=== PATIENT | male | born 1950 | race Caucasian/White ===

== ENCOUNTER 2019-11-28 10:08 | Outpatient (REF) | payer OTHER, SELFPAY ==
--- NOTE | 2019-11-28 10:08 | CT_ITS ---
EXAMINATION: CT CHEST WITHOUT CONTRAST CLINICAL INFORMATION: Pulmonary nodules. COMPARISON: 07/26/2019 and 11/20/2018 TECHNIQUE: Multidetector volumetric CT imaging of the chest was done. Axial MIP volume rendering provided. Sagittal and coronal reformatted images were obtained. This CT examination was performed using dose optimization techniques as appropriate, variously including the following: *Automated exposure control *Adjustment of mA and/or kV according to patient size (this includes techniques or standardized protocols for targeted exams where dose is matched to indication/reason for exam; i.e. extremities or head) *Use of iterative reconstruction technique DLP: 180 mGy-cm FINDINGS: LUNGS: There are changes of centrilobular and paraseptal emphysema present bilaterally. There is some bronchial wall thickening seen bilaterally. This could be related to respiratory bronchiolitis associated interstitial lung disease from smoking as well as other inflammatory or infectious etiologies. Central airways are patent. There is some right apical pleural-parenchymal scarring present. There is a region of atelectasis or scarring with cylindrical bronchiectasis seen within the right middle lobe. There is a discoid region of atelectasis or scarring seen within the lingula. There are a few scattered sub-4 mm noncalcified densities present such as within the left upper lobe on image 128 of 629. MEDIASTINUM: Visualized portions of the thyroid gland appear unremarkable. Heart normal size. Coronary artery calcifications seen. There is nonocclusive plaque seen within the thoracic aorta. No pericardial effusion. The ascending thoracic aorta is prominent at 4 cm in diameter. No mediastinal or hilar lymphadenopathy. PLEURA: There is no pleural effusion. Pleural scarring seen right apex. AXILLA: No lymphadenopathy. UPPER ABDOMEN: There is fatty infiltration of the liver. No adrenal gland mass. OSSEOUS STRUCTURES: No suspicious destructive bony lesions. CT/CT chest wo con IMPRESSION: Changes of centrilobular and paraseptal emphysema with stable right apical scarring. Bronchial wall thickening with some regions of bronchiectasis which may be related to bronchiolitis-associated interstitial lung disease from smoking versus inflammatory or other infectious processes. No suspicious lung nodules. Prominent ascending thoracic aorta at 4 cm in diameter. Fatty infiltration liver.
== END 2019-11-28 10:09 | disposition home or self-care (01) ==
LOC: HO.CT 10:08
PROVIDERS: PCP Nurse Practitioner Family; Visit Provider Internal Medicine Pulmonary Disease
DX: R91.8 Other nonspecific abnormal finding of lung field (principal)
CPT/HCPCS: 71250

== ENCOUNTER → 2019-12-25 14:36 | Outpatient (BNVA) | payer OTHER, SELFPAY | PROVIDERS: PCP Nurse Practitioner Family; Visit Provider Urology | DX: N48.1 Balanitis (principal); R81 Glycosuria; R35.1 Nocturia; N28.1 Cyst of kidney, acquired; N20.0 Calculus of kidney | CPT/HCPCS: 81002; 99212 ==

== ENCOUNTER → 2020-02-05 15:12 | Outpatient (BNVA) | payer OTHER, SELFPAY | PROVIDERS: Visit Provider Urology | DX: Z76.89 Persons encountering health services in other specified circumstances (principal) ==

== ENCOUNTER 2020-04-24 10:30 | Outpatient (REF) | payer OTHER, SELFPAY ==
--- NOTE | ~2020-04-24 | CT_ITS ---
EXAMINATION: CT CHEST WITHOUT CONTRAST CLINICAL INFORMATION: Pulmonary nodule. COMPARISON: 11/28/2019 CT chest TECHNIQUE: Multidetector volumetric CT imaging of the chest was done. Axial MIP volume rendering provided. Sagittal and coronal reformatted images were obtained. This CT examination was performed using dose optimization techniques as appropriate, variously including the following: *Automated exposure control *Adjustment of mA and/or kV according to patient size (this includes techniques or standardized protocols for targeted exams where dose is matched to indication/reason for exam; i.e. 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 LUNGS: There is paraseptal and centrilobular emphysema most prominent in the upper lobes. There is a thick right apical parenchymal scar with apical pleural thickening. There is minimal left apical scar, as well. There is bilateral upper and lower lobe bronchial wall thickening secondary to inflammatory process or smoking. There is right middle lobe consolidation/atelectasis with minimal bronchiectasis, similar to previous study. There is patchy atelectasis or scarring in the lingula. MEDIASTINUM: The thyroid lobes are symmetrical and normal. The heart size is normal caliber. No pericardial effusion seen. There are coronary artery calcifications present. The central trachea and the bronchi are widely patent. PLEURA: There is no pleural effusion, thickening or calcification. AXILLA: No lymphadenopathy. UPPER ABDOMEN: There is partial fatty infiltration of the liver. Otherwise, the rest of the visualized liver, spleen, pancreas, and bilateral adrenal glands appear unremarkable. OSSEOUS STRUCTURES: There is minimal ventral spondylosis dorsal spine. CT/CT chest wo con IMPRESSION: Paraseptal and centrilobular emphysema with chronic bilateral apical pleural and parenchymal thickening and scarring. Diffuse bilateral bronchial wall thickening likely inflammatory process or chronic smoking. Mild consolidation/atelectasis right middle lobe with minimal bronchiectasis.
== END 2020-04-24 10:31 | disposition home or self-care (01) ==
LOC: HO.CT 10:30
PROVIDERS: PCP Nurse Practitioner Family; Visit Provider Internal Medicine Pulmonary Disease
DX: R91.8 Other nonspecific abnormal finding of lung field (principal)
CPT/HCPCS: 71250

== ENCOUNTER → 2020-05-01 10:17 | Outpatient (BNVA) | payer OTHER, SELFPAY | PROVIDERS: PCP Nurse Practitioner Family; Visit Provider Internal Medicine Pulmonary Disease | DX: J44.9 Chronic obstructive pulmonary disease, unspecified (principal); G47.33 Obstructive sleep apnea (adult) (pediatric); R91.8 Other nonspecific abnormal finding of lung field; Z99.89 Dependence on other enabling machines and devices | CPT/HCPCS: 99212 ==

== ENCOUNTER → 2020-10-16 10:01 | Outpatient (BNVA) | payer OTHER, SELFPAY | PROVIDERS: PCP Internal Medicine Endocrinology, Diabetes & Metabolism; Visit Provider Internal Medicine Pulmonary Disease | DX: J44.9 Chronic obstructive pulmonary disease, unspecified (principal); J30.9 Allergic rhinitis, unspecified; G47.33 Obstructive sleep apnea (adult) (pediatric); R91.8 Other nonspecific abnormal finding of lung field; Z99.89 Dependence on other enabling machines and devices | CPT/HCPCS: 99212 ==

== ENCOUNTER → 2021-03-03 11:20 | Outpatient (BNVA) | payer OTHER, SELFPAY | PROVIDERS: PCP Internal Medicine Endocrinology, Diabetes & Metabolism; Visit Provider Urology | DX: N40.1 Benign prostatic hyperplasia with lower urinary tract symptoms (principal); N13.8 Other obstructive and reflux uropathy; N48.1 Balanitis; R31.29 Other microscopic hematuria | CPT/HCPCS: 99212 ==

== ENCOUNTER 2021-04-08 10:33 | Outpatient (REF) | payer OTHER, SELFPAY ==
--- NOTE | ~2021-04-08 | CT_ITS ---
EXAMINATION: CT CHEST WITHOUT CONTRAST CLINICAL INFORMATION: Follow-up pulmonary nodules COMPARISON: Previous chest CT April 2020 TECHNIQUE: Multidetector volumetric CT imaging of the chest was done. Axial MIP volume rendering provided. Sagittal and coronal reformatted images were obtained. This CT examination was performed using dose optimization techniques as appropriate, variously including the following: *Automated exposure control *Adjustment of mA and/or kV according to patient size (this includes techniques or standardized protocols for targeted exams where dose is matched to indication/reason for exam; i.e. extremities or head) *Use of iterative reconstruction technique DLP: 228 mGy-cm FINDINGS: LUNGS: There is evidence of severe emphysema. There are innumerable small lung cysts seen, largest measuring 1.7 cm in the right lower lobe. There is biapical pleural and parenchymal scarring, right greater than left, that is stable. There is atelectasis or consolidation in the right middle lobe and lingula and mild focal bronchiectasis that is stable. There is evidence of airways disease seen in the bilateral lower lobes, right greater than left, with bronchial wall thickening and some bronchial soft tissue opacification on the right. There is a tiny 1 to 2 mm calcified right upper upper lobe nodule, axial image 254 series 5, that is stable. No new pulmonary nodule is seen. MEDIASTINUM: There is coronary artery calcification. The mediastinum is otherwise normal. PLEURA: There is no pleural effusion. No pleural mass or thickening. AXILLA: No lymphadenopathy. UPPER ABDOMEN: There are bilateral renal cysts. OSSEOUS STRUCTURES: There are degenerative changes of the spine. CT/CT chest wo con IMPRESSION: Emphysema and cystic changes. Stable findings of right upper lobe scarring, atelectasis and consolidation in the right middle lobe and lingula, and airways disease in the bilateral lower lobes, right greater than left. Fleischner guidelines were followed.
== END 2021-04-08 10:34 | disposition home or self-care (01) ==
LOC: HO.CT 10:33
PROVIDERS: PCP Internal Medicine Endocrinology, Diabetes & Metabolism; Visit Provider Internal Medicine Pulmonary Disease
DX: R91.8 Other nonspecific abnormal finding of lung field (principal)
CPT/HCPCS: 71250

== ENCOUNTER → 2021-04-13 10:32 | Outpatient (BNVA) | payer OTHER, SELFPAY | PROVIDERS: PCP Nurse Practitioner Family; Visit Provider Internal Medicine Pulmonary Disease | DX: J44.9 Chronic obstructive pulmonary disease, unspecified (principal); R91.8 Other nonspecific abnormal finding of lung field; G47.33 Obstructive sleep apnea (adult) (pediatric); J30.9 Allergic rhinitis, unspecified; Z87.891 Personal history of nicotine dependence; Z99.89 Dependence on other enabling machines and devices; Z79.899 Other long term (current) drug therapy | CPT/HCPCS: 99212 ==

== ENCOUNTER → 2021-10-21 10:30 | Outpatient (BNVA) | payer OTHER, SELFPAY | PROVIDERS: PCP Nurse Practitioner Family; Visit Provider Internal Medicine Pulmonary Disease | DX: J44.9 Chronic obstructive pulmonary disease, unspecified (principal); G47.33 Obstructive sleep apnea (adult) (pediatric); R91.8 Other nonspecific abnormal finding of lung field; Z99.89 Dependence on other enabling machines and devices | CPT/HCPCS: 99212 ==

== ENCOUNTER 2022-02-24 09:23 | Outpatient (REF) | payer OTHER, SELFPAY ==
[2022-02-24 11:27] LABS: Prostate Specific Antigen 0.26 ng/mL (<0.05-4.0)
== END 2022-02-24 09:24 | disposition home or self-care (01) ==
LOC: HO.LAB 09:23
PROVIDERS: PCP Nurse Practitioner Family; Visit Provider Urology
DX: N40.1 Benign prostatic hyperplasia with lower urinary tract symptoms (principal); N13.8 Other obstructive and reflux uropathy; Z12.5 Encounter for screening for malignant neoplasm of prostate
CPT/HCPCS: 36415; 84153

== ENCOUNTER → 2022-03-03 10:35 | Outpatient (BNVA) | payer OTHER, SELFPAY | PROVIDERS: PCP Nurse Practitioner Family; Visit Provider Urology | DX: N40.1 Benign prostatic hyperplasia with lower urinary tract symptoms (principal); N13.8 Other obstructive and reflux uropathy; N48.1 Balanitis | CPT/HCPCS: 99212 ==

== ENCOUNTER 2022-04-14 08:59 | Outpatient (REF) | payer OTHER, SELFPAY ==
--- NOTE | ~2022-04-14 | CT_ITS ---
EXAMINATION: CT CHEST WITHOUT CONTRAST CLINICAL INFORMATION: Abnormal lung findings. COMPARISON: CT chest 04/08/2021. TECHNIQUE: Multidetector volumetric CT imaging of the chest was done. Axial MIP volume rendering provided. Sagittal and coronal reformatted images were obtained. This CT examination was performed using dose optimization techniques as appropriate, variously including the following: *Automated exposure control *Adjustment of mA and/or kV according to patient size (this includes techniques or standardized protocols for targeted exams where dose is matched to indication/reason for exam; i.e. extremities or head) *Use of iterative reconstruction technique DLP: 201 mGy-cm FINDINGS: [employer] COUNSEL: Well-expanded lungs. LUNGS: There is centrilobular emphysema with bilateral apical pleural/parenchymal scarring slightly greater on the right than left. There are multiple bilateral cysts largest in the right lung apex. There is 2 mm nodule right lower lobe axial image 255/5. Mild atelectatic changes right middle lobe and right lower lobe, stable. There is bilateral bronchial wall thickening and mild bronchiectasis in both lower lobes, right middle lobe and lingula. MEDIASTINUM: The thyroid lobes are symmetric and normal. Central trachea and the bronchi are widely patent. Heart size and the great vessels are normal caliber. There are small shotty lymph nodes in the mediastinum. There is no pericardial effusion seen. CORONARY ARTERY CALCIFICATION: Mild coronary artery calcifications are present. PLEURA: There is no pleural effusion, thickening or calcification. AXILLA: No abnormal lymph node seen in bilateral axilla. UPPER ABDOMEN: Visualized liver, spleen, pancreas and bilateral adrenal glands are unremarkable. There are no radiopaque gallstones seen. OSSEOUS STRUCTURES: No aggressive lytic or sclerotic process seen. There is mild ventral spondylosis. CT/CT chest wo IV con IMPRESSION: 1. Stable 2 mm nodule right lower lobe. 2. Centrilobular emphysema with bilateral apical pleural/parenchymal scarring. 3. There is bilateral bronchial wall thickening and mild bronchiectasis in both lower lobes, right middle lobe and lingula. 4. No abnormal mediastinal or axillary lymph nodes seen. Fleischner guidelines were followed.
== END 2022-04-14 09:00 | disposition home or self-care (01) ==
LOC: HO.CT 08:59
PROVIDERS: Visit Provider Internal Medicine Pulmonary Disease
DX: R91.8 Other nonspecific abnormal finding of lung field (principal)
CPT/HCPCS: 71250

== ENCOUNTER → 2022-04-15 10:09 | Outpatient (BNVA) | payer OTHER, SELFPAY | PROVIDERS: PCP Nurse Practitioner Family; Visit Provider Internal Medicine Pulmonary Disease | DX: J44.9 Chronic obstructive pulmonary disease, unspecified (principal); R91.8 Other nonspecific abnormal finding of lung field; G47.33 Obstructive sleep apnea (adult) (pediatric); Z99.89 Dependence on other enabling machines and devices | CPT/HCPCS: 99212 ==

== ENCOUNTER 2022-10-21 10:04 | Outpatient (REF) | payer OTHER, SELFPAY ==
[2022-10-21 10:32] LABS: MANUAL DIFF FLAG NO
[2022-10-21 11:06] LABS: Basophils Absolute Auto 0.1 X10*3/uL (0.0-0.2); Basophils Percent Auto 0.4 % (0-2); Eosinophils Absolute Auto 0.3 X10*3/uL (0.0-0.4); Eosinophils Percent Auto 2.6 % (0-4); Hematocrit 45.5 % (42.0-52.0); Imm Gran Abs Auto 0.05 X10*3/uL (0.00-0.03); Imm Gran Pct Auto 0.4 % (0.0-0.4); Lymphocytes Percent Auto 8.9 % (20-40); Mean Corpuscular Hemoglobin 31.2 pg (27.0-33.0); Mean Corpuscular Volume 94.6 fL (80.0-98.0); Mean Platelet Volume 9.6 fL (9.4-12.4); Monocytes Absolute Auto 0.8 X10*3/uL (0.1-1.2); Monocytes Percent Auto 6.6 % (2-11); Neutrophils Absolute Auto 9.2 x10*3/uL (2.0-8.3); Neutrophils Percent Auto 81.1 % (45-73); Platelet Count 266 X10*3/uL (160-400); Red Blood Count 4.81 X10*6/uL (4.60-5.80); Red Cell Distribution Width 12.5 % (11.0-16.0); White Blood Count 11.4 X10*3/uL (4.8-10.8)
== END 2022-10-21 10:05 | disposition home or self-care (01) ==
LOC: HO.LAB 10:04
PROVIDERS: PCP Nurse Practitioner Family; Visit Provider Internal Medicine Pulmonary Disease
DX: J44.9 Chronic obstructive pulmonary disease, unspecified (principal); R91.8 Other nonspecific abnormal finding of lung field; J30.9 Allergic rhinitis, unspecified; G47.33 Obstructive sleep apnea (adult) (pediatric); Z91.09 Other allergy status, other than to drugs and biological substances; Z99.89 Dependence on other enabling machines and devices
CPT/HCPCS: 36415; 82785; 85025; 86003; 99212

== ENCOUNTER 2022-10-21 10:04 | Outpatient (AMB) | payer OTHER, SELFPAY ==
[2022-10-21 10:06] VITALS: BP 111/62; PULSE 82; O2SAT 955; BMI 31.1
--- NOTE | 2022-10-21 10:06 | A.OFFVIS_ITS ---
Intake Vital Signs 10/21/22 10:06 Height 5 ft 6 in Weight 192 lb 14.472 oz BMI 31.1 BP 111/62 Blood Pressure Location Lt brachial Position Sitting Pulse 82 Pulse Source Doppler Pulse Oximetry (%) 955 H Oxygen Delivery Method Room Air Intake Visit Reasons: COPD Allergies No Known Allergies Allergy (Verified 10/21/22 10:09) HPI COPD HPI Details 72-year-old gentleman, former greater th an 40 pack-year smoker, quit 2012, followed for moderate to severe COPD, pulmonary nodules, and JONAH on CPAP. Patient continues to use his CPAP with good symptomatic control of his underlying sleep apnea.? He has been using Stiolto, Asmanex, and albuterol MDI with reasonable control of his symptoms. At the last office visit his been started on theophylline, however he was not able to get refills. He denies recent COPD exacerbations. He does complain of worsening allergic symptoms now ot controlled on Flonase. Review of Systems Const Denies daytime sleepiness, Denies excessive sweating, Denies fatigue, Denies fever(s), Denies lethargy, Denies malaise, Denies night sweats, Denies snoring and Denies weight loss Eyes Denies blurry vision and Denies itchy eyes ENT Reports nasal congestion, Reports post nasal drip, Denies sinus pain, Denies sinus pressure and Denies other ( Thrush) Card Denies chest pain, Denies pedal edema, Denies dyspnea, Denies orthopnea and Denies paroxysmal nocturnal dyspnea Resp Denies cough, Denies hemoptysis, Denies excessive phlegm production, Denies dyspnea, Denies snoring and Denies wheezing GI Denies abdominal pain and Denies heartburn Musc Denies myalgias, Denies arthralgias and Denies joint swelling Skin/Breast Denies rash Neuro Denies memory loss and Denies seizure-like activity Psych Denies abnormal sleep pattern, Denies anxiety and Denies memory loss Endo Denies excessive sweating, Denies fatigue and Denies heat intolerance Bogdan/Lymph Denies easy bruising Aller/Immun Denies itchy eyes, Denies seasonal rhinorrhea and Denies wheezing Physical Exam Vital Signs: Last Vital Signs Pulse 82 10/21/22 10:06 BP 111/62 10/21/22 10:06 Pulse Ox 955 H 10/21/22 10:06 Oxygen Delivery Method Room Air 10/21/22 10:06 BMI result Body Mass Index 31.1 Const General: no acute distress and alert Nutritional Appearance: not obese Orientation/consciousness: Other orientation findings ( oriented) HEENT Head: Yes atraumatic Eyes General: appearance normal, both eyes and all related structures Sclerae: sclerae normal EOM: EOMs intact bilaterally Neck Neck: Yes supple Lymphatic: no lymphadenopathy noted Resp Effort & Inspection: normal respiratory effort and no use of accessory muscles Auscultation: clear to auscultation bilaterally Cardio Rate: regular rate Rhythm: regular rhythm Heart sounds: no gallops, no murmurs and no rubs Skin General skin exam: other ( warm) Extrem General: No clubbing, No cyanosis and No edema Assessment & Plan Assessment & Plan (1) Moderate COPD (chronic obstructive pulmonary disease): Code(s): J44.9 - Chronic obstructive pulmonary disease, unspecified Plan: Reasonably well controlled on current regimen of Stiolto, Asmanex, and albuterol MDI. Restart theophylline and continue baseline regimen. (2) JONAH on CPAP: Code(s): G47.33 - Obstructive sleep apnea (adult) (pediatric); Z99.89 - Dependence on other enabling machines and devices Plan: Control on current CPAP therapy. Continue current CPAP therapy. (3) Pulmonary nodules: Code(s): R91.8 - Other nonspecific abnormal finding of lung field Plan: Results of CT chest reviewed, small stable underlying pulmonary nodules. Continue with yearly screening. Next in April of 2023. (4) Allergic rhinitis: Code(s): J30.9 - Allergic rhinitis, unspecified Plan: Now with worsening control on Flonase. Will obtain CBC with differential, IgE level, and RAST panel for further evaluation. Orders: Orders Complete Blood Count Auto Diff Today J30.9 - Allergic rhinitis, unspecified Rast Allergen Today J30.9 - Allergic rhinitis, unspecified Medications: Refilled theophylline ER 400 mg PO DAILY 30 days 30 tabs 6RF Coding Level of Care Code Est Pt Level 4 (71085) Diagnoses Moderate COPD (chronic obstructive pulmonary disease) J44.9 JONAH on CPAP G47.33; Z99.89 Pulmonary nodules R91.8 Allergic rhinitis J30.9
== END 2022-10-21 10:22 | disposition home or self-care (01) ==
PROVIDERS: PCP Nurse Practitioner Family; Visit Provider Internal Medicine Pulmonary Disease
DX: J44.9 Chronic obstructive pulmonary disease, unspecified (principal); G47.33 Obstructive sleep apnea (adult) (pediatric); Z99.89 Dependence on other enabling machines and devices; R91.8 Other nonspecific abnormal finding of lung field; J30.9 Allergic rhinitis, unspecified
CPT/HCPCS: 99214

== ENCOUNTER 2023-01-03 10:16 | Outpatient (AMB) | payer OTHER, SELFPAY ==
[2023-01-03 10:18] VITALS: BP 124/62; PULSE 90; O2SAT 95; BMI 32.0
--- NOTE | 2023-01-03 10:18 | A.OFFVIS_ITS ---
Intake Vital Signs 01/03/23 10:18 Height 5 ft 6 in Weight 198 lb 6.656 oz BMI 32.0 BP 124/62 Blood Pressure Location Lt brachial Position Sitting Pulse 90 Pulse Source Doppler Pulse Oximetry (%) 95 Oxygen Delivery Method Room Air Intake Visit Reasons: copd Allergies No Known Allergies Allergy (Verified 01/03/23 10:22) HPI copd HPI Details 72-year-old gentleman, former greater th an 40 pack-year smoker, quit 2012, followed for moderate to severe COPD, pulmonary nodules, and JONAH on CPAP. Patient continues to use his CPAP with good symptomatic control of his underlying sleep apnea.? He has been using Stiolto, Asmanex, theophylline, and albuterol MDI with suboptimal control of his symptoms. He did complete his immunologic testing. He denies acute exacerbations. Review of Systems Const Denies daytime sleepiness, Denies excessive sweating, Denies fatigue, Denies fever(s), Denies lethargy, Denies malaise, Denies night sweats, Denies snoring and Denies weight loss Eyes Denies blurry vision and Denies itchy eyes ENT Reports nasal congestion, Denies post nasal drip, Denies sinus pain, Denies sinu s pressure and Denies other ( Thrush) Card Denies chest pain, Denies pedal edema, Denies dyspnea, Denies orthopnea and Denies paroxysmal nocturnal dyspnea Resp Denies cough, Denies hemoptysis, Denies excessive phlegm production, Denies dyspnea, Denies snoring and Reports wheezing GI Denies abdominal pain and Denies heartburn Musc Denies myalgias, Denies arthralgias and Denies joint swelling Skin/Breast Denies rash Neuro Denies memory loss and Denies seizure-like activity Psych Denies abnormal sleep pattern, Denies anxiety and Denies memory loss Endo Denies excessive sweating, Denies fatigue and Denies heat intolerance Bogdan/Lymph Denies easy bruising Aller/Immun Denies itchy eyes, Denies seasonal rhinorrhea and Reports wheezing Physical Exam Vital Signs: Last Vital Signs Pulse 90 01/03/23 10:18 BP 124/62 01/03/23 10:18 Pulse Ox 95 01/03/23 10:18 Oxygen Delivery Method Room Air 01/03/23 10:18 BMI result Body Mass Index 32.0 Const General: no acute distress and alert Nutritional Appearance: not obese Orientation/consciousness: Other orientation findings ( oriented) HEENT Head: Yes atraumatic Eyes General: appearance normal, both eyes and all related structures Sclerae: sclerae normal EOM: EOMs intact bilaterally Neck Neck: Yes supple Lymphatic: no lymphadenopathy noted Resp Effort & Inspection: normal respiratory effort and no use of accessory muscles Auscultation: clear to auscultation bilaterally Cardio Rate: regular rate Rhythm: regular rhythm Heart sounds: no gallops, no murmurs and no rubs Skin General skin exam: other ( warm) Extrem General: No clubbing, No cyanosis and No edema Assessment & Plan Assessment & Plan (1) Asthma-COPD overlap syndrome: Code(s): J44.89 - Other specified chronic obstructive pulmonary disease Plan: Suboptimally controlled on Stiolto, Asmanex, theophylline, and albuterol MDI. Will request Xolair approval. (2) Environmental allergies: Code(s): Z91.09 - Other allergy status, other than to drugs and biological substances Plan: Suboptimal control on Flonase. Expect to improve on Xolair. Coding Level of Care Code Est Pt Level 4 (41208) Diagnoses Asthma-COPD overlap syndrome J44.89 Environmental allergies Z91.09
== END 2023-01-03 10:36 | disposition home or self-care (01) ==
PROVIDERS: PCP Nurse Practitioner Family; Visit Provider Internal Medicine Pulmonary Disease
DX: J44.89 Other specified chronic obstructive pulmonary disease (principal); Z91.09 Other allergy status, other than to drugs and biological substances
CPT/HCPCS: 99214

== ENCOUNTER → 2023-01-03 10:16 | Outpatient (BNVA) | payer OTHER, SELFPAY | PROVIDERS: PCP Nurse Practitioner Family; Visit Provider Internal Medicine Pulmonary Disease | DX: J44.89 Other specified chronic obstructive pulmonary disease (principal); Z91.09 Other allergy status, other than to drugs and biological substances | CPT/HCPCS: 99212 ==

== ENCOUNTER 2023-03-02 08:25 | Outpatient (AMB) | payer OTHER, SELFPAY ==
--- NOTE | 2023-03-02 08:27 | A.OFFVIS_ITS ---
Intake Intake Visit Reasons: 1Y PVR Intake Note: Patient is Present for Follow Up Yearly PVR Urology Medication:Finasteride, Tamsulosin Antibiotic Allergies:None Blood Thinners: None PVR: 30 Allergies No Known Allergies Allergy (Verified 03/02/23 08:34) Medication List - Last Reconciled 03/02/23 by Deuce Redman MD clotrimazole-betamethasone 1-0.05 % thin coat topical 2 times a day; 4 weeks epinephrine 0.3 mg (0.3 mL) IM Q4H PRN finasteride 5 mg PO DAILY 90 days fluticasone propionate 50 mcg/actuation (Flonase Allergy Relief) 1 spray intranasal BID 30 days metformin 500 mg PO TID mometasone 100 mcg/actuation (Asmanex HFA) 2 puffs inhalation BID 30 days omalizumab (Xolair) 300 mg (2 mL) subcut Q4W 28 days tamsulosin 0.4 mg PO DAILY 90 days theophylline ER 400 mg PO DAILY 30 days tiotropium-olodaterol 2.5-2.5 mcg/actuation (Stiolto Respimat) 2 puffs inhalation DAILY HPI HPI Comments History of Present Illness Details oRlando is a pleasant male. He is a patient of Dr. Llanos. Seen for the following urologic conditions - microscopic hematuria - balanitis with inflamed phimosis - res ponded to diabetic control a topical therapy - lower urinary tract symptoms Effective bladder emptying PVR 30 cc Sufficient stream Minimal nocturia Will try coming off tamsulosin and remain on monotherapy with finasteride Lower urinary tract symptoms Urination better with medications Less urgency Reduced nocturia - PSA 02/28 0.3 Will continue combination therapy - tamsulosin 0.4 mg, finasteride 5 mg Microscopic hematuria Microscopic hematuria was diagnosed during routine UA - ongoing past 3 months. They are here for the Follow-up for alpha brain and prostate medications. Since the last visit the patient has noticed gross hematuria, does not test positive for microscopic hematuria. Relevant medical history for tobacco use - 30 years [address] exposure with organic solvents. Radiographic imagin/20 , CT IVP - bilateral cysts up to 2 cm, right 4 mm kidney stone. Therapeutic plan follow in 12 months with appropriate investigations Review of Systems Const Denies chills and Denies fever(s) Card Reports no additional complaints and Denies syncope Resp Denies cough GI Denies abdominal pain and Denies heartburn Reports as per HPI and Denies change in libido Neuro Denies syncope Psych Denies change in libido Endo Denies change in libido Physical Exam Const General: cooperative, healthy appearing, comfortable and no acute distress Orientation/consciousness: patient oriented x3 HEENT Face and sinus: Yes normal facial exam Mouth: moist mucous membranes Neck Neck: Yes normal visual inspection, Yes full ROM and Yes trachea midline Chest Chest palpation & inspection: normal inspection of the chest Resp Effort & Inspection: normal respiratory effort, able to speak in complete sentences and no respiratory distress GI Inspection: Yes normal to inspection Back/Spine/Pelvis Cervical Spine: normal cervical lordosis Thoracic/Lumbar Spine: thoracic and lumbar spine normal to inspection Skin General skin exam: no rashes or lesions noted Neuro General: patient oriented x3, gait normal, tone normal and moves all extremities Extrem General: Yes normal to inspection and Yes capillary refill normal Office Procedures Post Void Residual Post Residual Void Post Void Residual (PVR): 30 [id number] Void Residual by ultrasound Assessment & Plan Assessment & Plan (1) BPH w urinary obs/LUTS: Code(s): N40.1 - Benign prostatic hyperplasia with lower urinary tract symptoms; N13.8 - Other obstructive and reflux uropathy (2) Balanitis: Code(s): N48.1 - Balanitis Plan Twelve months PVR PSA Orders: Orders AMB Post Void Residual by ultrasound Today N13.8 - Other obstructive and reflux uropathy, N40.1 - Benign prostatic hyperplasia with lower urinary tract symptoms Prostate Specific Antigen 364 Days N13.8 - Other obstructive and reflux uropathy, N40.1 - Benign prostatic hyperplasia with lower urinary tract symptoms Medications: Refilled finasteride 5 mg PO DAILY 90 days 90 tabs 3RF N13.8 - Other obstructive and reflux uropathy, N40.1 - Benign prostatic hyperplasia with lower urinary tract symptoms Patient Instructions: Imaging studies, laboratory and physical exam results were discussed and reviewed in detail. No major barriers to patient understanding were identified. An opportunity to ask questions regarding the treatment plan was provided. All questions were answered. The patient expressed understanding and agreement with the above treatment plan. The patient is aware they should contact our office by phone for worsening of their current condition or the appearance of new urologic symptoms. Compliance is encouraged with any medications and followup testing that is ordered. It is a privilege to participate in the urologic care of your patient. If you have any questions or concerns regarding treatment for the above conditions, or other urologic issues, please do not hesitate to contact me. The office telephone contact is [phone]. This note is constructed using voice recognition software. While every effort has been made to ensure accuracy accounting intern errors may have been included. Yours sincerely, Dr Deuce Redman MD, [facility] - Urology Providers of Expert, Compassionate Care for the Genitourinary System Coding Level of Care Code Est Pt Level 4 (46816) Diagnoses BPH w urinary obs/LUTS N40.1; N13.8 Balanitis N48.1 CPT Codes Post Residual Void - PVR CPT Code: 99829-Ajbo Void Residual by ultrasound ([id number])
== END 2023-03-02 08:49 | disposition home or self-care (01) ==
PROVIDERS: PCP Nurse Practitioner Family; Visit Provider Urology
DX: N40.1 Benign prostatic hyperplasia with lower urinary tract symptoms (principal); N13.8 Other obstructive and reflux uropathy; N48.1 Balanitis
CPT/HCPCS: 99214

== ENCOUNTER → 2023-03-02 08:25 | Outpatient (BNVA) | payer OTHER, SELFPAY | PROVIDERS: PCP Nurse Practitioner Family; Visit Provider Urology | DX: N40.1 Benign prostatic hyperplasia with lower urinary tract symptoms (principal); N13.8 Other obstructive and reflux uropathy; N48.1 Balanitis | CPT/HCPCS: 51798; 99212 ==

== ENCOUNTER 2023-03-14 08:38 | Outpatient (AMB) | payer OTHER, SELFPAY ==
[2023-03-14] VITALS (8 sets, daily range): BP systolic 102–122; BP diastolic 60–64; PULSE 65–76; O2SAT 93–95
--- NOTE | 2023-03-14 10:58 | MHC.OFFVIS ---
Intake Vital Signs 03/14/23 08:50 03/14/23 09:15 03/14/23 09:30 03/14/23 09:45 03/14/23 10:05 03/14/23 10:20 03/14/23 10:40 03/14/23 11:00 Weight 196 lb 3.382 oz BP 122/64 120/60 110/62 112/60 102/60 110/60 110/60 110/64 Blood Pressure Location Lt brachial Lt brachial Lt brachial Lt brachial Lt brachial Lt brachial Lt brachial Lt brachial Position Sitting Sitting Sitting Sitting Sitting Sitting Sitting Sitting Pulse 76 70 65 69 68 65 65 68 Pulse Source Pulse Oximeter Pulse Oximeter Pulse Oximeter Pulse Oximeter Pulse Oximeter Pulse Oximeter Pulse Oximeter Pulse Oximeter Pulse Oximetry (%) 95 93 95 94 94 94 95 95 Oxygen Delivery Method Room Air Room Air Room Air Room Air Room Air Room Air Room Air Room Air Comment post xolair post xolair post xolair post xolair post xolair post xolair post xolair Intake Visit Reasons: Xolair Teaching Allergies No Known Allergies Allergy (Verified 03/14/23 10:59) Medication List - Last Reconciled 03/14/23 by Jes Merchant LPN clotrimazole-betamethasone 1-0.05 % thin coat topical 2 times a day; 4 weeks epinephrine 0.3 mg (0.3 mL) IM Q4H PRN finasteride 5 mg PO DAILY 90 days fluticasone propionate 50 mcg/actuation (Flonase Allergy Relief) 1 spray intranasal BID 30 days metformin 500 mg PO TID mometasone 100 mcg/actuation (Asmanex HFA) 2 puffs inhalation BID 30 days omalizumab (Xolair) 300 mg (2 mL) subcut Q4W 28 days tamsulosin 0.4 mg PO DAILY 90 days theophylline ER 400 mg PO DAILY 30 days tiotropium-olodaterol 2.5-2.5 mcg/actuation (Stiolto Respimat) 2 puffs inhalation DAILY HPI Xolair Teaching HPI Details Rolando is here for a Xolair teach he was educated on hand washing, injection preparation, administration, and disposal.?Rolando was able to return demonstrate proper technique for hand washing, injection preparation, administration and disposal of needle and states he has no questions at this time. Rolando was also educated on how to use the Epi-pen, he states he understands and does not have any questions at this time. Medication Xolair 150mg/ml pre-filled syringe (patient?s own meds) First dose of 300mg given by the patient in 2 SQ injections at 9am; injection #1 L abdomen;?injection #2 R abdomen Lot# [id number] expires 12/07/2023. Patient aware his next injection is in 4 weeks. Nurse visit only.? Rolando was monitored for 2 hours post injection. no signs or symptoms of reaction noted. vital signs stable at 15 minute checks, Rolando left at 11am. Physical Exam Vital Signs: Last Vital Signs Pulse 68 03/14/23 11:00 BP 110/64 03/14/23 11:00 Pulse Ox 95 03/14/23 11:00 Oxygen Delivery Method Room Air 03/14/23 11:00 Assessment & Plan Assessment & Plan (1) Asthma-COPD overlap syndrome: Code(s): J44.89 - Other specified chronic obstructive pulmonary disease Plan Start Xolair. Coding Level of Care Code Established Pt Est Pt Level 1 (63212) Patient Type Established Diagnoses Asthma-COPD overlap syndrome J44.89 Comment NURSE VISIT ONLY
== END 2023-03-14 11:11 | disposition home or self-care (01) ==
PROVIDERS: PCP Nurse Practitioner Family; Visit Provider Internal Medicine Pulmonary Disease
DX: J44.89 Other specified chronic obstructive pulmonary disease (principal)

== ENCOUNTER → 2023-03-14 08:38 | Outpatient (BNVA) | payer OTHER, SELFPAY | PROVIDERS: PCP Nurse Practitioner Family; Visit Provider Internal Medicine Pulmonary Disease | DX: Z71.89 Other specified counseling (principal); J44.89 Other specified chronic obstructive pulmonary disease | CPT/HCPCS: 99211 ==

== ENCOUNTER 2023-04-18 09:39 | Outpatient (AMB) | payer OTHER, SELFPAY ==
[2023-04-18 09:44] VITALS: BP 119/67; PULSE 85; O2SAT 95; BMI 29.8
--- NOTE | 2023-04-18 09:44 | A.OFFVIS_ITS ---
Intake Vital Signs 04/18/23 09:44 Height 5 ft 8 in Weight 196 lb BMI 29.8 BP 119/67 Blood Pressure Location Rt brachial Position Sitting Pulse 85 Pulse Source Doppler Pulse Oximetry (%) 95 Oxygen Delivery Method Room Air Intake Visit Reasons: copd Allergies No Known Allergies Allergy (Verified 03/14/23 10:59) HPI copd HPI Details 73-year-old gentleman, former greater th an 40 pack-year smoker, quit 2012, followed for moderate to severe COPD, pulmonary nodules, and JONAH on CPAP. Patient continues to use his CPAP with good symptomatic control of his underlying sleep apnea.? He has been using Stiolto, Asmanex, theophylline, and albuterol MDI with suboptimal control of his symptoms until he was started on Xolair and now reports significantly improved control. He denies acute exacerbations. His Asmanex was changed to Alvesco by his insurance. Review of Systems Const Denies daytime sleepiness, Denies excessive sweating, Denies fatigue, Denies fe terese(s), Denies lethargy, Denies malaise, Denies night sweats, Denies snoring and Denies weight loss Eyes Denies blurry vision and Denies itchy eyes ENT Denies nasal congestion, Denies post nasal drip, Denies sinus pain, Denies sinus pressure and Denies other ( Thrush) Card Denies chest pain, Denies pedal edema, Denies dyspnea, Denies orthopnea and Denies paroxysmal nocturnal dyspnea Resp Denies cough, Denies hemoptysis, Denies excessive phlegm production, Denies dyspnea, Denies snoring and Denies wheezing GI Denies abdominal pain and Denies heartburn Musc Denies myalgias, Denies arthralgias and Denies joint swelling Skin/Breast Denies rash Neuro Denies memory loss and Denies seizure-like activity Psych Denies abnormal sleep pattern, Denies anxiety and Denies memory loss Endo Denies excessive sweating, Denies fatigue and Denies heat intolerance Bogdan/Lymph Denies easy bruising Aller/Immun Denies itchy eyes, Denies seasonal rhinorrhea and Denies wheezing Physical Exam Vital Signs: Last Vital Signs Pulse 85 04/18/23 09:44 BP 119/67 04/18/23 09:44 Pulse Ox 95 04/18/23 09:44 Oxygen Delivery Method Room Air 04/18/23 09:44 BMI result Body Mass Index 29.8 Const General: no acute distress and alert Nutritional Appearance: not obese Orientation/consciousness: Other orientation findings ( oriented) HEENT Head: Yes atraumatic Eyes General: appearance normal, both eyes and all related structures Sclerae: sclerae normal EOM: EOMs intact bilaterally Neck Neck: Yes supple Lymphatic: no lymphadenopathy noted Resp Effort & Inspection: normal respiratory effort and no use of accessory muscles Auscultation: clear to auscultation bilaterally Cardio Rate: regular rate Rhythm: regular rhythm Heart sounds: no gallops, no murmurs and no rubs Skin General skin exam: other ( warm) Extrem General: No clubbing, No cyanosis and No edema Assessment & Plan Assessment & Plan (1) Asthma-COPD overlap syndrome: Code(s): J44.89 - Other specified chronic obstructive pulmonary disease Plan: Significantly improved control after initiation on Xolair. Continue Xolair, Alvesco, Stiolto, theophylline, and albuterol MDI. (2) Environmental allergies: Code(s): Z91.09 - Other allergy status, other than to drugs and biological substances Plan: Well controlled on Xolair. Continue current regimen. (3) JONAH on CPAP: Code(s): G47.33 - Obstructive sleep apnea (adult) (pediatric); Z99.89 - Dependence on other enabling machines and devices Plan: Well controlled on current CPAP therapy. Continue CPAP therapy. Medications: New ciclesonide 160 mcg/actuation (Alvesco) 1 puff inhalation BID 6.1 grams 6RF 30 days Discontinued mometasone 100 mcg/actuation (Asmanex HFA) Discontinued Reason: Doctor's Order 2 puffs inhalation BID 1 ea 6RF 30 days Coding Level of Care Code Est Pt Level 4 (07898) Diagnoses Asthma-COPD overlap syndrome J44.89 Environmental allergies Z91.09 JONAH on CPAP G47.33; Z99.89
== END 2023-04-18 09:56 | disposition home or self-care (01) ==
PROVIDERS: PCP Nurse Practitioner Family; Referring Provider Internal Medicine Pulmonary Disease; Visit Provider Internal Medicine Pulmonary Disease
DX: J44.89 Other specified chronic obstructive pulmonary disease (principal); Z91.09 Other allergy status, other than to drugs and biological substances; G47.33 Obstructive sleep apnea (adult) (pediatric); Z99.89 Dependence on other enabling machines and devices
CPT/HCPCS: 99214

== ENCOUNTER → 2023-04-18 09:39 | Outpatient (BNVA) | payer OTHER, SELFPAY | PROVIDERS: PCP Nurse Practitioner Family; Visit Provider Internal Medicine Pulmonary Disease | DX: J44.89 Other specified chronic obstructive pulmonary disease (principal); G47.33 Obstructive sleep apnea (adult) (pediatric); Z91.09 Other allergy status, other than to drugs and biological substances; Z99.89 Dependence on other enabling machines and devices | CPT/HCPCS: 99212 ==

== ENCOUNTER 2023-08-21 09:49 | Outpatient (AMB) | payer OTHER, SELFPAY ==
--- NOTE | 2023-08-21 10:06 | A.OFFVIS_ITS ---
Vital Signs 08/21/23 10:17 Height 5 ft 8 in Weight 193 lb 1.999 oz BMI 29.4 BP 128/78 Blood Pressure Location Lt brachial Position Sitting Pulse 66 Pulse Source Pulse Oximeter Pulse Oximetry (%) 94 Oxygen Delivery Method Room Air Intake Visit Reasons: Colonoscopy Screening Intake Note: Rolando presents in office today for a scheduled colo s/p scrn CC: Pt reports that they performed an at home cologuard test which came back positive. Their PCP referred them here based on that result. Pt denies any sx or other significant concerns at this time. Induction Heat Treater Required: No Allergies No Known Allergies Allergy (Verified 08/21/23 10:07) HPI HPI Colonoscopy Screening: Details: 73 year old? male with past medical history of asthma, COPD, BPH, allergic rhinitis, JONAH, on CPAP, pulmonary nodules, diabetes is here today for pre colonoscopy screening.? Patient was sent to us by his PCP.? This is his first colonoscopy screening.? Patient had positive Cologuard couple months ago. Patient denies any gastrointestinal symptoms in the past or at present.? Denies any personal or family history of gastrointestinal disease, colon polyps, or CRC.? Denies history of difficulty with sedation or anesthesia in the past.? History of sleep apnea, uses CPAP every night. Denies any history of cardiac, renal, pulmonary, or hepatic disease.?? No history of infectious? diseases like hepatitis A, B, C, HIV or tuberculosis.? Patient is not on any anticoagulation [facility] Surgical History Hx of hernia repair (~1994) Social History Alcohol intake: never Patient Tobacco Use Status: Never used Tobacco Review of Systems Const Denies weight gain and Denies weight loss ENT Reports no additional complaints, Denies dysphagia and Denies odynophagia Card Reports no additional complaints Resp Reports no additional complaints GI Denies abdominal pain, Denies belching, Denies melena, Denies bloating, Denies change in bowel habits, Denies dysphagia, Denies excessive flatus, Denies dyspepsia, Denies heartburn, Denies diarrhea, Denies loose stools, Denies nausea, Denies odynophagia and Denies vomiting Reports no additional complaints Musc Reports no additional complaints Neuro Reports no additional complaints Psych Reports no additional complaints Endo Reports no additional complaints Physical Exam Vital Signs: Last Vital Signs Pulse 66 08/21/23 10:17 BP 128/78 08/21/23 10:17 Pulse Ox 94 08/21/23 10:17 Oxygen Delivery Method Room Air 08/21/23 10:17 BMI result Body Mass Index 29.4 Const General: healthy appearing, no acute distress and well developed Nutritional Appearance: well nourished Orientation/consciousness: patient oriented x3 Resp Effort & Inspection: normal respiratory effort, able to speak in complete sentences, no tracheal deviation and symmetric chest movement Auscultation: clear to auscultation bilaterally Cardio Rate: regular rate GI Inspection: Yes normal to inspection and No distended Palpation (GI): Soft to palpation, not firm, nontender and No hepatosplenomegaly present Auscultation: normal bowel sounds General: Yes no CVA tenderness Back/Spine/Pelvis Back: no CVA tenderness Skin General skin exam: elasticity normal, turgor normal and dry skin Neuro General: patient oriented x3 Psych Appearance: grossly normal Mental Status: mental status grossly normal Assessment & Plan Assessment & Plan (1) Positive colorectal cancer screening using Cologuard test: Code(s): R19.5 - Other fecal abnormalities Plan Patient denies any GI, cardiac or respiratory symptoms.? Denies any issues with anesthesia in the past.? History of sleep apnea, uses CPAP every night. No history infectious diseases in the past or present.? Not on any anticoagulation therapy.? No family or personal history of colon cancer or polyps.? Patient denies melena, hematochezia, unintentional weight loss or ribbon like stools.? Discussed at length the pre-procedure,? prep, diet & medications as well as what to expect prior, during and after the procedure.?? Stressed the importance of good bowel prep.? Recommended the use of Vaseline or Calmoseptine OTC & baby wipes with bowel movements to promote comfort.? ?Patient verbalizes understanding and agrees to plan of care.? He was given the opportunity to ask questions and all questions answered.? We will see him after the procedure.? Medications: New polyethylene glycol 3350 (Miralax) As directed by gastroenterology department at [facility] 238 grams PO ONCE 238 grams 0RF Z12.11 - Encounter for screening for malignant neoplasm of colon bisacodyl (Dulcolax (bisacodyl)) take 4 tabs at noon the day before your colonoscopy 20 mg (4 x 5 mg) PO ONCE 1 day 4 tabs 0RF Z12.11 - Encounter for screening for malignant neoplasm of colon Coding Level of Care Code New Pt Level 3 (08972) Diagnoses Positive colorectal cancer screening using Cologuard test R19.5 Time Spent (min) 40 Comment 30 minutes spent with patient and additional 10 minutes spent reviewing his records
[2023-08-21 10:17] VITALS: BP 128/78; PULSE 66; O2SAT 94; BMI 29.4
== END 2023-08-21 11:07 | disposition home or self-care (01) ==
PROVIDERS: PCP Nurse Practitioner Family; Referring Provider Internal Medicine Endocrinology, Diabetes & Metabolism; Visit Provider Nurse Practitioner Family
DX: R19.5 Other fecal abnormalities (principal)
CPT/HCPCS: 99203

== ENCOUNTER → 2023-08-21 09:49 | Outpatient (BNVA) | payer OTHER, SELFPAY | PROVIDERS: PCP Nurse Practitioner Family; Visit Provider Nurse Practitioner Family | DX: R19.5 Other fecal abnormalities (principal) | CPT/HCPCS: 99202 ==

== ENCOUNTER 2023-08-28 09:17 | Outpatient (AMB) | payer OTHER, SELFPAY ==
[2023-08-28 09:19] VITALS: BP 137/72; PULSE 80; O2SAT 94; BMI 29.5
--- NOTE | 2023-08-28 09:19 | A.OFFVIS_ITS ---
Vital Signs 08/28/23 09:19 Height 5 ft 8 in Weight 194 lb 0.108 oz BMI 29.5 BP 137/72 Blood Pressure Location Lt brachial Position Sitting Pulse 80 Pulse Source Doppler Pulse Oximetry (%) 94 Oxygen Delivery Method Room Air Intake Visit Reasons: COPD Allergies No Known Allergies Allergy (Verified 08/28/23 09:24) HPI HPI COPD: Details: 73-year-old gentleman, former greater than 40 pack-year smoker, quit 2012, followed for moderate to severe asthma/COPD, pulmonary nodules, and JONAH on CPAP. Patient continues to use his CPAP with good symptomatic control of his underlying sleep apnea.? He has been using Stiolto, Asmanex, theophylline, and albuterol MDI with suboptimal control of his symptoms until he was started on Xolair after which he had excellent control until he has ran out of his inhalers approximately 2 weeks prior. Though, he denies an acute exacerbation. [facility] Surgical History Hx of hernia repair (~1994) Social History Alcohol intake: never Patient Tobacco Use Status: Never used Tobacco Review of Systems Const Denies daytime sleepiness, Denies excessive sweating, Denies fatigue, Denies fever(s), Denies lethargy, Denies malaise, Denies night sweats, Denies snoring and Denies weight loss Eyes Denies blurry vision and Denies itchy eyes ENT Denies nasal congestion, Denies post nasal drip, Denies sinus pain, Denies sinus pressure and Denies other ( Thrush) Card Denies chest pain, Denies pedal edema, Denies dyspnea, Reports dyspnea on exertion, Denies orthopnea and Denies paroxysmal nocturnal dyspnea Resp Denies cough, Denies hemoptysis, Denies excessive phlegm production, Denies dyspnea, Reports dyspnea on exertion, Denies snoring and Denies wheezing GI Denies abdominal pain and Denies heartburn Musc Denies myalgias, Denies arthralgias and Denies joint swelling Skin/Breast Denies rash Neuro Denies memory loss and Denies seizure-like activity Psych Denies abnormal sleep pattern, Denies anxiety and Denies memory loss Endo Denies excessive sweating, Denies fatigue and Denies heat intolerance Bogdan/Lymph Denies easy bruising Aller/Immun Denies itchy eyes, Denies seasonal rhinorrhea and Denies wheezing Physical Exam Vital Signs: Last Vital Signs Pulse 80 08/28/23 09:19 BP 137/72 08/28/23 09:19 Pulse Ox 94 08/28/23 09:19 Oxygen Delivery Method Room Air 08/28/23 09:19 BMI result Body Mass Index 29.5 Const General: no acute distress and alert Nutritional Appearance: not obese Orientation/consciousness: Other orientation findings ( oriented) HEENT Head: Yes atraumatic Eyes General: appearance normal, both eyes and all related structures Sclerae: sclerae normal EOM: EOMs intact bilaterally Neck Neck: Yes supple Lymphatic: no lymphadenopathy noted Resp Effort & Inspection: normal respiratory effort and no use of accessory muscles Auscultation: clear to auscultation bilaterally Cardio Rate: regular rate Rhythm: regular rhythm Heart sounds: no gallops, no murmurs and no rubs Skin General skin exam: other ( warm) Extrem General: No clubbing, No cyanosis and No edema Assessment & Plan Assessment & Plan (1) Asthma-COPD overlap syndrome: Code(s): J44.89 - Other specified chronic obstructive pulmonary disease Category: Medical Plan: Now with suboptimal control as patient has ran out his inhalers. Restart Alvesco, Stiolto, albuterol MDI/nebs, and theophylline. Continue Xolair. (2) Environmental allergies: Code(s): Z91.09 - Other allergy status, other than to drugs and biological substances Category: Medical Plan: Well controlled on Xolair. Continue current regimen. (3) JONAH on CPAP: Code(s): G47.33 - Obstructive sleep apnea (adult) (pediatric); Z99.89 - Dependence on other enabling machines and devices Category: Medical Plan: Well controlled on CPAP therapy. Continue CPAP therapy. (4) Personal history of nicotine dependence: Code(s): Z87.891 - Personal history of nicotine dependence Category: Medical Plan: Lung cancer screening CT chest ordered. Orders: Orders CT lung screening 09/28/23 Z87.891 - Personal history of nicotine dependence Medications: New albuterol sulfate 2.5 mg (3 mL) inhalation Q4-6H PRN 270 mL 6RF shortness of breath or wheezing Coding Level of Care Code Est Pt Level 5 (10472) Diagnoses Asthma-COPD overlap syndrome J44.89 Environmental allergies Z91.09 JONAH on CPAP G47.33; Z99.89 Personal history of nicotine dependence Z87.891
== END 2023-08-28 09:34 | disposition home or self-care (01) ==
PROVIDERS: PCP Nurse Practitioner Family; Visit Provider Internal Medicine Pulmonary Disease
DX: J44.89 Other specified chronic obstructive pulmonary disease (principal); G47.33 Obstructive sleep apnea (adult) (pediatric); Z99.89 Dependence on other enabling machines and devices; Z87.891 Personal history of nicotine dependence
CPT/HCPCS: 99214

== ENCOUNTER → 2023-08-28 09:17 | Outpatient (BNVA) | payer OTHER, SELFPAY | PROVIDERS: PCP Nurse Practitioner Family; Visit Provider Internal Medicine Pulmonary Disease | DX: J44.89 Other specified chronic obstructive pulmonary disease (principal); G47.33 Obstructive sleep apnea (adult) (pediatric); Z91.09 Other allergy status, other than to drugs and biological substances; Z99.89 Dependence on other enabling machines and devices; Z87.891 Personal history of nicotine dependence | CPT/HCPCS: 99212 ==

== ENCOUNTER 2023-10-03 10:14 | Outpatient (REF) | payer OTHER, SELFPAY ==
--- NOTE | ~2023-10-03 | CT_ITS ---
EXAMINATION: CT LOW-DOSE SCREENING CHEST WITHOUT CONTRAST CLINICAL INFORMATION: Personal history of nicotine dependence. The patient has a 42 pack-year history of smoking, having quit 11 years ago. COMPARISON: CT chest April 14, 2022. TECHNIQUE: Multidetector volumetric CT imaging of the chest is performed on a Siemens SOMATOM Definition scanner without contrast using low dose technique. Additional 2D coronal and sagittal reformatted images and axial 3D maximum intensity projection (MIP) images are generated on the CT workstation. This CT examination was performed using dose optimization techniques as appropriate, variously including the following: *Automated exposure control *Adjustment of mA and/or kV according to patient size (this includes techniques or standardized protocols for targeted exams where dose is matched to indication/reason for exam; i.e. extremities or head) *Use of iterative reconstruction technique TOTAL EXAM DLP: 62 mGy-cm. CTDIvol: 1.78 mGy. FINDINGS: PULMONARY NODULES: No concerning or suspicious pulmonary nodules. LUNGS: Lungs bilaterally symmetrically expanded. Asymmetric pleural-parenchymal apical pleural scarring, right greater than left, unchanged. Moderate emphysematous changes are present. There is diffuse bronchial thickening present. There is bibasilar atelectasis present, right greater than left with some associated traction bronchiectasis. No effusion or pneumothorax. Central airways patent. MEDIASTINUM: No mediastinal, hilar or axillary adenopathy or free fluid collection. CORONARY ARTERY CALCIFICATION: Mild. THYROID GLAND: Unremarkable to the extent seen. CARDIOVASCULAR STRUCTURES: Aortic and heart size normal. No pericardial effusion. CHEST WALL/AXILLA: Unremarkable. UPPER ABDOMEN: A tiny gallstone may be present on the last image of the scan (3:64). A benign 3 cm left upper pole Bosniak class I renal cyst is noted which requires no additional imaging or followup. No solid renal masses are seen. OSSEOUS STRUCTURES: No suspicious focal findings. CT/CT lung screening IMPRESSION: No finding seen concerning for malignancy. ASSESSMENT: 1. Lung-RADS Category 1: Negative. There are no nodules or there are definitely benign nodules. N/A 2. Lung-RADS Category S: Negative. There are no clinically significant or potentially clinically significant findings not related to the lungs requiring urgent additional evaluation. RECOMMENDATION: Continued routine annual low-dose CT lung screening in 1 year is recommended. An order for CT CHEST LOW DOSE CANCER SCREENING ([id number]) can be placed. Electronically signed by: Gerhard Cowart MD 10/27/2023 11:59 AM EDT RP
== END 2023-10-03 10:15 | disposition home or self-care (01) ==
LOC: HO.CT 10:14
PROVIDERS: PCP Nurse Practitioner Family; Visit Provider Internal Medicine Pulmonary Disease
DX: Z12.2 Encounter for screening for malignant neoplasm of respiratory organs (principal); Z87.891 Personal history of nicotine dependence
CPT/HCPCS: 71271

== ENCOUNTER 2023-10-11 08:53 | Outpatient (AMB) | payer OTHER, SELFPAY ==
[2023-10-11 09:05] VITALS: BP 108/62; PULSE 78; O2SAT 95; BMI 30.2
--- NOTE | 2023-10-11 09:05 | A.OFFVIS_ITS ---
Vital Signs 10/11/23 09:05 Height 5 ft 8 in Weight 198 lb 6.656 oz BMI 30.2 BP 108/62 Blood Pressure Location Rt brachial Position Sitting Pulse 78 Pulse Source Doppler Pulse Oximetry (%) 95 Oxygen Delivery Method Room Air Intake Visit Reasons: COPD Allergies No Known Allergies Allergy (Verified 08/28/23 09:24) HPI HPI COPD: Details: 73-year-old gentleman, former greater than 40 pack-year smoker, quit 2012, followed for moderate to severe asthma/COPD, pulmonary nodules, and JONAH on CPAP. Patient continues to use his CPAP with good symptomatic control of his underlying sleep apnea.? He has been using Xolair, Stiolto, Asmanex, theophylline, and albuterol MDI with good control of his symptoms. He denies any recent exacerbations. [facility] Surgical History Hx of hernia repair (~1994) Social History Alcohol intake: never Patient Tobacco Use Status: Never used Tobacco Review of Systems Const Denies daytime sleepiness, Denies excessive sweating, Denies fatigue, Denies fever(s), Denies lethargy, Denies malaise, Denies night sweats, Denies snoring and Denies weight loss Eyes Denies blurry vision and Denies itchy eyes ENT Denies nasal congestion, Denies post nasal drip, Denies sinus pain, Denies sinus pressure and Denies other ( Thrush) Card Denies chest pain, Denies pedal edema, Denies dyspnea, Denies orthopnea and Denies paroxysmal nocturnal dyspnea Resp Denies cough, Denies hemoptysis, Denies excessive phlegm production, Denies dys pnea, Denies snoring and Denies wheezing GI Denies abdominal pain and Denies heartburn Musc Denies myalgias, Denies arthralgias and Denies joint swelling Skin/Breast Denies rash Neuro Denies memory loss and Denies seizure-like activity Psych Denies abnormal sleep pattern, Denies anxiety and Denies memory loss Endo Denies excessive sweating, Denies fatigue and Denies heat intolerance Bogdan/Lymph Denies easy bruising Aller/Immun Denies itchy eyes, Denies seasonal rhinorrhea and Denies wheezing Physical Exam Vital Signs: Last Vital Signs Pulse 78 10/11/23 09:05 BP 108/62 10/11/23 09:05 Pulse Ox 95 10/11/23 09:05 Oxygen Delivery Method Room Air 10/11/23 09:05 BMI result Body Mass Index 30.2 Const General: no acute distress and alert Nutritional Appearance: not obese Orientation/consciousness: Other orientation findings ( oriented) HEENT Head: Yes atraumatic Eyes General: appearance normal, both eyes and all related structures Sclerae: sclerae normal EOM: EOMs intact bilaterally Neck Neck: Yes supple Lymphatic: no lymphadenopathy noted Resp Effort & Inspection: normal respiratory effort and no use of accessory muscles Auscultation: clear to auscultation bilaterally Cardio Rate: regular rate Rhythm: regular rhythm Heart sounds: no gallops, no murmurs and no rubs Skin General skin exam: other ( warm) Extrem General: No clubbing, No cyanosis and No edema Assessment & Plan Assessment & Plan (1) Asthma-COPD overlap syndrome: Code(s): J44.89 - Other specified chronic obstructive pulmonary disease Category: Medical Plan: Well controlled on current regimen of Xolair, Stiolto, Alvesco, theophylline, and albuterol MDI/nebs. Continue current regimen. (2) Environmental allergies: Code(s): Z91.09 - Other allergy status, other than to drugs and biological substances Category: Medical Plan: Well controlled on Xolair. Continue current regimen. (3) JONAH on CPAP: Code(s): G47.33 - Obstructive sleep apnea (adult) (pediatric); Z99.89 - Dependence on other enabling machines and devices Category: Medical Plan: Well controlled current CPAP therapy. Continue CPAP therapy. (4) Personal history of nicotine dependence: Code(s): Z87.891 - Personal history of nicotine dependence Category: Medical Plan: Radiology reading of most recent lung cancer screening CT chest not available for this appointment. On my review no worrisome nodules. Continue with yearly screening, next in October of 2024. Orders: Orders CT lung screening 10/07/24 Z87.891 - Personal history of nicotine dependence Coding Level of Care Code Est Pt Level 5 (48539) Diagnoses Asthma-COPD overlap syndrome J44.89 Environmental allergies Z91.09 JONAH on CPAP G47.33; Z99.89 Personal history of nicotine dependence Z87.891
== END 2023-10-11 09:18 | disposition home or self-care (01) ==
PROVIDERS: PCP Nurse Practitioner Family; Visit Provider Internal Medicine Pulmonary Disease
DX: J44.89 Other specified chronic obstructive pulmonary disease (principal); G47.33 Obstructive sleep apnea (adult) (pediatric); Z99.89 Dependence on other enabling machines and devices; Z87.891 Personal history of nicotine dependence
CPT/HCPCS: 99214

== ENCOUNTER → 2023-10-11 08:53 | Outpatient (BNVA) | payer OTHER, SELFPAY | PROVIDERS: PCP Nurse Practitioner Family; Visit Provider Internal Medicine Pulmonary Disease | DX: J44.89 Other specified chronic obstructive pulmonary disease (principal); G47.33 Obstructive sleep apnea (adult) (pediatric); Z91.09 Other allergy status, other than to drugs and biological substances; Z99.89 Dependence on other enabling machines and devices; Z87.891 Personal history of nicotine dependence | CPT/HCPCS: 99212 ==

== ENCOUNTER 2024-02-27 11:33 | Outpatient (REF) | payer OTHER, SELFPAY ==
--- OUTSIDE RECORDS SUMMARY | 2024-02-27 13:22 | XMS_ITS | Encounter Summary ---
Author Name [facility] Organization [facility] Address [address] [place] [address] Care Team Providers Care Hims Coder Name Role Phone LÓPEZ GOLDMAN Primary Care Provider Unavaila [facility] Insurance Providers: All historical and current Section Date Range: From patient's date of to the date document was created. This section includes the names of all active insurance providers for the patient. Insurance Provider Type of Coverage Plan Name Start of Policy Coverage End of Policy Coverage Group Number Member ID Insurance Provider's Telephone Number Policy Saxena's Name Patient's Relationship to Policy Saxena MEDICARE (WNR) MEDICARE (M) PART A Feb 06, 2017 PART A [id number] Chloé DUFFY PATIENT MEDICARE (WNR) MEDICARE (M) PART B Feb 06, 2017 PART B [id number] Chloé DUFFY PATIENT MEDICARE (WNR) MEDICARE (M) PART A Feb 06, 2017 PART A [id number] Chloé DUFFY PATIENT Selected Encounter This section includes the information on record at [place] for the Encounter. Date/Time Encounter Type Encounter Description Reason Provider Source Mar 23, 2023 12:00 PM OFFICE O/P EST LOW 20 MIN PRIMARY CARE/MEDICINE ICD-10-CM M54.2 CervicalNIKHIL [place] [facility] Encounter Template Text not used by [place] Assessments - Encounter Diagnoses This section includes the primary and secondary diagnoses documented for the Encounter. Date/Time Primary/Secondary Diagnosis Diagnosis Name Provider Source Mar 23, 2023 12:00 PM PRIMARY NIKHIL Ballard [place] [facility] Plan of Treatment: Future Appointments (+ 6 months) and Future Tests (+/- 45 days) The Plan of Treatment section includes future care activities for the patient from all [place] treatmentfacilities. This section includes future appointments and future orders which are active, pending or scheduled. Future Appointments This section includes appointments that were scheduled to occur 6 months from the date of the Encounter, up to a maximum of 20 appointments. The data comes from all [place] treatment facilities. Appointment Date/Time Appointment Type Appointme nt Facility Name Apr 19, 2023 09:30 AM [facility]UL[facility]ICINE [facility] May 17, 2023 10:00 AM [facility]UL[facility] May 23, 2023 09:30 AM AMBULATORY - NONE [facility] May 25, 2023 08:00 AM AMBULATORY - NONE [facility] June 27, 2023 08:30 AM [facility] Jul 11, 2023 02:30 PM [facility] Jul 25, 2023 08:30 AM [facility] Jul 31, 2023 01:00 PM [facility] Aug 21, 2023 10:15 AM AMBULATORY - NONE [facility] Aug 28, 2023 09:30 AM [facility] Aug 30, 2023 08:30 AM [facility] Sep 01, 2023 01:00 PM [facility]UL[facility] Sep 19, 2023 10:30 AM [facility] Lab Results: +/- 30 days of the encounter This section includes the Chemistry and Hematology Lab Results on record with [place] for the patient. Radiology Reports and Pathology Reports are provided separately, in subsequent sections. Lab Results This section contains the Chemistry/Hematology Results that were resulted 30 days before or 30 daysafter the date of the Encounter. Date/Time Source Result Type Result - Unit Interpretation Reference Range Comment Apr 06, 2023 11:35 AM [facility] HEMOGLOBIN A1C PANEL Specimen Type: BLOOD Comment: Values obtained from A1C measurements can vary. For atypical A1C assays, a reported value of 7.0 could actually be between 6.72 and 7.28 if measured by a reference method. A reported value of 9.0 could actually be between 8.73 and 9.27. Ref: http://www.ngs p.org/CAPdata. asp Ordering Provider: SANTY MOORE Report Released Date/Time: Mar 30, 2023 10:45 AM Reporting Lab: [address] [id number] Performing Lab: [address] [id number] HEMOGLOBIN A1C 6.7 H 4.0-5.6 Apr 06, 2023 11:35 AM [facility] LIPID PANEL FASTING Specimen Type: SERUM No comment entered. Ordering Provider: SANTY MOORE Report Released Date/Time: Mar 30, 2023 10:45 AM Reporting Lab: [address] [id number] Performing Lab: [address] [address] CHOLESTEROL 191 mg/dL TRIGLYCERIDE 438 mg/dL H 0-150 LDL calculated Reflex to dLD L mg/dL 0-129 CHOL/HDL 5.5 HDL CHOLESTEROL 35 mg/dL L 40-60 LDL DIRECT 110 mg/dL Apr 06, 2023 11:35 AM [facility] BASIC METABOLIC PANEL (fasting) Specimen Type: SERUM No comment entered. Ordering Provider: SANTY MOORE Report Released Date/Time: Mar 30, 2023 10:45 AM Reporting Lab: [facility] [address] [facility] [phone] Performing Lab: [address] [address] UREA NITROGEN 23 mg/dL 7-25 GLUCOSE 124 mg/dL H 65-100 SODIUM 138 mmol/L 135-145 POTASSIUM 4.7 mmol/L 3.5-5.0 CHLORIDE 103 mmol/L 100-110 CO2 24 meq/L 20-30 CREATININE, Serum 1.07 mg/dL 0.50-1.40 eGFR(CKD-EPI 2020) 74 mL/min >60 Apr 06, 2023 11:35 AM [facility] MICROALBUMIN CREATININE RATIO PANEL Specimen Type: URINE No comment entered. Ordering Provider: SANTY MOORE Released Date/Time: Mar 30, 2023 10:45 AM Reporting Lab: [address] [address] Performing Lab: [address] [address] MICROALBUMIN/C REATININE RATIO canc mg/g 0-29.9 MICROALBUMIN,Q UANTITATIVE < 0.5 mg/dL RR UNAVAIL CREATININE URINE 45.97 mg/dL Vital Signs: All taken on the encounter date This section contains inpatient and outpatient Vital Signs collected on the date of the Encounter. Date/Time Temperature Pulse Blood Pressure Respiratory Rate SP02 Pain Height Weight Body Mass Index Source Mar 23, 2023 10:58 AM 97.9 95 138/88 16 3 [facility] [employer] Social History: Smoking Status (Most current) and Tobacco Use (All prior to encounter date) This section includes the most current, and the historical, smoking and tobacco- related health factors from the [place] facility where the Encounter took place. Current Smoking Status This section includes the most current smoking, or tobacco-related health factor, from the [place] facility where the Encounter took place. Date/Time Current Smoking Status Comment Facil ity Sep 15, 2022 01:00 PM VA-[facility]ACCO FORMER USER [facility] Tobacco Use History This section includes a history of the smoking, or tobacco-related health factors, that were collected on or before the date of the Encounter. The data comes from the [place] facility where the Encounter took place. Date/Time Smoking Status/Tobacco Use Comment F acility Sep 15, 2022 01:00 PM VA-TOBACCO QUIT 5 TO < 15 YRS [facility] Jul 09, 2021 09:00 AM VA-TOBACCO FORMER USER [facility] Jul 09, 2021 09:00 AM VA-TOBACCO QUIT 15 YRS OR MORE [facility] Mar 04, 2020 10:00 AM VA-TOBACCO FORMER USER [facility] Mar 04, 2020 10:00 AM VA-TOBACCO QUIT 5 TO < 15 YRS [facility] Nov 27, 2018 10:35 AM VA-TOBACCO FORMER USER [facility] Nov 27, 2018 10:35 AM VA-TOBACCO QUIT 5 TO < 15 YRS [facility] Jan 19, 2018 09:11 AM VA-TOBACCO USE > 1 5 LESS THAN 30 YEARS [facility] Jan 19, 2018 09:11 AM VA-TOBACCO USE ADVICE [facility] Jan 19, 2018 09:11 AM VA-TOBACCO USE PARI M[employer]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
--- OUTSIDE RECORDS SUMMARY | 2024-02-27 13:22 | XMS_ITS | Encounter Summary ---
Author Name [facility] [place] [facility] [place] Address [address] [place] [address] Care Team Providers Care Hall Cleaner Name Role Phone LÓPEZ GOLDMAN Primary Care Provider [facility] Insurance Providers: All historical and current Section [...] PART A Feb 06, 2017 PART A [id number] Chloé MILTON PATIENT MEDICARE (WNR) MEDICARE (M) PART B Feb 06, 2017 PART B [id number] Chloé MILTON PATIENT MEDICARE (WNR) MEDICARE (M) PART A Feb 06, 2017 PART A [id number] Chloé MILTON PATIENT Selected Encounter This section includes the information on record at [place] for the Encounter. Date/Time Encounter Type Encounter Description Reason Provider Source Feb 12, 2024 01:00 PM MTMS BY PHARM EST 15 MIN TELEPHONE PRIMARY CARE ICD-10-CM E11.9 Type 2 diabetes mellitus without complications KEIRY BAPTISTE [facility] Encounter Template Text not used by [place] Assessments - Encounter Diagnoses This section includes the primary and secondary diagnoses documented for the Encounter. Date/Time Primary/Secondary Diagnosis Diagnosis Name Provider Source Feb 12, 2024 01:00 PM PRIMARY Type 2 diabetes mellitus without complications KEIRY BAPTISTE [facility] Plan of Treatment: Future Appointments (+ 6 months) and Future Tests (+/- 45 days) The Plan of Treatment section includes future care activities for the patient [facility] [place] [facility] This section includes future appointments and future orders which are active, pending or scheduled. Future Appointments This section includes appointments that were scheduled to occur 6 months from the date of the Encounter, up to a maximum of 20 appointments. The data comes from all [place] treatment facilities. Appointment Date/Time Appointment Type Appointme nt Facility Name Mar 27, 2024 11:30 AM AMBULATORY - NONE [facility] May 16, 2024 09:30 AM AMBULATORY - MEDICINE [facility] Jul 15, 2024 10:30 AM AMBULATORY - MEDICINE [facility] Social History: Smoking Status (Most current) and Tobacco Use (All prior to encounter date) This section includes the most current, and the historical, smoking and tobacco- related health factors from the [place] facility where the Encounter took place. Current Smoking Status This section includes the most current smoking, or tobacco-related health factor, from the [place] facility where the Encounter took place. Date/Time Current Smoking Status Comment Facil ity Nov 16, 2023 09:00 AM [place]-TO[place]AC[place] QUIT 5 TO < 15 YRS [facility] Tobacco Use History This section includes a history of the smoking, or tobacco-related health factors, that were collected on or before the date of the Encounter. The data comes from the [place] facility where the Encounter took place. Date/Time Smoking Status/Tobacco Use Comment F acility Nov 16, 2023 09:00 AM [place]-TOBACCO QUIT 5 TO < 15 YRS [facility] Sep 15, 2022 01:00 PM VA-TOBACCO FORMER USER [facility] Sep 15, 2022 01:00 PM VA-TOBACCO QUIT 5 TO < 15 YRS [facility] Jul 09, 2021 09:00 AM VA-TOBACCO FORMER USER [facility] Jul 09, 2021 09:00 AM VA-TOBACCO QUIT 15 YRS OR MORE [facility] Mar 04, 2020 10:00 AM VA-TOBACCO FORMER USER [facility] Mar 04, 2020 10:00 AM VA-TOBACCO QUIT 5 TO < 15 YRS [facility] Nov 27, 2018 10:35 AM VA-TOBACCO FORMER USER [facility] Nov 27, 2018 10:35 AM VA-TOBACCO QUIT 5 TO < 15 YRS [facility] Jan 19, 2018 09:11 AM VA-TOBACCO USE > 1 5 LESS THAN 30 YEARS [facility] Jan 19, 2018 09:11 AM VA-TOBACCO USE ADVICE [facility] Jan 19, 2018 09:11 AM VA-TOBACCO USE RESEARCH ASSISTANT NO [facility] Jan 19, 2018 09:11 AM VA-TOBACCO USE DEC TO ANSWER [facility] Jan 19, 2018 09:11 AM VA-TOBACCO USE MED NO [facility] Jan 19, 2018 09:11 AM VA-TOBACCO USE WI 30 MIN OF WAKEUP [facility] Jan 19, 2018 09:11 AM VA-TOBACCO USER EVERY DAY [place] [facility] Encounter Notes: All associated encounter notes This section contains the clinical notes associated to the Encounter. Date/Time Encounter Note(s) Provider Source Feb 12, 2024 12:17 PM PHARMACY TELEPHONE ENCOUNTER NOTE: LOCAL TITLE: TELEPHONE NOTE/PHARMACY STANDARD TITLE: PHARMACY TELEPHONE ENCOUNTER NOTE DATE OF NOTE: FEB 12, 2024@12:17 ENTRY DATE: FEB 12, 2024@12:17:19 AUTHOR: KEIRY BAPTISTE COSIGNER: URGENCY: STATUS: COMPLETED ROLANDO MARÍA CLIVE, 73 yo WHITE MALE, contacted via telephone for diabetes management. Pt was last contacted via telephone on 01/26/24 in which empagliflozin 25 mg daily, alogliptin 25 mg daily and metformin 500 mg qAM and 500 mg qPM were continued. Insulin glargine 20 units once daily was also continued. Today, pt reports he is doing ok. Denies any sx of hypoglycemia or low BG readings. He denies any burning on urination, rashes or dizziness. Current diabetes medications: - metformin 500 mg SA qAM and 500 mg qPM - empagliflozin 25 mg daily - alogliptin 25 mg daily - insulin glargine 20 units - night time Medication Adherence: - sometimes too tired at night and doesnt feel like taking them Diet Patterns: patient eats on avg. 3x/day 2 meals and lots of PM snacking: Wake:[id number] B: skips a lot L: soup, left overs from dinner D: meat, potatoes, veggies Bed:2200 (afternoon nap) Snacks: weakness- anything he can find, left overs, sweets Drinks:coffee regular (black) ~ 4 cups, flavored water (1 bottle) Alcohol:none Tobacco:former - quit at least 10 yrs ago Exercise: very little, bad COPD Occupation: Personal Goals: get off insulin SMBG: Name: Rolando Milton : 1950 ID: [id number] Information from [facility] on 08/30/2023 Patient Name: Rolando Milton Date Range: 06/07/2023 - 08/30/2023 bG values are displayed in mg/dL # of tests 24 Average 147 SD 15.3 Highest 174 Lowest 113 Avg tests/day 0.3 # HI 0 # LO 0 <80 0.0% 80-130 12.5% >130 87.5% Hypos(<70) 0 Date Range: 06/07/2023 - 08/30/2023 bG values are displayed in mg/dL 00:00- :30- 08:00- 11:00- :30- 17:00- :30- :- 08:00 11:00 12:30 17:00 18:30 21:30 00:00 06/09/2023 133 06/11/2023 164 06/12/2023 156 06/24/2023 140 Miguelina 06/29/2023 164 06/30/2023 156 07/02/2023 113 07/11/2023 156 07/14/2023 117 07/15/2023 164 07/17/2023 145 07/19/2023 128 Miguelina 07/20/2023 136 07/26/2023 133 08/04/2023 156 08/05/2023 154 08/06/2023 144 08/09/2023 174 08/15/2023 163 08/16/2023 143 Miguelina 08/24/2023 154 08/26/2023 146 08/29/2023 145 08/30/2023 136 Date Range: 06/07/2023 - 08/30/2023 bG values are displayed in mg/dL 00:00- - 08- - - - - - 08:00 11:00 12:30 17:00 18:30 21:30 00:00 # of tests 1 12 9 0 1 1 0 0 Average 136 146 155 0 113 117 0 0 SD 0 13.6 8.3 0 0 Hi/Lo 0 0 0 0 0 0 0 0 09/19/23 FBG between 130-140 mg/dL 10/10/23 FBG ~ 140 mg/dL 12/11/23 146-220 mg/dL - sometimes after eating Date FBG 12/08/2023 180 12/11/2023 218 12/13/2023 240 12/14/2023 217 12/19/2023 252 12/23/2023 204 12/25/2023 197 01/02/2024 199 01/03/2024 232 Average 215 01/08/24 FBG 197 mg/dL 01/12/24: FBG 181 mg/dL 01/26/24 : 01/25/24 FB mg/dL Range 105-118 mg/dL if doesnt snack. 163-176 mg/dL if he eats snacks. 02/11/23 150 mg/dL in AM SMBG assessment: FBG at goal HYPOGLYCEMIC Events: 0 in last 2 weeks - Hypoglycemia recognition & treatment reviewed: Yes Allergies/ADR: Patient has answered NKA Active and Recently Outpatient Medications (including Supplies): Active Outpatient Medications Status 1) ACCU-CHEK GUIDE (GLUCOSE) TEST STRIP USE 1 STRIP TO ACTIVE TEST BLOOD SUGARS TWICE DAILY 2) ALBUTEROL SO4 0.083% INHL 3ML INHALE 1 AMPULE IN ACTIVE NEBULIZER EVERY 4 TO 6 HOURS NEEDED FOR WHEEZING OR SHORTNESS OF BREATH 3) ALOGLIPTIN 25MG TAB TAKE ONE TABLET BY MOUTH ONCE ACTIVE DAILY 4) ATORVASTATIN CALCIUM 80MG TAB TAKE ONE TABLET BY ACTIVE MOUTH ONCE DAILY FOR CHOLESTEROL (REPLACES SIMVASTATIN) 5) CHOLECALCIF 25MCG (D3-1,000UNIT) TAB TAKE ONE TABLET ACTIVE BY MOUTH ONCE DAILY FOR VITAMIN SUPPLEMENTATION 6) CICLESONIDE 160MCG 60D ORAL INHL INHALE 1 PUFF BY ACTIVE MOUTH TWICE DAILY (RINSE MOUTH AFTER USE) 7) EMPAGLIFLOZIN 25MG TAB TAKE ONE TABLET BY MOUTH ONCE ACTIVE DAILY FOR DIABETES 8) FINASTERIDE 5MG TAB TAKE ONE TABLET BY MOUTH ONCE ACTIVE DAILY FOR PROSTATE 9) FLUTICASONE PROP 50MCG 120D NASAL INHL INSTILL 1 ACTIVE SPRAY INTO EACH NOSTRIL TWICE DAILY NEEDED 10) INSULIN,GLARGINE-YFGN 100UNIT/ML PEN 3ML INJECT 10 ACTIVE UNITS SUBCUTANEOUSLY ONCE DAILY 11) LANCET,SOFTCLIX USE 1 LANCET DIRECTED TWICE DAILY ACTIVE TO TEST BLOOD SUGAR 12) LISINOPRIL 10MG TAB TAKE ONE TABLET BY MOUTH ONCE ACTIVE DAILY FOR HIGH BLOOD PRESSURE TO CONTROL BLOOD PRESSURE 13) MECLIZINE HCL 25MG TAB TAKE ONE TABLET BY MOUTH EVERY ACTIVE 12 HOURS NEEDED FOR VERTIGO 14) METFORMIN HCL 500MG 24HR SA TAB TAKE ONE TABLET BY ACTIVE MOUTH TWICE DAILY 15) NEEDLE,PEN 32G,4MM USE 1 NEEDLE SUBCUTANEOUSLY ONCE ACTIVE DAILY FOR USE WITH PEN DEVICE 16) OLODATEROL/TIOTROP 2.5MCG/ACTUAT 60D INH INHALE 2 ACTIVE PUFFS (1 DOSE) BY MOUTH ONCE DAILY 17) OMALIZUMAB 150MG/ML INJ 1ML SYR INJECT 300MG ([id number] ACTIVE SYRINGE) SUBCUTANEOUSLY EVERY FOUR WEEKS PATIENT HAS BEEN OBSERVED IN CLINIC FOR 3 DOSES AND HAS AN EPINEPHRINE PRESCRIPTION 18) THEOPHYLLINE 400MG 24HR SA TAB TAKE ONE TABLET BY ACTIVE MOUTH ONCE DAILY Inactive Outpatient Medications Status 1) ALBUTEROL SO4 0.083% INHL 3ML INHALE 1 AMPULE VIA DISCONTINUED NEBULIZER EVERY 8 HOURS NEEDED FOR BREATHING. FOLLOW INSTRUCTIONS FROM PRESCRIBER. 2) ALOGLIPTIN 25MG TAB TAKE ONE TABLET BY MOUTH ONCE DISCONTINUED DAILY 3) BISACODYL 5MG EC TAB TAKE FOUR TABLETS BY MOUTH NOW AT NOON THE DAY BEFORE YOUR APPOINTMENT 4) EMPAGLIFLOZIN 25MG TAB TAKE ONE TABLET BY MOUTH ONCE DISCONTINUED DAILY FOR DIABETES 5) INSULIN,GLARGINE-YFGN 100UNIT/ML PEN 3ML INJECT 12 DISCONTINUED UNITS SUBCUTANEOUSLY ONCE DAILY FOR DIABETES (EDIT) 6) INSULIN,GLARGINE-YFGN 100UNIT/ML PEN 3ML INJECT 16 DISCONTINUED UNITS SUBCUTANEOUSLY ONCE DAILY FOR DIABETES (EDIT) 7) INSULIN,GLARGINE-YFGN 100UNIT/ML PEN 3ML INJECT 16 DISCONTINUED UNITS SUBCUTANEOUSLY ONCE DAILY 8) METFORMIN HCL 500MG 24HR SA TAB TAKE TWO TABLETS BY DISCONTINUED MOUTH TWICE DAILY (EDIT) 9) POLYETHYLENE GLYCOL 3350 ORAL PWDR TAKE CONTENTS OF BOTTLE BY MOUTH ONCE DIRECTED [MIX WITH 4 TO 8OZ. OF BEVERAGE] 10) THEOPHYLLINE 400MG 24HR SA TAB TAKE ONE TABLET BY DISCONTINUED MOUTH ONCE DAILY Active Non-VA Medications Status 1) Non-VA FISH OIL 1000MG (500MG DHA/EPA) CAP 1000MG BY ACTIVE MOUTH ONCE DAILY 29 Total Medications Labs: CHEM 7 TREND LAB CUMULATIVE SELECTED Collection DT Spec GLUCOSE BUN CREATIN Sodium K+/Pot CL CO2 11/10/2023 09:11 SERUM 158 H 13 1.03 140 4.6 107 20 08/30/2023 09:06 SERUM 1.00 05/25/2023 08:08 SERUM 16 0.96 04/06/2023 11:35 SERUM 124 H 23 1.07 138 4.7 103 24 11/10/2022 10:16 SERUM 118 H 16 0.86 139 4.8 106 23 LAB CUMULATIVE SELECTED 2 No selection items chosen for this component. CHEM 7 Results Collection DT Spec Sodium K+/Pot CL CO2 GLUCOSE BUN 11/10/2023 09:11 SERUM 140 4.6 107 20 158 H 13 05/25/2023 08:08 SERUM 16 04/06/2023 11:35 SERUM 138 4.7 103 24 124 H 23 11/10/2022 10:16 SERUM 139 4.8 106 23 118 H 16 08/10/2022 15:39 SERUM 142 4.8 108 22 99 13 05/05/2022 09:41 SERUM 141 5.2 H 108 24 140 H 14 12/29/2021 09:25 SERUM 139 4.1 108 21 142 H 17 07/01/2021 09:22 SERUM 143 5.0 108 24 153 H 12 05/03/2021 09:59 SERUM 141 4.5 106 24 108 H 17 01/04/2021 09:55 SERUM 139 4.8 106 22 127 H 19 11/25/2020 10:25 SERUM 140 4.7 104 23 87 17 09/14/2020 12:15 SERUM 139 4.6 106 20 130 H 12 07/02/2020 09:23 SERUM 140 4.5 107 24 173 H 12 02/27/2020 10:36 SERUM 135 5.0 97 L 25 411 H 10 10/25/2019 09:39 SERUM 133 L 4.6 100 19 L 337 H 17 03/28/2019 10:42 SERUM 136 4.5 102 23 198 H 14 11/16/2018 11:52 SERUM 141 5.3 H 105 27 98 13 07/25/2018 10:45 SERUM 142 5.3 H 105 27 114 H 15 04/24/2018 11:38 SERUM 140 5.1 H 107 25 127 H 12 01/19/2018 13:02 SERUM 140 4.6 108 26 96 12 eGFR CKD-EPI 202011/10/23 09:11 78 SERUM LIVER PANEL TREND Collection DT Spec AST ALT T BILI ALK FRANNY T. PROT ALBUMIN 11/10/2022 10:16 SERUM 14 24 0.7 84 7.7 4.3 12/29/2021 09:25 SERUM 25 43 1.0 108 7.4 4.5 07/01/2021 09:22 SERUM 16 34 0.6 105 7.6 4.3 01/04/2021 09:55 SERUM 17 31 0.7 98 7.1 4.2 07/02/2020 09:23 SERUM 27 51 0.7 90 7.1 4.0 HEMOGLOBIN A1C TREND Collection DT Spec HGBA1c 01/03/2024 13:30 BLOOD 8.6 H 08/30/2023 09:06 BLOOD 6.7 H 04/06/2023 11:35 BLOOD 6.7 H 11/10/2022 10:16 BLOOD 6.2 H 08/10/2022 15:39 BLOOD 6.6 H LIPID PANEL TREND Collection DT Spec CHOL HDL CHO/HDL LDL-d LDL-c TRIG 11/10/2023 09:11 SERUM 217 H 37 L 5.9 99 Reflex to dLDL 410 H 08/30/2023 09:06 SERUM 186 30 L 6.2 105 253 H 04/06/2023 11:35 SERUM 191 35 L 5.5 110 Reflex to dLDL 438 H 11/10/2022 10:16 SERUM 131 33 L 4.0 73 127 05/05/2022 09:41 SERUM 125 30 L 4.2 70 125 Vitals: Ht: 68 in [172.7 cm] (11/16/2023 08:59) Wt: 201.5 lb [91.40 kg] (11/16/2023 08:59) BMI: BMI: 30.7 BP: 124/83 (11/16/2023 08:59) HR: 73 (11/16/2023 08:59) Assessment: DIABETES: Goal: A1c goal is <7% with a goal fasting BG average of 90-130mg/dL and a goal post-prandial BG average of <180mg/dL per ADA guideline. 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 Encouraged pt to limit high carb snacks at night time. - Medication management - CONTINUE- metformin 500 mg SA in AM and 500 mg in PM - empagliflozin 25 mg daily - alogliptin 25 mg daily - CONTINUE- insulin glargine 20 units - night time - Continue to SMBG 1x/day - Monitor for s/sx hypoglycemia and contact clinic if BG consistently <70mg/dL - Healthy dietary and lifestyle modifications encouraged - Repeat A1c 05/2024 w/PCP labs EDUCATION -A shared decision-making approach was used in the development of this plan, involving the , clinician, and any caregivers present. The was provided the opportunity express questions or concerns, and the plan was adjusted as needed to address these concerns. -Reviewed with Epes any new medications, changes to the medication list, education, and plan from today's visit. Patient (and/or caregiver) verbalized understanding of the plan, including possible known risks and benefits, and had no additional questions. RTC:JACINDA 05/2024 Time Spent: 5 mins PBM PharmD Pharmacotherapy Rem V12: PHARMACIST INTERVENTIONS: TYPE 2 DIABETES MELLITUS Medication monitoring, no dosage change required, continue to monitor and assess /den/ KEIRY BAPTISTE PHARMD,BCPS CLINICAL PHARMACY PRACTITIONER Signed: 02/12/2024 13:10 KEIRY BAPTISTE [facility]
--- OUTSIDE RECORDS SUMMARY | 2024-02-27 13:22 | XMS_ITS | Continuity of Care Document ---
Author Name [facility] Organization [facility] Care Team Providers Care Machine Load Clerk Name Role Phone [facility] Unavailable Unavailable Problems Combined list of problems from Department of Defense and Veterans Affairs facilities. It does not include entries that were removed or entered in error. 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30 Sleep apnea, unspecified Active Diagnosis [facility] Diagnosis: ICD-10-CM Z46.0 Encounter for fit/adjst of spectacles and contact lenses Active Diagnosis [facility] Diagnosis: ICD-10-CM R22.1 Localized swelling, mass and lump, neck Active Diagnosis [facility] Diagnosis: ICD-10-CM Z23 Encounter for immunization Active Diagnosis [facility] Diagnosis: ICD-10-CM M54.2 Cervicalgia Active Diagnosis [facility] Diagnosis: ICD-10-CM Z71.89 Other specified counseling Active Diagnosis [facility] Diagnosis: ICD-10-CM E11.40 Type 2 diabetes mellitus with diabetic neuropathy, unsp Active Diagnosis [facility] [place] Medications Combined list of outpatient medications from Department of Defense and Veterans Affairs facilities.Medications provided include 1) outpatient medications from the last 15 months, and 2) patient-reported medications. Medication Details Route Status Patient Instructions Prescription Expires Prescription Number Last Dispense Date Ordering Provider Order Date Order Qty Source ALBUTEROL SO4 0.083% INHL,3ML INHALE 1 AMPULE IN NEBULIZE R EVERY 4 TO 6 HOURS NEEDED FOR WHEEZING OR SHORTNES S OF BREATH RESPIR ATORY (INHAL ATION) ACTIVE 08/28/2024 [id number] 4 NOBLE RUIZ ROSARIO 2023 180 [facility] ALBUTEROL SO4 0.083% INHL,3ML INHALE 1 AMPULE VIA NEBULIZE R EVERY 8 HOURS NEEDED FOR BREATHIN G. FOLLOW INSTRUCT IONS FROM PRESCRIB ER. DAGO BETANCOURT INUED 08/14/2024 [id number] 4 LÓPEZ GOLDMAN 2023 90 [facility] ALBUTEROL SO4 0.083% INHL,3ML INHALE 1 AMPULE VIA NEBULIZE R EVERY 8 HOURS NEEDED FOR BREATHIN G. FOLLOW INSTRUCT IONS FROM PRESCRIB ER. DILCIAI ZER DISCONT INUED 06/22/2023 [id number] 4 LÓPEZ GOLDMAN 2022 90 [facility] ALOGLIPTIN 25MG TAB TAKE ONE TABLET BY MOUTH ONCE DAILY ORAL ACTIVE 04/19/2024 [id number] 5 OSCARAL ICE 2023 [facility] ALOGLIPTIN 25MG TAB TAKE ONE TABLET BY MOUTH ONCE DAILY ORAL DISCONT INUED 11/30/2023 [id number] 4 LÓPEZ GOLDMAN 2022 90 [facility] ATORVASTATI N CA 80MG TAB TAKE ONE TABLET BY MOUTH ONCE DAILY FOR CHOLESTE ROL (REPLACE S SIMVASTA TIN) ORAL ACTIVE 09/01/2024 [id number] 4 RAHAT BAPTISTE 2023 90 [facility] ATORVASTATI N CA 80MG TAB TAKE ONE TABLET BY MOUTH ONCE DAILY FOR CHOLESTE ROL (REPLACE S SIMVASTA TIN) ORAL DISCONT INUED 08/11/2023 [id number] 4 LÓPEZ GOLDMAN 2022 90 [facility] BISACODYL 5MG TAB,EC TAKE FOUR TABLETS BY MOUTH NOW AT NOON THE DAY BEFORE YOUR APPOINTM ENT ORAL 09/20/2023 [id number] TANYA GUAN 2023 4 [facility] CHOLECALCIF NOVA 25MCG (1,000UNIT) TAB TAKE ONE TABLET BY MOUTH ONCE DAILY FOR VITAMIN SUPPLEME NTATION ORAL ACTIVE 09/19/2024 [id number] 4 LÓPEZ GOLDMAN 2023 90 [facility] CHOLECALCIF NOVA 25MCG (1,000UNIT) TAB TAKE ONE TABLET BY MOUTH ONCE DAILY FOR VITAMIN SUPPLEME NTATION ORAL DISCONT INUED 08/11/2023 [id number] 4 LÓPEZ GOLDMAN 2022 90 [facility] CICLESONIDE 160MCG/SPRA Y INHL,ORAL,6 .1GM INHALE 1 PUFF BY MOUTH TWICE DAILY (RINSE MOUTH AFTER USE) RESPIR ATORY (INHAL ATION) ACTIVE 04/18/2024 [id number] 5 NOBLE RUIZ ROSARIO 2023 1 [facility] CICLESONIDE 160MCG/SPRA Y INHL,ORAL,6 .1GM INHALE 1 PUFF BY MOUTH TWICE DAILY (RINSE MOUTH AFTER USE) RESPIR ATORY (INHAL ATION) DISCONT INUED 07/07/2023 [id number] 4 LÓPEZ GOLDMAN 2022 1 [facility] CYCLOBENZAP RINE HCL 10MG TAB TAKE ONE TABLET BY MOUTH EVERY 8 HOURS NEEDED FOR MUSCLE SPASM ORAL DISCONT INUED BY PROVIDE R 04/22/2023 [id number] 4 JO ANN DE LA ROSA 2023 15 [facility] DICLOFENAC NA 1% GEL,TOP APPLY 2 GRAMS TOPICALL Y FOUR TIMES A DAY FOR JOINT PAIN FOR OSTEOART HRITIS - USE DOSING CARD PROVIDED IN BOX TOPICA L 04/22/2023 [id number] 4 JO ANN DE LA ROSA 2023 100 [facility] EMPAGLIFLOZ IN 25MG TAB TAKE ONE TABLET BY MOUTH ONCE DAILY FOR DIABETES ORAL ACTIVE 04/19/2024 [id number] 4 MOORE,AL ICE 2023 90 [facility] EMPAGLIFLOZ IN 25MG TAB TAKE ONE TABLET BY MOUTH ONCE DAILY FOR DIABETES ORAL DISCONT INUED 11/30/2023 [id number] 4 LÓPEZ GOLDMAN 2022 90 [facility] EPINEPHRINE (EQV-EPI-PE N) 0.3MG/0.3ML INJECTOR INJECT DIRECTED INTRAMUS CULARLY NEEDED FOR LIFE THREATEN ING ALLERGIC REACTION INTRAM USCULA R 02/23/2023 [id number] NOBLE RUIZ 2022 2 [facility] FINASTERIDE 5MG TAB TAKE ONE TABLET BY MOUTH ONCE DAILY FOR PROSTATE ORAL ACTIVE 09/19/2024 [id number] 4 LÓPEZ GOLDMAN 2023 90 [facility] FINASTERIDE 5MG TAB TAKE ONE TABLET BY MOUTH ONCE DAILY FOR PROSTATE ORAL DISCONT INUED 08/11/2023 [id number] 4 LÓPEZ GOLDMAN 2022 90 [facility] FISH OIL 1000MG (500MG DHA/EPA) CAP,ORAL TAKE 1 CAPSULE BY MOUTH ONCE DAILY ORAL ACTIVE Millie DOS SANTOS 2020 [facility] FLUTICASONE PROPIONATE 50MCG/SPRAY SOLN,NASAL, 16GM INSTILL 1 SPRAY INTO EACH NOSTRIL TWICE DAILY NEEDED NASAL SUSPEND ED 11/16/2024 [id number] 5 LÓPEZ GOLDMAN 2023 1 [facility] INSULIN,GLA RGINE-YFGN 100UNIT/ML INJ PEN,3ML INJECT 20 UNITS SUBCUTAN EOUSLY ONCE DAILY SUBCUT ANEOUS ACTIVE 01/26/2025 [id number] 4 GDRAHAT FITZPATRICK I A 2023 10 [facility] INSULIN,GLA RGINE-YFGN 100UNIT/ML INJ PEN,3ML INJECT 12 UNITS SUBCUTAN EOUSLY ONCE DAILY FOR DIABETES SUBCUT ANEOUS DISCONT INUED BY PROVIDE R 01/03/2025 [id number] 4 GDULA,JOD I A 2023 5 [facility] INSULIN,GLA RGINE-YFGN 100UNIT/ML INJ PEN,3ML INJECT 10 UNITS SUBCUTAN EOUSLY ONCE DAILY SUBCUT ANEOUS DISCONT INUED (EDIT) 04/21/2024 [id number] 4 MOORE,AL ICE 2023 5 [facility] INSULIN,GLA RGINE-YFGN 100UNIT/ML INJ PEN,3ML INJECT 12 UNITS SUBCUTAN EOUSLY ONCE DAILY FOR DIABETES SUBCUT ANEOUS DISCONT INUED (EDIT) 04/19/2024 [id number] 4 MOORE,AL ICE 2023 5 [facility] INSULIN,GLA RGINE-YFGN 100UNIT/ML INJ PEN,3ML INJECT 16 UNITS SUBCUTAN EOUSLY ONCE DAILY FOR DIABETES SUBCUT ANEOUS DISCONT INUED (EDIT) 03/24/2024 [id number] 4 MOORE,AL ICE 2023 5 [facility] LISINOPRIL 10MG TAB TAKE ONE TABLET BY MOUTH ONCE DAILY FOR HIGH BLOOD PRESSURE TO CONTROL BLOOD PRESSURE ORAL ACTIVE 08/30/2024 [id number] 4 RAHAT BAPTISTE 2023 90 [facility] LISINOPRIL 10MG TAB TAKE ONE TABLET BY MOUTH ONCE DAILY FOR HIGH BLOOD PRESSURE TO CONTROL BLOOD PRESSURE ORAL DISCONT INUED 05/17/2023 [id number] 4 MOORE,AL ICE 2022 90 [facility] MECLIZINE HCL 25MG TAB TAKE ONE TABLET BY MOUTH EVERY 12 HOURS NEEDED FOR VERTIGO ORAL ACTIVE 11/16/2024 [id number] 5 LÓPEZ GOLDMAN 2023 40 [facility] METFORMIN HCL 500MG 24HR TAB,SA TAKE ONE TABLET BY MOUTH TWICE DAILY ORAL ACTIVE 09/19/2024 [id number] RAHAT BAPTISTE 2023 180 [facility] METFORMIN HCL 500MG 24HR TAB,SA TAKE TWO TABLETS BY MOUTH TWICE DAILY ORAL DISCONT INUED (EDIT) 05/04/2024 [id number] 4 LÓPEZ GOLDMAN 2023 360 [facility] METFORMIN HCL 500MG 24HR TAB,SA TAKE TWO TABLETS BY MOUTH TWICE DAILY ORAL DISCONT INUED 04/13/2023 [id number] 4 LÓPEZ GOLDMAN 2022 120 [facility] OLODATEROL 2.5MCG/TIOT ROPIUM 2.5MCG/ACTU AT INHL,ORAL,6 0D,4GM INHALE 2 PUFFS (1 DOSE) BY MOUTH ONCE DAILY RESPIR ATORY (INHAL ATION) ACTIVE 08/30/2024 [id number] 4 RAHAT BAPTISTE 2023 3 [facility] OLODATEROL 2.5MCG/TIOT ROPIUM 2.5MCG/ACTU AT INHL,ORAL,6 0D,4GM INHALE 2 PUFFS (1 DOSE) BY MOUTH ONCE DAILY RESPIR ATORY (INHAL ATION) DISCONT INUED 07/09/2023 [id number] YASMIN,AN ROSARIO 2022 3 [facility] OMALIZUMAB 150MG/ML INJ,SYR,1ML INJECT 300MG ([id number] SYRINGE) SUBCUTAN EOUSLY EVERY 4 WEEKS PATIENT HAS BEEN OBSERVED IN CLINIC FOR 3 DOSES AND HAS AN EPINEPHR INE PRESCRIP TION SUBCUT ANEOUS ACTIVE 02/09/2025 [id number] YASMIN,AN ROSARIO 2024 2 [facility] OMALIZUMAB 150MG/ML INJ,SYR,1ML INJECT 300MG ([id number] SYRINGE) SUBCUTAN EOUSLY EVERY FOUR WEEKS PATIENT HAS BEEN OBSERVED IN CLINIC FOR 3 DOSES AND HAS AN EPINEPHR INE PRESCRIP TION SUBCUT ANEOUS 01/25/2024 [id number] 4 YASMIN,AN ROSARIO 2022 2 [facility] POLYETHYLEN E GLYCOL 3350 PWDR,ORAL TAKE CONTENTS OF BOTTLE BY MOUTH ONCE DIRECTED [MIX WITH 4 TO 8OZ. OF BEVERAGE ] ORAL 09/20/2023 [id number] TANYA GUAN 2023 238 [facility] TAMSULOSIN HCL 0.4MG CAP TAKE ONE CAPSULE BY MOUTH EVERY EVENING ORAL DISCONT INUED BY KEILA R 07/07/2023 [id number] 3 LÓPEZ GODLMAN 2022 90 [facility] THEOPHYLLIN E 400MG 24HR TAB,SA TAKE ONE TABLET BY MOUTH ONCE DAILY ORAL SUSPEND ED 09/21/2024 [id number] 5 NOBLE RUIZ ROSARIO 2023 30 [facility] THEOPHYLLIN E 400MG 24HR TAB,SA TAKE ONE TABLET BY MOUTH ONCE DAILY ORAL DISCONT INUED 10/22/2023 [id number] 4 NOBLE RUIZ ROSARIO 2022 30 [facility] Immunizations Combined list of available immunizations from the Department of Defense and Veterans Affairs facilities. Immunization Series Date Given Administered By Site Reaction Lot Number CVX Code Drug Tank Cleaner Status Comments Source COVID-19 (MODERNA), MRNA, LNP-S, PF, 50 MCG/0.5 ML (AGES 12+ YEARS) 6 2023 AIDE DE LA CRUZ RIGHT DELTO ID [id number] 312 complet ed [facility] INFLUENZA, HIGH-DOSE, TRIVALENT, PF 2023 AIDE DE LA CRUZ RIGHT DELTO ID [id number] 135 complet ed [facility] COVID-19 (MODERNA), MRNA, LNP-S, PF, 50 MCG/0.5 ML (AGES 12+ YEARS) 2023 ROBERT ANDRADE ALANNAH RIGHT DELTO ID [id number] 312 complet ed [facility] INFLUENZA, HIGH-DOSE, QUADRIVALENT 2023 ROBERT ANDRADE ALANNAH LEFT DELTO ID [id number] 197 complet ed [facility] COVID-19 (MODERNA), MRNA, LNP-S, BIVALENT BOOSTER, PF, 50 MCG/0.5 ML OR 25MCG/0.25 ML DOSE 1 2021 229 complet ed MOD; [id number]; 3 [facility] INFLUENZA VACCINE, QUADRIVALENT, ADJUVANTED 2021 205 complet ed [facility] INFLUENZA VACCINE, QUADRIVALENT, ADJUVANTED 2020 205 complet ed [facility] COVID-19 (MODERNA), MRNA, LNP-S, PF, 100 MCG/0.5 ML DOSE 3 2020 207 complet ed MOD; [id number]; 1 [facility] COVID-19 (MODERNA), MRNA, LNP-S, PF, 100 MCG/0.5 ML DOSE 2 2020 207 complet ed MOD; [id number]; 1 [facility] COVID-19 (MODERNA), MRNA, LNP-S, PF, 100 MCG/0.5 ML DOSE 1 2020 207 complet ed MOD; [id number]; 1 [facility] INFLUENZA, UNSPECIFIED FORMULATION 2019 88 complet ed [facility] ZOSTER RECOMBINANT 2 2019 187 complet ed [facility] ZOSTER RECOMBINANT 1 2019 187 complet ed [facility] INFLUENZA, TRIVALENT, ADJUVANTED 2018 168 complet ed Site: Right Deltoid [facility] PNEUMOCOCCAL POLYSACCHARID E PPV23 2018 33 complet ed [facility] TDAP 2018 115 complet ed Site: Right Deltoid [facility] INFLUENZA, INJECTABLE, QUADRIVALENT 2017 158 complet ed Site: Left Deltoid [facility] PNEUMOCOCCAL CONJUGATE PCV 13 2017 133 complet ed [facility] Results Combined list of recent chemistry, hematology and other laboratory results from Department of Defense and Veterans Affairs, ranging from 15 months to all on record, depending upon the facility. Order Name Results Value Reference Range Date Interpretation Specimen Comments Source HEMOGLOB IN A1C PANEL HEMOGLOBIN A1C/HEMOGL OBIN.TOTAL IN BLOOD BY HPLC 8.6 4.0 - 5.6 01/02 H Specimen Type: BLOOD Comment: Values obtained from A1C measurement s can vary. For atypical A1C assays, a reported value of 7.0 could actually be between 6.72 and 7.28 if measured by a reference method. A reported value of 9.0 could actually be between 8.73 and 9.27. Ref: http://www. ngsp.org/[place] Pdata.asp Ordering Provider: KEIRY BAPTISTE Report Released Date/Time: Dec 11, 2023 09:09 AM Reporting Lab: [facility] [address] [facility] [address] Performing Lab: [facility] [address] [facility] [address] [facility] LIPID PANEL, NON FASTING CHOLESTERO L [MASS/VOLU ME] IN SERUM OR PLASMA 217 mg/dL 11/09 H Specimen Type: SERUM No comment entered. Ordering Provider: RAJEEV GOLDMAN Report Released Date/Time: Nov 03, 2023 08:27 AM Reporting Lab: [facility] [address] [facility] [address] Performing Lab: [facility] [address] [facility] [address] [facility] LIPID PANEL, NON FASTING TRIGLYCERI DE [MASS/VOLU ME] IN SERUM OR PLASMA 410 mg/dL 0 - 150 11/09 H Specimen Type: SERUM No comment entered. Ordering Provider: RAJEEV GOLDMAN Report Released Date/Time: Nov 03, 2023 08:27 AM Reporting Lab: [facility] [address] [facility] [address] Performing Lab: [facility] [place] [facility] [address] [facility] [address] [facility] LIPID PANEL, NON FASTING CHOLESTERO L IN LDL [MASS/VOLU ME] IN SERUM OR PLASMA BY CALCULATIO N Reflex to dLDLmg/d L 0 - 129 11/09 Specimen Type: SERUM No comment entered. Ordering Provider: RAJEEV GOLDMAN Report Released Date/Time: Nov 03, 2023 08:27 AM Reporting Lab: [facility] [place] [facility] [address] [facility] [address] Performing Lab: [facility] [place] [facility] [address] [facility] [address] [facility] LIPID PANEL, NON FASTING CHOLESTERO L.TOTAL/CH OLESTEROL IN HDL [MASS RATIO] IN SERUM OR PLASMA 5.9 11/09 Specimen Type: SERUM No comment entered. Ordering Provider: RAJEEV GOLDMAN Report Released Date/Time: Nov 03, 2023 08:27 AM Reporting Lab: [facility] [place] [facility] [address] [facility] [address] Performing Lab: [facility] [place] [facility] [address] [facility] [address] [facility] LIPID PANEL, NON FASTING CHOLESTERO L IN HDL [MASS/VOLU ME] IN SERUM OR PLASMA 37 mg/dL 40 - 60 11/09 L Specimen Type: SERUM No comment entered. Ordering Provider: RAJEEV GOLDMAN Report Released Date/Time: Nov 03, 2023 08:27 AM Reporting Lab: [facility] [place] [facility] [address] [facility] [address] Performing Lab: [facility] [place] [facility] [address] [facility] [address] [facility] [place] [facility] LIPID PANEL, NON FASTING CHOLESTERO L IN LDL [MASS/VOLU ME] IN SERUM OR PLASMA BY DIRECT ASSAY 99 mg/dL 11/09 Specimen Type: SERUM No comment entered. Ordering Provider: RAJEEV GOLDMAN Report Released Date/Time: Nov 03, 2023 08:27 AM Reporting Lab: [facility] [place] [facility] [address] [facility] [address] Performing Lab: [facility] [place] [facility] [address] [facility] [address] [facility] MICROALB UMIN CREATINI NE RATIO PANEL MICROALBUM IN/CREATIN INE [MASS RATIO] IN URINE 15.1 mg/g 0 - 29.9 11/09 Specimen Type: URINE No comment entered. Ordering Provider: RAJEEV GOLDMAN Report Released Date/Time: Nov 03, 2023 08:27 AM Reporting Lab: [facility] [place] [facility] [address] [facility] [address] Performing Lab: [facility] [place] [facility] [address] [facility] [address] [facility] MICROALB UMIN CREATINI NE RATIO PANEL MICROALBUM IN [MASS/VOLU ME] IN URINE 0.9 mg/dL 11/09 Specimen Type: URINE No comment entered. Ordering Provider: RAJEEV GOLDMAN Report Released Date/Time: Nov 03, 2023 08:27 AM Reporting Lab: [facility] [place] [facility] [address] [facility] [address] Performing Lab: [facility] [place] [facility] [address] [facility] [address] [facility] MICROALB UMIN CREATINI NE RATIO PANEL CREATININE [MASS/VOLU ME] IN URINE 59.59 mg/dL 11/09 Specimen Type: URINE No comment entered. Ordering Provider: RAJEEV GOLDMAN Report Released Date/Time: Nov 03, 2023 08:27 AM Reporting Lab: [facility] [place] [facility] [address] [facility] [address] Performing Lab: [facility] [place] [facility] [address] [facility] [address] [facility] CBC LEUKOCYTES [#/VOLUME] IN BLOOD BY AUTOMATED COUNT 9.00 10*3/uL 4.50 - 11.00 11/09 Specimen Type: BLOOD No comment entered. Ordering Provider: RAJEEV GOLDMAN Report Released Date/Time: Nov 03, 2023 08:27 AM Reporting Lab: [facility] [address] [facility] [address] Performing Lab: [facility] [address] [facility] [address] [facility] CBC ERYTHROCYT ES [#/VOLUME] IN BLOOD BY AUTOMATED COUNT 5.14 10*6/uL 4.23 - 5.66 11/09 Specimen Type: BLOOD No comment entered. Ordering Provider: RAJEEV GOLDMAN Report Released Date/Time: Nov 03, 2023 08:27 AM Reporting Lab: [facility] [place] [address] [address] Performing Lab: [facility] [address] [address] [facility] CBC HEMOGLOBIN [MASS/VOLU ME] IN BLOOD 15.6 g/dL 12.8 - 17 11/09 Specimen Type: BLOOD No comment entered. Ordering Provider: RAJEEV GOLDMAN Report Released Date/Time: Nov 03, 2023 08:27 AM Reporting Lab: [facility] [address] [address] Performing Lab: [facility] [place] [address] [address] [facility] CBC HEMATOCRIT [VOLUME FRACTION] OF BLOOD BY AUTOMATED COUNT 47.3 39.2 - 50.4 11/09 Specimen Type: BLOOD No comment entered. Ordering Provider: RAJEEV GOLDMAN Report Released Date/Time: Nov 03, 2023 08:27 AM Reporting Lab: [facility] [place] [address] [address] Performing Lab: [facility] [place] [facility] [address] [facility] [address] [facility] CBC MCV [ENTITIC VOLUME] BY AUTOMATED COUNT 92.0 fL 82 - 99 11/09 Specimen Type: BLOOD No comment entered. Ordering Provider: RAJEEV GOLDMAN Report Released Date/Time: Nov 03, 2023 08:27 AM Reporting Lab: [facility] [address] [facility] [address] Performing Lab: [facility] [place] [facility] [address] [facility] [address] [facility] [place] [facility] CBC MCHC [MASS/VOLU ME] BY AUTOMATED COUNT 33.0 g/dL 30.8 - 35.1 11/09 Specimen Type: BLOOD No comment entered. Ordering Provider: RAJEEV GOLDMAN Report Released Date/Time: Nov 03, 2023 08:27 AM Reporting Lab: [facility] [place] [facility] [address] [facility] [address] Performing Lab: [facility] [place] [facility] [address] [facility] [address] [facility] [place] [facility] CBC PLATELETS [#/VOLUME] IN BLOOD BY AUTOMATED COUNT 286 10*3/uL 140 - 360 11/09 Specimen Type: BLOOD No comment entered. Ordering Provider: RAJEEV GOLDMAN Report Released Date/Time: Nov 03, 2023 08:27 AM Reporting Lab: [facility] [place] [facility] [address] [facility] [address] Performing Lab: [facility] [place] [facility] [address] [facility] [address] [facility] [place] [facility] CBC ERYTHROCYT E DISTRIBUTI ON WIDTH [RATIO] BY AUTOMATED COUNT 12.6 12.0 - 16.0 11/09 Specimen Type: BLOOD No comment entered. Ordering Provider: RAJEEV GOLDMAN Report Released Date/Time: Nov 03, 2023 08:27 AM Reporting Lab: [facility] [place] [facility] [address] [facility] [address] Performing Lab: [facility] [address] [facility] [address] [facility] CBC MCH [ENTITIC MASS] BY AUTOMATED COUNT 30.4 pg 26.2 - 32.6 11/09 Specimen Type: BLOOD No comment entered. Ordering Provider: RAJEEV GOLDMAN Report Released Date/Time: Nov 03, 2023 08:27 AM Reporting Lab: [facility] [address] [facility] [address] Performing Lab: [facility]ENTERUSE[address] [address] [facility] BASIC METABOLI C PANEL (non-fas ting) UREA NITROGEN [MASS/VOLU ME] IN SERUM OR PLASMA 13 mg/dL 7 - 25 11/09 Specimen Type: SERUM No comment entered. Ordering Provider: RAJEEV GOLDMAN Report Released Date/Time: Nov 03, 2023 08:27 AM Reporting Lab: [facility] [address] Performing Lab: [facility] [address] [facility] BASIC METABOLI C PANEL (non-fas ting) GLUCOSE [MASS/VOLU ME] IN SERUM OR PLASMA 158 mg/dL 65 - 100 11/09 H Specimen Type: SERUM No comment entered. Ordering Provider: RAJEEV GOLDMAN Report Released Date/Time: Nov 03, 2023 08:27 AM Reporting Lab: [facility] [place] [address] [address] Performing Lab: [facility] [address] [facility] BASIC METABOLI C PANEL (non-fas ting) SODIUM [MOLES/VOL UME] IN SERUM OR PLASMA 140 mmol/L 135 - 145 1004 /2024 Specimen Type: SERUM No comment entered. Ordering Provider: RAJEEV GOLDMAN Report Released Date/Time: Nov 03, 2023 08:27 AM Reporting Lab: [facility] [address] [address] Performing Lab: [facility] [address] [address] [facility] BASIC METABOLI C PANEL (non-fas ting) POTASSIUM [MOLES/VOL UME] IN SERUM OR PLASMA 4.6 mmol/L 3.5 - 5.0 11/09 Specimen Type: SERUM No comment entered. Ordering Provider: RAJEEV GOLDMAN Report Released Date/Time: Nov 03, 2023 08:27 AM Reporting Lab: [facility] [address] [address] Performing Lab: [facility] [address] [facility] BASIC METABOLI C PANEL (non-fas ting) CHLORIDE [MOLES/VOL UME] IN SERUM OR PLASMA 107 mmol/L 100 - 110 11/09 Specimen Type: SERUM No comment entered. Ordering Provider: RAJEEV GOLDMAN Report Released Date/Time: Nov 03, 2023 08:27 AM Reporting Lab: [facility] [address] Performing Lab: [facility] [address] [address] [facility] BASIC METABOLI C PANEL (non-fas ting) CARBON DIOXIDE, TOTAL [MOLES/VOL UME] IN SERUM OR PLASMA 20 meq/L 20 - 30 11/09 Specimen Type: SERUM No comment entered. Ordering Provider: RAJEEV GOLDMAN Report Released Date/Time: Nov 03, 2023 08:27 AM Reporting Lab: [facility] [address] Performing Lab: [facility] [place] [facility] [address] [facility] [address] [facility] [place] [facility] BASIC METABOLI C PANEL (non-fas ting) CREATININE [MASS/VOLU ME] IN SERUM OR PLASMA 1.03 mg/dL 0.50 - 1.40 11/09 Specimen Type: SERUM No comment entered. Ordering Provider: RAJEEV GOLDMAN Report Released Date/Time: Nov 03, 2023 08:27 AM Reporting Lab: [facility] [place] [facility] [address] [facility] [address] Performing Lab: [facility] [place] [facility] [address] [facility] [address] [facility] [place] [place] [facility] BASIC METABOLI C PANEL (non-fas ting) GLOMERULAR FILTRATION RATE/1.73 SQ M.PREDICTE D [VOLUME RATE/AREA] IN SERUM, PLASMA OR BLOOD BY CREATININE -BASED FORMULA (CKD-EPI 2020) 78 mL/min 60 11/09 Specimen Type: SERUM No comment entered. Ordering Provider: RAJEEV GOLDMAN Report Released Date/Time: Nov 03, 2023 08:27 AM Reporting Lab: [facility] [place] [facility] [address] [facility] [address] Performing Lab: [facility] [place] [address] [address] [facility] CREATINI NE (eGFR 2020) CREATININE [MASS/VOLU ME] IN SERUM OR PLASMA 1.00 mg/dL 0.50 - 1.40 08/29 Specimen Type: SERUM No comment entered. Ordering Provider: KEIRY BAPTISTE Report Released Date/Time: Aug 30, 2023 08:35 AM Reporting Lab: [facility] [place] [facility] [address] [facility] [address] Performing Lab: [facility] [place] [address] [address] [facility] [place] [facility] CREATINI NE (eGFR 2020) GLOMERULAR FILTRATION RATE/1.73 SQ M.PREDICTE D [VOLUME RATE/AREA] IN SERUM, PLASMA OR BLOOD BY CREATININE -BASED FORMULA (CKD-EPI 2020) 80 mL/min 60 08/29 Specimen Type: SERUM No comment entered. Ordering Provider: KEIRY BAPTISTE Report Released Date/Time: Aug 30, 2023 08:35 AM Reporting Lab: [facility] [address] [facility] [address] Performing Lab: [facility] [address] [facility] [address] [facility] HEMOGLOB IN A1C PANEL HEMOGLOBIN A1C/HEMOGL OBIN.TOTAL IN BLOOD BY HPLC 6.7 4.0 - 5.6 08/29 H Specimen Type: BLOOD Comment: Values obtained from A1C measurement s can vary. For atypical A1C assays, a reported value of 7.0 could actually be between 6.72 and 7.28 if measured by a reference method. A reported value of 9.0 could actually be between 8.73 and 9.27. Ref: http://www. ngsp.org/[place] Pdata.asp Ordering Provider: KEIRY BAPTISTE Report Released Date/Time: Aug 30, 2023 08:35 AM Reporting Lab: [address] [address] Performing Lab: [facility] [address] [facility] LIPID PANEL FASTING CHOLESTERO L [MASS/VOLU ME] IN SERUM OR PLASMA 186 mg/dL 08/29 Specimen Type: SERUM No comment entered. Ordering Provider: KEIRY BAPTISTE Report Released Date/Time: Aug 30, 2023 08:50 AM Reporting Lab: [facility] [address] [facility] [address] Performing Lab: [facility] [address] [address] [facility] LIPID PANEL FASTING TRIGLYCERI DE [MASS/VOLU ME] IN SERUM OR PLASMA 253 mg/dL 0 - 150 08/29 H Specimen Type: SERUM No comment entered. Ordering Provider: KEIRY BAPTISTE Report Released Date/Time: Aug 30, 2023 08:50 AM Reporting Lab: [facility] [place] [facility] [address] [facility] [address] Performing Lab: [facility] [place] [facility] [address] [facility] [address] [facility] [place] [facility] LIPID PANEL FASTING CHOLESTERO L IN LDL [MASS/VOLU ME] IN SERUM OR PLASMA BY CALCCHUCHO N 105 mg/dL 0 - 129 08/29 Specimen Type: SERUM No comment entered. Ordering Provider: KEIRY BAPTISTE Report Released Date/Time: Aug 30, 2023 08:50 AM Reporting Lab: [facility] [place] [address] [address] Performing Lab: [facility] [place] [address] [address] [facility] [facility] LIPID PANEL FASTING CHOLESTERO L.TOTAL/CH OLESTEROL IN HDL [MASS RATIO] IN SERUM OR PLASMA 6.2 08/29 Specimen Type: SERUM No comment entered. Ordering Provider: KEIRY BAPTISTE Report Released Date/Time: Aug 30, 2023 08:50 AM Reporting Lab: [facility] [place] [address] [address] Performing Lab: [facility] [place] [address] [address] [facility] [facility] LIPID PANEL FASTING CHOLESTERO L IN HDL [MASS/VOLU ME] IN SERUM OR PLASMA 30 mg/dL 40 - 60 08/29 L Specimen Type: SERUM No comment entered. Ordering Provider: KEIRY BAPTISTE Report Released Date/Time: Aug 30, 2023 08:50 AM Reporting Lab: [facility] [place] [address] [address] Performing Lab: [facility] [place] [address] [address] [facility] [place] [facility] OCCULT BLOOD FIT X1 SCREEN(I N-HOUSE) HEMOGLOBIN .GASTROINT ESTINAL.LO WER [PRESENCE] IN STOOL BY IMMUNOASSA Y POSITIVE 05/26 HH Specimen Type: FECES No comment entered. Ordering Provider: RAJEEV GOLDMAN Report Released Date/Time: May 17, 2023 10:06 AM Reporting Lab: [facility] [place] [facility] [address] [facility] [address] Performing Lab: [facility] [place] [facility] [address] [facility] [address] [facility] [place] [facility] UREA NITROGEN UREA NITROGEN [MASS/VOLU ME] IN SERUM OR PLASMA 16 mg/dL 7 - 25 05/24 Specimen Type: SERUM No comment entered. Ordering Provider: STEFANIE DE LA ROSA Report Released Date/Time: May 23, 2023 12:59 PM Reporting Lab: [facility] [place] [facility] [address] [facility] [address] Performing Lab: [facility] [place] [facility] [address] [facility] [address] [facility] [place] [facility] Vital Signs Combined list of inpatient and outpatient Vital Signs from Department of Defense and Veterans Affairs, ranging from 12 months to all on record, depending upon the facility. Vital Sign Value Date Comments Source SYSTOLIC BLOOD PRESSURE 124 11/16/19 24 08:59:54 [facility] [place] [facility] DIASTOLIC BLOOD PRESSURE 83 024 08:59:54 [facility] [place] [facility] PULSE OXIMETRY 95 11/16/2023 08:59:54 [facility] [place] [facility] WEIGHT 201.5 11/16/2023 08:59:54 [facility] [place] [facility] BMI 31kg/m2 11/16/2023 08:59:54 [facility] [place] [facility] PAIN 0 11/16/2023 08:59:54 [facility] [place] [facility] HEIGHT 68 11/16/2023 08:59:54 [facility] [place] [facility] TEMPERATURE 97.5 11/16/2023 08:59:54 [facility] [place] [facility] PULSE 73 11/16/2023 08:59:54 [facility] [place] [facility] RESPIRATION 20 11/16/2023 08:59:54 [facility] [place] [facility] SYSTOLIC BLOOD PRESSURE 125 06/27/19 24 08:40:01 [facility] [place] [facility] DIASTOLIC BLOOD PRESSURE 78 024 08:40:01 [facility] [place] [facility] PULSE OXIMETRY 94 06/27/2023 08:40:01 [facility] [place] [facility] WEIGHT 196.6 06/27/2023 08:40:01 [facility] [place] [facility] BMI 31kg/m2 06/27/2023 08:40:01 [facility] [place] [facility] PAIN 0 06/27/2023 08:40:01 [facility] [place] [facility] TEMPERATURE 97.5 06/27/2023 08:40:01 [facility] [place] [facility] PULSE 85 06/27/2023 08:40:01 [facility] [place] [facility] RESPIRATION 16 06/27/2023 08:40:01 [facility] [place] [facility] SYSTOLIC BLOOD PRESSURE 124 05/17/19 24 09:46:42 [facility] [place] [facility] DIASTOLIC BLOOD PRESSURE 72 024 09:46:42 [facility] [place] [facility] PULSE OXIMETRY 95 05/17/2023 09:46:42 [facility] [place] [facility] WEIGHT 198 05/17/2023 09:46:42 [facility] [place] [facility] BMI 31kg/m2 05/17/2023 09:46:42 [facility] [place] [facility] PAIN 0 05/17/2023 09:46:42 [facility] [place] [facility] HEIGHT 67 05/17/2023 09:46:42 [facility] [place] [facility] TEMPERATURE 98.3 05/17/2023 09:46:42 [facility] [place] [facility] PULSE 79 05/17/2023 09:46:42 [facility] [place] [facility] RESPIRATION 18 05/17/2023 09:46:42 [facility] [place] [facility] SYSTOLIC BLOOD PRESSURE 119 04/19/19 24 09:26:12 [facility] [place] [facility] DIASTOLIC BLOOD PRESSURE 77 024 09:26:12 [facility] [place] [facility] PULSE OXIMETRY 95 04/19/2023 09:26:12 [facility] [place] [facility] WEIGHT 194 04/19/2023 09:26:12 [facility] [place] [facility] BMI 30kg/m2 04/19/2023 09:26:12 [facility] [place] [facility] PAIN 0 04/19/2023 09:26:12 [facility] [place] [facility] HEIGHT 67 04/19/2023 09:26:12 [facility] [place] [facility] TEMPERATURE 98.1 04/19/2023 09:26:12 [facility] [place] [facility] PULSE 88 04/19/2023 09:26:12 [facility] [place] [facility] RESPIRATION 16 04/19/2023 09:26:12 [facility] [place] [facility] SYSTOLIC BLOOD PRESSURE 138 03/23/19 24 10:58:23 [facility] [place] [facility] DIASTOLIC BLOOD PRESSURE 88 024 10:58:23 [facility] [place] [facility] PAIN 3 03/23/2023 10:58:23 [facility] [place] [facility] TEMPERATURE 97.9 03/23/2023 10:58:23 [facility] [place] [facility] PULSE 95 03/23/2023 10:58:23 [facility] [place] [facility] RESPIRATION 16 03/23/2023 10:58:23 [facility] [place] [facility] Encounters Combined list of: 1) Encounters from Department of Veterans Affairs facilities going back up to [facility] 18 months. 2) Encounters from the Department of Defense facilities going back up to 280 months. Location Location Details Encounter Type Encounter Number Reason For Visit Attending Provider ADM Date DC Date Status Disposition Source [facility] OFF[facility] O/P EST HI 40-54 MIN [id number] Diagnos is: ICD-10- CM E11.9 Type 2 diabete s mellitu s without complic ations< br/> RUTH MOORE 09/15 [facility] OFF/OP EST MAY X REQ PHY/QHP [id number] Diagnos is: ICD-10- CM E11.9 Type 2 diabete s mellitu s without complic ations< br/> CUONG GONZALEZ 09/15 [facility] En[facility] [id number] 09/27 [facility] En[facility] [id number] 10/17 [facility] En[facility] [id number] 10/21 [facility] En[facility] [id number] 11/10 [facility] OFF[facility] O/P EST LOW 20-29 MIN [id number] Diagnos is: ICD-10- CM E11.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
Javi GOLDMAN 11/17 [facility] En[facility] [id number] 11/29 [facility] En[facility] [id number] 01/03 [facility] En[facility] [id number] 01/25 [facility] En[facility] [id number] 02/15 [facility] En[facility] [id number] 02/23 [facility] En[facility] [id number] 03/02 [facility] En[facility] [id number] 03/10 [facility] COLLJ & INTERPJ DATA EA 30 D [id number] Diagnos is: ICD-10- CM G47.30 Sleep apnea, unspeci fied
SWETHA MARROQUIN 03/10 [facility] En[facility] [id number] 03/14 [facility] En[facility] [id number] JAROD HARTMAN 03/20 [facility] En[facility] [id number] 03/20 [facility] En[facility] [id number] 03/20 [facility] OFF/OP EST MAY X REQ PHY/QHP [id number] Diagnos is: ICD-10- CM 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
GAETANO DE LA ROSA VENECIA POOL 03/23 [facility] OFFICE O/P EST LOW 20 MIN [id number] Diagnos is: ICD-10- CM M54.2 Cervica lgia
GAETANO DE LA ROSA VENECIA POOL 03/23 [facility] En[facility] [id number] 03/28 [facility] En[facility] [id number] [facility] OFFICE O/P EST HI 40 MIN [id number] Diagnos is: ICD-10- CM E11.9 Type 2 diabete s mellitu s without complic ations< br/> RUTH MOORE 04/18 [facility] COLLJ & INTERPJ DATA EA 30 D [id number] Diagnos is: ICD-10- CM E11.9 Type 2 diabete s mellitu s without complic ations< br/> WILLGURMEET KuhnN Carlos Chloé 04/18 [facility] En[facility] [id number] 05/03 [facility] Encounter [id number] 05/16 [facility] OFFICE O/P EST LOW 20 MIN [id number] Diagnos is: ICD-10- CM Z23 Encount er for immuniz ation<b r/> Javi GOLDMAN 05/16 [facility] En[facility] [id number] 06/18 [facility] OFF/OP CONSLTJ NEW/EST HI 55 [id number] Diagnos is: ICD-10- CM R22.1 Localiz ed swellin g, mass and lump, neck
JESSE ACOSTA 06/26 [facility] COMPRE OPH EXAM EST PT 1/> [id number] Diagnos is: ICD-10- CM E11.9 Type 2 diabete s mellitu s without complic ations< br/> EVER,JACQUES H B 07/10 [facility] FIT SPECTACLES BIFOCAL [id number] Diagnos is: ICD-10- CM Z46.0 Encount er for fit/adj st of spectac les and contact lenses< br/> EVERJACQUES H B 07/11 [facility] OFFICE O/P EST SF 10 MIN [id number] Diagnos is: ICD-10- CM E11.9 Type 2 diabete s mellitu s without complic ations< br/> AROLDO ESPINOSA 07/24 [facility] En[facility] [id number] 07/30 [facility] En[facility] [id number] 08/10 [facility] Encounter [id number] 08/18 [facility] Encounter [id number] 08/20 [facility] En[facility] [id number] 08/27 [facility] MTMS BY PHARM ADDL 15 MIN [id number] Diagnos is: ICD-10- CM E11.9 Type 2 diabete s mellitu s without complic ations< br/> GDULA,KEIRY A 08/29 [facility] MTMS BY PHARM EST 15 MIN [id number] Diagnos is: ICD-10- CM E11.9 Type 2 diabete s mellitu s without complic ations< br/> GDULA,KEIRY A 08/31 [facility] MTMS BY PHARM EST 15 MIN [id number] Diagnos is: ICD-10- CM E11.9 Type 2 diabete s mellitu s without complic ations< br/> GDULA,KEIRY A 09/18 [facility] Out[facility] En[facility] [id number] 10/02 [facility] MTMS BY PHARM EST 15 MIN [id number] Diagnos is: ICD-10- CM E11.9 Type 2 diabete s mellitu s without complic ations< br/> GDULA,KEIRY A 10/09 [facility] En[facility] [id number] 10[facility]10 [facility] SPECIAL SUPPLIES PHYS/QHP [id number] Diagnos is: ICD-10- CM G47.30 Sleep apnea, unspeci fied
ST AMANT,SAMMY E P 10/11 [facility] Encounter [id number] 11/15 [facility] OFFICE O/P EST MOD 30 MIN [id number] Diagnos is: ICD-10- CM N40.0 Benign prostat ic hyperpl sarah without lower urinry tract symp
Javi GOLDMAN 11/15 [facility] MTMS BY PHARM ADDL 15 MIN [id number] Diagnos is: ICD-10- CM E11.9 Type 2 diabete s mellitu s without complic ations< br/> GDULA,KEIRY A 12/10 [facility] MTMS BY PHARM ADDL 15 MIN 46106-3.63 1. Diagnos is: ICD-10- CM E11.9 Type 2 diabete s mellitu s without complic ations< br/> GDULA,KEIRY A 01/02 [facility] MTMS BY PHARM EST 15 MIN 46594-4.63 1. Diagnos is: ICD-10- CM E11.9 Type 2 diabete s mellitu s without complic ations< br/> GDULA,KEIRY A 01/07 [facility] MTMS BY PHARM EST 15 MIN [id number] Diagnos is: ICD-10- CM E11.9 Type 2 diabete s mellitu s without complic ations< br/> GDULA,KEIRY A 01/11 [facility] MTMS BY PHARM EST 15 MIN [id number] Diagnos is: ICD-10- CM E11.9 Type 2 diabete s mellitu s without complic ations< br/> GDULA,KEIRY A 01/25 [facility] MTMS BY PHARM EST 15 MIN [id number] [id number] Diagnos is: ICD-10- CM E11.9 Type 2 diabete s mellitu s without complic ations< br/> GDULA,KEIRY A 02/11 [facility] Social History Combined list of available smoking, tobacco, and other social history from [facility] Defense and [facility] facilities. Social History Type Response Date Comment Sourc e Tobacco smoking status NHIS [facility] FORMER USER 11/16/2023 [facility] History of tobacco use VA-TOBACCO QUIT 5 TO < 15 YRS 11/16/2023 [facility] History of tobacco use VA-TOBACCO FORMER USER 09/15/2022 [facility] History of tobacco use VA-TOBACCO FORMER USER 07/09/2021 [facility] History of tobacco use VA-TOBACCO FORMER USER 03/04/2020 [facility] History of tobacco use VA-TOBACCO QUIT 5 TO < 15 YRS 11/27/2018 [facility] History of tobacco use VA-TOBACCO USER EVERY DAY 01/19/2018 [facility] Plan of Care List of future care activities from Department of Veterans Affairs facilities. Additional future care activities may be listed in the Assessment and Plan section. Date/Time Care Activity Care Activity Detail Facili ty 03/27/2024 AMBULATORY - NONE AMBULATORY - NONE [facility] 05/16/2024 AMBULATORY - MEDICINE AMBULATORY - MEDICI NE [facility] 07/15/2024 AMBULATORY - MEDICINE AMBULATORY - MEDICI NE [facility]
[2024-02-27 13:40] LABS: Prostate Specific Antigen 0.35 ng/mL (<0.05-4.0)
== END 2024-02-27 11:34 | disposition home or self-care (01) ==
LOC: HO.10HDL 11:33
PROVIDERS: Visit Provider Urology
DX: N40.1 Benign prostatic hyperplasia with lower urinary tract symptoms (principal); N13.8 Other obstructive and reflux uropathy; Z12.5 Encounter for screening for malignant neoplasm of prostate
CPT/HCPCS: 36415; 84153

== ENCOUNTER 2024-03-05 09:13 | Outpatient (AMB) | payer OTHER, SELFPAY ==
--- NOTE | 2024-03-05 09:25 | MHC.OFFVIS ---
Intake Visit Reasons: 1Y PVR/PSA(set) Intake Note: Patient is Present for 1Y Follow Up PVR/PSA Urology Medication:Finasteride, Tamsulosin Antibiotic Allergies:None Blood Thinners: None PVR: 30ML'S TODAY'S PVR:13ML'S Sailor Required: No Allergies No Known Allergies Allergy (Verified 03/05/24 09:27) HPI Comments Details: Rolando is a pleasant male. He is a patient of Dr. Llanos. Seen for the following urologic conditions - microscopic hematuria - balanitis with inflamed phimosis - responded to diabetic control a topical therapy - lower urinary tract symptoms Effective bladder emptying PVR low Currently remains on Sufficient stream Minimal nocturia Has been using finasteride monotherapy PSA low and only needs to be checked every 3-4 years [facility] Only real issue is glucose 3+ in urine secondary to diabetic medications. This is causing some degree of dry mouth and thirst. Lower urinary tract symptoms Urination better with medications Less urgency Reduced nocturia - PSA 02/28 0.3, 03/02 0.4 Will continue combination therapy - tamsulosin 0.4 mg, finasteride 5 mg Microscopic hematuria Microscopic hematuria was diagnosed during routine UA - ongoing past 3 months. They are here for the Follow-up for alpha brain and prostate medications. Since the last visit the patient has noticed gross hematuria, does not test positive for microscopic hematuria. Relevant medical history for tobacco use - 30 years [address] exposure with organic solvents. Radiographic imagin/20 , CT IVP - bilateral cysts up to 2 cm, right 4 mm kidney stone. Therapeutic plan follow in 12 months with appropriate investigations [facility] Medical History (Updated 12/19/23 @ 12:33 by Shirin Peacock RN) Diabetes Hyperlipidemia HTN (hypertension) Sleep apnea COPD (chronic obstructive pulmonary disease) Asthma Surgical History Hx of hernia repair (~1994) Social History Alcohol intake: never Patient Tobacco Use Status: Never used Tobacco Review of Systems Const Denies chills and Denies fever(s) Card Reports no additional complaints and Denies syncope Resp Denies cough GI Denies abdominal pain and Denies heartburn Reports as per HPI and Denies change in libido Neuro Denies syncope Psych Denies change in libido Endo Denies change in libido Physical Exam Const General: cooperative, healthy appearing, comfortable and no acute distress Orientation/consciousness: patient oriented x3 HEENT Face and sinus: Yes normal facial exam Mouth: moist mucous membranes Neck Neck: Yes normal visual inspection, Yes full ROM and Yes trachea midline Chest Chest palpation & inspection: normal inspection of the chest Resp Effort & Inspection: normal respiratory effort, able to speak in complete sentences and no respiratory distress GI Inspection: Yes normal to inspection Back/Spine/Pelvis Cervical Spine: normal cervical lordosis Thoracic/Lumbar Spine: thoracic and lumbar spine normal to inspection Skin General skin exam: no rashes or lesions noted Neuro General: patient oriented x3, gait normal, tone normal and moves all extremities Extrem General: Yes normal to inspection and Yes capillary refill normal Office Procedures Post Void Residual Post Residual Void Post Void Residual (PVR): 13 [id number] Void Residual by ultrasound Results AMB Urinalysis, Automated UA Leukoctes 0 Usman/uL Last Edit by THO Davis on 03/05/24 09:43 UA Nitrite Negative Last Edit by THO Davis on 03/05/24 09:43 UA Urobilinogen 0.5 mg/dL Last Edit by THO Davis on 03/05/24 09:43 UA Protein 15 mg/dL Last Edit by THO Davis on 03/05/24 09:43 UA pH 6.0 Last Edit by THO Davis on 03/05/24 09:43 UA Blood 0 Oscar/uL Last Edit by THO Davis on 03/05/24 09:43 UA Specific [place] 1.015 Last Edit by THO Davis on 03/05/24 09:43 UA Ketone Negative Last Edit by THO Davis on 03/05/24 09:43 UA Bilirubin 0 mg/dL Last Edit by THO Davis on 03/05/24 09:43 UA Glucose 1000 mg/dL Last Edit by THO Davis on 03/05/24 09:43 Assessment & Plan Assessment & Plan (1) Microscopic hematuria: Code(s): R31.29 - Other microscopic hematuria Category: Medical (2) BPH w urinary obs/LUTS: Code(s): N40.1 - Benign prostatic hyperplasia with lower urinary tract symptoms; N13.8 - Other obstructive and reflux uropathy Category: Medical Plan P.r.n. follow-up Orders: Orders AMB Urinalysis Automated Today Z13.9 - Encounter for screening, unspecified Patient Instructions: Imaging studies, laboratory and physical exam results were discussed and reviewed in detail. No major barriers to patient understanding were identified. An opportunity to ask questions regarding the treatment plan was provided. All questions were answered. The patient expressed understanding and agreement with the above treatment plan. The patient is aware they should contact our office by phone for worsening of their current condition or the appearance of new urologic symptoms. Compliance is encouraged with any medications and followup testing that is ordered. It is a privilege to participate in the urologic care of your patient. If you have any questions or concerns regarding treatment for the above conditions, or other urologic issues, please do not hesitate to contact me. The office telephone contact is [phone]. This note is constructed using voice recognition software. While every effort has been made to ensure accuracy biomedical engineer errors may have been included. Yours sincerely, Dr Deuce Redman MD, [facility] - Urology Providers of Expert, Compassionate Care for the Genitourinary System Coding Level of Care Code Est Pt Level 4 (78630) Diagnoses Microscopic hematuria R31.29 BPH w urinary obs/LUTS N40.1; N13.8 CPT Codes Post Residual Void - PVR CPT Code: 17423-[id number] Void Residual by ultrasound ([id number])
--- OUTSIDE RECORDS SUMMARY | 2024-03-05 09:41 | XMS_ITS | Continuity of Care Document ---
Author Name [facility] Organization [facility] Care Team Providers Care Community Relations Advisor Name Role Phone [facility] Unavailable Unavailable Problems Combined list of problems [...] COPD - Chronic Obstructive Pulmonary Disease (SCT 12762876) Active Condition [facility] Diabetes Mellitus Type 2 (SCT [id number]) Active Condition [facility] HTN - Hypertension (SCT 68079996) Active Condition [facility] Hyperlipidemia (SCT [id number]) Active Condition [facility] [place] [facility] Sleep Apnea (SCT [id number]) Active Condition Jan 19, 2018 Entered By: RAJEEV GOLDMAN Comment: uses CPAP [facility] Tobacco User (SCT [id number]) Active Condition Nov 17, 2022 Entered By: [...] unsp Active Diagnosis [facility] [place] [facility] Medications Combined list of outpatient [...] BREATH RESPIR ATORY (INHAL ATION) ACTIVE 08/28/2024 [id number] NOBLE RUIZ ROSARIO 2023 180 [facility] ALBUTEROL SO4 0.083% INHL,3ML INHALE 1 AMPULE VIA NEBULIZE R EVERY 8 HOURS NEEDED FOR BREATHIN G. FOLLOW INSTRUCT IONS FROM PRESCRIB ER. DAGO BETANCOURT INUED 08/14/2024 [id number] 4 LÓPEZ GOLDMAN 2023 90 [facility] ALBUTEROL SO4 0.083% INHL,3ML INHALE 1 AMPULE VIA NEBULIZE R EVERY 8 HOURS NEEDED FOR BREATHIN G. FOLLOW INSTRUCT IONS FROM PRESCRIB ER. DILCIAI ZER DISCONT INUED 06/22/2023 [id number] 4 LÓPEZ GOLDMAN 2022 90 [facility] ALOGLIPTIN 25MG TAB TAKE ONE TABLET BY MOUTH ONCE DAILY ORAL ACTIVE 04/19/2024 [id number] 5 OSCARAL ICE 2023 90 [facility] ALOGLIPTIN 25MG TAB TAKE ONE TABLET BY MOUTH ONCE DAILY ORAL DISCONT INUED 11/30/2023 [id number] 4 LÓPEZ GOLDMAN 2022 90 [facility] ATORVASTATI N CA 80MG TAB TAKE ONE TABLET BY MOUTH ONCE DAILY FOR CHOLESTE ROL (REPLACE S SIMVASTA TIN) ORAL ACTIVE 09/01/2024 [id number] 4 RAHAT BAPTISTE 2023 90 [facility] ATORVASTATI N CA 80MG TAB TAKE ONE TABLET BY MOUTH ONCE DAILY FOR CHOLESTE ROL (REPLACE S SIMVASTA TIN) ORAL DISCONT INUED 08/11/2023 [id number] 4 LÓPEZ GOLDMAN 2022 90 [facility] BISACODYL 5MG TAB,EC TAKE FOUR TABLETS BY MOUTH NOW AT NOON THE DAY BEFORE YOUR APPOINTM ENT ORAL 09/20/2023 [id number] TANYA GUAN 2023 4 [facility] CHOLECALCIF NOVA 25MCG (1,000UNIT) TAB TAKE ONE TABLET BY MOUTH ONCE DAILY FOR VITAMIN SUPPLEME NTATION ORAL ACTIVE 09/19/2024 [id number] 4 LÓPEZ GOLDMAN 2023 90 [facility] CHOLECALCIF NOVA 25MCG (1,000UNIT) TAB TAKE ONE TABLET BY MOUTH ONCE DAILY FOR VITAMIN SUPPLEME NTATION ORAL DISCONT INUED 08/11/2023 [id number] 4 LÓPEZ GOLDMAN 2022 90 [facility] CICLESONIDE 160MCG/SPRA Y INHL,ORAL,6 .1GM INHALE 1 PUFF BY MOUTH TWICE DAILY (RINSE MOUTH AFTER USE) RESPIR ATORY (INHAL ATION) ACTIVE 04/18/2024 [id number] NOBLE RUIZ ROSARIO 2023 1 [facility] CICLESONIDE 160MCG/SPRA Y INHL,ORAL,6 .1GM INHALE 1 PUFF BY MOUTH TWICE DAILY (RINSE MOUTH AFTER USE) RESPIR ATORY (INHAL ATION) DISCONT INUED 07/07/2023 [id number] 4 LÓPEZ GOLDMAN 2022 1 [facility] CYCLOBENZAP RINE HCL 10MG TAB TAKE ONE TABLET BY MOUTH EVERY 8 HOURS NEEDED FOR MUSCLE SPASM ORAL DISCONT INUED BY PROVIDE R 04/22/2023 [id number] 4 JO ANN DE LA ROSA 2023 15 [facility] DICLOFENAC NA 1% GEL,TOP APPLY 2 GRAMS TOPICALL Y FOUR TIMES A DAY FOR JOINT PAIN FOR OSTEOART HRITIS - USE DOSING CARD PROVIDED IN BOX TOPICA L 04/22/2023 [id number] JO ANN DE LA ROSA 2023 100 [facility] EMPAGLIFLOZ IN 25MG TAB TAKE ONE TABLET BY MOUTH ONCE DAILY FOR DIABETES ORAL ACTIVE 04/19/2024 [id number] 4 MOORE,AL ICE 2023 90 [facility] EMPAGLIFLOZ IN 25MG TAB TAKE ONE TABLET BY MOUTH ONCE DAILY FOR DIABETES ORAL DISCONT INUED 11/30/2023 [id number] 4 LÓPEZ GOLDMAN 2022 90 [facility] EPINEPHRINE (EQV-EPI-PE N) 0.3MG/0.3ML INJECTOR INJECT DIRECTED INTRAMUS CULARLY NEEDED FOR LIFE THREATEN ING ALLERGIC REACTION INTRAM USCULA R 02/23/2023 [id number] NOBLE RUIZ 2022 2 [facility] FINASTERIDE 5MG TAB TAKE ONE TABLET BY MOUTH ONCE DAILY FOR PROSTATE ORAL ACTIVE 09/19/2024 [id number] 4 LÓPEZ GOLDMAN 2023 90 [facility] FINASTERIDE 5MG TAB TAKE ONE TABLET BY MOUTH ONCE DAILY FOR PROSTATE ORAL DISCONT INUED 08/11/2023 [id number] 4 LÓPEZ GOLDMAN 2022 90 [facility] FISH OIL 1000MG (500MG DHA/EPA) CAP,ORAL TAKE 1 CAPSULE BY MOUTH ONCE DAILY ORAL ACTIVE Millie DOS SANTOS 2020 [facility] FLUTICASONE PROPIONATE 50MCG/SPRAY SOLN,NASAL, 16GM INSTILL 1 SPRAY INTO EACH NOSTRIL TWICE DAILY NEEDED NASAL ACTIVE 11/16/2024 [id number] 5 LÓPEZ GOLDMAN 2023 1 [facility] INSULIN,GLA RGINE-YFGN 100UNIT/ML INJ PEN,3ML INJECT 20 UNITS SUBCUTAN EOUSLY ONCE DAILY SUBCUT ANEOUS ACTIVE 01/26/2025 [id number] 4 RHAAT BAPTISTE I A 2023 10 [facility] INSULIN,GLA RGINE-YFGN 100UNIT/ML INJ PEN,3ML INJECT 12 UNITS SUBCUTAN EOUSLY ONCE DAILY FOR DIABETES SUBCUT ANEOUS DISCONT INUED BY PROVIDE R 01/03/2025 [id number] 4 GDRAHAT FITZPATRICK I A 2023 5 [facility] INSULIN,GLA RGINE-YFGN 100UNIT/ML INJ PEN,3ML INJECT 10 UNITS SUBCUTAN EOUSLY ONCE DAILY SUBCUT ANEOUS DISCONT INUED (EDIT) 04/21/2024 [id number] 4 MOORE,AL ICE 2023 5 [facility] INSULIN,GLA RGINE-YFGN 100UNIT/ML INJ PEN,3ML INJECT 12 UNITS SUBCUTAN EOUSLY ONCE DAILY FOR DIABETES SUBCUT ANEOUS DISCONT INUED (EDIT) 04/19/2024 [id number] 4 MOORE,AL ICE 2023 5 [facility] INSULIN,GLA RGINE-YFGN 100UNIT/ML INJ PEN,3ML INJECT 16 UNITS SUBCUTAN EOUSLY ONCE DAILY FOR DIABETES SUBCUT ANEOUS DISCONT INUED (EDIT) 03/24/2024 [id number] 4 MOORE,AL ICE 2023 5 [facility] LISINOPRIL 10MG TAB TAKE ONE TABLET BY MOUTH ONCE DAILY FOR HIGH BLOOD PRESSURE TO CONTROL BLOOD PRESSURE ORAL ACTIVE 08/30/2024 [id number] 4 RAHAT BAPTISTE 2023 90 [facility] LISINOPRIL 10MG TAB TAKE ONE TABLET BY MOUTH ONCE DAILY FOR HIGH BLOOD PRESSURE TO CONTROL BLOOD PRESSURE ORAL DISCONT INUED 05/17/2023 [id number] MOORE,AL ICE 2022 90 [facility] MECLIZINE HCL 25MG TAB TAKE ONE TABLET BY MOUTH EVERY 12 HOURS NEEDED FOR VERTIGO ORAL ACTIVE 11/16/2024 [id number] 5 LÓPEZ GOLDMAN 2023 40 [facility] METFORMIN HCL 500MG 24HR TAB,SA TAKE ONE TABLET BY MOUTH TWICE DAILY ORAL ACTIVE 09/19/2024 [id number] 5 RAHAT BAPTISTE 2023 180 [facility] METFORMIN HCL 500MG 24HR TAB,SA TAKE TWO TABLETS BY MOUTH TWICE DAILY ORAL DISCONT INUED (EDIT) 05/04/2024 [id number] 4 LÓPEZ GOLDMAN 2023 360 [facility] METFORMIN HCL 500MG 24HR TAB,SA TAKE TWO TABLETS BY MOUTH TWICE DAILY ORAL DISCONT INUED 04/13/2023 [id number] 4 LÓPEZ GOLDMAN 2022 120 [facility] OLODATEROL 2.5MCG/TIOT ROPIUM 2.5MCG/ACTU AT INHL,ORAL,6 0D,4GM INHALE 2 PUFFS (1 DOSE) BY MOUTH ONCE DAILY RESPIR ATORY (INHAL ATION) ACTIVE 08/30/2024 [id number] 4 RAHAT BAPTISTE 2023 3 [facility] OLODATEROL 2.5MCG/TIOT ROPIUM 2.5MCG/ACTU AT INHL,ORAL,6 0D,4GM INHALE 2 PUFFS (1 DOSE) BY MOUTH ONCE DAILY RESPIR ATORY (INHAL ATION) DISCONT INUED 07/09/2023 [id number] YASMIN,AN ROSARIO 2022 3 [facility] OMALIZUMAB 150MG/ML INJ,SYR,1ML INJECT 300MG ([id number] SYRINGE) SUBCUTAN EOUSLY EVERY 4 WEEKS PATIENT HAS BEEN OBSERVED IN CLINIC FOR 3 DOSES AND HAS AN EPINEPHR INE PRESCRIP TION SUBCUT ANEOUS ACTIVE 02/09/2025 [id number] 5 YASMIN,AN ROSARIO 2024 2 [facility] OMALIZUMAB 150MG/ML INJ,SYR,1ML INJECT 300MG ([id number] SYRINGE) SUBCUTAN EOUSLY EVERY FOUR WEEKS PATIENT HAS BEEN OBSERVED IN CLINIC FOR 3 DOSES AND HAS AN EPINEPHR INE PRESCRIP TION SUBCUT ANEOUS 01/25/2024 [id number] 4 YASMIN,AN ROSARIO 2022 2 [facility] POLYETHYLEN E GLYCOL 3350 PWDR,ORAL TAKE CONTENTS OF BOTTLE BY MOUTH ONCE DIRECTED [MIX WITH 4 TO 8OZ. OF BEVERAGE ] ORAL 09/20/2023 [id number] TANYA GUAN 2023 238 [facility] TAMSULOSIN HCL 0.4MG CAP TAKE ONE CAPSULE BY MOUTH EVERY EVENING ORAL DISCONT INUED BY KEILA Espinal 07/07/2023 [id number] 3 LÓPEZ GOLDMAN 2022 90 [facility] THEOPHYLLIN E 400MG 24HR TAB,SA TAKE ONE TABLET BY MOUTH ONCE DAILY ORAL ACTIVE 09/21/2024 [id number] 5 NOBLE RUIZ ROSARIO 2023 30 [facility] THEOPHYLLIN E 400MG 24HR TAB,SA TAKE ONE TABLET BY MOUTH ONCE DAILY ORAL DISCONT INUED 10/22/2023 [id number] 4 NOBLE RUIZ ROSARIO 2022 30 [facility] Immunizations Combined list of available immunizations from the Department of Defense and Veterans Affairs facilities. Immunization Series Date Given Administered By Site Reaction Lot Number CVX Code Drug [facility] Aide Status Comments Source COVID-19 (MODERNA), MRNA, LNP-S, PF, 50 MCG/0.5 ML (AGES 12+ YEARS) 6 2023 AIDE DE LA CRUZ RIGHT DELTO ID [id number] 312 complet ed [facility] INFLUENZA, HIGH-DOSE, TRIVALENT, PF 2023 AIDE DE LA CRUZ RIGHT DELTO ID [id number] 135 complet ed [facility] COVID-19 (MODERNA), MRNA, LNP-S, PF, 50 MCG/0.5 ML (AGES 12+ YEARS) 2023 ROBERT ANDRADE ALANNAH RIGHT DELTO ID [id number] 312 complet ed [facility] INFLUENZA, HIGH-DOSE, QUADRIVALENT 2023 ROBERT ANDRADE ALANNAH LEFT DELTO ID [id number] 197 complet ed [facility] COVID-19 (MODERNA), MRNA, LNP-S, BIVALENT BOOSTER, PF, 50 MCG/0.5 ML OR 25MCG/0.25 ML DOSE 1 2021 229 complet ed MOD; [id number]; 3 [facility] INFLUENZA VACCINE, QUADRIVALENT, ADJUVANTED 2021 205 complet ed [facility] INFLUENZA VACCINE, QUADRIVALENT, ADJUVANTED 2020 205 complet ed [facility] COVID-19 (MODERNA), MRNA, LNP-S, PF, 100 MCG/0.5 ML DOSE 3 2020 207 complet ed MOD; [id number]; 1 [facility] COVID-19 (MODERNA), MRNA, LNP-S, PF, 100 MCG/0.5 ML DOSE 2 2020 207 complet ed MOD; [id number]; 1 [facility] COVID-19 (MODERNA), MRNA, LNP-S, PF, 100 MCG/0.5 ML DOSE 1 2020 207 complet ed MOD; [id number]; 1 [facility] [...] ed Site: Left Deltoid [facility] [place] [facility] PNEUMOCOCCAL CONJUGATE PCV 13 2017 133 complet [facility] Results Combined list of recent [...] Dec 11, 2023 09:09 AM Reporting Lab: [address] [address] Performing Lab: [facility] [address] [facility] [address] [facility] BASIC METABOLI C PANEL (non-fas ting) UREA NITROGEN [MASS/VOLU ME] IN SERUM OR PLASMA 13 mg/dL 7 - 25 11/09 Specimen Type: SERUM No comment entered. Ordering Provider: RAJEEV GOLDMAN Report Released Date/Time: Nov 03, 2023 08:27 AM Reporting Lab: [facility] [address] [facility] [address] Performing Lab: [address] [address] [facility] BASIC METABOLI C PANEL (non-fas ting) GLUCOSE [MASS/VOLU ME] IN SERUM OR PLASMA 158 mg/dL 65 - 100 11/09 H Specimen Type: SERUM No comment entered. Ordering Provider: RAJEEV GOLDMAN Report Released Date/Time: Nov 03, 2023 08:27 AM Reporting Lab: [facility] [place] [facility] [address] [facility] [address] Performing Lab: [facility] [place] [facility] [address] [facility] [address] [facility] BASIC METABOLI C PANEL (non-fas ting) SODIUM [MOLES/VOL UME] IN SERUM OR PLASMA 140 mmol/L 135 - 145 11/09 Specimen Type: SERUM No comment entered. Ordering Provider: RAJEEV GOLDMAN Report Released Date/Time: Nov 03, 2023 08:27 AM Reporting Lab: [facility] [place] [facility] [address] [facility] [address] Performing Lab: [facility] [place] [address] [address] [facility] BASIC METABOLI C PANEL (non-fas ting) POTASSIUM [MOLES/VOL UME] IN SERUM OR PLASMA 4.6 mmol/L 3.5 - 5.0 11/09 Specimen Type: SERUM No comment entered. Ordering Provider: RAJEEV GOLDMAN Report Released Date/Time: Nov 03, 2023 08:27 AM Reporting Lab: [facility] [place] [facility] [address] [facility] [address] Performing Lab: [facility] [place] [address] [address] [facility] BASIC METABOLI C PANEL (non-fas ting) CHLORIDE [MOLES/VOL UME] IN SERUM OR PLASMA 107 mmol/L 100 - 110 11/09 Specimen Type: SERUM No comment entered. Ordering Provider: RAJEEV GOLDMAN Report Released Date/Time: Nov 03, 2023 08:27 AM Reporting Lab: [facility] [place] [facility] [address] [facility] [address] Performing Lab: [facility] [place] [address] [address] [facility] BASIC METABOLI C PANEL (non-fas ting) CARBON DIOXIDE, TOTAL [MOLES/VOL UME] IN SERUM OR PLASMA 20 meq/L 20 - 30 11/09 Specimen Type: SERUM No comment entered. Ordering Provider: RAJEEV GOLDMAN Report Released Date/Time: Nov 03, 2023 08:27 AM Reporting Lab: [facility] [address] [address] Performing Lab: [facility] [address] [phone] [place] [address] BASIC METABOLI C PANEL (non-fas ting) CREATININE [MASS/VOLU ME] IN SERUM OR PLASMA 1.03 mg/dL 0.50 - 1.40 11/09 Specimen Type: SERUM No comment entered. Ordering Provider: RAJEEV GOLDMAN Report Released Date/Time: Nov 03, 2023 08:27 AM Reporting Lab: [address] [address] Performing Lab: [facility] [address] [address] [facility] BASIC METABOLI C PANEL (non-fas ting) GLOMERULAR FILTRATION RATE/1.73 SQ M.PREDICTE D [VOLUME RATE/AREA] IN SERUM, PLASMA OR BLOOD BY CREATININE -BASED FORMULA (CKD-EPI 2020) 78 mL/min 60 11/09 Specimen Type: SERUM No comment entered. Ordering Provider: RAJEEV GOLDMAN Report Released Date/Time: Nov 03, 2023 08:27 AM Reporting Lab: [facility] [address] [address] Performing Lab: [address] [address] [facility] CBC LEUKOCYTES [#/VOLUME] IN BLOOD BY AUTOMATED COUNT 9.00 10*3/uL 4.50 - 11.00 11/09 Specimen Type: BLOOD No comment entered. Ordering Provider: RAJEEV GOLDAMN Report Released Date/Time: Nov 03, 2023 08:27 AM Reporting Lab: [facility] [address] [facility] [address] Performing Lab: [facility] [address] [facility] [address] [facility] CBC ERYTHROCYT ES [#/VOLUME] IN BLOOD BY AUTOMATED COUNT 5.14 10*6/uL 4.23 - 5.66 11/09 Specimen Type: BLOOD No comment entered. Ordering Provider: RAJEEV GOLDMAN Report Released Date/Time: Nov 03, 2023 08:27 AM Reporting Lab: [facility] [place] [facility] [address] [facility] [address] Performing Lab: [facility] [place] [facility] [address] [facility] [address] [facility] CBC HEMOGLOBIN [MASS/VOLU ME] IN BLOOD 15.6 g/dL 12.8 - 17 11/09 Specimen Type: BLOOD No comment entered. Ordering Provider: RAJEEV GOLDMAN Report Released Date/Time: Nov 03, 2023 08:27 AM Reporting Lab: [facility] [place] [facility] [address] [facility] [address] Performing Lab: [facility] [place] [facility] [address] [facility] [address] [facility] CBC HEMATOCRIT [VOLUME FRACTION] OF BLOOD BY AUTOMATED COUNT 47.3 39.2 - 50.4 11/09 Specimen Type: BLOOD No comment entered. Ordering Provider: RAJEEV GOLDMAN Report Released Date/Time: Nov 03, 2023 08:27 AM Reporting Lab: [facility] [place] [facility] [address] [facility] [address] Performing Lab: [facility] [address] [facility] [address] [facility] CBC MCV [ENTITIC VOLUME] BY AUTOMATED COUNT 92.0 fL 82 - 99 11/09 Specimen Type: BLOOD No comment entered. Ordering Provider: RAJEEV GOLDMAN Report Released Date/Time: Nov 03, 2023 08:27 AM Reporting Lab: [facility] [address] [facility] [address] Performing Lab: [facility] [address] [facility] [address] [facility] CBC MCHC [MASS/VOLU ME] BY AUTOMATED COUNT 33.0 g/dL 30.8 - 35.1 11/09 Specimen Type: BLOOD No comment entered. Ordering Provider: RAJEEV GOLDMAN Report Released Date/Time: Nov 03, 2023 08:27 AM Reporting Lab: [facility] [place] [facility] [address] [facility] [address] Performing Lab: [facility] [place] [facility] [address] [facility] [address] [facility] [place] [facility] CBC PLATELETS [#/VOLUME] IN BLOOD BY AUTOMATED COUNT 286 10*3/uL 140 - 360 11/09 Specimen Type: BLOOD No comment entered. Ordering Provider: RAJEEV GOLDMAN Report Released Date/Time: Nov 03, 2023 08:27 AM Reporting Lab: [facility] [place] [facility] [address] [facility] [address] Performing Lab: [facility] [place] [facility] [address] [facility] [address] [facility] [facility] CBC ERYTHROCYT E DISTRIBUTI ON WIDTH [RATIO] BY AUTOMATED COUNT 12.6 12.0 - 16.0 11/09 Specimen Type: BLOOD No comment entered. Ordering Provider: RAJEEV GOLDMAN Report Released Date/Time: Nov 03, 2023 08:27 AM Reporting Lab: [facility] [address] [facility] [address] Performing Lab: [facility] [address] [facility] [address] [facility] [facility] CBC MCH [ENTITIC MASS] BY AUTOMATED COUNT 30.4 pg 26.2 - 32.6 11/09 Specimen Type: BLOOD No comment entered. Ordering Provider: RAJEEV GOLDMAN Report Released Date/Time: Nov 03, 2023 08:27 AM Reporting Lab: [facility] [place] [facility] [address] [facility] [address] Performing Lab: [facility] [address] [address] [facility] LIPID PANEL, NON FASTING CHOLESTERO L [MASS/VOLU ME] IN SERUM OR PLASMA 217 mg/dL 11/09 H Specimen Type: SERUM No comment entered. Ordering Provider: RAJEEV GOLDMAN Report Released Date/Time: Nov 03, 2023 08:27 AM Reporting Lab: [facility] [place] [address] [address] Performing Lab: [facility] [address] [address] [facility] LIPID PANEL, NON FASTING TRIGLYCERI DE [MASS/VOLU ME] IN SERUM OR PLASMA 410 mg/dL 0 - 150 11/09 H Specimen Type: SERUM No comment entered. Ordering Provider: RAJEEV GOLDMAN Report Released Date/Time: Nov 03, 2023 08:27 AM Reporting Lab: [facility] [place] [address] [address] Performing Lab: [facility] [place] [address] [address] [facility] [facility] LIPID PANEL, NON FASTING CHOLESTERO L IN LDL [MASS/VOLU ME] IN SERUM OR PLASMA BY CALCULATIO N Reflex to dLDLmg/d L 0 - 129 11/09 Specimen Type: SERUM No comment entered. Ordering Provider: RAJEEV GOLDMAN Report Released Date/Time: Nov 03, 2023 08:27 AM Reporting Lab: [facility] [address] [address] Performing Lab: [facility] [place] [address] [address] [facility] LIPID PANEL, NON FASTING CHOLESTERO L.TOTAL/CH OLESTEROL IN HDL [MASS RATIO] IN SERUM OR PLASMA 5.9 11/09 Specimen Type: SERUM No comment entered. Ordering Provider: RAJEEV GOLDMAN Report Released Date/Time: Nov 03, 2023 08:27 AM Reporting Lab: [facility] [address] Performing Lab: [facility] TRN [facility]USE[facility] [address] [facility] [address] [facility] LIPID PANEL, NON FASTING CHOLESTERO L IN HDL [MASS/VOLU ME] IN SERUM OR PLASMA 37 mg/dL 40 - 60 11/09 L Specimen Type: SERUM No comment entered. Ordering Provider: RAJEEV GOLDMAN Report Released Date/Time: Nov 03, 2023 08:27 AM Reporting Lab: [facility]PITALRINFIRMARY WESTN [facility]ITALUSE[address] [address] Performing Lab: [facility]PITALRINFIRMARY WESTN [facility]ITALUSE[address] [address] [facility]ITALN [facility]ITALUSE [facility] LIPID PANEL, NON FASTING CHOLESTERO L IN LDL [MASS/VOLU ME] IN SERUM OR PLASMA BY DIRECT ASSAY 99 mg/dL 11/09 Specimen Type: SERUM No comment entered. Ordering Provider: RAJEEV GOLDMAN Report Released Date/Time: Nov 03, 2023 08:27 AM Reporting Lab: [facility]OSPITALRL TRN [facility]ITALUSE[address] [address] Performing Lab: [facility]OS[facility]ITALRL TRN [facility]ITALUSE[address] [address] [facility]OSPITALRINFIRMARY WESTN [facility]OSPITALUSE [facility] MICROALB UMIN CREATINI NE RATIO PANEL MICROALBUM IN/CREATIN INE [MASS RATIO] IN URINE 15.1 mg/g 0 - 29.9 11/09 Specimen Type: URINE No comment entered. Ordering Provider: RAJEEV GOLDMAN Report Released Date/Time: Nov 03, 2023 08:27 AM Reporting Lab: [facility] [address] [facility] [address] Performing Lab: [facility] [address] [facility] [address] [facility] MICROALB UMIN CREATINI NE RATIO PANEL MICROALBUM IN [MASS/VOLU ME] IN URINE 0.9 mg/dL 11/09 Specimen Type: URINE No comment entered. Ordering Provider: RAJEEV GOLDMAN Report Released Date/Time: Nov 03, 2023 08:27 AM Reporting Lab: [facility] [address] [facility] [address] Performing Lab: [facility] [place] [facility] [address] [facility] [address] [facility] MICROALB UMIN CREATINI NE RATIO PANEL CREATININE [MASS/VOLU ME] IN URINE 59.59 mg/dL 11/09 Specimen Type: URINE No comment entered. Ordering Provider: RAJEEV GOLDMAN Report Released Date/Time: Nov 03, 2023 08:27 AM Reporting Lab: [facility] [place] [facility] [address] [facility] [address] Performing Lab: [facility] [address] [facility] [address] [facility] CREATINI NE (eGFR 2020) CREATININE [MASS/VOLU ME] IN SERUM OR PLASMA 1.00 mg/dL 0.50 - 1.40 08/29 Specimen Type: SERUM No comment entered. Ordering Provider: KEIRY BAPTISTE Report Released Date/Time: Aug 30, 2023 08:35 AM Reporting Lab: [facility] [place] [facility] [address] [facility] [address] Performing Lab: [facility] [address] [facility] [address] [facility] CREATINI NE (eGFR 2020) GLOMERULAR FILTRATION RATE/1.73 SQ M.PREDICTE D [VOLUME RATE/AREA] IN SERUM, PLASMA OR BLOOD BY CREATININE -BASED FORMULA (CKD-EPI 2020) 80 mL/min 60 08/29 Specimen Type: SERUM No comment entered. Ordering Provider: EKIRY BAPTISTE Report Released Date/Time: Aug 30, 2023 08:35 AM Reporting Lab: [facility] [address] [facility] [facility] [address] Performing Lab: [facility] [address] [address] [facility] HEMOGLOB IN A1C PANEL HEMOGLOBIN A1C/HEMOGL [...] Aug 30, 2023 08:35 AM Reporting Lab: [facility] [address] [address] Performing Lab: [facility] [address] [address] [facility] LIPID PANEL FASTING CHOLESTERO L [MASS/VOLU ME] IN SERUM OR PLASMA 186 mg/dL 08/29 Specimen Type: SERUM No comment entered. Ordering Provider: KEIRY BAPTISTE Report Released Date/Time: Aug 30, 2023 08:50 AM Reporting Lab: [facility] [address] Performing Lab: [facility] [address] [facility] LIPID PANEL FASTING TRIGLYCERI DE [MASS/VOLU ME] IN SERUM OR PLASMA 253 mg/dL 0 - 150 08/29 H Specimen Type: SERUM No comment entered. Ordering Provider: KEIRY BAPTISTE Report Released Date/Time: Aug 30, 2023 08:50 AM Reporting Lab: [facility] [address] [address] Performing Lab: [facility] [address] [facility] [address] [facility] LIPID PANEL FASTING CHOLESTERO L IN LDL [MASS/VOLU ME] IN SERUM OR PLASMA BY CALCCHUCHO N 105 mg/dL 0 - 129 08/29 Specimen Type: SERUM No comment entered. Ordering Provider: KEIRY BAPTISTE Report Released Date/Time: Aug 30, 2023 08:50 AM Reporting Lab: [facility] [address] [address] Performing Lab: [facility] [address] [address] [facility] LIPID PANEL FASTING CHOLESTERO L.TOTAL/CH OLESTEROL IN HDL [MASS RATIO] IN SERUM OR PLASMA 6.2 08/29 Specimen Type: SERUM No comment entered. Ordering Provider: KEIRY BAPTISTE Report Released Date/Time: Aug 30, 2023 08:50 AM Reporting Lab: [facility] [address] [address] Performing Lab: [facility] [address] [address] [facility] LIPID PANEL FASTING CHOLESTERO L IN HDL [MASS/VOLU ME] IN SERUM OR PLASMA 30 mg/dL 40 - 60 08/29 L Specimen Type: SERUM No comment entered. Ordering Provider: KEIRY BAPTISTE Report Released Date/Time: Aug 30, 2023 08:50 AM Reporting Lab: [facility] [address] [address] Performing Lab: [facility] [address] [address] [facility] OCCULT BLOOD FIT X1 SCREEN(I N-HOUSE) HEMOGLOBIN .GASTROINT ESTINAL.LO WER [PRESENCE] IN STOOL BY IMMUNOASSA Y POSITIVE 05/26 HH Specimen Type: FECES No comment entered. Ordering Provider: RAJEEV GOLDMAN Report Released Date/Time: May 17, 2023 10:06 AM Reporting Lab: [facility] [address] [facility] [facility] [address] Performing Lab: [facility] [address] [facility] [facility] [address] [facility] UREA NITROGEN UREA NITROGEN [MASS/VOLU ME] IN SERUM OR PLASMA 16 mg/dL 7 - 25 05/24 Specimen Type: SERUM No comment entered. Ordering Provider: STEFANIE DE LA ROSA Report Released Date/Time: May 23, 2023 12:59 PM Reporting Lab: [facility] [address] [facility] [address] Performing Lab: [facility] [address] [facility] [address] [facility] Vital Signs Combined list of inpatient and outpatient Vital Signs from Department of Defense and Veterans Affairs, ranging from 12 months to all on record, depending upon the facility. Vital Sign Value Date Comments Source SYSTOLIC BLOOD PRESSURE 124 11/16/19 24 08:59:54 [facility] DIASTOLIC BLOOD PRESSURE 83 024 08:59:54 [facility] PULSE OXIMETRY 95 11/16/2023 08:59:54 [facility] [...] Veterans Affairs facilities going back up to [facility] 18 months. 2) Encounters from the Department of Defense facilities going back up to 280 months. Location Location Details Encounter Type Encounter Number Reason For Visit Attending Provider ADM Date DC Date Status Disposition Source [facility] OFFICE O/P EST HI 40-54 MIN [id number] Diagnos is: ICD-10- CM E11.9 Type 2 diabete s mellitu s without complic ations< br/> RUTH MOORE 09/15 [facility] OFF/OP EST MAY X REQ PHY/QHP [id number] Diagnos is: ICD-10- CM E11.9 Type 2 diabete s mellitu s without complic ations< br/> CUONG GONZALEZ 09/15 [facility] En[facility] [id number] 09/27 [facility] En[facility] [id number] 10/17 [facility] En[facility] [id number] 10/21 [facility] Encounter [id number] 11/10 [facility] OFFICE O/P EST LOW 20-29 MIN [id number] Diagnos is: ICD-10- CM E11.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
Javi GOLDMAN 11/17 [facility] En[facility] [id number] 11/29 [facility] En[facility] [id number] 01/03 [facility] Encounter [id number] 01/25 [facility] Encounter [id number] 02/15 [facility] Encounter [id number] 02/23 [facility] Encounter [id number] 03/02 [facility] Encounter [id number] 03/10 [facility] COLLJ & INTERPJ DATA EA 30 D [id number]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
--- OUTSIDE RECORDS SUMMARY | 2024-03-05 09:41 | XMS_ITS | Encounter Summary ---
Author Name [facility] [place] Organization [facility] [place] Address [address] [place] [address] Care Team Providers Care Noteman Name Role Phone ANDREA LLANOS Primary Care Provider [facility] Insurance Providers: All historical and current Section [...] Policy Saxena MEDICARE (WNR) MEDICARE (M) PART B Feb 06, 2017 PART B [id number] Chloé DUFFY PATIENT MEDICARE (WNR) MEDICARE (M) PART A Feb 06, 2017 PART A [id number] Chloé DUFFY PATIENT MEDICARE (WNR) MEDICARE (M) PART A Feb 06, 2017 PART A [id number] Chloé DUFFY PATIENT Selected Encounter This section includes the information on record at [place] for the Encounter. Date/Time Encounter Type Encounter Description Reason Pro vider Source Feb 27, 2024 01:50 PM Outpatient Encounter PRIMARY CARE/MEDICINE IHE Encounter Template Text not used by [place] Plan of Treatment: Future Appointments (+ 6 months) and Future Tests (+/- 45 days) The Plan of Treatment section includes future care activities for the patient from all [facility]. This section includes future appointments and future orders which are active, pending or scheduled. Future Appointments This section includes appointments that were scheduled to occur 6 months from the date of the Encounter, up to a maximum of 20 appointments. The data comes from all [facility]. Appointment Date/Time Appointment Type Appointme nt Facility Name Mar 05, 2024 09:30 AM AMBUL[facility]INE [facility] Mar 27, 2024 11:30 AM AMBULATORY - NONE [facility] May 16, 2024 09:30 AM AMBULATORY - MEDICINE [facility] Jul 15, 2024 10:30 AM AMBULATORY - MEDICINE [facility] Active, Pending, and Scheduled Orders This section includes a listing of several types of active, pending, and scheduled orders, including clinic medications orders, diagnostic test orders, procedure orders and consult orders; where the start date of the order is 45 days before the date of the Encounter or 45 days after the date of theEncounter. The data comes from all [facility]. Test Date/Time Test Type Test Details Facility Name Feb 28, 2024 07:33 AM Consult Order COMMUNITY CARE-UROLOGY Cons Client Support Administrator's Choice [facility] Social History: Smoking Status (Most current) and Tobacco Use (All prior to encounter date) This section includes the most current, and the historical, smoking and tobacco- related health factors from the [place] facility where the Encounter took place. Current Smoking Status This section includes the most current smoking, or tobacco-related health factor, from the [place] facility where the Encounter took place. Date/Time Current Smoking Status Comment Facil ity Nov 16, 2023 09:00 AM AR-TOBACCO QUIT 5 TO < 15 YRS [facility] Tobacco Use History This section includes a history of the smoking, or tobacco-related health factors, that were collected on or before the date of the Encounter. The data comes from the [place] facility where the Encounter took place. Date/Time Smoking Status/Tobacco Use Comment F acility Nov 16, 2023 09:00 AM VA-TOBACCO QUIT 5 TO < 15 YRS [facility] Sep 15, 2022 01:00 PM VA-TOBACCO FORMER USER [facility] Sep 15, 2022 01:00 PM VA-TOBACCO QUIT 5 TO < 15 YRS [facility] Jul 09, 2021 09:00 AM VA-TOBACCO FORMER USER [facility] Jul 09, 2021 09:00 AM VA-TOBACCO QUIT 15 YRS OR MORE [facility] Mar 04, 2020 10:00 AM VA-TOBACCO FORMER USER [facility] Mar 04, 2020 10:00 AM VA-TOBACCO QUIT 5 TO < 15 YRS [facility] Nov 27, 2018 10:35 AM VA-TOBACCO FORMER USER [facility] Nov 27, 2018 10:35 AM VA-TOBACCO QUIT 5 TO < 15 YRS [facility] Jan 19, 2018 09:11 AM VA-TOBACCO USE > 1 5 LESS THAN 30 YEARS [facility] [place] [facility] Jan 19, 2018 09:11 AM VA-TOBACCO USE ADVICE [facility] Jan 19, 2018 09:11 AM VA-TOBACCO 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 Date/Time Encounter Note(s) Provider Source Feb 27, 2024 01:50 PM ADMINISTRATIVE NOTE: LOCAL TITLE: ADMINISTRATIVE NOTE STANDARD TITLE: ADMINISTRATIVE NOTE DATE OF NOTE: FEB 27, 2024@13:50 ENTRY DATE: FEB 27, 2024@13:50:33 AUTHOR: JESSICA MAC COSIGNER: URGENCY: STATUS: COMPLETED ADMINISTRATIVE NOTE Has ADDENDA CALLED THE CLINIC NEEDING A RENEWAL OF HIS CONSULT FOR UROLOGY HE HAS APT NEXT WEEK FOR FOLLOW UP CARE /den/ JESSICA REED Signed: 02/27/2024 13:51 Receipt Acknowledged By: 02/28/2024 12:52 /es/ Andrea Llanos DNP, TERMINAL SUPERVISOR-BC, CNL Primary Care Nurse Practitioner 02/27/2024 15:00 /den/ MARIA T BASHIR Registered Nurse for TANO ANDRADE 02/27/2024 ADDENDUM STATUS: COMPLETED DISPATCHER SERVICE OR WORK WILL RENEW UROLOGY AND PLACE ON HOLD FOR PROVIDER TO SIGN IF APPROPRIATE /caroline BASHIR Registered Nurse Signed: 02/27/2024 15:00 JESSICA MAC CNTRL [facility]
== END 2024-03-05 10:43 | disposition home or self-care (01) ==
PROVIDERS: PCP Nurse Practitioner Family; Visit Provider Urology
DX: R31.29 Other microscopic hematuria (principal); N40.1 Benign prostatic hyperplasia with lower urinary tract symptoms; N13.8 Other obstructive and reflux uropathy; Z13.9 Encounter for screening, unspecified
CPT/HCPCS: 99214

== ENCOUNTER → 2024-03-05 09:13 | Outpatient (BNVA) | payer OTHER, SELFPAY | PROVIDERS: PCP Nurse Practitioner Family; Visit Provider Urology | DX: R31.29 Other microscopic hematuria (principal); N40.1 Benign prostatic hyperplasia with lower urinary tract symptoms; N13.8 Other obstructive and reflux uropathy | CPT/HCPCS: 51798; 81003; 99212 ==

== ENCOUNTER 2024-03-27 14:30 | Day surgery (SDC) | payer OTHER, SELFPAY ==
[2023-12-19 12:33] VITALS: BMI 29.3
--- NOTE | 2023-12-20 08:49 | HO.ANESPROP2 ---
HPI - Anesthesia Eval Consult details Narrative: 73yo M for Colonoscopy [place] [facility] [place]/Asthma. Well controlled at 10/2023 visit Anesthesia Pre-Procedure Meds Is the patient on any of the following meds?: GLP1/DPP4 and SGLT2 Inhib PMFSH Active Problems Active Problems: All Active Problems Personal history of nicotine dependence (Acute) Environmental allergies (Acute) Asthma-COPD overlap syndrome (Acute) BPH w urinary obs/LUTS (Acute) Allergic rhinitis (Acute) Pulmonary nodules (Acute) JONAH on CPAP (Acute) Moderate COPD (chronic obstructive pulmonary disease) (Acute) Balanitis (Acute) Glucosuria (Acute) Microscopic hematuria (Acute) Past Medical History Medical History (Updated 12/19/23 @ 12:33 by Shirin Peacock RN) Diabetes Hyperlipidemia HTN (hypertension) Sleep apnea COPD (chronic obstructive pulmonary disease) Asthma Surgical History Surgical History Hx of hernia repair (~1994) Social History Social History Alcohol intake: never Patient Tobacco Use Status: Never used Tobacco Meds Allergies Allergy/AdvReac Type Severity Reaction Status Date / Time No Known Allergies Allergy Verified 08/28/23 09:24 Home Medications ?Medication ?Instructions ?Recorded ?Confirmed ?Last Taken ?Type metformin 500 mg tablet 500 mg PO TID 05/01/20 03/14/23 Unknown History alogliptin 25 mg tablet 25 mg PO DAILY 08/21/23 Unknown History atorvastatin 80 mg tablet 80 mg PO BEDTIME 08/21/23 Unknown History empagliflozin 25 mg tablet 25 mg PO DAILY 08/21/23 Unknown History (Jardiance) insulin glargine 100 unit/mL (3 10 unit subcut QPM 08/21/23 Unknown History mL) subcutaneous pen lisinopril 5 mg tablet 5 mg PO DAILY 08/21/23 Unknown History omega-3 fatty acids 500 mg PO DAILY 08/21/23 Unknown History Exam Height,Weight and Vital Signs: Height 5 ft 8 in Weight 87.543 kg Assessment and Plan Assessment Anesthesia Assessment: Chart Reviewed
[2024-03-27 14:48] VITALS: BP 148/86; PULSE 96; RESP 20; TEMP 37; O2SAT 94; BMI 31.2
[2024-03-27] MEDS: Lactated Ringers 1,000 ML 80 ML IVCONT (14:59)
[2024-03-27 15:02] LABS: Glucose, Whole Blood 136 mg/dL (60-115)
[2024-03-27] MEDS: Albuterol Sulfate (0.083%) 2.5 MG/3 ML VIAL.NEB INHALE (16:00)
--- NOTE | 2024-03-27 16:25 | MHC.SHP ---
Pre-Procedural Eval Section A - 24 Hr Update-Section A only Date of Service: 03/27/24 Section B - Complete if H&P > 30 days Chief Complaint: Other fecal abnormalities Details of Present Illness: see H&P no changes Relevant Family History (Specify if Yes): No Relevant Social History: None Present Medications: see Short Stay Collaborative assessment Medical History: No relevant PMH History of Previous Operations: No relevant previous surgery Allergies: Allergies Allergy/AdvReac Type Severity Reaction Status Date / Time No Known Allergies Allergy Verified 03/27/24 14:47 Review of Systems Sugical H&P ROS: Negative: Constitution, Cardiovascular, Respiratory, Neurological, Psychiatric, Hem-Onc, Allergic/Immunologic, Gastrointestinal, Genitourinary, Musculoskeletal, Integumentary, Endocrine and Eyes/Ears/Nose/Throat Exam Surgical H&P Exam: Normal: HEENT, Normal: Heart, Normal: Lungs, Normal: Extremities, Normal: Abdomen, Normal: Skin and Normal: Neurological Plan Diagnosis/Plan: Unchanged I have reviewed the history and physical and performed a pertinent physical examination on my patient. No changes have occurred unless specified. Time Spent With Patient Time: Total time managing care of this patient today ____ minutes.
--- NOTE | 2024-03-27 16:30 | PC.NURSE ---
Patient in preop. Has not taken any meds for the last two weeks. I was very sick with the flu so I stopped everything . Dr. Holguin made aware and at bedside. Lung sounds clear/diminished. Inhalers x2 taken at home 2 day ago. Preop Ventolin Neb administered per order.
--- NOTE | 2024-03-27 17:20 | P.CONAN_ITS ---
HPI - Anesthesia Eval Consult details Narrative: 74 yo male patient for Colonoscopy. Never had colonoscopy. Cologuard in the past. Last test positive PMFSH Active Problems Active Problems: All Active Problems Personal history of nicotine dependence (Acute) Environmental allergies (Acute) Asthma-COPD overlap syndrome (Acute) BPH w urinary obs/LUTS (Acute) Allergic rhinitis (Acute) Pulmonary nodules (Acute) JONAH on CPAP (Acute) Moderate COPD (chronic obstructive pulmonary disease) (Acute) Balanitis (Acute) Glucosuria (Acute) Microscopic hematuria (Acute) Past Medical History Medical History Diabetes Hyperlipidemia HTN (hypertension) Sleep apnea COPD (chronic obstructive pulmonary disease) Asthma Family History Family history of problems with anesthesia: No Surgical History Surgical History Hx of tonsillectomy Hx of hernia repair (~1994) History of Problems with Anesthesia: No Social History Social History Are you a primary client care manager to a significant other at home: No Do you presently have visiting nurse or other home services: No Alcohol intake: never Patient Tobacco Use Status: Former Tobacco user Use of substances other than those prescribed or required for medical reasons: No Have you been hit, kicked, punched, or otherwise hurt by someone within the past year? If so, by whom?: No Are you DNR?: No Advance Directives: No Advance Directives Information Provided: Yes Advance Directives on File: No Recently lost weight without trying: No Nutrition Risks: No Nutritional Risk Poor oral hygiene: No Meds Allergies Allergy/AdvReac Type Severity Reaction Status Date / Time No Known Allergies Allergy Verified 03/27/24 14:47 Active Medications: Current Medications Lactated Ringer's (Lr) 1,000 mls @ 80 mls/hr IVCONT .[id number] [facility] Last Admin: 03/27/24 14:59 Dose: 80 mls/hr Home Medications ?Medication ?Instructions ?Recorded ?Confirmed ?Last Taken ?Type metformin 500 mg tablet 500 mg PO BID 05/01/20 03/27/24 03/13/24 History alogliptin 25 mg tablet 25 mg PO DAILY 08/21/23 03/27/24 03/13/24 History atorvastatin 80 mg tablet 80 mg PO BEDTIME 08/21/23 03/27/24 Unknown History empagliflozin 25 mg tablet 25 mg PO DAILY 08/21/23 03/27/24 03/13/24 History (Jardiance) insulin glargine 100 unit/mL (3 10 unit subcut QPM 08/21/23 03/27/24 03/13/24 History mL) subcutaneous pen lisinopril 5 mg tablet 5 mg PO DAILY 08/21/23 03/27/24 03/13/24 History omega-3 fatty acids 500 mg PO DAILY 08/21/23 03/27/24 03/13/24 History Exam Height,Weight and Vital Signs: Height 5 ft 8 in Weight 92.986 kg Last Vital Signs Temp 98.6 F 03/27/24 14:48 Pulse 96 03/27/24 14:48 Resp 20 03/27/24 14:48 BP 148/86 H 03/27/24 14:48 Pulse Ox 94 03/27/24 14:48 O2 Del Method Room Air 03/27/24 14:48 Pertinent Lab Results Pertinent Lab Results: Laboratory Tests 03/27/24 14:47 POC Glucose 136 H Airway Mallampati Class: II TM Dist: >3cm Neck ROM: Full Loose/Missing/Broken Teeth: Yes (Edentulous) Heart: RRR Lungs: Occasional wheeze post respiratory treatment Assessment and Plan Assessment Anesthesia Assessment: Anesthesia Plan Discussed and Chart Reviewed Final Anesthetic Review Family History of Problems with Anesthesia: No History of Problems with Anesthesia: No NPO: Yes ASA Class: III Final Preanesthetic Review: No Changes in Pt Med Stat, Meds/Allgs Chart Reviewed, Consent Obtained/Reviewed and Anes Risks/Benef Reviewed Patient Risk: Intermediate Procedure Risk: Low Assessment/Block/Sedation in SS: Assess/Block/Sedation-SS Anesthetic Plan Anesthetic Plan: TIVA Disposition: Standard PACU
[2024-03-27 17:35] VITALS: BP 90/54; PULSE 80; RESP 20; TEMP 36.8; O2SAT 96
--- NOTE | 2024-03-27 17:37 | P.BOP_ITS ---
Brief Operative Note Date of Service: 03/27/24 Pre-op diagnosis: abnl cologuard Post-op diagnosis: same Surgeon: Hasmukh Thakkar MD Anesthesia: MAC Was an Vacuum Cleaner Mechanic used for this Procedure?: No Estimated blood loss (mL): 2 Pathology: other Condition: stable Disposition: PACU
[2024-03-27 17:50] VITALS: BP 112/70; PULSE 85; RESP 20; TEMP 36.9; O2SAT 96
--- NOTE | 2024-03-27 22:08 | OP_ITS ---
DATE OF SERVICE: 03/27/2024 SURGEON: Hasmukh Thakkar MD INDICATIONS: Positive stool DNA testing. PREOPERATIVE DIAGNOSIS: POSTOPERATIVE DIAGNOSIS: PROCEDURE PERFORMED: Colonoscopy to the cecum with snare polypectomy and cauterization of colon polyps. ESTIMATED BLOOD LOSS: COMPLICATIONS: ANESTHESIA: Monitored anesthesia care. ASSISTANTS: SPECIMENS: DESCRIPTION OF PROCEDURE: A history and physical was performed. The risks and benefits of the procedure were explained to the patient, and informed consent was obtained. The patient was placed in the left lateral decubitus position. A digital rectal exam was performed and revealed an enlarged prostate. The Olympus pediatric video colonoscope was introduced into the rectum and advanced to the cecum. The cecum was identified by transillumination, palpation, and identification of ileocecal valve. Examination was performed. The scope was removed. He tolerated the procedure well and was returned to the recovery area in stable condition. FINDINGS: The terminal ileum was not examined. Multiple colonic polyps were present and were removed with a combination of snare polypectomy cautery and cold snare. The largest appeared in the vicinity of the ileocecal valve measuring approximately 2.5 cm and was piecemeal resected. All other polyps were under 15 mm. Three were located in the cecum, 2 were located in the right colon, 5 were located in the transverse colon, 3 were located in the left colon, and 3 were located in the rectosigmoid. Retroflexed examination was normal. The quality of prep was good. The largest polyps in the right colon and cecum required removal in piecemeal manner with extraction using a Queen net as they were too big to be suctioned through the colonoscope. This involved reinsertion of the colonoscope and made the procedure extended and difficult. Retroflexed examination showed internal hemorrhoids. IMPRESSION: 1. Colonic polyps. 2. Extended/difficult procedure. RECOMMENDATION: 1. Follow up the biopsy results. 2. He will need short-term followup, i.e., 6 to 12 months depending on the pathology. MD SABAS Benito/GERMAINL / [phone]
== END 2024-03-27 18:11 | disposition home or self-care (01) ==
PROVIDERS: PCP Nurse Practitioner Family; Visit Provider Internal Medicine Gastroenterology
PROC: 0DJD8ZZ Inspection of Lower Intestinal Tract, Via Natural or Artificial Opening Endoscopic (ICD-10-PCS; CPT 45378; principal; 2024-03-27 15:10)
DX: R19.5 Other fecal abnormalities (principal); D12.0 Benign neoplasm of cecum; D12.2 Benign neoplasm of ascending colon; D12.3 Benign neoplasm of transverse colon; K62.1 Rectal polyp; K64.8 Other hemorrhoids; N40.0 Benign prostatic hyperplasia without lower urinary tract symptoms; J44.9 Chronic obstructive pulmonary disease, unspecified; R91.8 Other nonspecific abnormal finding of lung field; G47.33 Obstructive sleep apnea (adult) (pediatric); E11.9 Type 2 diabetes mellitus without complications; Z79.4 Long term (current) use of insulin; Z79.84 Long term (current) use of oral hypoglycemic drugs; Z79.51 Long term (current) use of inhaled steroids; Z99.89 Dependence on other enabling machines and devices; Z87.891 Personal history of nicotine dependence; Z98.890 Other specified postprocedural states
CPT/HCPCS: 45385; 45384; 82947; 88305; J2003; J2371; J2704; J3010

== ENCOUNTER 2024-05-28 12:42 | Outpatient (AMB) | payer OTHER, SELFPAY ==
[2024-05-28 12:58] VITALS: BP 110/62; PULSE 95; O2SAT 92; BMI 29.6
--- NOTE | 2024-05-28 12:58 | MHC.OFFVIS ---
Vital Signs 05/28/24 12:58 Height 5 ft 8 in Weight 195 lb BMI 29.6 BP 110/62 Blood Pressure Location Lt brachial Position Sitting Pulse 95 Pulse Source Doppler Pulse Oximetry (%) 92 Oxygen Delivery Method Room Air Intake Visit Reasons: copd Allergies No Known Allergies Allergy (Verified 03/27/24 14:47) HPI HPI copd: Details: 74-year-old gentleman, former greater than 40 pack-year smoker, quit 2012, followed for moderate to severe asthma/COPD, pulmonary nodules, and JONAH on CPAP. Patient continues to use his CPAP with good symptomatic control of his underlying sleep apnea.? He has been using Xolair, Stiolto, Asmanex, theophylline, and albuterol MDI with good control of his symptoms. Today he does complain of recurrent cough productive of whitish sputum that tends to get better with antibiotic courses, but then recurs. [facility] Medical History Diabetes Hyperlipidemia HTN (hypertension) Sleep apnea COPD (chronic obstructive pulmonary disease) Asthma Surgical History Hx of tonsillectomy Hx of hernia repair (~1994) Social History Are you a primary care transitions nurse to a significant other at home: No Do you presently have visiting nurse or other home services: No Alcohol intake: never Patient Tobacco Use Status: Former Tobacco user Review of Systems Const Denies daytime sleepiness, Denies excessive sweating, Denies fatigue, Denies fever(s), Denies lethargy, Denies malaise, Denies night sweats, Denies snoring and Denies weight loss Eyes Denies blurry vision and Denies itchy eyes ENT Denies nasal congestion, Denies post nasal drip, Denies sinus pain, Denies sinus pressure and Denies other ( Thrush) Card Denies chest pain, Denies pedal edema, Denies dyspnea, Denies orthopnea and Denies paroxysmal nocturnal dyspnea Resp Reports cough, Denies hemoptysis, Reports excessive phlegm production, Denies dyspnea, Denies snoring and Denies wheezing GI Denies abdominal pain and Denies heartburn Musc Denies myalgias, Denies arthralgias and Denies joint swelling Skin/Breast Denies rash Neuro Denies memory loss and Denies seizure-like activity Psych Denies abnormal sleep pattern, Denies anxiety and Denies memory loss Endo Denies excessive sweating, Denies fatigue and Denies heat intolerance Bogdan/Lymph Denies easy bruising Aller/Immun Denies itchy eyes, Denies seasonal rhinorrhea and Denies wheezing Physical Exam Vital Signs: Last Vital Signs Pulse 95 05/28/24 12:58 BP 110/62 05/28/24 12:58 Pulse Ox 92 05/28/24 12:58 Oxygen Delivery Method Room Air 05/28/24 12:58 BMI result Body Mass Index 29.6 Const General: no acute distress and alert Nutritional Appearance: not obese Orientation/consciousness: Other orientation findings ( oriented) HEENT Head: Yes atraumatic Eyes General: appearance normal, both eyes and all related structures Sclerae: sclerae normal EOM: EOMs intact bilaterally Neck Neck: Yes supple Lymphatic: no lymphadenopathy noted Resp Effort & Inspection: normal respiratory effort and no use of accessory muscles Auscultation: clear to auscultation bilaterally Cardio Rate: regular rate Rhythm: regular rhythm Heart sounds: no gallops, no murmurs and no rubs Skin General skin exam: other ( warm) Extrem General: No clubbing, No cyanosis and No edema Assessment & Plan Assessment & Plan (1) Asthma-COPD overlap syndrome: Code(s): J44.89 - Other specified chronic obstructive pulmonary disease Category: Medical Plan: Reasonable control on current regimen of Xolair, Stiolto, Alvesco, theophylline, duo nebs, and albuterol MDI. Continue current regimen. (2) Environmental allergies: Code(s): Z91.09 - Other allergy status, other than to drugs and biological substances Category: Medical Plan: Well controlled on Xolair. Continue current regimen. (3) JONAH on CPAP: Code(s): G47.33 - Obstructive sleep apnea (adult) (pediatric); Z99.89 - Dependence on other enabling machines and devices Category: Medical Plan: Well controlled on current CPAP therapy. Continue CPAP therapy. (4) Personal history of nicotine dependence: Code(s): Z87.891 - Personal history of nicotine dependence Category: Medical Plan: Results of lung cancer screening CT chest reviewed, no worrisome nodules. Continue with yearly screening, next in October of 2024, ordered. (5) Chronic cough: Code(s): R05.3 - Chronic cough Category: Medical Plan: Good response to antibiotic therapy, but recurs after discontinuation of antibiotics. Will put on suppressive azithromycin. Medications: New azithromycin 250 mg PO .Monday 30 days 13 tabs 6RF Coding Level of Care Code Est Pt Level 4 (41544) Complex EM visit Add On G2211 Diagnoses Asthma-COPD overlap syndrome J44.89 Environmental allergies Z91.09 JONAH on CPAP G47.33; Z99.89 Personal history of nicotine dependence Z87.891 Chronic cough R05.3
--- OUTSIDE RECORDS SUMMARY | 2024-05-28 15:04 | XMS_ITS | Patient Health Record ---
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 Name Role Phone Viet DRIVER, Andrea Primary Care Provider Hasmukh Camacho Jr Results Component Value Reference Range Notes Glucose, Whole Blood Reviewed date:03/28/2024 07:53:24 AM Interpretation: Performing Lab:[facility], [address] [place] [phone] Notes/Report: Glucose, Whole Blood 136 60-115 mg/dL METER # : [id number] Pathology Reviewed date:04/02/2024 08:41:11 PM Interpretation: Performing Lab:[facility], [address] [place] [phone] Notes/Report: ----- Name: YoanRossy Sr Age/Sex: 74/M : 1950 Unit#: [id number] Attend Dr: Hasmukh Thakkar MD Re03/27/24 Status : [facility] Location: [facility] Disch: ----- SPEC : [id number] RECD: 03/28/24 STATUS: DELVIN SAMANIEGO NUM: [id number] MAKEDA: 03/27/[address] [facility] [address]: Hasmukh Thakkar MD ENTERED: 03/28/24 59 SP TYPE: Surgical OTHR DR: ANDREA GOLDMAN NP ORDERED: HE Stain/15 , Gross Micro L4/5 Diagnosis A. Cecum, polypectom ies (3): Fragments of tubular adenomata; negative for high-grade dysplasia or carcinoma. B. Colon, right, polypectomies (2): Fragments of tubular adenomata; negative for high- grade dysplasia or carcinoma. C. Colon, transverse , polypectomies (5): Tubular adenomata; negative for high-grade dysplasia or carcinoma. D. Colon, left, polypectomies (3): Fragments of tubular adenomata; negative for high- grade dysplasia or carcinoma. E. Colon, rectosigmo id, polypectomies (3): Hyperplastic mucosal polyps. Clinical History Pre-Op Dx: Other fec al abnormalities Post-Op Dx: Polyps Microscopic Description A-E. Microscopic sec tions reviewed. Material Received A. Polyps cecum B. Right colon polyps C. Transverse colon polyps D. Left colon polyps E. Rectosigmoid polyps Gross Description Received in five parts. Part A: Received in formalin labeled ?polyps cecum? are several irregular, papular and polypoid albright and albright-brown tissue fragments ranging from 0.25-1.5 cm in greatest dimension and aggregating 2.0 x 2.0 x 0.2-1.2 cm. The resected bases of the 3 largest fragments are inked and each is sectioned and separately and entirely submitted in cassettes A1-A2, A3 and A4. One of the intermediate fragments is sectioned and entirely submitted in cassette A5 and the smallest fragments are submitted in toto in cassette A6. CONTINUED ON NEXT PAGE ----- Name: Rossy Milton Sr Age/Sex: 74/M : 1950 Unit#: [id number] Attend Dr: Hasmukh Thakkar MD Re03/27/24 Status : [facility] Location: [facility] Disch: ----- SPEC : [id number] RECD: 03/28/24 STATUS: DELVIN SAMANIEGO NUM: [id number] MAKEDA: 03/27/[address] [facility] [address]: Hasmukh Thakkar MD ENTERED: 03/28/24 SP TYPE: Surgical OTHR DR: ANDREA GOLDMAN HOSPICE DIRECTOR ORDERED: HE Stain/15 , Gross Micro L4/5 Gross Description (Continued) Part B: Received in formalin labeled ?right colon polyps are several albright irregular and papular tissue fragm ents ranging from 0.2-0.6 cm and aggregating 1.0 x 0.9 x 0.1 to 0.45 cm, submitted in toto in a cassette labeled B. Part C: Received in formalin labeled ?transverse colon polyps are a few irregular, rectangular and papu lar albright and albright-brown tissue fragments ranging from minute to 0.7 greatest dimension a nd aggregating 0.9 x 0.8 x 0.1-0.35 cm. The resected base of the largest fragment is inked and the fragment is sectioned and entirely submitted with the smaller tissue fragm ents, submitted in toto, in a cassette labeled C. Part D: Received in formalin labeled ?left colon polyps are multiple albright irregular and papular tissue fragm ents ranging from minute to 0.4 cm and aggregating 1.4 x 1.2 x 0.4 cm, submitted in toto a cassette labeled D. Part E: Received in formalin labeled ?rectosigmoid polyps? are 2 rectangular fragments of albright mucosa each salena uring 0.9 cm in length 1 of which displays a 0.35 cm albright papular focus at 1 end, submitted in toto in a cassette labeled E. CEDS Copies To: Hasmukh Thakkar MD [address] [place], [place] [id number] ANDREA GOLDMAN HOSPICE DIRECTOR [address] [place], [place] [id number] ----- Signed (signature on file) Freddy Balbuena MD 04/01/24 8044 ----- END OF REPORT Reason For Referral Referring Provider First Name Andrea Referring Provider Last Name Viet Referred Organization [facility] Referred Provider Hasmukh Thakkar Jr Referred Address [address] [place] [address], [address],[place], [place],[address],[place] Referred Provider Specialty Gastroentero logy General Notes Sri Markham 2024 11:34:29 AM > This was originally Dr. Durham's pt. The referral was switched to Dr. Thakkar since the pt prepped, was not on the schedule and Dr. Thakkar agreed to do the case for Dr. Durham. A verbal authorization was given to me by Lakia and she will fax a hard copy Referral Priority Routine Encounters Encounter Location Date Provider Diagnosis [facility] Outpatient [address] [place] [phone] 03/27/2024 Hasmukh Thakkar Jr Abnormal findings in stool R19.5 and Colon polyps K63.5 [facility] [address] [place] [address] 04/02/2024 Hasmukh Thakkar Jr Assessments Encounter Date Diagnosis (ICD Code) Assessment Notes Treatment Notes Treatment Clinical Notes Section Notes 03/27/2024 Colon polyps (ICD-10 - K63.5) 03/27/2024 Abnormal findings in stool (ICD-10 - R19.5) Plan Of Treatment Next Appt Details Provider Name:Hasmukh francisco Jr, 10/14/2024 09:40:00 AM, [address], [address], [place], [address], Insurance Providers Payer Name Payer Address Payer Phone Subscriber Number Group Number Insured Name Patient Relationship to Insured Coverage Start Date Coverage End Date [facility] [employer] [address] [place] [phone] [id number] HORTENCIA MILTON Self - patient is the insured
--- OUTSIDE RECORDS SUMMARY | 2024-05-28 15:04 | XMS_ITS | Continuity of Care Document ---
Author Name [facility] Organization [facility] Care Team Providers Care Pastoral Worker Name Role Phone [facility] Unavailable Unavailable Problems Combined list of problems [...] COPD - Chronic Obstructive Pulmonary Disease (SCT 81112941) Active Condition [facility] [place] [facility] Diabetes Mellitus Type 2 (SCT 37405747) Active Condition [facility] [place] [facility] HTN - Hypertension (SCT 54654031) Active Condition [facility] [place] [facility] Hyperlipidemia (SCT 44195180) Active Condition [facility] [place] [facility] [place] [facility] Sleep Apnea (SCT [id number]) Active Condition Jan 19, 2018 Entered By: RAJEEV GOLDMAN Comment: uses CPAP [facility] [place] Tobacco User (SCT [id number]) Active Condition Nov 17, 2022 Entered By: RAJEEV GOLDMAN Comment: quit [facility] [place] [facility] Diagnosis: ICD-10-CM E11.9 Type 2 diabetes mellitus without complications Active Diagnosis [facility] [place] [facility] Diagnosis: ICD-10-CM N40.0 Benign prostatic hyperplasia without lower urinry tract symp Active Diagnosis [facility] [place] [facility] Diagnosis: ICD-10-CM G47.30 Sleep apnea, unspecified Active Diagnosis [facility] [place] [facility] Diagnosis: ICD-10-CM Z46.0 Encounter for fit/adjst of spectacles and contact lenses Active Diagnosis [facility] [place] [facility] Diagnosis: ICD-10-CM R22.1 Localized swelling, mass and lump, neck Active Diagnosis [facility] [place] [facility] Diagnosis: ICD-10-CM Z23 Encounter for immunization [facility] [place] [facility] Diagnosis: ICD-10-CM M54.2 Cervicalgia Active Diagnosis [facility] [place] [facility] Diagnosis: ICD-10-CM Z71.89 Other specified counseling [facility] [place] [facility] Medications Combined list of outpatient medications from [...] BREATH RESPIR ATORY (INHAL ATION) ACTIVE 08/28/2024 [id number] NOBLE RUIZ 2023 [facility] ALBUTEROL SO4 0.083% INHL,3ML INHALE 1 AMPULE VIA NEBULIZE R EVERY 8 HOURS NEEDED FOR BREATHIN G. FOLLOW INSTRUCT IONS FROM [facility] ER. NEBULI ZER DISCONT [facility] 08/14/2024 [id number] 4 LÓPEZ GOLDMAN 2023 90 [facility] [place] ALBUTEROL SO4 0.083% INHL,3ML INHALE 1 AMPULE VIA NEBULIZE R EVERY 8 HOURS NEEDED FOR BREATHIN G. FOLLOW INSTRUCT IONS FROM [facility] ER. NEBULI ZER DISCONT INUED 06/22/2023 [id number] 4 LÓPEZ GOLDMAN 2022 90 [facility] [place] [facility] ALOGLIPTIN 25MG TAB TAKE ONE TABLET BY MOUTH ONCE DAILY ORAL DISCONT INUED BY PROVIDE R 04/19/2024 [id number] 5 VALENTIN MOORE ICE 2023 90 [facility] [place] [facility] ALOGLIPTIN 25MG TAB TAKE ONE TABLET BY MOUTH ONCE DAILY ORAL DISCONT INUED 11/30/2023 [id number] 4 LÓPEZ GOLDMAN 2022 90 [facility] ATORVASTATI N CA 80MG TAB TAKE ONE TABLET BY MOUTH ONCE DAILY FOR CHOLESTE ROL (REPLACE S SIMVASTA TIN) ORAL DISCONT INUED BY PROVIDE R 09/01/2024 [id number] 4 RAHAT BAPTISTE 2023 90 [facility] ATORVASTATI N CA 80MG TAB TAKE ONE TABLET BY MOUTH ONCE DAILY FOR CHOLESTE ROL (REPLACE S SIMVASTA TIN) ORAL DISCONT INUED 08/11/2023 [id number] 4 LÓPEZ GOLDMAN 2022 90 [facility] AZITHROMYCI N 250MG TAB TAKE ONE TABLET BY MOUTH ON MONDAY, , AND MONDAY ORAL SUSPEND ED 05/29/2025 [id number] 5 NOBLE RUIZ 2024 13 [facility] BISACODYL 5MG TAB,EC TAKE FOUR TABLETS BY MOUTH NOW AT NOON THE DAY BEFORE YOUR APPOINTM ENT ORAL 09/20/2023 [id number] TANYA GUAN 2023 4 [facility] CHOLECALCIF NOVA 25MCG (1,000UNIT) TAB TAKE ONE TABLET BY MOUTH ONCE DAILY FOR VITAMIN SUPPLEME NTATION ORAL ACTIVE 09/19/2024 [id number] 4 LÓPEZ GOLDMAN 2023 90 [facility] [place] CHOLECALCIF NOVA 25MCG (1,000UNIT) TAB TAKE ONE TABLET BY MOUTH ONCE DAILY FOR VITAMIN SUPPLEME NTATION ORAL DISCONT INUED 08/11/2023 [id number] 4 LÓPEZ GOLDMAN 2022 90 [facility] [place] CICLESONIDE 160MCG/SPRA Y INHL,ORAL,6 .1GM INHALE 1 PUFF BY MOUTH TWICE DAILY (RINSE MOUTH AFTER USE) RESPIR ATORY (INHAL ATION) ACTIVE 04/05/2025 [id number] 5 YASMIN,AN ROSARIO 2024 1 [facility] [place] CICLESONIDE 160MCG/SPRA Y INHL,ORAL,6 .1GM INHALE 1 PUFF BY MOUTH TWICE DAILY (RINSE MOUTH AFTER USE) RESPIR ATORY (INHAL ATION) DISCONT INUED 04/18/2024 [id number] 5 YASMIN,AN ROSARIO 2023 1 [facility] [place] [facility] CYCLOBENZAP RINE HCL 10MG TAB TAKE ONE TABLET BY MOUTH EVERY 8 HOURS NEEDED FOR MUSCLE SPASM ORAL DISCONT INUED BY KEILA Espinal 04/22/2023 [id number] JO ANN DE LA ROSA 2023 15 [facility] [place] [facility] DICLOFENAC NA 1% GEL,TOP APPLY 2 GRAMS TOPICALL Y FOUR TIMES A DAY FOR JOINT PAIN FOR OSTEOART HRITIS - USE DOSING CARD PROVIDED IN BOX TOPICA L 04/22/2023 [id number] 4 JO ANN DE LA ROSA 2023 100 [facility] [place] [facility] EMPAGLIFLOZ IN 25MG TAB TAKE ONE TABLET BY MOUTH ONCE DAILY FOR DIABETES ORAL DISCONT INUED 11/30/2023 [id number] 4 LÓPEZ GOLDMAN 2022 90 [facility] [place] [facility] EMPAGLIFLOZ IN 25MG TAB TAKE ONE TABLET BY MOUTH ONCE DAILY FOR DIABETES ORAL 04/19/2024 [id number] 5 MOORE,AL ICE 2023 90 [facility] [place] FINASTERIDE 5MG TAB TAKE ONE TABLET BY MOUTH ONCE DAILY FOR PROSTATE ORAL ACTIVE 09/19/2024 [id number] 5 LÓPEZ GOLDMAN 2023 90 [facility] [place] [facility] FINASTERIDE 5MG TAB TAKE ONE TABLET BY MOUTH ONCE DAILY FOR PROSTATE ORAL DISCONT INUED 08/11/2023 [id number] 4 LÓPEZ GOLDMAN 2022 90 [facility] [place] FISH OIL 1000MG (500MG DHA/EPA) CAP,ORAL TAKE 1 CAPSULE BY MOUTH ONCE DAILY ORAL ACTIVE Millie DOS SANTOS 2020 [facility] [place] FLUTICASONE PROPIONATE 50MCG/SPRAY SOLN,NASAL, 16GM INSTILL 1 SPRAY INTO EACH NOSTRIL TWICE DAILY NEEDED NASAL ACTIVE 11/16/2024 [id number] 5 LÓPEZ GOLDMAN 2023 1 [facility] [place] [facility] INSULIN,GLA RGINE,HUMAN 100 UNIT/ML INJ,SOLOSTA R,3ML INJECT 22 UNITS SUBCUTAN EOUSLY ONCE DAILY SUBCUT ANEOUS HOLD 05/25/2025 [id number] 5 RAHAT BAPTISTE I A 2024 5 [facility] [place] [facility] INSULIN,GLA RGINE-YFGN 100UNIT/ML INJ PEN,3ML INJECT 20 UNITS SUBCUTAN EOUSLY ONCE DAILY SUBCUT ANEOUS DISCONT INUED BY PROVIDE R 01/26/2025 [id number] 4 GDRAHAT FITZPATRICK I A 2023 10 [facility] [place] [facility] INSULIN,GLA RGINE-YFGN 100UNIT/ML INJ PEN,3ML INJECT 12 UNITS SUBCUTAN EOUSLY ONCE DAILY FOR DIABETES SUBCUT ANEOUS DISCONT INUED BY PROVIDE R 01/03/2025 [id number] 4 GDRAHAT FITZPATRICK I A 2023 5 [facility] [place] [facility] INSULIN,GLA RGINE-YFGN 100UNIT/ML INJ PEN,3ML INJECT 10 UNITS SUBCUTAN EOUSLY ONCE DAILY SUBCUT ANEOUS DISCONT INUED (EDIT) 04/21/2024 [id number] 4 MOORE,AL ICE 2023 5 [facility] [place] [facility] INSULIN,GLA RGINE-YFGN 100UNIT/ML INJ PEN,3ML INJECT 12 UNITS SUBCUTAN EOUSLY ONCE DAILY FOR DIABETES SUBCUT ANEOUS DISCONT INUED (EDIT) 04/19/2024 [id number] 4 MOORE,AL ICE 2023 5 [facility] [place] [facility] INSULIN,GLA RGINE-YFGN 100UNIT/ML INJ PEN,3ML INJECT 16 UNITS SUBCUTAN EOUSLY ONCE DAILY FOR DIABETES SUBCUT ANEOUS DISCONT INUED (EDIT) 03/24/2024 [id number] 4 MOORE,AL ICE 2023 5 [facility] [place] [facility] LISINOPRIL 10MG TAB TAKE ONE TABLET BY MOUTH ONCE DAILY FOR HIGH BLOOD PRESSURE TO CONTROL BLOOD PRESSURE ORAL ACTIVE 08/30/2024 [id number] 5 RAHAT BAPTISTE 2023 90 [facility] [place] [facility] LISINOPRIL 10MG TAB TAKE ONE TABLET BY MOUTH ONCE DAILY FOR HIGH BLOOD PRESSURE TO CONTROL BLOOD PRESSURE ORAL DISCONT INUED 05/17/2023 [id number] 4 MOORE,AL ICE 2022 90 [facility] [place] [facility] MECLIZINE HCL 25MG TAB TAKE ONE TABLET BY MOUTH EVERY 12 HOURS NEEDED FOR VERTIGO ORAL ACTIVE 11/16/2024 [id number] 5 LÓPEZ GOLDMAN 2023 40 [facility] [place] [facility] METFORMIN HCL 500MG 24HR TAB,SA TAKE ONE TABLET BY MOUTH TWICE DAILY ORAL ACTIVE 09/19/2024 [id number] 5 RAHAT BAPTISTE 2023 180 [facility] [place] [facility] METFORMIN HCL 500MG 24HR TAB,SA TAKE TWO TABLETS BY MOUTH TWICE DAILY ORAL DISCONT INUED (EDIT) 05/04/2024 [id number] 4 LÓPEZ GOLDMAN 2023 360 [facility] [place] [facility] METFORMIN HCL 500MG 24HR TAB,SA TAKE TWO TABLETS BY MOUTH TWICE DAILY ORAL DISCONT INUED 04/13/2023 [id number] 4 LÓPEZ GOLDMAN 2022 120 [facility] [place] [facility] OLODATEROL 2.5MCG/TIOT ROPIUM 2.5MCG/ACTU AT INHL,ORAL,6 0D,4GM INHALE 2 PUFFS (1 DOSE) BY MOUTH ONCE DAILY RESPIR ATORY (INHAL ATION) ACTIVE 08/30/2024 [id number] 5 RAHAT BAPTISTE 2023 3 [facility] [place] [facility] OLODATEROL 2.5MCG/TIOT ROPIUM 2.5MCG/ACTU AT INHL,ORAL,6 0D,4GM INHALE 2 PUFFS (1 DOSE) BY MOUTH ONCE DAILY RESPIR ATORY (INHAL ATION) DISCONT INUED 07/09/2023 [id number] 4 YASMIN,AN ROSARIO 2022 3 [facility] OMALIZUMAB 150MG/ML INJ,SYR,1ML INJECT 300MG ([id number] SYRINGE) SUBCUTAN EOUSLY EVERY 4 WEEKS PATIENT HAS BEEN OBSERVED IN CLINIC FOR 3 DOSES AND HAS AN EPINEPHR INE PRESCRIP TION SUBCUT ANEOUS ACTIVE 02/09/2025 [id number] 5 YASMIN,AN ROSARIO 2024 2 [facility] [place] [facility] OMALIZUMAB 150MG/ML INJ,SYR,1ML INJECT 300MG ([id number] SYRINGE) SUBCUTAN EOUSLY EVERY FOUR WEEKS PATIENT HAS BEEN OBSERVED IN CLINIC FOR 3 DOSES AND HAS AN EPINEPHR INE PRESCRIP TION SUBCUT ANEOUS 01/25/2024 [id number] 4 YASMIN,AN ROSARIO 2022 2 [facility] POLYETHYLEN E GLYCOL 3350 PWDR,ORAL TAKE CONTENTS OF BOTTLE BY MOUTH ONCE DIRECTED [MIX WITH 4 TO 8OZ. OF BEVERAGE ] ORAL 09/20/2023 [id number] 4 FREIDA,LUC YNA 2023 238 [facility] [place] ROSUVASTATI N CA 40MG TAB TAKE ONE TABLET BY MOUTH ONCE DAILY FOR CHOLESTE ROL ORAL ACTIVE 05/17/2025 [id number] 5 LÓPEZ GOLDMAN 2024 90 [facility] SITAGLIPTIN (EQV-ZITUVI O) 100MG TAB TAKE ONE TABLET BY MOUTH ONCE DAILY ORAL ACTIVE 05/25/2025 [id number] 5 RAHAT BAPTISTE 2024 90 [facility] [place] [facility] TAMSULOSIN HCL 0.4MG CAP TAKE ONE CAPSULE BY MOUTH ONCE DAILY FOR ENLARGED PROSTATE ORAL ACTIVE 05/17/2025 [id number] 5 LÓPEZ GOLDMAN 2024 90 [facility] [place] THEOPHYLLIN E 400MG 24HR TAB,SA TAKE ONE TABLET BY MOUTH ONCE DAILY ORAL ACTIVE 09/21/2024 [id number] 5 YASMIN,AN ROSARIO 2023 30 [facility] [place] [facility] THEOPHYLLIN E 400MG 24HR TAB,SA TAKE ONE TABLET BY MOUTH ONCE DAILY ORAL DISCONT INUED 10/22/2023 [id number] 4 YASMIN,AN ROSARIO 2022 30 [facility] [place] [facility] Immunizations Combined list of available immunizations from the Department of Defense and Veterans Affairs facilities. Immunization Series Date Given Administered By Site Reaction Lot Number CVX Code Drug Manager Animation Status Comments Source COVID-19 (MODERNA), MRNA, LNP-S, PF, 50 MCG/0.5 ML (AGES 12+ YEARS) 6 2023 AIDE DE LA CRUZ RIGHT DELTO ID [id number] 312 complet ed [facility] INFLUENZA, HIGH-DOSE, TRIVALENT, PF 2023 AIDE DE LA CRUZ RIGHT DELTO ID [id number] 135 complet ed Completed Series, [facility] COVID-19 (MODERNA), MRNA, LNP-S, PF, 50 MCG/0.5 ML (AGES 12+ YEARS) 2023 FRANSAYDAROBERT HU RIGHT DELTO ID [id number] 312 complet ed Booster for Series, [facility] INFLUENZA, HIGH-DOSE, QUADRIVALENT 2023 ROBERT ANDRADEA LEFT DELTO ID [id number] 197 complet ed [facility] COVID-19 (MODERNA), MRNA, LNP-S, BIVALENT BOOSTER, PF, 50 MCG/0.5 ML OR 25MCG/0.25 ML DOSE 1 2021 229 complet ed MOD; [id number]; 3 [facility] INFLUENZA VACCINE, QUADRIVALENT, ADJUVANTED 2021 205 complet ed [facility] INFLUENZA VACCINE, QUADRIVALENT, ADJUVANTED 2020 205 complet ed [facility] COVID-19 (MODERNA), MRNA, LNP-S, PF, 100 MCG/0.5 ML DOSE 3 2020 207 complet ed MOD; [id number]; 1 [facility] COVID-19 (MODERNA), MRNA, LNP-S, PF, 100 MCG/0.5 ML DOSE 2 2020 207 complet ed MOD; [id number]; 1 [facility] COVID-19 (MODERNA), MRNA, LNP-S, PF, 100 MCG/0.5 ML DOSE 1 2020 207 complet ed MOD; [id number]; 1 [facility] [place] [...] Left Deltoid [facility] [place] PNEUMOCOCCAL CONJUGATE PCV 13 2017 133 complet ed [facility] Results Combined list of recent chemistry, hematology and other laboratory results from Department of Defense and Veterans Affairs, ranging from 15 months to all on record, depending upon the facility. Order Name Results Value Reference Range Date Interpretation Specimen Comments Source HEMOGLOBI N A1C PANEL HEMOGLOBIN A1C/HEMOGLO BIN.TOTAL IN BLOOD BY [facility] PROTOCOL 8.7 4.0 - 5.6 05/16 H Specimen Type: BLOOD Comment: Values obtained from A1C measurement s can vary. For atypical A1C assays, a reported value of 7.0 could actually be between 6.72 and 7.28 if measured by a reference method. A reported value of 9.0 could actually be between 8.73 and 9.27. Ref: http://www. ngsp.org/[place] Pdata.asp Ordering Provider: KEIRY BAPTISTE Report Released Date/Time: Feb 12, 2024 01:10 PM Reporting Lab: [facility] [place] [facility] [address] [address] Performing Lab: [facility] [place] [facility] [address] [address] [facility] [place] [facility] CREATININ E (eGFR 2020) CREATININE [MASS/VOLUM E] IN SERUM OR PLASMA 1.03 mg/dL 0.72 - 1.25 05/16 Specimen Type: SERUM No comment entered. Ordering Provider: KEIRY BAPTISTE Report Released Date/Time: Feb 12, 2024 01:10 PM Reporting Lab: [facility] [place] [facility] [address] [facility] [address] Performing Lab: [facility] [place] [address] [address] [facility] [place] [facility] CREATININ E (eGFR 2020) GLOMERULAR FILTRATION RATE/1.73 SQ M.PREDICTED [VOLUME RATE/AREA] IN SERUM, PLASMA OR BLOOD BY CREATININE- BASED FORMULA (CKD-EPI 2020) 77 mL/min 60 05/16 Specimen Type: SERUM No comment entered. Ordering Provider: KEIRY BAPTISTE Report Released Date/Time: Feb 12, 2024 01:10 PM Reporting Lab: [facility] [place] [address] [address] Performing Lab: [facility] [place] [address] [address] [facility] [place] [facility] MICROALBU MIN CREATININ E RATIO PANEL MICROALBUMI N/CREATININ E [MASS RATIO] IN URINE 20.4 mg/g 0 - 29.9 05/16 Specimen Type: URINE No comment entered. Ordering Provider: KEIRY BAPTISTE Report Released Date/Time: Feb 12, 2024 01:10 PM Reporting Lab: [facility] [place] [address] [address] Performing Lab: [facility] [place] [address] [address] [facility] [place] [facility] MICROALBU MIN CREATININ E RATIO PANEL MICROALBUMI N [MASS/VOLUM E] IN URINE BY DETECTION LIMIT <= 1.0 MG/L 1.1 mg/dL 05/16 Specimen Type: URINE No comment entered. Ordering Provider: KEIRY BAPTISTE Report Released Date/Time: Feb 12, 2024 01:10 PM Reporting Lab: [facility] [place] [facility] [address] [facility] [address] Performing Lab: [facility] [address] [facility] [address] [facility] [place] [facility] MICROALBU MIN CREATININ E RATIO PANEL CREATININE [MASS/VOLUM E] IN URINE 53.98 mg/dL 63 - 166 05/16 L Specimen Type: URINE No comment entered. Ordering Provider: KEIRY BAPTISTE Report Released Date/Time: Feb 12, 2024 01:10 PM Reporting Lab: [facility]N [facility] [address] Performing Lab: [facility]ITALR[facility]TRN [facility] [address] [facility] BASIC METABOLIC PANEL (non-fast ing) UREA NITROGEN [MASS/VOLUM E] IN SERUM OR PLASMA 18 mg/dL 7 - 25 05/08 Specimen Type: SERUM No comment entered. Ordering Provider: RAJEEV GOLDMAN Report Released Date/Time: May 03, 2024 02:49 PM Reporting Lab: [facility]TRN [facility] [address] Performing Lab: [facility] TRN [facility] [address] [facility]ITALRMOUNT[facility]ITALN [facility] BASIC METABOLIC PANEL (non-fast ing) GLUCOSE [MASS/VOLUM E] IN SERUM OR PLASMA 152 mg/dL 65 - 100 05/08 H Specimen Type: SERUM No comment entered. Ordering Provider: RAJEEV GOLDMAN Report Released Date/Time: May 03, 2024 02:49 PM Reporting Lab: [facility] [address] Performing Lab: [facility] [address] [facility]ITALRMOUNT[facility] VIEW HOSPITALN [facility]ITALUSE [facility] BASIC METABOLIC PANEL (non-fast ing) SODIUM [MOLES/VOLU ME] IN SERUM OR PLASMA 137 mmol/L 135 - 145 05/08 Specimen Type: SERUM No comment entered. Ordering Provider: RAJEEV GOLDMAN Report Released Date/Time: May 03, 2024 02:49 PM Reporting Lab: [facility]RL [facility]ITALUSETS [address] [address] Performing Lab: [facility]RL [facility]ITALUSETS [address] [address] [facility]ITAL[facility] BASIC METABOLIC PANEL (non-fast ing) POTASSIUM [MOLES/VOLU ME] IN SERUM OR PLASMA 5.2 mmol/L 3.5 - 5.0 05/08 H Specimen Type: SERUM No comment entered. Ordering Provider: RAJEEV GOLDMAN Report Released Date/Time: May 03, 2024 02:49 PM Reporting Lab: [facility] [address] Performing Lab: [facility]RL [facility]ITALUSETS [address] [address] [facility]ITALRL TRN [facility]ITALUSE [facility] BASIC METABOLIC PANEL (non-fast ing) CHLORIDE [MOLES/VOLU ME] IN SERUM OR PLASMA 103 mmol/L 100 - 110 05/08 Specimen Type: SERUM No comment entered. Ordering Provider: RAJEEV GOLDMAN Report Released Date/Time: May 03, 2024 02:49 PM Reporting Lab: [facility]ITALRL TRN [facility] [address] Performing Lab: [facility]ITAL[facility]ETS [address] [address] [facility]ITALRL [facility]ITALUSE [facility] BASIC METABOLIC PANEL (non-fast ing) CARBON DIOXIDE, TOTAL [MOLES/VOLU ME] IN SERUM OR PLASMA 23 meq/L 20 - 30 05/08 Specimen Type: SERUM No comment entered. Ordering Provider: RAJEEV GOLDMAN Report Released Date/Time: May 03, 2024 02:49 PM Reporting Lab: [facility]RL [facility] [address] Performing Lab: [place] [facility] [address] [facility] BASIC METABOLIC PANEL (non-fast ing) CALCIUM [MASS/VOLUM E] IN SERUM OR PLASMA 9.8 mg/dL 8.5 - 10.2 05/08 Specimen Type: SERUM No comment entered. Ordering Provider: RAJEEV GOLDMAN Report Released Date/Time: May 03, 2024 02:49 PM Reporting Lab: [address] [address] Performing Lab: [address] [address] [facility] BASIC METABOLIC PANEL (non-fast ing) CREATININE [MASS/VOLUM E] IN SERUM OR PLASMA 0.98 mg/dL 0.50 - 1.40 05/08 Specimen Type: SERUM No comment entered. Ordering Provider: RAJEEV GOLDMAN Report Released Date/Time: May 03, 2024 02:49 PM Reporting Lab: [address] [address] Performing Lab: [address] [address] [facility] BASIC METABOLIC PANEL (non-fast ing) GLOMERULAR FILTRATION RATE/1.73 SQ M.PREDICTED [VOLUME RATE/AREA] IN SERUM, PLASMA OR BLOOD BY CREATININE- BASED FORMULA (CKD-EPI 2020) 82 mL/min 60 05/08 Specimen Type: SERUM No comment entered. Ordering Provider: RAJEEV GOLDMAN Report Released Date/Time: May 03, 2024 02:49 PM Reporting Lab: [address] [address] Performing Lab: [address] [address] [facility] CBC LEUKOCYTES [#/VOLUME] IN BLOOD BY AUTOMATED COUNT 8.19 10*3/u L 4.50 - 11.00 05/08 Specimen Type: BLOOD No comment entered. Ordering Provider: RAJEEV GOLDMAN Report Released Date/Time: May 03, 2024 02:49 PM Reporting Lab: [facility] [place] [facility] [address] [address] Performing Lab: [facility] [address] [facility] [address] [facility] CBC ERYTHROCYTE S [#/VOLUME] IN BLOOD BY AUTOMATED COUNT 5.05 10*6/u L 4.23 - 5.66 05/08 Specimen Type: BLOOD No comment entered. Ordering Provider: RAJEEV GOLDMAN Report Released Date/Time: May 03, 2024 02:49 PM Reporting Lab: [facility] [address] [address] Performing Lab: [facility] [address] [address] [facility] CBC HEMOGLOBIN [MASS/VOLUM E] IN BLOOD 15.2 g/dL 12.8 - 17 05/08 Specimen Type: BLOOD No comment entered. Ordering Provider: RAJEEV GOLDMAN Report Released Date/Time: May 03, 2024 02:49 PM Reporting Lab: [facility] [address] [address] Performing Lab: [facility] [address] [address] [facility] CBC HEMATOCRIT [VOLUME FRACTION] OF BLOOD BY AUTOMATED COUNT 45.7 39.2 - 50.4 05/08 Specimen Type: BLOOD No comment entered. Ordering Provider: RAJEEV GOLDMAN Report Released Date/Time: May 03, 2024 02:49 PM Reporting Lab: [facility] [address] [address] Performing Lab: [facility] [address] [address] [facility] CBC MCV [ENTITIC VOLUME] BY AUTOMATED COUNT 90.5 fL 82 - 99 05/08 Specimen Type: BLOOD No comment entered. Ordering Provider: RAJEEV GOLDMAN Report Released Date/Time: May 03, 2024 02:49 PM Reporting Lab: [facility] [address] [facility] [address] Performing Lab: [facility] [place] [facility] [address] [facility] [address] [facility] CBC MCHC [MASS/VOLUM E] BY AUTOMATED COUNT 33.3 g/dL 30.8 - 35.1 05/08 Specimen Type: BLOOD No comment entered. Ordering Provider: RAJEEV GOLDMAN Report Released Date/Time: May 03, 2024 02:49 PM Reporting Lab: [facility] [facility] [address] [facility] [address] Performing Lab: [facility] [facility] [address] [facility] [address] [facility] CBC PLATELETS [#/VOLUME] IN BLOOD BY AUTOMATED COUNT 305 10*3/u L 140 - 360 05/08 Specimen Type: BLOOD No comment entered. Ordering Provider: RAJEEV GOLDMAN Report Released Date/Time: May 03, 2024 02:49 PM Reporting Lab: [facility] [address] [facility] [address] Performing Lab: [facility] [place] [facility] [address] [facility] [address] [facility] CBC PLATELET MEAN VOLUME [ENTITIC VOLUME] IN BLOOD BY AUTOMATED COUNT 9.6 fL 9.2 - 12.4 05/08 Specimen Type: BLOOD No comment entered. Ordering Provider: RAJEEV GOLDMAN Report Released Date/Time: May 03, 2024 02:49 PM Reporting Lab: [facility] [address] [facility] [address] Performing Lab: [facility] [place] [facility] [address] [facility] [address] [facility] [facility] CBC ERYTHROCYTE DISTRIBUTIO N WIDTH [RATIO] BY AUTOMATED COUNT 13.3 12.0 - 16.0 05/08 Specimen Type: BLOOD No comment entered. Ordering Provider: RAJEEV GOLDMAN Report Released Date/Time: May 03, 2024 02:49 PM Reporting Lab: [facility] [place] [facility] [address] [facility] [address] Performing Lab: [place] [facility] [place] [facility] [address] [facility] [address] [facility] [place] [facility] CBC MCH [ENTITIC MASS] BY AUTOMATED COUNT 30.1 pg 26.2 - 32.6 05/08 Specimen Type: BLOOD No comment entered. Ordering Provider: RAJEEV GOLDMAN Report Released Date/Time: May 03, 2024 02:49 PM Reporting Lab: [facility] [place] [address] [address] Performing Lab: [facility] [place] [address] [address] [facility] [place] [facility] LIPID PANEL, NON FASTING CHOLESTEROL [MASS/VOLUM E] IN SERUM OR PLASMA 206 mg/dL 05/08 H Specimen Type: SERUM No comment entered. Ordering Provider: RAJEEV GOLDMAN Report Released Date/Time: May 03, 2024 02:49 PM Reporting Lab: [facility] [place] [address] [address] Performing Lab: [place] [facility] [facility] [address] [facility] [address] [facility] [place] [facility] LIPID PANEL, NON FASTING TRIGLYCERID E [MASS/VOLUM E] IN SERUM OR PLASMA 247 mg/dL 0 - 150 05/08 H Specimen Type: SERUM No comment entered. Ordering Provider: RAJEEV GOLDMAN Report Released Date/Time: May 03, 2024 02:49 PM Reporting Lab: [facility] [place] [address] [address] Performing Lab: [place] [facility] [place] [address] [address] [facility]ITALRCHILTON [facility] CENTERTRN [facility]ITALUSE [facility] LIPID PANEL, NON FASTING CHOLESTEROL IN LDL [MASS/VOLUM E] IN SERUM OR PLASMA BY CALCULATION 122 mg/dL 0 - 129 05/08 Specimen Type: SERUM No comment entered. Ordering Provider: RAJEEV GOLDMAN Report Released Date/Time: May 03, 2024 02:49 PM Reporting Lab: [facility]ITALRCHIL[facility] CENTERTRN [facility]ITALUSE[address] [address] Performing Lab: [facility]RL [facility]PITALUSETS [address] [address] [facility]ITALRMOUNTAIN VIEW HOSPITALN [facility]PITALUSE [facility] LIPID PANEL, NON FASTING CHOLESTEROL .TOTAL/CHOL ESTEROL IN HDL [MASS RATIO] IN SERUM OR PLASMA 5.9 05/08 Specimen Type: SERUM No comment entered. Ordering Provider: RAJEEV GOLDMAN Report Released Date/Time: May 03, 2024 02:49 PM Reporting Lab: [facility]ITALRCHILTON [facility] CENTERTRN [facility]ITALUSE[address] [address] Performing Lab: [facility]ITALRCHIL[facility] CENTERTRN [facility]ITALUSE[address] [address] [facility]OSPITALUSE [facility] LIPID PANEL, NON FASTING CHOLESTEROL IN HDL [MASS/VOLUM E] IN SERUM OR PLASMA 35 mg/dL 40 - 60 05/08 L Specimen Type: SERUM No comment entered. Ordering Provider: RAJEEV GOLDMAN Report Released Date/Time: May 03, 2024 02:49 PM Reporting Lab: [facility]RL [facility]PITALUSETS [address] [address] Performing Lab: [facility]ITALRL TRN [facility]ITALUSE[address] [address] [facility]OSPITALRMOUNTAIN VIEW HOSPITALN [facility]OSPITALUSE [facility] LIVER FUNCTION PROTEIN [MASS/VOLUM E] IN SERUM OR PLASMA 8.1 g/dL 6.0 - 8.3 05/08 Specimen Type: SERUM No comment entered. Ordering Provider: RAJEEV GOLDMAN Report Released Date/Time: May 03, 2024 02:49 PM Reporting Lab: [facility] [place] [facility] [address] [facility] [address] Performing Lab: [facility] [place] [facility] [address] [facility] [address] [facility] [place] [facility] LIVER FUNCTION ALBUMIN [MASS/VOLUM E] IN SERUM OR PLASMA BY BROMOCRESOL PURPLE (BCP) DYE BINDING METHOD 4.3 g/dL 3.5 - 5.0 05/08 Specimen Type: SERUM No comment entered. Ordering Provider: RAJEEV GOLDMAN Report Released Date/Time: May 03, 2024 02:49 PM Reporting Lab: [facility] [place] [facility] [address] [facility] [address] Performing Lab: [place] [facility]PITALUSETS [facility] [address] [facility] [address] [facility]ITALRL WSTRN [facility]ITALUSE [facility] LIVER FUNCTION ALKALINE PHOSPHATASE [ENZYMATIC ACTIVITY/VO LUME] IN SERUM OR PLASMA 115 U/L 40 - 150 05/08 Specimen Type: SERUM No comment entered. Ordering Provider: RAJEEV GOLDMAN Report Released Date/Time: May 03, 2024 02:49 PM Reporting Lab: [facility]ITALRL WSTR[facility]PITALUSETS [address] [address] Performing Lab: [place] [facility]ITALUSETS [facility] [address] [facility] [address] [facility]OSPITALRL TRN [facility]ITALUSE [facility] LIVER FUNCTION ASPARTATE AMINOTRANSF ERASE [ENZYMATIC ACTIVITY/VO LUME] IN SERUM OR PLASMA BY WITH P-5'-P 15 U/L 5 - 34 05/08 Specimen Type: SERUM No comment entered. Ordering Provider: RAJEEV GOLDMAN Report Released Date/Time: May 03, 2024 02:49 PM Reporting Lab: [facility]ITAL[facility] [place] [facility] [address] [facility] [address] Performing Lab: [place] [facility] [place] [facility] [address] [facility] [address] [facility]OSPITALRL WSTRN [place] [facility] LIVER FUNCTION ALANINE AMINOTRANSF ERASE [ENZYMATIC ACTIVITY/VO LUME] IN SERUM OR PLASMA BY WITH P-5'-P 25 U/L 05/08 Specimen Type: SERUM No comment entered. Ordering Provider: RAJEEV GOLDMAN Report Released Date/Time: May 03, 2024 02:49 PM Reporting Lab: [place] [facility] [place] [address] [address] Performing Lab: [place] [facility] [facility]ITALUSE[address] [address] [facility]ITALN [facility]ITALUSE [facility] LIVER FUNCTION BILIRUBIN.T OTAL [MASS/VOLUM E] IN SERUM OR PLASMA 0.7 mg/dL 0.2 - 1.2 05/08 Specimen Type: SERUM No comment entered. Ordering Provider: RAJEEV GOLDMAN Report Released Date/Time: May 03, 2024 02:49 PM Reporting Lab: [place] [facility] [facility]ITALUSE[address] [address] Performing Lab: [facility]ITALRL TRN [facility]ITALUSE[address] [address] [facility] HEMOGLOBI N A1C PANEL HEMOGLOBIN A1C/HEMOGLO BIN.TOTAL IN BLOOD BY HPLC 8.6 4.0 - [...] Dec 11, 2023 09:09 AM Reporting Lab: [place] [facility]ITALUSE[address] [address] Performing Lab: [facility]ITALRL TRN [facility]ITALUSE[address] [address] [facility]AMN [facility]ITALUSE [facility] MICROALBU MIN CREATININ E RATIO PANEL MICROALBUMI N/CREATININ E [MASS RATIO] IN URINE 15.1 mg/g 0 - 29.9 11/09 Specimen Type: URINE No comment entered. Ordering Provider: RAJEEV GOLDMAN Report Released Date/Time: Nov 03, 2023 08:27 AM Reporting Lab: [facility] [place] [facility] [address] [facility] [address] Performing Lab: [facility] [place] [facility] [address] [facility] [address] [facility] [place] [facility] MICROALBU MIN CREATININ E RATIO PANEL MICROALBUMI N [MASS/VOLUM E] IN URINE 0.9 mg/dL 11/09 Specimen Type: URINE No comment entered. Ordering Provider: RAJEEV GOLDMAN Report Released Date/Time: Nov 03, 2023 08:27 AM Reporting Lab: [facility] [place] [facility] [address] [facility] [address] Performing Lab: [facility] [place] [facility] [address] [facility] [address] [facility] [place] [facility] MICROALBU MIN CREATININ E RATIO PANEL CREATININE [MASS/VOLUM E] IN URINE 59.59 mg/dL 11/09 Specimen Type: URINE No comment entered. Ordering Provider: RAJEEV GOLDMAN Report Released Date/Time: Nov 03, 2023 08:27 AM Reporting Lab: [facility] [place] [facility] [address] [facility] [address] Performing Lab: [facility] [place] [facility] [address] [facility] [address] [facility] [place] [facility] BASIC METABOLIC PANEL (non-fast ing) UREA NITROGEN [MASS/VOLUM E] IN SERUM OR PLASMA 13 mg/dL 7 - 25 11/09 Specimen Type: SERUM No comment entered. Ordering Provider: RAJEEV GOLDMAN Report Released Date/Time: Nov 03, 2023 08:27 AM Reporting Lab: [facility] [place] [facility] [address] [facility] [address] Performing Lab: [facility] [place] [facility] [address] [facility] [address] [facility] [place] [facility] BASIC METABOLIC PANEL (non-fast ing) GLUCOSE [MASS/VOLUM E] IN SERUM OR PLASMA 158 mg/dL 65 - 100 11/09 H Specimen Type: SERUM No comment entered. Ordering Provider: RAJEEV GOLDMAN Report Released Date/Time: Nov 03, 2023 08:27 AM Reporting Lab: [address] [address] Performing Lab: [address] [address] [facility] BASIC METABOLIC PANEL (non-fast ing) SODIUM [MOLES/VOLU ME] IN SERUM OR PLASMA 140 mmol/L 135 - 145 11/09 Specimen Type: SERUM No comment entered. Ordering Provider: RAJEEV GOLDMAN Report Released Date/Time: Nov 03, 2023 08:27 AM Reporting Lab: [address] [address] Performing Lab: [facility] [address] [address] [facility] BASIC METABOLIC PANEL (non-fast ing) POTASSIUM [MOLES/VOLU ME] IN SERUM OR PLASMA 4.6 mmol/L 3.5 - 5.0 11/09 Specimen Type: SERUM No comment entered. Ordering Provider: RAJEEV GOLDMAN Report Released Date/Time: Nov 03, 2023 08:27 AM Reporting Lab: [facility] [address] [address] Performing Lab: [facility] [address] [address] [facility] BASIC METABOLIC PANEL (non-fast ing) CHLORIDE [MOLES/VOLU ME] IN SERUM OR PLASMA 107 mmol/L 100 - 110 11/09 Specimen Type: SERUM No comment entered. Ordering Provider: RAJEEV GOLDMAN Report Released Date/Time: Nov 03, 2023 08:27 AM Reporting Lab: [facility] [address] [address] Performing Lab: [facility]ITALRL TRN [facility]OSPITALUSETS [facility] [address] [facility] [address] [facility]ITALRCHILTON MEDICAL CENTERTRN [facility]PITALUSE [facility] BASIC METABOLIC PANEL (non-fast ing) CARBON DIOXIDE, TOTAL [MOLES/VOLU ME] IN SERUM OR PLASMA 20 meq/L 20 - 30 11/09 Specimen Type: SERUM No comment entered. Ordering Provider: RAJEEV GOLDMAN Report Released Date/Time: Nov 03, 2023 08:27 AM Reporting Lab: [facility]RL [facility] [address] [facility] [address] Performing Lab: [facility]OSPITALRCHILTON MEDICAL CENTERTRN [facility]ITALUSE[address] [address] [facility] BASIC METABOLIC PANEL (non-fast ing) CREATININE [MASS/VOLUM E] IN SERUM OR PLASMA 1.03 mg/dL 0.50 - 1.40 11/09 Specimen Type: SERUM No comment entered. Ordering Provider: RAJEEV GOLDMAN Report Released Date/Time: Nov 03, 2023 08:27 AM Reporting Lab: [facility]ITALRCHILTON [facility] CENTERTRN [facility]ITALUSE[address] [address] Performing Lab: [facility]OS[facility]ITALRL TRN [facility]ITALUSE[address] [address] [facility]OSPITALRMOUNTAIN VIEW HOSPITALN [facility] BASIC METABOLIC PANEL (non-fast ing) GLOMERULAR FILTRATION RATE/1.73 SQ M.PREDICTED [VOLUME RATE/AREA] IN SERUM, PLASMA OR BLOOD BY CREATININE- BASED FORMULA (CKD-EPI 2020) 78 mL/min 60 11/09 Specimen Type: SERUM No comment entered. Ordering Provider: RAJEEV GOLDMAN Report Released Date/Time: Nov 03, 2023 08:27 AM Reporting Lab: [facility]ITALRL TRN [facility]ITALUSE[address] [address] Performing Lab: [facility]OSPITALRMOUNTAIN VIEW HOSPITALN [facility]PITALUSE[address] [address] [facility] Vital Signs Combined list of inpatient and outpatient Vital Signs from Department of Defense and Veterans Affairs, ranging from 12 months to all on record, depending upon the facility. Vital Sign Value Date Comments Source SYSTOLIC BLOOD PRESSURE 123 05/17/19 25 09:08:59 [facility] [place] [facility] DIASTOLIC BLOOD PRESSURE 75 025 09:08:59 [facility] [place] [facility] PULSE OXIMETRY 96 05/16/2024 09:08:59 [facility] WEIGHT 199 05/16/2024 09:08:59 [facility] [place] [facility] BMI 30 kg/m2 05/16/2024 09:08:59 [facility] [place] [facility] PAIN 0 05/16/2024 09:08:59 [facility] [place] [facility] HEIGHT 68 05/16/2024 09:08:59 [facility] [place] TEMPERATURE 97.3 05/16/2024 09:08:59 [facility] [place] PULSE 76 05/16/2024 09:08:59 [facility] [place] RESPIRATION 20 05/16/2024 09:08:59 [facility] [place] [facility] SYSTOLIC BLOOD PRESSURE 124 11/16/19 24 08:59:54 [facility] [place] [facility] DIASTOLIC BLOOD PRESSURE 83 024 08:59:54 [facility] [place] [facility] PULSE OXIMETRY 95 11/16/2023 08:59:54 [facility] [place] WEIGHT 201.5 11/16/2023 08:59:54 [facility] [place] [facility] BMI 31 kg/m2 11/16/2023 08:59:54 [facility] [place] [facility] [...] 08:40:01 [facility] [place] BMI 31 kg/m2 06/27/2023 08:40:01 [facility] [place] [facility] PAIN 0 06/27/2023 08:40:01 [facility] [place] [facility] TEMPERATURE 97.5 06/27/2023 08:40:01 [facility] [place] PULSE 85 06/27/2023 08:40:01 [facility] RESPIRATION 16 06/27/2023 08:40:01 [facility] [place] [facility] Encounters Combined list of: 1) Encounters from Department of Veterans Affairs facilities going backup to the last 18 months, not all VA inpatient encounters are included; 2) Encounters from the Department of Defense facilities going backup to 280 months. Location Location Details Encounter Type Encounter Number Reason For Visit Attending Provider ADM Date DC Date Status Disposition Source [facility] En[facility] [id number] 11/[facility] [id number] 01/03 [facility]counter [id number] 01/25 [facility]counter [id number] 02/15 [facility] [id number] 02/23 [facility] En[facility] [id number] 03/02 [facility] En[facility] [id number] 03/10 [facility] COLLJ & INTERPJ DATA EA 30 D [id number] Diagnos is: ICD-10- CM G47.30 Sleep apnea, unspeci SWETHA Paz 03/10 [facility] En[facility] [id number] 03/14 [facility] En[facility] [id number] JAROD HARTMAN 03/20 [facility] En[facility] [id number] 03/20 [facility] Encounter [id number] 03/20 [facility] OFF/OP EST JUNE X REQ PHY/QHP [id number] Diagnos is: ICD-10- CM 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 TANO Torres 03/23 [facility] OFFICE O/P EST LOW 20 MIN [id number] Diagnos is: ICD-10- CM M54.2 GAETANO Arshad 03/23 [facility] OFF[facility] O/P EST LOW 20 MIN [id number] Diagnos is: ICD-10- CM M54.2 GAETANO Arshad 03/23 [facility] Encounter [id number] 03/28 [facility] Encounter [id number] [facility] OFFICE O/P EST HI 40 MIN [id number] Diagnos is: ICD-10- CM E11.9 Type 2 diabete s mellitu s without complic ations RUTH MOORE 04/18 [facility] COLLJ & INTERPJ DATA EA 30 D [id number] Diagnos is: ICD-10- CM E11.9 Type 2 diabete s mellitu s without complic ations CUONG GONZALEZ 04/18 [facility] En[facility] [id number] 05/03 [facility] Encounter [id number] 05/16 [facility] OFFICE O/P EST LOW 20 MIN [id number] Diagnos is: ICD-10- CM Z23 Encount er for immuniz ation Javi GOLDMAN 05/16 [facility] En[facility] [id number] 06/18 [facility] OFF/OP CONSLTJ [place] 55 [id number] Diagnos is: ICD-10- CM R22.1 Localiz ed swellin g, mass and lump, neck JESSE ACOSTA R 06/26 [facility] COMPRE OPH EXAM EST PT 1/> [id number] Diagnos is: ICD-10- CM E11.9 Type 2 diabete s mellitu s without complic ations MERZAID,JACQUES H B 07/10 [facility] FIT SPECTACLES BIFOCAL [id number] Diagnos is: ICD-10- CM Z46.0 Encount er for fit/adj st of spectac les and contact lenses EVER,JACQUES H B 07/11 [facility] OFFICE O/P EST SF 10 MIN [id number] Diagnos is: ICD-10- CM E11.9 Type 2 diabete s mellitu s without complic ations AROLDO ESPINOSA 07/24 [facility] Outpatient Encounter [id number] 07/30 [facility] En[facility] [id number] 08/10 [facility] Encounter [id number] 08/18 [facility] Encounter [id number] 08/20 [facility] Encounter [id number] 08/27 [facility] MTMS BY PHARM ADDL 15 MIN [id number] Diagnos is: ICD-10- CM E11.9 Type 2 diabete s mellitu s without complic ations GDULA,KEIRY A 08/29 [facility] MTMS BY PHARM EST 15 MIN [id number] Diagnos is: ICD-10- CM E11.9 Type 2 diabete s mellitu s without complic ations GDULA,KEIRY A 08/31 [facility] MTMS BY PHARM EST 15 MIN [id number] Diagnos is: ICD-10- CM E11.9 Type 2 diabete s mellitu s without complic ations GDULA,KEIRY A 09/18 [facility] En[facility] [id number] 10/02 [facility] MTMS BY PHARM EST 15 MIN [id number] Diagnos is: ICD-10- CM E11.9 Type 2 diabete s mellitu s without complic ations OLIVA,KEIRY A 10/09 [facility] Out[facility] Encounter [id number] 10/10 [facility] SPECIAL SUPPLIES PHYS/QHP [id number] Diagnos is: ICD-10- CM G47.30 Sleep apnea, unspeci fied ST AMANT,SAMMY E P 10/11 [facility] Out[facility] Encounter [id number] 11/15 [facility] OFFICE O/P EST MOD 30 MIN [id number] Diagnos is: ICD-10- CM N40.0 Benign prostat ic hyperpl sarah without lower urinry tract symp Javi GOLDMAN J 11/15 [facility] MTMS BY PHARM ADDL 15 MIN [id number] Diagnos is: ICD-10- CM E11.9 Type 2 diabete s mellitu s without complic ations KEIRY BAPTISTE A 12/10 [facility] MTMS BY PHARM ADDL 15 MIN [id number] 1. Diagnos is: ICD-10- CM E11.9 Type 2 diabete s mellitu s without complic ations KEIRY BAPTISTE A 01/02 [facility] MTMS BY PHARM EST 15 MIN [id number] Diagnos is: ICD-10- CM E11.9 Type 2 diabete s mellitu s without complic ations KEIRY BAPTISTE A 01/07 [facility] MTMS BY PHARM EST 15 MIN [id number] Diagnos is: ICD-10- CM E11.9 Type 2 diabete s mellitu s without complic ations GDNANETTE,KEIRY A 01/11 [facility] MTMS BY PHARM EST 15 MIN [id number] Diagnos is: ICD-10- CM E11.9 Type 2 diabete s mellitu s without complic ations GDNANETTE,KEIRY A 01/25 [facility] MTMS BY PHARM EST 15 MIN [id number] Diagnos is: ICD-10- CM E11.9 Type 2 diabete s mellitu s without complic ations GDNANETTE,KEIRY A 02/11 [facility] En[facility] [id number] 02/26 [facility] [id number] 03/05 [facility] [id number] 03/20 [facility] [id number] 03/27 [facility] [id number] 03/28 [facility] [id number] 04/19 [facility] [id number] 04/22 [facility] [id number] 05/08 [facility] [id number] 05/16 [facility] OFFICE O/P EST HI 40 MIN [id number] Diagnos is: ICD-10- CM N40.0 Benign prostat ic hyperpl sarah without lower urinry tract symp Javi GOLDMAN 05/16 [facility] [facility] Outpatient Encounter [id number] 05/21 [facility] MTMS BY PHARM EST 15 MIN [id number] Diagnos is: ICD-10- CM E11.9 Type 2 diabete s mellitu s without complic ations KEIRY BAPTISTE 05/24 [facility] Social History Combined list of available smoking, tobacco, and other social history from Department of Defense and Veterans Affairs facilities. Social History Type Response Date Comment Sour e Tobacco smoking status NHIS VA-TOBACCO FORMER USER 11/16/2023 [facility] History of tobacco use VA-TOBACCO QUIT 5 TO < 15 YRS 11/16/2023 [facility] History of tobacco use VA-TOBACCO FORMER USER 09/15/2022 [facility] History of tobacco use VA-TOBACCO FORMER USER 07/09/2021 [facility] History of tobacco use OK-TOBACCO FORMER USER 03/04/2020 [facility] [place] [facility] History of tobacco use OK-TOBACCO QUIT 5 TO < 15 YRS 11/27/2018 [facility] History of tobacco use OK-TOBACCO USER EVERY DAY 01/19/2018 [facility] Plan of Care List of future care activities from Department of Veterans Affairs facilities. Additional future care activities may be listed in the Assessment and Plan section. Date/Time Care Activity Care Activity Detail Facili ty 07/09/2024 AMBULATORY - MEDICINE AMBULATORY - MEDICI [facility]
--- OUTSIDE RECORDS SUMMARY | 2024-05-28 15:04 | XMS_ITS | Clinical Summary ---
Author Organization [facility] Address [address] [place] [address] Care Team Providers Care Web Architect Name Role Phone Andrea Llanos NP Primary Care Provide r Allergies No known active allergies Medications clotrimazole-be tamethasone (LOTRISONE) cream APPLY TO AFFECTED AREA TWICE A DAY FOR 4 WEEKS 12/25/2019 Active tiotropium-olod ateroL (Stiolto Respimat) 2.5-2.5 mcg/actuation mist Inhale. Active budesonide-form oteroL (SYMBICORT) 160-4.5 mcg/actuation inhaler Inhale 2 puffs 2 (two) times a day. Active albuterol (VENTOLIN HFA) 90 mcg/actuation inhaler Inhale 2 puffs every 6 (six) hours as needed for wheezing. Active metFORMIN (GLUCOPHAGE) 500 MG tablet Take 500 mg by mouth 2 (two) times a day with meals. Active atorvastatin (LIPITOR) 40 MG tablet Take 40 mg by mouth daily. Active aspirin 81 MG tablet Take 81 mg by mouth daily. Active lisinopriL (PRINIVIL) 20 MG tablet Take 20 mg by mouth daily. Active finasteride (PROSCAR) 5 mg tablet Take 5 mg by mouth daily. Active tamsulosin HCl (TAMSULOSIN ORAL) Take by mouth. Active Social History Tobacco Use Types Packs/Day Years Used Date Smoking Tobacco: Former Smokeless Tobacco: Never Sex and Gender Information Value Date Recorded Sex Assigned at Not on file Legal Sex Male 4:04 PM EST Gender Identity Not on file Sexual Orientation Not on file Plan of Treatment Health Maintenance Due Date Last Done Comments Colorectal Cancer: COLONOSCO PY Screening every 10 yrs (or Modifier) 1950 Depression: Screening Annual ly using PHQ-2/9 in Adults 18 yrs or above (or HM Modifier)([facility]) 1950 Hepatitis C Virus Infection in Adolescents and Adults: Screening (or Modifier) ([facility]) 02/23/1970 SDIL Screening Reminder: Anneliese sloan for all adults ([facility]) 02/23/1970 Tobacco Smoking Cessation: i n Adults excluding Women: Behavioral and Pharmacotherapy Interventions ([facility]) 02/23/1970 DTaP/Tdap/Td Vaccines ([facility]) (1 - Tdap) 02/23/1971 Lipid Screening: Every 5 yrs for Men aged 35+ (or HM Modifier) ([facility]) 1988 Colorectal Cancer Screening 45 -75 Yrs (or HM Modifier ) 02/23/1997 Colorectal Cancer: FLEXIBLE SIGMOIDOSCOPY Screening every 5 yrs 02/23/1997 Colorectal Cancer: Fecal Imm unochemical Test (FIT) Annually [facility] 02/23/1997 Colorectal Cancer: High-sens itivity gFOBT Screening Annually [facility] 02/23/1997 Colorectal Cancer: Stool Col oguard Screening every 3 yrs 02/23/1997 Colorectal Cancer:CT Colonography Screening every 5 yr s 02/23/1997 Lung Cancer: Screening Annua lly in adults aged 50 to 80 years (or HM Modifiers)([facility]) 02/23/2002 Pneumococcal Vaccination Scr eening: Patients 50+ yrs of age ([facility]) (1 of 1 - PCV) 02/23/2002 Zoster/Shingles Vaccine Seri es Screening: Adults aged 18+ yrs (or HM Modifiers)([facility]) (1 of 2) 02/23/2002 COVID-19 Vaccine Screening: Initial Series and Booster Status ([facility]) (2023- season) 2023 Flu Vaccination: Ages 65+: Y early High Dose Recommended (or Modifier)([facility]) 09/06/2024 RSV Vaccines (1 - 1-dose 75+ series) 02/23/2027 Medical Devices Not on file Insurance [employer] / [employer] Care Teams Web Architect Relationship Specialty Start Date End Date Andrea Llanos NP [facility] [address] [address] PCP - General Family Medicine 01/09/20
--- OUTSIDE RECORDS SUMMARY | 2024-05-28 15:04 | XMS_ITS | Encounter Summary ---
Author Name [facility] [place] [facility] [place] Address [address] [place] [address] Care Team Providers Care Senior Web Designer Name Role Phone LÓPEZ GOLDMAN Primary Care Provider [facility] [place] Insurance Providers: All historical and current Section [...] PART A Feb 06, 2017 PART A [id number] Chloé DUFFY PATIENT MEDICARE (WNR) MEDICARE (M) PART A Feb 06, 2017 PART A [id number] Chloé DUFFY PATIENT MEDICARE (WNR) MEDICARE (M) PART B Feb 06, 2017 PART B [id number] Chloé DUFFY PATIENT Selected Encounter This section includes the information on record at [place] for the Encounter. Date/Time Encounter Type Encounter Description Reason Provider Source May 24, 2024 12:00 PM MTMS BY PHARM EST 15 MIN TELEPHONE PRIMARY CARE ICD-10-CM E11.9 Type 2 diabetes mellitus without complications KEIRY BAPTISTE E Encounter Template Text not used by [place] Assessments - Encounter Diagnoses This section includes the primary and secondary diagnoses documented for the Encounter. Date/Time Primary/Secondary Diagnosis Diagnosis Name Provider Source May 24, 2024 12:00 PM PRIMARY Type 2 diabetes mellitus without complications KEIRY BAPTISTE [facility] Plan of Treatment: Future Appointments (+ 6 months) and Future Tests (+/- 45 days) The Plan of Treatment section includes future care activities for the patient from [facility] [place] [facility]. This section includes future appointments and future orders which are active, pending or scheduled. Future Appointments This section includes appointments that were scheduled to occur 6 months from the date of the Encounter, up to a maximum of 20 appointments. The data comes from all [facility] facilities. Appointment Date/Time Appointment Type Appointme nt Facility Name Jul 09, 2024 09:30 AM AMBULATORY - MEDICINE [facility] Jul 15, 2024 10:30 AM AMBULATORY MEDICINE [facility] Nov 15, 2024 09:30 AM AMBULATORY MEDICINE [facility] Active, Pending, and Scheduled Orders This section includes a listing of several types of active, pending, and scheduled orders, including clinic medications orders, diagnostic test orders, procedure orders and consult orders; where the start date of the order is 45 days before the date of the Encounter or 45 days after the date of theEncounter. The data comes from all [facility]. Test Date/Time Test Type Test Details Facility Name Apr 22, 2024 07:35 AM Consult Order COMMUNITY CARE-PULMONARY Cons Benefits Counselor's Choice [facility] Lab Results: +/- 30 days of the encounter This section includes the Chemistry and Hematology Lab Results on record with [place] for the patient. Radiology Reports and Pathology Reports are provided separately, in subsequent sections. Lab Results This section contains the Chemistry/Hematology Results that were resulted 30 days before or 30 daysafter the date of the Encounter. Date/Time Source Result Type Result - Unit Interpretation Reference Range Specimen Type Comment May 16, 2024 09:53 AM [facility] HEMOGLOBIN A1C PANEL BLOOD Specimen Type: BLOOD Comment: Values obtained from A1C measurements can vary. For atypical A1C assays, a reported value of 7.0 could actually be between 6.72 and 7.28 if measured by a reference method. A reported value of 9.0 could actually be between 8.73 and 9.27. Ref: http://www.ngsp .org/CAPdata.as p Ordering Provider: KEIRY BAPTISTE Report Released Date/Time: Feb 12, 2024 01:10 PM Reporting Lab: [place] [facility] [place] [facility] [address] [address] Performing Lab: [place] [facility] [place] [facility] [address] [address] HEMOGLOBIN A1C 8.7 H 4.0-5.6 May 16, 2024 09:53 AM [facility] [place] [facility] CREATININE (eGFR 2020) SERUM Specimen Type: S SEAN No comment entered. Ordering Provider: KEIRY BAPTISTE Report Released Date/Time: Feb 12, 2024 01:10 PM Reporting [facility]: [facility] [place] [facility] [address] [facility] [address] Performing Lab: [facility] [address] [facility] [address] CREATININE, Serum 1.03 mg/dL 0.72-1.25 eGFR(CKD-EPI 2020) 77 mL/min >60 May 16, 2024 09:53 AM [facility] [place] [facility] MICROALBUMIN CREATININE RATIO PANEL URINE Spe cimen Type: URINE No comment entered. Ordering Provider: KEIRY BAPTISTE Report Released Date/Time: Feb 12, 2024 01:10 PM Reporting Lab: [facility] [place] [facility] [address] [facility] [address] Performing Lab: [facility] [place] [address] [address] MICROALBUMIN/CREATININE RATIO 20.4 mg/g 0-29.9 MICROALBUMIN,QUANTITATIVE 1.1 mg/dL RR U NAVAIL CREATININE URINE 53.98 mg/dL L 63-166 May 08, 2024 10:09 AM [place] [facility] [place] [facility] CBC BLOOD Specimen Type: BLOOD No comment entered. Ordering Provider: LÓPEZ GOLDMAN Report Released Date/Time: May 03, 2024 02:49 PM Reporting Lab: [facility] [address] [facility] [address] Performing Lab: [address] [address] WBC 8.19 10*3/uL 4.50-11.00 RBC 5.05 10*6/uL 4.23-5.66 HGB 15.2 g/dL 12.8-17 HCT 45.7 39.2-50.4 MCV 90.5 fL 82-99 MCHC 33.3 g/dL 30.8-35.1 PLT 305 10*3/uL 140-360 MPV 9.6 fL 9.2-12.4 RDW-CV 13.3 12.0-16.0 MCH 30.1 pg 26.2-32.6 May 08, 2024 10:09 AM [facility] BASIC METABOLIC PANEL (non-fasting) SERUM Spe cimen Type: SERUM No comment entered. Ordering Provider: LÓPEZ GOLDMAN Report Released Date/Time: May 03, 2024 02:49 PM Reporting Lab: [address] [address] Performing Lab: [address] [address] UREA NITROGEN 18 mg/dL 7-25 GLUCOSE 152 mg/dL H 65-100 SODIUM 137 mmol/L 135-145 POTASSIUM 5.2 mmol/L H 3.5-5.0 CHLORIDE 103 mmol/L 100-110 CO2 23 meq/L 20-30 CALCIUM 9.8 mg/dL 8.5-10.2 CREATININE, Serum 0.98 mg/dL 0.50-1.40 eGFR(CKD-EPI 2020) 82 mL/min >60 May 08, 2024 10:09 AM [facility] LIPID PANEL, NON FASTING SERUM Specimen Type: SERUM No comment entered. Ordering Provider: LÓPEZ GOLDMAN Report Released Date/Time: May 03, 2024 02:49 PM Reporting Lab: [address] [address] Performing Lab: [facility] [address] [address] CHOLESTEROL 206 mg/dL H TRIGLYCERIDE 247 mg/dL H 0-150 LDL calculated 122 mg/dL 0-129 CHOL/HDL 5.9 HDL CHOLESTEROL 35 mg/dL L 40-60 May 08, 2024 10:09 AM [facility] LIVER FUNCTION SERUM Specimen Type: SERUM No comment entered. Ordering Provider: LÓPEZ GOLDMAN Report Released Date/Time: May 03, 2024 02:49 PM Reporting Lab: [facility] [address] [facility] [address] Performing Lab: [address] [address] PROTEIN,TOTAL 8.1 g/dL 6.0-8.3 ALBUMIN 4.3 g/dL 3.5-5.0 ALKALINE PHOSPHATASE 115 U/L 40-150 AST 15 U/L 5-34 ALT 25 U/L BILIRUBIN, TOTAL 0.7 mg/dL 0.2-1.2 Social History: Smoking Status (Most current) and Tobacco Use (All prior to encounter date) This section includes the most current, and the historical, smoking and tobacco- related health factors from the [place] facility where the Encounter took place. Current Smoking Status This section includes the most current smoking, or tobacco-related health factor, from the [place] facility where the Encounter took place. Date/Time Current Smoking Status Comment Marisa ity Nov 16, 2023 09:00 AM VA-TOBACCO FORMER USER [facility] Tobacco Use History This section includes a history of the smoking, or tobacco-related health factors, that were collected on or before the date of the Encounter. The data comes from the [place] facility where the Encounter took place. Date/Time Smoking Status/Tobacco Use Comment F acility Nov 16, 2023 09:00 AM VA-TOBACCO QUIT 5 TO < 15 YRS [facility] [place] [facility] Sep 15, 2022 01:00 PM [facility] Sep 15, 2022 01:00 PM VA-TOBACCO QUIT 5 TO < 15 YRS [facility] [place] [facility] Jul 09, 2021 09:00 AM VA-TOBACCO FORMER USER [facility] [place] [facility] Jul 09, 2021 09:00 AM VA-TOBACCO QUIT 15 YRS OR MORE [facility] [place] [facility] Mar 04, 2020 10:00 AM VA-TOBACCO FORMER USER [facility] [place] [facility] Mar 04, 2020 10:00 AM VA-TOBACCO QUIT 5 TO < 15 YRS [facility] [place] [facility] Nov 27, 2018 10:35 AM VA-TOBACCO FORMER USER [facility] [place] [facility] Nov 27, 2018 10:35 AM VA-TOBACCO QUIT 5 TO < 15 YRS [facility] [place] [facility] Jan 19, 2018 09:11 AM VA-TOBACCO USE > 1 5 LESS THAN 30 YEARS [facility] [place] [facility] Jan 19, 2018 09:11 AM VA-TOBACCO USE ADVICE [facility] [place] [facility] Jan 19, 2018 09:11 AM 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 Date/Time Encounter Note(s) Provider Source May 24, 2024 12:02 PM PHARMACY TELEPHONE ENCOUNTER NOTE: LOCAL TITLE: TELEPHONE NOTE/PHARMACY STANDARD TITLE: PHARMACY TELEPHONE ENCOUNTER NOTE DATE OF NOTE: MAY 24, 2024@12:02 ENTRY DATE: MAY 24, 2024@12:02:55 AUTHOR: KEIRY BAPTISTE COSIGNER: URGENCY: STATUS: COMPLETED HORTENCIA DUFFY, 74 yo WHITE MALE, contacted via telephone for diabetes management. Pt was last contacted via telephone on 02/12/24 in which empagliflozin 25 mg daily, alogliptin 25 mg daily and metformin 500 mg qAM and 500 mg qPM were continued. Insulin glargine 20 units once daily was also continued. Today, pt reports he is doing ok. Notes he has been eating a lot of sweets lately. He states he has not been taking alogliptin. I dont know they have not been sending it to me . Denies any hypos. Current diabetes medications: - metformin 500 mg SA qAM and 500 mg qPM - empagliflozin 25 mg daily - alogliptin 25 mg daily - insulin glargine 20 units - night time Medication Adherence: - sometimes too tired at night and doesnt feel like taking them Diet Patterns: patient eats on avg. 3x/day 2 meals and lots of PM snacking: Wake:[id number] B: skips a lot L: soup, left overs from dinner D: meat, potatoes, veggies Bed:2200 (afternoon nap) Snacks: weakness- anything he can find, left overs, sweets Drinks:coffee regular (black) ~ 4 cups, flavored water (1 bottle) Alcohol:none Tobacco:former - quit at least 10 yrs ago Exercise: very little, bad COPD Occupation: Personal Goals: get off insulin SMB01/25/24 FB mg/dL Range 105-118 mg/dL if doesnt snack. 163-176 mg/dL if he eats snacks. 02/11/23 150 mg/dL in AM 05/24/24 - FBG 200 - reports he ate cake last night before bed. He states 90 day average of FBG is 189 mg/dL SMBG assessment: FBG above goal HYPOGLYCEMIC Events: 0 in last 2 weeks - Hypoglycemia recognition & treatment reviewed: Yes Allergies/ADR: Patient has answered NKA Active and Recently Outpatient Medications (including Supplies): Active Outpatient Medications Status 1) ACCU-CHEK GUIDE (GLUCOSE) TEST STRIP USE 1 STRIP TO TEST ACTIVE BLOOD SUGARS TWICE DAILY 2) ALBUTEROL SO4 0.083% INHL 3ML INHALE 1 AMPULE IN NEBULIZER ACTIVE EVERY 4 TO 6 HOURS NEEDED FOR WHEEZING OR SHORTNESS OF BREATH 3) CHOLECALCIF 25MCG (D3-1,000UNIT) TAB TAKE ONE TABLET BY ACTIVE MOUTH ONCE DAILY FOR VITAMIN SUPPLEMENTATION 4) CICLESONIDE 160MCG 60D ORAL INHL INHALE 1 PUFF BY MOUTH ACTIVE TWICE DAILY (RINSE MOUTH AFTER USE) 5) FINASTERIDE 5MG TAB TAKE ONE TABLET BY MOUTH ONCE DAILY FOR ACTIVE PROSTATE 6) FLUTICASONE PROP 50MCG 120D NASAL INHL INSTILL 1 SPRAY INTO ACTIVE EACH NOSTRIL TWICE DAILY NEEDED Indication: FOR NASAL IRRITATION/INFLAMMATION 7) INSULIN,GLARGINE-YFGN 100UNIT/ML PEN 3ML INJECT 20 UNITS ACTIVE SUBCUTANEOUSLY ONCE DAILY Indication: FOR TYPE 2 DIABETES MELLITUS 8) LISINOPRIL 10MG TAB TAKE ONE TABLET BY MOUTH ONCE DAILY TO ACTIVE CONTROL BLOOD PRESSURE Indication: FOR HIGH BLOOD PRESSURE 9) MECLIZINE HCL 25MG TAB TAKE ONE TABLET BY MOUTH EVERY 12 ACTIVE HOURS NEEDED Indication: FOR VERTIGO 10) METFORMIN HCL 500MG 24HR SA TAB TAKE ONE TABLET BY MOUTH ACTIVE TWICE DAILY Indication: FOR TYPE 2 DIABETES MELLITUS 11) NEEDLE,PEN 32G,4MM USE 1 NEEDLE SUBCUTANEOUSLY ONCE DAILY ACTIVE FOR USE WITH PEN DEVICE 12) OLODATEROL/TIOTROP 2.5MCG/ACTUAT 60D INH INHALE 2 PUFFS (1 ACTIVE DOSE) BY MOUTH ONCE DAILY 13) OMALIZUMAB 150MG/ML INJ 1ML SYR INJECT 300MG ([id number] ACTIVE SYRINGE) SUBCUTANEOUSLY EVERY 4 WEEKS PATIENT HAS BEEN OBSERVED IN CLINIC FOR 3 DOSES AND HAS AN EPINEPHRINE PRESCRIPTION 14) ROSUVASTATIN CA 40MG TAB TAKE ONE TABLET BY MOUTH ONCE DAILY ACTIVE FOR CHOLESTEROL Indication: FOR HIGH CHOLESTEROL 15) TAMSULOSIN HCL 0.4MG CAP TAKE ONE CAPSULE BY MOUTH ONCE ACTIVE DAILY Indication: FOR ENLARGED PROSTATE 16) THEOPHYLLINE 400MG 24HR SA TAB TAKE ONE TABLET BY MOUTH ONCE ACTIVE DAILY Inactive Outpatient Medications Status 1) ALBUTEROL SO4 0.083% INHL 3ML INHALE 1 AMPULE VIA NEBULIZER DISCONTINUED EVERY 8 HOURS NEEDED FOR BREATHING. FOLLOW INSTRUCTIONS FROM PRESCRIBER. 2) ALOGLIPTIN 25MG TAB TAKE ONE TABLET BY MOUTH ONCE DAILY 3) ATORVASTATIN CALCIUM 80MG TAB TAKE ONE TABLET BY MOUTH ONCE DISCONTINUED DAILY FOR CHOLESTEROL (REPLACES SIMVASTATIN) 4) CICLESONIDE 160MCG 60D ORAL INHL INHALE 1 PUFF BY MOUTH DISCONTINUED TWICE DAILY (RINSE MOUTH AFTER USE) 5) EMPAGLIFLOZIN 25MG TAB TAKE ONE TABLET BY MOUTH ONCE DAILY FOR DIABETES 6) INSULIN,GLARGINE-YFGN 100UNIT/ML PEN 3ML INJECT 10 UNITS DISCONTINUED SUBCUTANEOUSLY ONCE DAILY (EDIT) Indication: FOR DIABETES 7) INSULIN,GLARGINE-YFGN 100UNIT/ML PEN 3ML INJECT 12 UNITS DISCONTINUED SUBCUTANEOUSLY ONCE DAILY Indication: FOR DIABETES 8) INSULIN,GLARGINE-YFGN 100UNIT/ML PEN 3ML INJECT 16 UNITS DISCONTINUED SUBCUTANEOUSLY ONCE DAILY (EDIT) Indication: FOR DIABETES 9) LANCET,SOFTCLIX USE 1 LANCET DIRECTED TWICE DAILY TO TEST BLOOD SUGAR 10) METFORMIN HCL 500MG 24HR SA TAB TAKE TWO TABLETS BY MOUTH DISCONTINUED TWICE DAILY (EDIT) 11) NEEDLE,PEN 32G,4MM USE 1 NEEDLE SUBCUTANEOUSLY ONCE DAILY DISCONTINUED FOR USE WITH PEN DEVICE 12) OMALIZUMAB 150MG/ML INJ 1ML SYR INJECT 300MG ([id number] SYRINGE) SUBCUTANEOUSLY EVERY FOUR WEEKS PATIENT HAS BEEN OBSERVED IN CLINIC FOR 3 DOSES AND HAS AN EPINEPHRINE PRESCRIPTION Active Non-VA Medications Status 1) Non-VA FISH OIL 1000MG (500MG DHA/EPA) CAP 1000MG BY MOUTH ACTIVE ONCE DAILY 29 Total Medications Labs: CHEM 7 TREND LAB CUMULATIVE SELECTED Collection DT Spec GLUCOSE BUN CREATIN Sodium K+/Pot CL CO2 05/16/2024 09:53 SERUM 1.03 05/08/2024 10:09 SERUM 152 H 18 0.98 137 5.2 H 103 23 11/10/2023 09:11 SERUM 158 H 13 1.03 140 4.6 107 20 08/30/2023 09:06 SERUM 1.00 05/25/2023 08:08 SERUM 16 0.96 LAB CUMULATIVE SELECTED 2 No selection items chosen for this component. CHEM 7 Results Collection DT Spec Sodium K+/Pot CL CO2 GLUCOSE BUN 05/08/2024 10:09 SERUM 137 5.2 H 103 23 152 H 18 11/10/2023 09:11 SERUM 140 4.6 107 20 [...] 4.6 108 26 96 12 eGFR CKD-EPI 202005/16/24 09:53 77 SERUM LIVER PANEL TREND Collection DT Spec AST ALT T BILI ALK FRANNY T. PROT ALBUMIN 05/08/2024 10:09 SERUM 15 25 0.7 115 8.1 4.3 11/10/2022 10:16 SERUM 14 24 0.7 84 7.7 4.3 12/29/2021 09:25 SERUM 25 43 1.0 108 7.4 4.5 07/01/2021 09:22 SERUM 16 34 0.6 105 7.6 4.3 01/04/2021 09:55 SERUM 17 31 0.7 98 7.1 4.2 HEMOGLOBIN A1C TREND Collection DT Spec HGBA1c 05/16/2024 09:53 BLOOD 8.7 H 01/03/2024 13:30 BLOOD 8.6 H 08/30/2023 09:06 BLOOD 6.7 H 04/06/2023 11:35 BLOOD 6.7 H 11/10/2022 10:16 BLOOD 6.2 H LIPID PANEL TREND Collection DT Spec CHOL HDL CHO/HDL LDL-d LDL-c TRIG 05/08/2024 10:09 SERUM 206 H 35 L 5.9 122 247 H 11/10/2023 09:11 SERUM 217 H 37 L 5.9 99 Reflex to dLDL 410 H 08/30/2023 09:06 SERUM 186 30 L 6.2 105 253 H 04/06/2023 11:35 SERUM 191 35 L 5.5 110 Reflex to dLDL 438 H 11/10/2022 10:16 SERUM 131 33 L 4.0 73 127 Vitals: Ht: 68 in [172.7 cm] (05/16/2024 09:08) Wt: 199 lb [90.26 kg] (05/16/2024 09:08) BMI: BMI: 30.3 BP: 123/75 (05/16/2024 09:08) HR: 76 (05/16/2024 09:08) Assessment: Assessment: DIABETES: Goal: A1c goal is <7% with a goal fasting BG average of 90-130mg/dL and a goal post-prandial BG average of <180mg/dL per ADA guideline. -A1c is above goal of <7% (8.7% 05/16/24 increase from 8.6% 01/03/24) CARDIOVASCULAR: Goal BP = <130/80 mmHg -Current BP is123/75 (05/16/2024 09:08) -Lipids: above goal, PCP changed to rosuvastatin. -ASA: dc'ed d/t possitive blood occult PREVENTIVE CARE: - Most recent visit to Podiatry:07/25/23 - Most recent visit to Optometry:07/2023 Type II diabetes without retinopathy or macular edema OU Plan: Change to sitagliptin as [place] preferred. Increase insulin and recommend to decrease/ cut out sweet intake. - Medication management - CONTINUE- metformin 500 mg SA in AM and 500 mg in PM - CONTINUE- empagliflozin 25 mg daily -DISCONTINUE - alogliptin 25 mg daily - INITIATE - sitagliptin 100 mg daily - INCREASE- insulin glargine 22 units - night time - Continue to SMBG 1x/day - Monitor for s/sx hypoglycemia and contact clinic if BG consistently <70mg/dL - Healthy dietary and lifestyle modifications encouraged - Repeat A1c 09/2024 EDUCATION -A shared decision-making approach was used in the development of this plan, involving the , clinician, and any caregivers present. The [place] was provided the opportunity express questions or concerns, and the plan was adjusted as needed to address these concerns. -Reviewed with [place] any new medications, changes to the medication list, education, and plan from today's visit. Patient (and/or caregiver) verbalized understanding of the plan, including possible known risks and benefits, and had no additional questions. RTC:JACINDA 07/09/ @3630 PHONE CALL Time Spent: 10 mins PBM PharmD Pharmacotherapy Rem V12: PHARMACIST INTERVENTIONS: TYPE 2 DIABETES MELLITUS Medication Intervention(s) Adjust dose or frequency of current medication due to other reason Discontinue and/or change to different medication Discontinue and/or change to different medication due to other reason Initiate new medication Convert to preferred [place] medication /den/ KEIRY BAPTISTE PHARMD,[facility] PRACTITIONER Signed: 05/24/2024 12:58 KEIRY BAPTISTE [place] [facility]
--- OUTSIDE RECORDS SUMMARY | 2024-05-28 15:05 | XMS_ITS | Encounter Summary ---
Author Name [facility] [place] Organization [facility] [place] [facility] [place] Address [address] [place] [address] Care Team Providers Care Product Management Specialist Name Role Phone LÓPEZ LLANOS Primary Care Provider Unav[facility] Insurance Providers: All historical and [...] PART A Feb 06, 2017 PART A [id number] Chloé DUFFY PATIENT MEDICARE (WNR) MEDICARE (M) PART A Feb 06, 2017 PART A [id number] Chloé DUFFY PATIENT MEDICARE (WNR) MEDICARE (M) PART B Feb 06, 2017 PART B [id number] Chloé DUFFY PATIENT Selected Encounter This section includes the information on record at [place] for the Encounter. Date/Time Encounter Type Encounter Description Reason Provider Source May 16, 2024 09:30 AM OFFICE O/P EST HI 40 MIN PRIMARY CARE/MEDICINE ICD-10-CM N40.0 Benign prostatic hyperplasia without lower urinry tract symp LLANOS,WILLI AM Paulina [facility] Encounter Template Text not used by [place] Assessments - Encounter Diagnoses This section includes the primary and secondary diagnoses documented for the Encounter. Date/Time Primary/Secondary Diagnosis Diagnosis Name Provider Source May 16, 2024 09:44 AM PRIMARY Benign prostatic hyperplasia without lower urinry tract symp [facility]OS[facility] [place] [facility] May 16, 2024 09:44 AM SECONDARY Chronic kidney disease, stage 1 LLANOS,WILL [facility] [place] [facility] May 16, 2024 09:44 AM SECONDARY Chronic obstructive pulmonary disease, unspecified LLANOS,WILL [facility] [place] [facility] May 16, 2024 09:44 AM SECONDARY Essential (primary) hypertension LLANOS,WILL [facility] [place] [facility] May 16, 2024 09:44 AM SECONDARY Hyperlipidemia, unspecified LLANOS,WILL [facility] [place] [facility] May 16, 2024 09:44 AM SECONDARY Sleep apnea, unspecified LLANOS,WILL [facility] [place] [facility] May 16, 2024 09:44 AM SECONDARY Type 2 diabetes mellitus w diabetic chronic kidney disease LLANOS,WILL [facility] [place] [facility] May 16, 2024 09:44 AM SECONDARY Type 2 diabetes mellitus without complications LLANOS,WILL [facility] Plan of Treatment: Future Appointments (+ 6 months) and Future Tests (+/- 45 days) The Plan of Treatment section includes future care activities for the patient [facility] This section includes future appointments and future orders which are active, pending or scheduled. Future Appointments This section includes appointments that were scheduled to occur 6 months from the date of the Encounter, up to a maximum of 20 appointments. The data comes from all [place] treatment facilities. Appointment Date/Time Appointment Type Appointme nt Facility Name May 24, 2024 12:00 PM AMBULATORY - MEDICINE [place] [facility] [place] [facility] Jul 09, 2024 09:30 AM [facility] [place] [facility] Jul 15, 2024 10:30 AM [facility] - MED[facility] Nov 15, 2024 09:30 AM [facility] Active, Pending, and Scheduled Orders This section includes a listing of several types of active, pending, and scheduled orders, including clinic medications orders, diagnostic test orders, procedure orders and consult orders; where the start date of the order is 45 days before the date of the Encounter or 45 days after the date of theEncounter. The data comes from all [place] treatment facilities. Test Date/Time Test Type Test Details Facility Name Apr 22, 2024 07:35 AM Consult Order COMMUNITY CARE-PULMONARY Cons Sales Representative [employer] [facility] Lab Results: +/- 30 days of the encounter This section includes the Chemistry and Hematology Lab Results on record with [facility] for the patient. Radiology Reports and Pathology Reports are provided separately, in subsequent sections. Lab Results This section contains the Chemistry/Hematology Results that were resulted 30 days before or 30 daysafter the date of the Encounter. Date/Time Source Result Type Result - Unit Interpretation Reference Range Specimen Type Comment May 16, 2024 09:53 AM [facility] HEMOGLOBIN A1C PANEL BLOOD Specimen Type: [...] Feb 12, 2024 01:10 PM Reporting Lab: [facility] [address] [facility] [address] Performing Lab: [address] [address] HEMOGLOBIN A1C 8.7 H 4.0-5.6 May 16, 2024 09:53 AM [facility] CREATININE (eGFR 2020) SERUM Specimen Type: S SEAN No comment entered. Ordering Provider: KEIRY BAPTISTE Report Released Date/Time: Feb 12, 2024 01:10 PM Reporting Lab[facility] [place] [facility] [address] [facility] [address] Performing Lab: [facility] [place] [address] [address] CREATININE, Serum 1.03 mg/dL 0.72-1.25 eGFR(CKD-EPI 2020) 77 mL/min >60 May 16, 2024 09:53 AM [facility] MICROALBUMIN CREATININE RATIO PANEL URINE Spe cimen Type: URINE No comment entered. Ordering Provider: KEIRY BAPTISTE Report Released Date/Time: Feb 12, 2024 01:10 PM Reporting Lab: [facility] [address] [address] Performing Lab: [facility] [address] [address] MICROALBUMIN/CREATININE RATIO 20.4 mg/g 0-29.9 MICROALBUMIN,QUANTITATIVE 1.1 mg/dL RR U NAVAIL CREATININE URINE 53.98 mg/dL L 63-166 May 08, 2024 10:09 AM [facility] CBC BLOOD Specimen Type: BLOOD No comment entered. Ordering Provider: LÓPEZ LLANOS Report Released Date/Time: May 03, 2024 02:49 PM Reporting Lab: [facility] [address] [address] Performing [facility]: [facility] [address] [address] WBC 8.19 10*3/uL 4.50-11.00 RBC 5.05 10*6/uL 4.23-5.66 HGB 15.2 g/dL 12.8-17 HCT 45.7 39.2-50.4 MCV 90.5 fL 82-99 MCHC 33.3 g/dL 30.8-35.1 PLT 305 10*3/uL 140-360 MPV 9.6 fL 9.2-12.4 RDW-CV 13.3 12.0-16.0 MCH 30.1 pg 26.2-32.6 May 08, 2024 10:09 AM [facility] LIPID PANEL, NON FASTING SERUM Specimen Type: SERUM No comment entered. Ordering Provider: LÓPEZ LLANOS Report Released Date/Time: May 03, 2024 02:49 PM Reporting Lab: [facility] [address] [facility] [address] Performing Lab: [facility] [address] [facility] [address] CHOLESTEROL 206 mg/dL H TRIGLYCERIDE 247 mg/dL H 0-150 LDL calculated 122 mg/dL 0-129 CHOL/HDL 5.9 HDL CHOLESTEROL 35 mg/dL L 40-60 May 08, 2024 10:09 AM [facility] BASIC METABOLIC PANEL (non-fasting) SERUM Spe cimen Type: SERUM No comment entered. Ordering Provider: LÓPEZ LLANOS Report Released Date/Time: May 03, 2024 02:49 PM Reporting Lab: [facility] [address] [facility] [address] Performing Lab: [facility] [address] [facility] [address] UREA NITROGEN 18 mg/dL 7-25 GLUCOSE 152 mg/dL H 65-100 SODIUM 137 mmol/L 135-145 POTASSIUM 5.2 mmol/L H 3.5-5.0 CHLORIDE 103 mmol/L 100-110 CO2 23 meq/L 20-30 CALCIUM 9.8 mg/dL 8.5-10.2 CREATININE, Serum 0.98 mg/dL 0.50-1.40 eGFR(CKD-EPI 2020) 82 mL/min >60 May 08, 2024 10:09 AM [facility] LIVER FUNCTION SERUM Specimen Type: SERUM No comment entered. Ordering Provider: LÓPEZ LLANOS Report Released Date/Time: May 03, 2024 02:49 PM Reporting Lab: [facility] [address] [facility] [address] Performing Lab: [address] [address] PROTEIN,TOTAL 8.1 g/dL 6.0-8.3 ALBUMIN 4.3 g/dL 3.5-5.0 ALKALINE PHOSPHATASE 115 U/L 40-150 AST 15 U/L 5-34 ALT 25 U/L BILIRUBIN, TOTAL 0.7 mg/dL 0.2-1.2 Vital Signs: All taken on the encounter date This section contains inpatient and outpatient Vital Signs collected on the date of the Encounter. Date/Time Temperature Pulse Blood Pressure Respiratory Rate SP02 Pain Height Weight Body Mass Index Source May 16, 2024 09:08 AM 97.3 76 123/75 20 96 0 68 199 30 [place] [facility] Social History: Smoking Status (Most current) and Tobacco Use (All prior to encounter date) This section includes the most current, and the historical, smoking and tobacco- related health factors from the NE facility where the Encounter took place. Current Smoking Status This section includes the most current smoking, or tobacco-related health factor, from the NE facility where the Encounter took place. Date/Time Current Smoking Status Comment Facil ity Nov 16, 2023 09:00 AM [facility]-TOBACCO [facility]ER [facility] Tobacco Use History This section includes a history of the smoking, or tobacco-related health factors, that were collected on or before the date of the Encounter. The data comes from the NE facility where the Encounter took place. Date/Time Smoking Status/Tobacco Use Comment F acility Nov 16, 2023 09:00 AM VA-TOBACCO QUIT 5 TO < 15 YRS [facility] [facility] Sep 15, 2022 01:00 PM VA-TOBACCO FORMER USER [facility] [place] [facility] Sep 15, 2022 01:00 PM VA-TOBACCO QUIT 5 TO < 15 YRS [facility] [facility] Jul 09, 2021 09:00 AM VA-TOBACCO FORMER USER [facility] [place] [facility] Jul 09, 2021 09:00 AM VA-TOBACCO QUIT 15 YRS OR MORE [facility] [place] [facility] Mar 04, 2020 10:00 AM VA-TOBACCO FORMER USER [facility] [place] [facility] Mar 04, 2020 10:00 AM VA-TOBACCO QUIT 5 TO < 15 YRS [facility] [place] [facility] Nov 27, 2018 10:35 AM VA-TOBACCO FORMER USER [facility] [place] [facility] Nov 27, 2018 10:35 AM VA-TOBACCO QUIT 5 TO < 15 YRS [facility] [facility] Jan 19, 2018 09:11 AM VA-TOBACCO USE > 1 5 LESS THAN 30 YEARS [facility] [place] [facility] Jan 19, 2018 09:11 AM VA-TOBACCO USE ADVICE [facility] [place] [facility] Jan 19, 2018 09:11 AM VA-TOBACCO USE 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 Date/Time Encounter Note(s) Provider Source May 16, 2024 09:42 AM ADDENDUM: LOCAL TITLE: Addendum STANDARD TITLE: ADDENDUM DATE OF NOTE: MAY 16, 2024@09:42:14 ENTRY DATE: MAY 16, 2024@09:42:15 AUTHOR: LÓPEZ LLANOS EXP COSIGNER: URGENCY: STATUS: COMPLETED Alert to PACT RN, please clarify with [facility] when Gorman should have follow up colonoscopy. Most recent done on 03/27/2024 and notes indicate follow up either 6 or 12 months. thank you. /den/ López Llanos DNP, RATE INSERTER-BC, CNL Primary Care Nurse Practitioner Signed: 05/16/2024 09:43 Receipt Acknowledged By: 05/16/2024 09:56 /den/ TANO ANDRADE MSN, RN, CNL Primary Care RN --- Original Document --- 05/16/24 NURSE PRACTITIONER OUTPATIENT NOTE: Chief complaint: Patient is a 74 year old . HPI: Pleasant male here to follow up on chronic issues. Allergies: Patient has answered NKA The following VA and Non-VA meds were reconciled with patient. The patient was educated on the use of the medications including indication and side effects. Active and Recently Outpatient Medications (excluding Supplies): Active Outpatient Medications Status 1) ACCU-CHEK [...] Indication: FOR TYPE 2 DIABETES MELLITUS 11) OLODATEROL/TIOTROP 2.5MCG/ACTUAT 60D INH INHALE 2 PUFFS (1 ACTIVE DOSE) BY MOUTH ONCE DAILY 12) OMALIZUMAB 150MG/ML INJ 1ML SYR INJECT 300MG ([id number] ACTIVE SYRINGE) SUBCUTANEOUSLY EVERY 4 WEEKS PATIENT HAS BEEN OBSERVED IN CLINIC FOR 3 DOSES AND HAS AN EPINEPHRINE PRESCRIPTION 13) THEOPHYLLINE 400MG 24HR SA TAB TAKE ONE TABLET BY MOUTH ONCE ACTIVE DAILY Pending Outpatient Medications Status 1) ROSUVASTATIN CA 40MG TAB TAKE ONE TABLET BY MOUTH ONCE DAILY PENDING FOR CHOLESTEROL Indication: FOR HIGH CHOLESTEROL 2) TAMSULOSIN HCL 0.4MG CAP TAKE ONE CAPSULE BY MOUTH ONCE PENDING DAILY Indication: FOR ENLARGED PROSTATE Inactive Outpatient Medications Status 1) ALOGLIPTIN 25MG TAB TAKE ONE TABLET BY MOUTH ONCE DAILY 2) EMPAGLIFLOZIN 25MG TAB TAKE ONE TABLET BY MOUTH ONCE DAILY FOR DIABETES Active Non-VA Medications Status 1) Non-VA FISH OIL 1000MG (500MG DHA/EPA) CAP 1000MG BY MOUTH ACTIVE ONCE DAILY 18 Total Medications Review of Systems: Constitutional: (-)for Fevers, chills, weakness, nights sweats On examination: 97.3 F [36.3 C] (05/16/2024 09:08)123/75 (05/16/2024 09:08)76 (05/16/2024 09:08)20 (05/16/2024 09:08)0 (05/16/2024 09:08)BMI: 30.3199 lb [90.26 kg] (05/16/2024 09:08) Gorman is alert and oriented X3 Cardiovasc: 2plus carotids without bruits, no JVD Heart Reguler rate and rhythm NL S1S2 no S3 or murmur Respiration: Normal respiratory effort, lungs clear ABD: Benign normal active bowel sounds no HSM no rebound or referred pain EXT: no clubbing, edema, or cyanosis All diagnostics from past month were reviewed with patient. Assessment/plan: Active problems - Computerized Problem List is the source for the followin. Benign prostatic hyperplasia - getting up 3-5 times per night, will restart tamsulosin, educated on use. 2. Multiple nodules of lung - follows non vt Pul 3. 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 COPD - Chronic Obstructive Pulmonary Disease - stable, follows non vt pulm. 5. Diabetes Mellitus Type 2 - he reports he is not taking alogliptin, he is unsure if he should start it, he has appt next week with CPP and will clarify. HGB A1C was not collected, not sure why?? He will go to lab today. 6. HTN - well controlled. 7. Hyperlipidemia - above target, will change him from atorvastatin to rosuvastatin. 8. Sleep Apnea - using cpap Health Care Maintenance: he had colonoscopy with recall of either 6 or 12 months, will clarify with community GI. Today I spent 45 minutes on some or all of the following: chart review, history, physical examination, treatment planning, education and counseling of the patient/family/long term care social worker, placing orders, communicating with other health care providers, completing health and wellness screenings (see below) and documentation in the electronic health record. Follow up visit in 6 mos. Medication Reconciliation: Outpatient: Has the patient been taking medications as documented in the EMLR? YES: The patient has been taking medications as documented in the EMLR. Essential Medication List for Review used to complete this medication reconciliation. INCLUDED IN THIS LIST: Alphabetical list of active outpatient prescriptions dispensed from this [place] (local) and dispensed from another [place] or DoD facility (remote) as well as inpatient orders (local, pending and active), local clinic medications, locally documented non-VA medications, and local prescriptions that have or been discontinued in the past 90 days. - All changes in medications, including all non-VA/Herbal/OTC medications were entered into CPRS. - If there were any medications the patient should no longer take, they were discontinued. - The patient/caregiver was instructed to update this list, discard old lists, and take this list to the next appointment, whether with a VA or non-VA provider. /den/ López Llanos DNP, RATE INSERTER-BC, CNL Primary Care Nurse Practitioner Signed: 05/16/2024 09:42 05/16/2024 ADDENDUM STATUS: COMPLETED Talked with [facility] ([phone]) Vet is scheduled there for F/U with Dr. Thakkar on 10/14/24. Agent reports they will discuss repeat colo recommendations at that time. Self alert for entering of CC Consultation entered to appear 09/06/24. /den/ TANO ANDRADE MSN, RN, CNL Primary Care RN Signed: 05/16/2024 09:56 LÓPEZ LLANOS [place] [facility] [place] [facility] May 16, 2024 09:34 AM PRIMARY CARE NURSE PRACTITIONER OUTPATIENT NOTE: LOCAL TITLE: NURSE PRACTITIONER OUTPATIENT NOTE STANDARD TITLE: PRIMARY CARE NURSE PRACTITIONER OUTPATIENT NOTE DATE OF NOTE: MAY 16, 2024@09:34 ENTRY DATE: MAY 16, 2024@09:34:41 AUTHOR: LÓPEZ LLANOS EXP COSIGNER: URGENCY: STATUS: COMPLETED NURSE PRACTITIONER OUTPATIENT NOTE Has ADDENDA Chief complaint: Patient is a 74 year old . HPI: Pleasant male Gorman here to follow up on chronic issues. Allergies: Patient has answered NKA The following VA and Non-VA meds were reconciled with patient. The patient was educated on the use of the medications including indication and side effects. Active and Recently Outpatient Medications (excluding Supplies): Active Outpatient Medications Status 1) ACCU-CHEK [...] Indication: FOR TYPE 2 DIABETES MELLITUS 11) OLODATEROL/TIOTROP 2.5MCG/ACTUAT 60D INH INHALE 2 PUFFS (1 ACTIVE DOSE) BY MOUTH ONCE DAILY 12) OMALIZUMAB 150MG/ML INJ 1ML SYR INJECT 300MG ([id number] ACTIVE SYRINGE) SUBCUTANEOUSLY EVERY 4 WEEKS PATIENT HAS BEEN OBSERVED IN CLINIC FOR 3 DOSES AND HAS AN EPINEPHRINE PRESCRIPTION 13) THEOPHYLLINE 400MG 24HR SA TAB TAKE ONE TABLET BY MOUTH ONCE ACTIVE DAILY Pending Outpatient Medications Status 1) ROSUVASTATIN CA 40MG TAB TAKE ONE TABLET BY MOUTH ONCE DAILY PENDING FOR CHOLESTEROL Indication: FOR HIGH CHOLESTEROL 2) TAMSULOSIN HCL 0.4MG CAP TAKE ONE CAPSULE BY MOUTH ONCE PENDING DAILY Indication: FOR ENLARGED PROSTATE Inactive Outpatient Medications Status 1) ALOGLIPTIN 25MG TAB TAKE ONE TABLET BY MOUTH ONCE DAILY 2) EMPAGLIFLOZIN 25MG TAB TAKE ONE TABLET BY MOUTH ONCE DAILY FOR DIABETES Active Non-VA Medications Status 1) Non-VA FISH OIL 1000MG (500MG DHA/EPA) CAP 1000MG BY MOUTH ACTIVE ONCE DAILY 18 Total Medications Review of Systems: Constitutional: (-)for Fevers, chills, weakness, nights sweats On examination: 97.3 F [36.3 C] (05/16/2024 09:08)123/75 (05/16/2024 09:08)76 (05/16/2024 09:08)20 (05/16/2024 09:08)0 (05/16/2024 09:08)BMI: 30.3199 lb [90.26 kg] (05/16/2024 09:08) is alert and oriented X3 Cardiovasc: 2plus carotids without bruits, no JVD Heart Reguler rate and rhythm NL S1S2 no S3 or murmur Respiration: Normal respiratory effort, lungs clear ABD: Benign normal active bowel sounds no HSM no rebound or referred pain EXT: no clubbing, edema, or cyanosis All diagnostics from past month were reviewed with patient. Assessment/plan: Active problems - Computerized Problem List is the source for the followin. Benign prostatic hyperplasia - getting up 3-5 times per night, will restart tamsulosin, educated on use. 2. Multiple nodules of lung - follows non va Pulm 3. 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 COPD - Chronic Obstructive Pulmonary Disease - stable, follows non va pulm. 5. Diabetes Mellitus Type 2 - he reports he is not taking alogliptin, he is unsure if he should start it, he has appt next week with CPP and will clarify. HGB A1C was not collected, not sure why?? He will go to lab today. 6. HTN - well controlled. 7. Hyperlipidemia - above target, will change him from atorvastatin to rosuvastatin. 8. Sleep Apnea - using cpap Health Care Maintenance: he had colonoscopy with recall of either 6 or 12 months, will clarify with community GI. Today I spent 45 minutes on some or all of the following: chart review, history, physical examination, treatment planning, education and counseling of the patient/family/long term care social worker, placing orders, communicating with other health care providers, completing health and wellness screenings (see below) and documentation in the electronic health record. Follow up visit in 6 mos. Medication Reconciliation: Outpatient: Has the patient been taking medications as documented in the EMLR? YES: The patient has been taking medications as documented in the EMLR. Essential Medication List for Review used to complete this medication reconciliation. INCLUDED IN THIS LIST: Alphabetical list of active outpatient prescriptions dispensed from this VA (local) and dispensed from another VA or DoD facility (remote) as well as inpatient orders (local, pending and active), local clinic medications, locally documented non-VA medications, and local prescriptions that have or been discontinued in the past 90 days. - All changes in medications, including all non-VA/Herbal/OTC medications were entered into CPRS. - If there were any medications the patient should no longer take, they were discontinued. - The patient/caregiver was instructed to update this list, discard old lists, and take this list to the next appointment, whether with a VA or non-VA provider. /den/ López Llanos DNP, RATE INSERTER-BC, CNL Primary Care Nurse Practitioner Signed: 05/16/2024 09:42 05/16/2024 ADDENDUM STATUS: COMPLETED Alert to PACT RN, please clarify with [facility] when Gorman should have follow up colonoscopy. Most recent done on 03/27/2024 and notes indicate follow up either 6 or 12 months. thank you. /den/ López Llanos DNP, RATE INSERTER-BC, CNL Primary Care Nurse Practitioner Signed: 05/16/2024 09:43 Receipt Acknowledged By: 05/16/2024 09:56 /den/ TANO ANDRADE MSN, RN, CNL Primary Care RN 05/16/2024 ADDENDUM STATUS: COMPLETED Talked with [facility] ([phone]) Vet is scheduled there for F/U with Dr. Thakkar on 10/14/24. Agent reports they will discuss repeat colo recommendations at that time. Self alert for entering of CC Consultation entered to appear 09/06/24. /den/ TANO ANDRADE MSN, RN, CNL Primary Care RN Signed: 05/16/2024 09:56 LÓPEZ LLANOS [place] [facility] [facility] May 16, 2024 09:12 AM PREVENTIVE MEDICINE NURSING NOTE: LOCAL TITLE: CLINICAL REMINDERS/NURSING STANDARD TITLE: PREVENTIVE MEDICINE NURSING NOTE DATE OF NOTE: MAY 16, 2024@09:12 ENTRY DATE: MAY 16, 2024@09:12:32 AUTHOR: BRONSON SHELBY COSIGNER: URGENCY: STATUS: COMPLETED CLINICAL REMINDERS/NURSING Has ADDENDA Advance Directive Screen MH AD: Patient does not have an Advance Directive completed and is requesting more information. A consult was sent to Social Work Services at this visit so that an appointment can be made with the patient to review the advance directive. The patient received education about Advance Directives and written notification of his/her rights. RHS Screen: RHS Screen Session Format: Face to Face Environmental Check Upon inquiry, the individual reports that the environment is safe to proceed. Informed Consent to Screen and Document The individual consents to proceed with screening. The individual consents to documentation of responses. PRIMARY SCREEN: In the past 12 months, how often did a current or former intimate partner (e.g., boyfriend, girlfriend, , , sexual partner): 1. Scream or curse at you Never 2. Insult or talk down to you Never 3. Threaten you with harm Never 4. Physically hurt you Never 5. Force or pressure you to have sexual contact against your will, or when you were unable to say no Never ?? The HITS tool (items 1-4 above) is [place] copyright protected by Arnold Briones MD, and the user has full rights to use it throughout the [place] system. PRIMARY SCREEN RESULT: The Primary Screen is NEGATIVE. The individual answered never to all forms of IPV above (i.e., answered never to all 5 items) The individual accepts education and/or resources: No EDUCATION: Other: not interested at this time /den/ [facility] Play Back Operator BOOKIE,PRIMARY CARE Signed: 05/16/2024 09:13 05/16/2024 ADDENDUM STATUS: COMPLETED Diagnostic Colonoscopy: (+) FIT/FOBT identified. A diagnostic Colonoscopy is due based on information available to this reminder. Prior/outside colonoscopy results: [place] done 03/18/24, repeat 12[facility]ths [facility] Date: March 20, 2024 Colonoscopy reminder set 1 year from MAY 16, 2024. /den/ TANO ANDRADE MSN, RN, CNL Primary Care RN Signed: 05/16/2024 10:09 BRONSON SHELBY [facility]
--- OUTSIDE RECORDS SUMMARY | 2024-05-28 15:05 | XMS_ITS ---
Author Organization [facility] Address [address] [place] [id number] Care Team Providers Care Associate Sales Name Role Phone Viet DRIVER, Andrea Primary Care Provider Navarro Thakkar Jr, Hasmukh Beasley Encounters Encounter Location Date Provider Diagnosis [facility] [place] [facility] [address], [place] [id number] 03/27/2024 Hasmukh Thakkar Jr Abnormal findings in stool R19.5 and Colon polyps K63.5 Assessments Encounter Date Diagnosis (ICD Code) Assessment Notes Treatment Notes Treatment Clinical Notes Section Notes 03/27/2024 Abnormal findings in stool (ICD-10 - R19.5) 03/27/2024 Colon polyps (ICD-10 - K63.5) Plan Of Treatment Next Appt Details Provider Name:Hasmukh francisco Jr, 10/14/2024 09:40:00 AM, [address] [facility] [address], [address], [place], [address], Progress Notes * HORTENCIA DUFFYDOB:[birth year] (74 yo M)Acc No.[id number]:03/27/2024 COLON WITH MAC Patient:?HORTENCIA DUFFY Provider:?Hasmukh Thakkar MD :1950???Age:74 Y???Sex:Male Rashad e:03/27/2024 Address:[address] [place] [address] [address] , [place], [id number] Pcp:Andrea Llanos NP Subjective: * Chief Complaints: * ??? * Medical History:? Objective: * Vitals:? Assessment: * Assessment: 1.?Abnormal findings in stoo l - R19.5 (Primary)???2.?Colon polyps - K63.5??? Plan: * Treatment: * Procedure Codes:?28395 LESIO N REMOVAL COLONOSCOPY, 27548 LESION REMOVE COLONOSCOPY, Modifiers: 22 , 59 * * The named appointment provid er may or may not be the originator of this progress note, and it is not deemed complete until electronically signed by the appointment provider. Sign off status: Pending * Provider:?Hasmukh Thakkar MD Date:?0 03/27/2024 Generated for Julita chilel/Rony/Khoaitting on:?05/28/2024 03:04 PM EDT
--- OUTSIDE RECORDS SUMMARY | 2024-05-28 15:05 | XMS_ITS ---
Author Organization [facility] Address [address] [place] [address] Care Team Providers Care Director Of Home Economics Name Role Phone Viet DRIVER, Andrea Primary Care Provider Navarro Thakkar Jr, Hasmukh Beasley [phone] REASON FOR VISIT Pathology Encounters Encounter Location Date Provider Diagnosis [facility] [address] [place] [address] 04/02/2024 Hasmukh Thakkar Jr Plan Of Treatment Next Appt Details Provider Name:Hasmukh francisco Jr, 10/14/2024 09:40:00 AM, [address], [address], [place], [address], Progress Notes * HORTENCIA DUFFYDOB:[birth year] (74 yo M)Acc No.[id number]:04/02/2024 Patient:?HORTENCIA DUFFY :1950???Age:74 Y???Sex:Male Address:[address] [place] [address], [place] [address] * true * Date:? Generated for Julita chilel/Rony/eTransmitting on:?05/28/2024 03:05 PM EDT
== END 2024-05-28 13:13 | disposition home or self-care (01) ==
LOC: HO.HPS 12:42
PROVIDERS: PCP Nurse Practitioner Family; Visit Provider Internal Medicine Pulmonary Disease
DX: J44.89 Other specified chronic obstructive pulmonary disease (principal); Z91.09 Other allergy status, other than to drugs and biological substances; G47.33 Obstructive sleep apnea (adult) (pediatric); Z99.89 Dependence on other enabling machines and devices; Z87.891 Personal history of nicotine dependence; R05.3 Chronic cough
CPT/HCPCS: 99214; G2211

== ENCOUNTER → 2024-05-28 12:42 | Outpatient (BNVA) | payer OTHER, SELFPAY | PROVIDERS: PCP Nurse Practitioner Family; Visit Provider Internal Medicine Pulmonary Disease | DX: J44.89 Other specified chronic obstructive pulmonary disease (principal); G47.33 Obstructive sleep apnea (adult) (pediatric); R05.3 Chronic cough; Z99.89 Dependence on other enabling machines and devices; Z91.09 Other allergy status, other than to drugs and biological substances; Z87.891 Personal history of nicotine dependence | CPT/HCPCS: 99212 ==

== ENCOUNTER 2024-10-01 12:51 | Outpatient (AMB) | payer OTHER, SELFPAY ==
--- OUTSIDE RECORDS SUMMARY | 2024-03-27 09:40 | XMS_ITS ---
Author Organization [facility] Address [address] [place] [address] Care Team Providers Care Registered Veterinary Technician Name Role Phone Viet DRIVER, Andrea Primary Care Provider Navarro Thakkar Jr, Hasmukh Beasley Encounters Encounter Location Date Provider Diagnosis [facility] Outpatient [address] [place], [place] [id number] 03/27/2024 Hasmukh Thakkar Jr Abnormal findings in stool R19.5 and Colon polyps K63.5 Assessments Encounter Date Diagnosis (ICD Code) Assessment Notes Treatment Notes Treatment Clinical Notes Section Notes 03/27/2024 Abnormal findings in stool (ICD-10 - R19.5) 03/27/2024 Colon polyps (ICD-10 - K63.5) Plan Of Treatment Next Appt Details Provider Name:Hasmukh francisco Jr, 10/14/2024 09:40:00 AM, [address], [address], [place], [address], Progress Notes * HORTENCIA DUFFYDOB:[birth year] (74 yo M)Acc No.[id number]:03/27/2024 COLON WITH MAC Patient: HORTENCIA PRABHAKAR Provider: Gloria Thakkar MD :1950 A ge:74 Y S ex:Male Date:03/27/2024 Address:[address] [place] [address] [address], [id number] Pcp:Andrea Llanos NP Subjective: * Chief Complaints: * * Medical History: Objective: * Vitals: Assessment: * Assessment: 1. A bnormal findings in stool - R19.5 (Primary) 2 . C olon polyps - K63.5? Plan: * Treatment: * Procedure Codes: 4 5385 LESION REMOVAL COLONOSCOPY, 75076 LESION REMOVE COLONOSCOPY, Modifiers: 22 , 59 * * The named appointment provid er may or may not be the originator of this progress note, and it is not deemed complete until electronically signed by the appointment provider. Sign off status: Pending * Provider: Gloria Thakkar MD Date: 0 03/27/2024 Generated for Julita chilel/Rony/Khoaitting on: 0 10/01/2024 01:33 PM EDT
--- OUTSIDE RECORDS SUMMARY | 2024-07-15 06:30 | XMS_ITS ---
Author Name [facility] [facility] [place] Address [address] [place] [address] Care Team Providers Care Workforce Services Representative Name Role Phone LÓPEZ GOLDMAN Primary Care Provider [facility] Insurance Providers: All historical and current [...] PART A Feb 06, 2017 PART A [id number] Chloé DUFFY PATIENT MEDICARE (WNR) MEDICARE (M) PART A Feb 06, 2017 PART A [id number] Chloé DUFFY PATIENT MEDICARE (WNR) MEDICARE (M) PART B Feb 06, 2017 PART B [id number] Chloé DUFFY PATIENT Selected Encounter This section includes the information on record at [place] for the Encounter. Date/Time Encounter Type Encounter Description Reason Provider Source Jul 15, 2024 10:30 AM COMPRE OPH EXAM EST PT 1/> OPTOMETRY ICD-10-CM E11.9 Type 2 diabetes mellitus without complications ASYA CURTIS IHE Encounter Template Text not used by [place] Assessments - Encounter Diagnoses This section includes the primary and secondary diagnoses documented for the Encounter. Date/Time Primary/Secondary Diagnosis Diagnosis Name Provider Source Jul 15, 2024 05:17 PM PRIMARY Type 2 diabetes mellitus without complications ASYA CURTIS [facility] Jul 15, 2024 05:17 PM SECONDARY Combined forms of age-related cataract, bilateral ASYA CURTIS [facility] Jul 15, 2024 05:17 PM SECONDARY Hypermetropia, [facility] Plan of Treatment: Future Appointments (+ 6 months) and Future Tests (+/- 45 days) The Plan of Treatment section includes future care activities for the patient from all [place] [facility]. This section includes future appointments and future orders which are active, pending or scheduled. Future Appointments This section includes appointments that were scheduled to occur 6 months from the date of the Encounter, up to a maximum of 20 appointments. The data comes from all [place] treatment facilities. Appointment Date/Time Appointment Type Appointme nt Facility Name Aug 27, 2024 09:30 AM AMBULATORY - MEDICINE [facility] Sep 25, 2024 01:00 PM AMBULATORY - MEDICINE [facility] Oct 14, 2024 09:40 AM AMBULATORY - NONE [facility] Nov 15, 2024 09:30 AM AMBULATORY - MEDIC[facility] Nov 19, 2024 10:30 AM [facility] Social History: Smoking Status (Most current) and Tobacco Use (All prior to encounter date) This section includes the most current, and the historical, smoking and tobacco- related health factors from the [facility] facility where the Encounter took place. Current Smoking Status This section includes the most current smoking, or tobacco-related health factor, from the [place] facility where the Encounter took place. Date/Time Current Smoking Status Comment Marisa balderrama Nov 16, 2023 09:00 AM [place]-TOBAC[place] QUIT 5 TO < 15 YRS [facility] Tobacco Use History This section includes a history of the smoking, or tobacco-related health factors, that were collected on or before the date of the Encounter. The data comes from the [place] facility where the Encounter took place. Date/Time Smoking Status/Tobacco Use Comment F acility Nov 16, 2023 09:00 AM [facility]-TOBACCO QUIT 5 TO < 15 YRS [facility] [place] [facility] Sep 15, 2022 01:00 PM VA-TOBACCO FORMER USER [facility] [place] [facility] Sep 15, 2022 01:00 PM VA-TOBACCO QUIT 5 TO < 15 YRS [facility] [place] [facility] Jul 09, 2021 09:00 AM VA-TOBACCO FORMER USER [facility] [place] [facility] Jul 09, 2021 09:00 AM VA-TOBACCO QUIT 15 YRS OR MORE [facility] [place] [facility] Mar 04, 2020 10:00 AM [place]-TOBACCO FORMER US[place] [facility] [place] [facility] Mar 04, 2020 10:00 AM VA-TOBACCO QUIT 5 TO < 15 YRS [facility] [place] [facility] Nov 27, 2018 10:35 AM VA-TOBACCO FORMER USER [place] [facility] [place] [facility] Nov 27, 2018 10:35 AM VA-TOBACCO QUIT 5 TO < 15 YRS [place] [facility] [place] [facility] Jan 19, 2018 09:11 AM VA-TOBACCO USE > 1 5 LESS THAN 30 YEARS [place] [facility] [place] [facility] Jan 19, 2018 09:11 AM VA-TOBACCO USE ADVICE [place] [facility] [place] [facility] Jan 19, 2018 09:11 AM 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 [facility] [place] [facility] Jan 19, 2018 09:11 AM VA-TOBACCO USE DEC LINED TO ANSWER [place] [facility] [place] [facility] Jan 19, 2018 09:11 AM VA-TOBACCO USE MED NO [facility] [place] [facility] Jan 19, 2018 09:11 AM VA-TOBACCO USE WI 30 MIN OF WAKEUP [place] [facility] [place] [facility] Jan 19, 2018 09:11 AM VA-TOBACCO USER EVERY DAY [place] [facility] [place] [facility] Encounter Notes: All associated encounter notes This section contains the clinical notes associated to the Encounter. Date/Time Encounter Note(s) Provider Source Jul 15, 2024 10:17 AM OPTOMETRY NOTE: LOCAL TITLE: OPTOMETRY NOTE STANDARD TITLE: OPTOMETRY NOTE DATE OF NOTE: JUL 15, 2024@10:17 ENTRY DATE: JUL 15, 2024@10:17:54 AUTHOR: ASYA CURTIS EXP COSIGNER: URGENCY: STATUS: COMPLETED 74 WHITE MALE NOT OR Last eye exam: 07/11/23 Reason for Visit/CC: patient here for a comprehensive eye exam. Has PALs, mostly uses them for reading. Vision sometimes gets a little blurry off and on. No dryness. 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 HTN - Hypertension ([facility] [id number]) E78.5 Hyperlipidemia ([facility] [id number]) G47.30 Sleep Apnea ([facility] 13792595) Z72.0 Tobacco User ([facility] [id number]) Other: SYSTEMIC MEDICATIONS/OCULAR MEDICATIONS: Active and Recently Outpatient Medications (excluding Supplies): Active Outpatient Medications Status = 1) ALBUTEROL SO4 0.083% INHL 3ML INHALE 1 AMPULE IN NEBULIZER ACTIVE EVERY 4 TO 6 HOURS NEEDED FOR WHEEZING OR SHORTNESS OF BREATH 2) AZITHROMYCIN 250MG TAB TAKE ONE TABLET BY MOUTH ON MONDAY, ACTIVE (S) MONDAY, AND MONDAY 3) CHOLECALCIF 25MCG (D3-1,000UNIT) TAB TAKE ONE [...] DAILY NEEDED Indication: FOR NASAL IRRITATION/INFLAMMATION 7) INSULIN,GLARGINE 100 UNT/ML 3ML SOLOSTAR INJECT 22 UNITS HOLD SUBCUTANEOUSLY ONCE DAILY Indication: FOR TYPE 2 [...] OMALIZUMAB 150MG/ML INJ 1ML SYR INJECT 300MG ([id number] ACTIVE SYRINGE) SUBCUTANEOUSLY EVERY 4 WEEKS PATIENT HAS BEEN OBSERVED IN CLINIC FOR 3 DOSES AND HAS AN EPINEPHRINE PRESCRIPTION 13) ROSUVASTATIN CA 40MG TAB TAKE ONE TABLET BY MOUTH ONCE DAILY ACTIVE FOR CHOLESTEROL Indication: FOR HIGH CHOLESTEROL 14) SITAGLIPTIN (EQV-ZITUVIO) 100MG TAB TAKE ONE TABLET BY MOUTH ACTIVE ONCE DAILY Indication: DIABETES 15) TAMSULOSIN HCL 0.4MG CAP TAKE ONE CAPSULE BY MOUTH ONCE ACTIVE DAILY Indication: FOR ENLARGED PROSTATE 16) THEOPHYLLINE 400MG 24HR SA TAB TAKE ONE TABLET BY MOUTH ONCE ACTIVE DAILY Inactive Outpatient Medications Status = 1) ACCU-CHEK GUIDE (GLUCOSE) TEST STRIP USE 1 STRIP TO TEST BLOOD SUGARS TWICE DAILY Active Non-VA Medications Status = 1) Non-VA FISH OIL 1000MG (500MG DHA/EPA) CAP 1000MG BY MOUTH ACTIVE ONCE DAILY 18 Total Medications ALLERGIES: Patient has answered NKA LAST BP: 123/75 (05/16/2024 09:08) PERTINENT LABS: HEMOGLOBIN A1C; BLOOD Daniel. Date: 05/16/24 09:53 01/03/24 13:30 Test Name Result Units Range HEMOGLOBIN A1C 8.7 H 8.6 H % 4.0 - 5.6 Current Rx with last BCVA: OD +0.50 sph OS +0.25 -0.25 x 060 Add: +2.25 DVA ( x )sc ( )cc OD 20/30-1 OS 20/25-2 Pupils: PERRL (-)APD EOM: Full all meridia OU, (-) pain/diplopia Confrontation Visual Webre: Full all meridia OU Subjective: OD +1.25 -0.75 x 125 20/25+1 OS +0.50 -0.75 x 060 20/25+1 Add: SLE: Lids/Lashes: clear OU Conjunctiva: white and quiet OU Corneas: clear OU Iris: flat and clear OU (-)NVI OU Anterior Chamber: deep and quiet OU Angles: open OU Lens: 1+ NS OU few vacuoles OD, moderate diffuse vacuoles OS TAP @ 10:33am Stephens OD 12 mm Hg OS 12 mm Hg Dilating Drops: 1 gtt 1% Tropicamide OU, 2.5% phenylephrine OU (Pt. ed. on side effects) Vitreous: Syneresis OU C/D (Size and Rim Description) OD 0.40 pink & healthy OS 0.40 pink & healthy (-)NVD OU Macula OD flat and clear OS flat and clear (-)CSME OU A/V: normal caliber OU Posterior Pole: clear OU Periphery: Flat and intact (-)NVE, holes, tears, detachments 360 OU Assessment/Plan: 1. Type II diabetes without retinopathy or macular edema OU. Last A1c 6.7. Pt ed on findings and importance of good blood glucose control. Monitor annually 2. Combined cataracts OU, mildly visually significant. Discussed cataract surgery, pt defers at this time. Monitor 3. hyperopia OU, regular astigmatism OU, presbyopia OU - continue current Rx RTC 1 year or earlier PRN Patient Education: Diabetes: Patient was educated regarding diabetes and related ocular complications including retinopathy and cataract formation as well as other related systemic complications. The importance of good blood sugar control, blood sugar testing as recommended by their PCP and the importance of timely follow up were all emphasized. patient offered and declined printed medication list Medication Reconciliation: Outpatient: Has the patient been [...] whether with a VA or non-VA provider. JLV Link Data on this list may not be complete. Please check JLV. Allergies/ADRs (Tool #5) FACILITY ALLERGY/ADR -------- No Remote Allergy/ADR Data available for this patient [facility] [place] [facility] No Known Allergies Med Recon NoGlossary (Tool #1) INCLUDED IN THIS LIST: Alphabetical list of active outpatient prescriptions dispensed from this [facility] (local) and dispensed from another [place] or [facility] facility (remote) as well as inpatient orders (local pending and active), local clinic medications, locally documented non-VA medications, and local prescriptions that have or been discontinued in the past 90 days. Non-VA Meds Last Documented On: Sep 14, 2020 NOTE The display of VA prescriptions dispensed from another [place] or [facility] facility (remote) is limited to active outpatient prescription entries matched to National Drug File at the originating site and may not include some items such as investigational drugs, compounds, etc. NOT INCLUDED IN THIS LIST: Medications self-entered by the patient into personal health records (i.e. [employer]) are NOT included in this list. Non-VA medications documented outside this [place], remote inpatient orders (regardless of status) and remote clinic medications are NOT included in this list. The patient and provider must always discuss medications the patient is taking, regardless of where the medication was dispensed or obtained. OUTPT ALBUTEROL SO4 0.083% INHL 3ML (Status = Active) INHALE 1 AMPULE IN NEBULIZER EVERY 4 TO 6 HOURS NEEDED FOR WHEEZING OR SHORTNESS OF BREATH Rx# [id number] Last Released: 04/09/24 Qty/Days Supply: 180/15 Rx Expiration Date: 08/28/24 Refills Remainin OUTPT ALOGLIPTIN 25MG TAB (Status = Discontinued) TAKE ONE TABLET BY MOUTH ONCE DAILY Rx# [id number] Last Released: 11/02/23 Qty/Days Supply: 90/90 Rx Expiration Date: 04/19/24 Refills Remainin OUTPT ATORVASTATIN CALCIUM 80MG TAB (Status = Discontinued) TAKE ONE TABLET BY MOUTH ONCE DAILY FOR CHOLESTEROL (REPLACES SIMVASTATIN) Rx# [id number] Last Released: 01/15/24 Qty/Days Supply: Rx Expiration Date: 09/01/24 Refills Remainin OUTPT AZITHROMYCIN 250MG TAB (Status = Active/Suspended) TAKE ONE TABLET BY MOUTH ON MONDAY, MONDAY, AND MONDAY Rx# [id number] Last Released: 06/25/24 Qty/Days Supply: Rx Expiration Date: 05/29/25 Refills Remainin OUTPT CHOLECALCIF 25MCG (D3-1,000UNIT) TAB (Status = Active) TAKE ONE TABLET BY MOUTH ONCE DAILY FOR VITAMIN SUPPLEMENTATION Rx# [id number] Last Released: 06/14/24 Qty/Days Supply: Rx Expiration Date: 09/19/24 Refills Remainin OUTPT CICLESONIDE 160MCG 60D ORAL INHL (Status = Active) INHALE 1 PUFF BY MOUTH TWICE DAILY (RINSE MOUTH AFTER USE) Rx# [id number] Last Released: 06/13/24 Qty/Days Supply: 03/07 Rx Expiration Date: 04/05/25 Refills Remainin OUTPT EMPAGLIFLOZIN 25MG TAB (Status = ) TAKE ONE TABLET BY MOUTH ONCE DAILY FOR DIABETES Rx# [id number] Last Released: 03/20/24 Qty/Days Supply: Rx Expiration Date: 04/19/24 Refills Remainin OUTPT FINASTERIDE 5MG TAB (Status = Active) TAKE ONE TABLET BY MOUTH ONCE DAILY FOR PROSTATE Rx# [id number] Last Released: 04/24/24 Qty/Days Supply: Rx Expiration Date: 09/19/24 Refills Remainin Non-VA FISH OIL 1000MG (500MG DHA/EPA) CAP TAKE 1 CAPSULE BY MOUTH ONCE DAILY Non-VA medication not recommended by VA provider. OUTPT FLUTICASONE PROP 50MCG 120D NASAL INHL (Status = Active) INSTILL 1 SPRAY INTO EACH NOSTRIL TWICE DAILY NEEDED Rx# [id number] Last Released: 07/08/24 Qty/Days Supply: 03/07 Rx Expiration Date: 11/16/24 Refills Remainin Indication: FOR NASAL IRRITATION/INFLAMMATION OUTPT INSULIN,GLARGINE 100 UNT/ML 3ML SOLOSTAR (Status = On Hold) INJECT 22 UNITS SUBCUTANEOUSLY ONCE DAILY Rx# [id number] Last Released: QtDays Supply: Rx Expiration Date: 05/25/25 Refills Remainin Indication: FOR TYPE 2 DIABETES MELLITUS OUTPT INSULIN,GLARGINE-YFGN 100UNIT/ML PEN 3ML (Status = Discontinued) INJECT 20 UNITS SUBCUTANEOUSLY ONCE DAILY Rx# [id number] Last Released: 01/30/24 Qty/Days Supply: Rx Expiration Date: 01/26/25 Refills Remainin Indication: FOR TYPE 2 DIABETES MELLITUS OUTPT LISINOPRIL 10MG TAB (Status = Active) TAKE ONE TABLET BY MOUTH ONCE DAILY FOR HIGH BLOOD PRESSURE TO CONTROL BLOOD PRESSURE Rx# [id number] Last Released: 04/09/24 Qty/Days Supply: Rx Expiration Date: 08/30/24 Refills Remainin Indication: FOR HIGH BLOOD PRESSURE OUTPT MECLIZINE HCL 25MG TAB (Status = Active) TAKE ONE TABLET BY MOUTH EVERY 12 HOURS NEEDED FOR VERTIGO Rx# [id number] Last Released: 07/05/24 Qty/Days Supply: 40 Rx Expiration Date: 11/16/24 Refills Remainin Indication: FOR VERTIGO OUTPT METFORMIN HCL 500MG 24HR SA TAB (Status = Active) TAKE ONE TABLET BY MOUTH TWICE DAILY Rx# [id number] Last Released: 06/25/24 Qty/Days Supply: Rx Expiration Date: 09/19/24 Refills Remainin Indication: FOR TYPE 2 DIABETES MELLITUS OUTPT OLODATEROL/TIOTROP 2.5MCG/ACTUAT 60D INH (Status = Active) INHALE 2 PUFFS (1 DOSE) BY MOUTH ONCE DAILY Rx# [id number] Last Released: 06/14/24 Qty/Days Supply: Rx Expiration Date: 08/30/24 Refills Remainin OUTPT OMALIZUMAB 150MG/ML INJ 1ML SYR (Status = Active) INJECT 300MG ([id number] SYRINGE) SUBCUTANEOUSLY EVERY 4 WEEKS PATIENT HAS BEEN OBSERVED IN CLINIC FOR 3 DOSES AND HAS AN EPINEPHRINE PRESCRIPTION Rx# [id number] Last Released: 07/10/24 Qty/Days Supply: 04/05 Rx Expiration Date: 02/09/25 Refills Remainin OUTPT ROSUVASTATIN CA 40MG TAB (Status = Active) TAKE ONE TABLET BY MOUTH ONCE DAILY FOR CHOLESTEROL Rx# [id number] Last Released: 05/17/24 QtyDays Supply: Rx Expiration Date: 05/17/25 Refills Remainin Indication: FOR HIGH CHOLESTEROL OUTPT SITAGLIPTIN (EQV-ZITUVIO) 100MG TAB (Status = Active) TAKE ONE TABLET BY MOUTH ONCE DAILY Rx# [id number] Last Released: 05/28/24 QtyDays Supply: Rx Expiration Date: 05/25/25 Refills Remainin Indication: DIABETES OUTPT TAMSULOSIN HCL 0.4MG CAP (Status = Active) TAKE ONE CAPSULE BY MOUTH ONCE DAILY FOR ENLARGED PROSTATE Rx# [id number] Last Released: 05/17/24 Qty Supply: Rx Expiration Date: 05/17/25 Refills Remainin Indication: FOR ENLARGED PROSTATE OUTPT THEOPHYLLINE 400MG 24HR SA TAB (Status = Active) TAKE ONE TABLET BY MOUTH ONCE DAILY Rx# [id number] Last Released: 06/12/24 Qt Supply: Rx Expiration Date: 09/21/24 Refills Remainin SUPPLIES OUTPT ACCU-CHEK GUIDE (GLUCOSE) TEST STRIP (Status = ) USE 1 STRIP TO TEST BLOOD SUGARS TWICE DAILY Rx# [id number] Last Released: 08/31/23 Qty/Days Supply: Rx Expiration Date: 06/20/24 Refills Remainin OUTPT LANCET,SOFTCLIX (Status = Discontinued) USE 1 LANCET DIRECTED TWICE DAILY TO TEST BLOOD SUGAR Rx# [id number] Last Released: 04/21/23 Qty/Days Supply: 200/90 Rx Expiration Date: 04/19/24 Refills Remainin OUTPT LANCET,SOFTCLIX (Status = Active) USE 1 LANCET DIRECTED TWICE DAILY TO TEST BLOOD SUGAR Rx# [id number] Last Released: 07/11/24 Qty/Days Supply: 200/90 Rx Expiration Date: 07/10/25 Refills Remainin OUTPT NEEDLE,PEN 32G,4MM (Status = Discontinued) USE 1 NEEDLE SUBCUTANEOUSLY ONCE DAILY FOR USE WITH PEN DEVICE Rx# [id number] Last Released: 11/15/23 Qty/Days Supply: 100/90 Rx Expiration Date: 06/20/24 Refills Remainin OUTPT NEEDLE,PEN 32G,4MM (Status = Active) USE 1 NEEDLE SUBCUTANEOUSLY ONCE DAILY FOR USE WITH PEN DEVICE Rx# [id number] Last Released: 05/17/24 Qty/Days Supply: 100/90 Rx Expiration Date: 05/17/25 Refills Remainin /den/ ASYA CURTIS OD Legal Coordinator Signed: 07/15/2024 17:17 [facility]
--- OUTSIDE RECORDS SUMMARY | 2024-09-06 07:16 | XMS_ITS | Encounter Summary ---
Author Name [facility] [place] [facility] [facility] [place] Address [address] [place] [id number] Care Team Providers Care Dial Mounter Name Role Phone ANDREA LLANOS Primary Care Provider [facility] Insurance Providers: All historical and current [...] PART A Feb 06, 2017 PART A [id number] Chloé DUFFY PATIENT MEDICARE (WNR) MEDICARE (M) PART A Feb 06, 2017 PART A [id number] Chloé DUFFY PATIENT MEDICARE (WNR) MEDICARE (M) PART B Feb 06, 2017 PART B [id number] Chloé DUFFY PATIENT Selected Encounter This section includes the information on record at [place] for the Encounter. Date/Time Encounter Type Encounter Description Reason Pro vider Source Sep 06, 2024 11:16 AM Outpatient Encounter COMMUNITY CARE CONSULT IHE Encounter Template Text not used by [facility] Plan of Treatment: Future Appointments (+ 6 months) and Future Tests (+/- 45 days) The Plan of Treatment section includes future care activities for the patient from all [place] [facility]. This section includes future appointments and future orders which are active, pending or scheduled. Future Appointments This section includes appointments that were scheduled to occur 6 months from the date of the Encounter, up to a maximum of 20 appointments. The data comes from all [facility]. Appointment Date/Time Appointment Type Appointme nt Facility Name Sep 25, 2024 01:00 PM AMBULATORY - MEDICINE [facility] Oct 14, 2024 09:40 AM AMBULATORY - NONE [facility] Nov 15, 2024 09:30 AM AMBULATORY - MEDICINE [facility] Nov 19, 2024 10:30 AM AMBULATORY - MEDICINE [facility] Active, Pending, and Scheduled Orders This section includes a listing of several types of active, pending, and scheduled orders, including clinic medications orders, diagnostic test orders, procedure orders and consult orders; where the start date of the order is 45 days before the date of the Encounter or 45 days after the date of theEncounter. The data comes from all [facility]. Test Date/Time Test Type Test Details Facility Name Sep 06, 2024 12:44 PM Consult Order [facility]ON[facility] SCREENING Cons Digital Marketing Specialist's Choice [facility] Lab Results: +/- 30 days of the encounter This section includes the Chemistry and Hematology Lab Results on record with [place] for the patient. Radiology Reports and Pathology Reports are provided separately, in subsequent sections. Lab Results This section contains the Chemistry/Hematology Results that were resulted 30 days before or 30 daysafter the date of the Encounter. Date/Time Source Result Type Result - Unit Interpretation Reference Range Specimen Type Comment Aug 19, 2024 11:25 AM [facility] HEMOGLOBIN A1C PANEL [...] Ordering Provider: KEIRY BAPTISTE Report Released Date/Time: Jul 09, 2024 09:37 AM Reporting [facility] [place] [facility] [address] [address] Performing Lab: [facility] [address] [address] HEMOGLOBIN A1C 7.8 H 4.0-5.6 Aug 19, 2024 11:25 AM [facility] CREATININE (eGFR 2020) SERUM Specimen Type: S SEAN No comment entered. Ordering Provider: KEIRY BAPTISTE Report Released Date/Time: Jul 09, 2024 09:37 AM Reporting Lab: [facility] [place] [facility] [address] [address] Performing Lab: [facility] [address] [address] CREATININE, Serum 0.86 mg/dL 0.72-1.25 eGFR(CKD-EPI 2020) >90 mL/min >60 Aug 19, 2024 11:25 AM [facility] MICROALBUMIN CREATININE RATIO PANEL URINE Spe cimen Type: URINE No comment entered. Ordering Provider: KEIRY BAPTISTE Report Released Date/Time: Jul 09, 2024 09:37 AM Reporting Lab: [facility] [place] [facility] [address] [address] Performing Lab: [facility] [address] [address] MICROALBUMIN/CREATININE RATIO canc mg/g 0-29.9 MICROALBUMIN,QUANTITATIVE <0.5 mg/dL RR UNAVAIL CREATININE URINE 30.71 mg/dL L 63-166 Social History: Smoking Status (Most current) and Tobacco Use (All prior to encounter date) This section includes the most current, and the historical, smoking and tobacco- related health factors from the [place] facility where the Encounter took place. Current Smoking Status This section includes the most current smoking, or tobacco-related health factor, from the [place] facility where the Encounter took place. Date/Time Current Smoking Status Comment Facil ity Nov 16, 2023 09:00 AM [facility]-TOBACCO QUIT 5 TO < 15 YRS [place] [facility] [place] [facility] Tobacco Use History This section includes a history of the smoking, or tobacco-related health factors, that were collected on or before the date of the Encounter. The data comes from the [place] facility where the Encounter took place. Date/Time Smoking Status/Tobacco Use Comment F acility Nov 16, 2023 09:00 AM VA-TOBACCO QUIT 5 TO < 15 YRS [facility] [place] [facility] Sep 15, 2022 01:00 PM VA-TOBACCO FORMER USER [facility] [place] [facility] Sep 15, 2022 01:00 PM VA-TOBACCO QUIT 5 TO < 15 YRS [facility] [place] [facility] Jul 09, 2021 09:00 AM VA-TOBACCO FORMER USER [facility] [place] [facility] Jul 09, 2021 09:00 AM VA-TOBACCO QUIT 15 YRS OR MORE [place] [facility] [place] [facility] Mar 04, 2020 10:00 AM VA-TOBACCO FORMER [place] [facility] [place] [facility] Mar 04, 2020 10:00 AM VA-TOBACCO QUIT 5 TO < 15 YRS [facility] [place] [facility] Nov 27, 2018 10:35 AM VA-TOBACCO FORMER USER [facility] [place] [facility] Nov 27, 2018 10:35 AM VA-TOBACCO QUIT 5 TO < 15 YRS [place] [facility] [place] [facility] Jan 19, 2018 09:11 AM VA-TOBACCO USE > 1 5 LESS THAN 30 YEARS [place] [facility] [place] [facility] Jan 19, 2018 09:11 AM VA-TOBACCO USE ADVICE [facility] [place] [facility] Jan 19, 2018 09:11 AM VA-TOBACCO USE SCRAP STRIPPER HAND NO [facility] [place] [facility] Jan 19, 2018 09:11 AM VA-TOBACCO USE DEC LINED TO ANSWER [place] [facility] [place] [facility] Jan 19, 2018 09:11 AM VA-TOBACCO USE MED NO [facility] [place] [facility] Jan 19, 2018 09:11 AM VA-TOBACCO USE [place] 30 MIN OF WAKEUP [place] [facility] [place] [facility] Jan 19, 2018 09:11 AM VA-TOBACCO USER EVERY DAY [place] [facility] [place] [facility] Encounter Notes: All associated encounter notes This section contains the clinical notes associated to the Encounter. Date/Time Encounter Note(s) Provider Source Sep 06, 2024 11:16 AM NONVA NOTE: LOCAL TITLE: COMMUNITY CARE-REQUEST FOR SERVICE NOTE STANDARD TITLE: NONVA NOTE DATE OF NOTE: SEP 06, 2024@11:16 ENTRY DATE: SEP 06, 2024@11:16:57 AUTHOR: KAYLEE GUILLERMO JR EXP COSIGNER: URGENCY: STATUS: COMPLETED COMMUNITY CARE-REQUEST FOR SERVICE NOTE Has ADDENDA Request for Services (RFS) documentation has been sent for scanning to [facility] Community Care Consult: COMMUNITY CARE-GI Consult No: tbd Date sent to scanning: Sep A Request for Service (RFS) form [id number] has been received which includes the following: Care Requested:Follow up for colon polyps, screening w hx of tubular adenomatous polyp ICD-10 Dx code: z12.11 z86.0101 Date [facility] received request: Aug Date service required: Oct Requesting Community Provider Information: Name of Ordering Provider: Hasmukh Thakkar Office:[facility] Address, City, State: [address] [place] [address], [address], [facility] ALERT PACT Please enter community care consult if PCP agrees /den/ KAYLEE GUILLERMO JR REGISTERED NURSE Signed: 09/06/2024 11:20 Receipt Acknowledged By: 09/08/2024 18:39 /den/ Andrea Llanos DNP, LEARNING CONSULTANT-BC, CNL Primary Care Nurse Practitioner 09/06/2024 11:33 /den/ TANO ANDRADE MSN, RN, CNL Primary Care RN 09/06/2024 ADDENDUM STATUS: COMPLETED consult entered HFS by PCP /den/ TANO ANDRADE MSN, RN, CNL Primary Care RN Signed: 09/06/2024 11:33 KAYLEE GUILLERMO JR [place] [facility] [place] [facility]
--- OUTSIDE RECORDS SUMMARY | 2024-10-01 08:29 | XMS_ITS | Continuity of Care Document ---
Author Name [facility] Organization [facility] Care Team Providers Care Development Writer Name Role Phone [facility] Unavailable Unavailable Problems Combined list of problems [...] COPD - Chronic Obstructive Pulmonary Disease (SCT 26447111) Active Condition [facility] Diabetes Mellitus Type 2 (SCT [id number]) Active Condition [facility] HTN - Hypertension (SCT 61962553) Active Condition [facility] Hyperlipidemia (SCT 25322316) Active Condition [facility] [place] [facility] [place] [facility] Sleep Apnea (SCT [id number]) Active Condition Jan 19, 2018 Entered By: RAJEEV GOLDMAN Comment: uses CPAP [facility] Tobacco User (SCT [id number]) Active Condition Nov 17, 2022 Entered By: RAJEEV GOLDMAN Comment: quit [facility] Diagnosis: ICD-10-CM E11.9 Type 2 diabetes mellitus without complications Active Diagnosis [facility] [place] [facility] Diagnosis: ICD-10-CM Z86.0100 Personal history of colon polyps, unspecified Active Diagnosis [facility] [place] [facility] Diagnosis: ICD-10-CM N40.0 Benign prostatic hyperplasia without lower urinry tract symp Active Diagnosis [facility] [place] [facility] Diagnosis: ICD-10-CM G47.30 Sleep apnea, unspecified Active Diagnosis [facility] Diagnosis: ICD-10-CM Z46.0 Encounter for fit/adjst of spectacles and contact lenses Active Diagnosis [facility] Diagnosis: ICD-10-CM R22.1 Localized swelling, mass and lump, neck Active Diagnosis [facility] [place] [facility] Diagnosis: ICD-10-CM Z23 Encounter for immunization Active Diagnosis [facility] Medications Combined list of outpatient medications [...] G. FOLLOW INSTRUCT IONS FROM PRESCRIB ER. NEBULI ZER DISCONT INUED 08/14/2024 [id number] LÓPEZ GOLDMAN 2023 90 [facility] [place] [facility] ALBUTEROL SO4 0.083% INHL,3ML INHALE 1 AMPULE IN NEBULIZE R EVERY 4 TO 6 HOURS NEEDED FOR WHEEZING OR SHORTNES S OF BREATH RESPIR ATORY (INHAL ATION) 08/28/2024 [id number] NOBLE RUIZ ROSARIO 2023 180 [facility] [place] [facility] ALOGLIPTIN 25MG TAB TAKE ONE TABLET BY MOUTH ONCE DAILY ORAL DISCONT INUED BY PROVIDE R 04/19/2024 [id number] VALENTIN MOORE ICE 2023 90 [facility] [place] [facility] ATORVASTATI N CA 80MG TAB TAKE ONE TABLET BY MOUTH ONCE DAILY FOR CHOLESTE ROL (REPLACE S SIMVASTA TIN) ORAL DISCONT INUED BY PROVIDE R 09/01/2024 [id number] RAHAT BAPTISTE 2023 90 [facility] [place] AZITHROMYCI N 250MG TAB TAKE ONE TABLET BY MOUTH ON MONDAY, , AND MONDAY ORAL ACTIVE 05/29/2025 [id number] 5 YASMIN,AN ROSARIO 2024 13 [facility] [place] BISACODYL 5MG TAB,EC TAKE FOUR TABLETS BY MOUTH NOW AT NOON THE DAY BEFORE YOUR APPOINTM ENT ORAL 09/20/2023 [id number] TANYA GUAN 2023 4 [facility] [place] [facility] CHOLECALCIF NOVA 25MCG (1,000UNIT) TAB TAKE ONE TABLET BY MOUTH ONCE DAILY FOR VITAMIN SUPPLEME NTATION ORAL 09/19/2024 [id number] 5 LÓPEZ GOLDMAN 2023 90 [facility] [place] [facility] CICLESONIDE 160MCG/SPRA Y INHL,ORAL,6 .1GM INHALE 1 PUFF BY MOUTH TWICE DAILY (RINSE MOUTH AFTER USE) RESPIR ATORY (INHAL ATION) ACTIVE 04/05/2025 [id number] 5 NOBLE RUIZ ROSARIO 2024 1 [facility] [place] [facility] CICLESONIDE 160MCG/SPRA Y INHL,ORAL,6 .1GM INHALE 1 PUFF BY MOUTH TWICE DAILY (RINSE MOUTH AFTER USE) RESPIR ATORY (INHAL ATION) DISCONT INUED 04/18/2024 [id number] 5 NOBLE RUIZ ROSARIO 2023 1 [facility] [place] [facility] EMPAGLIFLOZ IN 25MG TAB TAKE ONE TABLET BY MOUTH ONCE DAILY ORAL ACTIVE 08/28/2025 [id number] 5 RAHAT BAPTISTE 2024 90 [facility] [place] [facility] EMPAGLIFLOZ IN 25MG TAB TAKE ONE TABLET BY MOUTH ONCE DAILY FOR DIABETES ORAL 04/19/2024 [id number] 5 OSCARAL ICE 2023 90 [facility] [place] [facility] [facility] FINASTERIDE 5MG TAB TAKE ONE TABLET BY MOUTH ONCE DAILY FOR PROSTATE ORAL 09/19/2024 [id number] 5 LÓPEZ GOLDMAN 2023 90 [facility] [place] [facility] FISH OIL 1000MG (500MG DHA/EPA) CAP,ORAL TAKE 1 CAPSULE BY MOUTH ONCE DAILY ORAL ACTIVE Millie DOS SANTOS A 2020 [facility] [place] [facility] [facility] FLUTICASONE PROPIONATE 50MCG/SPRAY SOLN,NASAL, 16GM INSTILL 1 SPRAY INTO EACH NOSTRIL TWICE DAILY NEEDED NASAL ACTIVE 11/16/2024 [id number] 5 LÓPEZ GOLDMAN 2023 1 [facility] [place] [facility] [facility] INSULIN,GLA RGINE,HUMAN 100 UNIT/ML INJ,SOLOSTA R,3ML INJECT 22 UNITS SUBCUTAN EOUSLY ONCE DAILY SUBCUT ANEOUS ACTIVE 05/25/2025 [id number] 5 GDNANETTE,JOD I A 2024 5 [facility] [place] [facility] [facility] INSULIN,GLA RGINE-YFGN 100UNIT/ML INJ PEN,3ML INJECT 20 UNITS SUBCUTAN EOUSLY ONCE DAILY SUBCUT ANEOUS DISCONT INUED BY PROVIDE R 01/26/2025 [id number] 4 GDULA,JOD I A 2023 10 [facility] [place] [facility] INSULIN,GLA RGINE-YFGN 100UNIT/ML INJ PEN,3ML INJECT 12 UNITS SUBCUTAN EOUSLY ONCE DAILY FOR DIABETES SUBCUT ANEOUS DISCONT INUED BY PROVIDE R 01/03/2025 [id number] 4 GDULA,JOD I A 2023 5 [facility] [place] [facility] INSULIN,GLA RGINE-YFGN 100UNIT/ML INJ PEN,3ML INJECT 10 UNITS SUBCUTAN EOUSLY ONCE DAILY SUBCUT ANEOUS DISCONT INUED (EDIT) 04/21/2024 [id number] 4 MOORE,AL ICE 2023 5 [facility] [place] [facility] [facility] LISINOPRIL 10MG TAB TAKE ONE TABLET BY MOUTH ONCE DAILY FOR HIGH BLOOD PRESSURE TO CONTROL BLOOD PRESSURE ORAL 08/30/2024 [id number] 5 GDULA,JOD I A 2023 90 [facility] MECLIZINE HCL 25MG TAB TAKE ONE TABLET BY MOUTH EVERY 12 HOURS NEEDED FOR VERTIGO ORAL ACTIVE 11/16/2024 [id number] 5 LÓPEZ GOLDMAN 2023 40 [facility] METFORMIN HCL 500MG 24HR TAB,SA TAKE ONE TABLET BY MOUTH TWICE DAILY ORAL ACTIVE 09/26/2025 [id number] GDULA,JOD I A 2024 180 [facility] METFORMIN HCL 500MG 24HR TAB,SA TAKE ONE TABLET BY MOUTH TWICE DAILY ORAL DISCONT INUED 09/19/2024 [id number] 5 GDULA,RAHAT I A 2023 180 [facility] OLODATEROL 2.5MCG/TIOT ROPIUM 2.5MCG/ACTU AT INHL,ORAL,6 0D,4GM INHALE 2 PUFFS (1 DOSE) BY MOUTH ONCE DAILY RESPIR ATORY (INHAL ATION) 08/30/2024 [id number] 5 GDULA,JOD I A 2023 3 [facility] [place] [facility] [facility] OMALIZUMAB 150MG/ML INJ,SYR,1ML INJECT 300MG ([id number] SYRINGE) SUBCUTAN EOUSLY EVERY 4 WEEKS PATIENT HAS BEEN OBSERVED IN CLINIC FOR 3 DOSES AND HAS AN EPINEPHR INE PRESCRIP TION SUBCUT ANEOUS ACTIVE 02/09/2025 [id number] 5 YASMIN,AN ROSARIO 2024 2 [facility] OMALIZUMAB 150MG/ML INJ,SYR,1ML INJECT 300MG ([id number] SYRINGE) SUBCUTAN EOUSLY EVERY FOUR WEEKS PATIENT HAS BEEN OBSERVED IN CLINIC FOR 3 DOSES AND HAS AN EPINEPHR INE PRESCRIP TION SUBCUT ANEOUS 01/25/2024 [id number] YASMIN,AN ROSARIO 2022 2 [facility] POLYETHYLEN E GLYCOL 3350 PWDR,ORAL TAKE CONTENTS OF BOTTLE BY MOUTH ONCE DIRECTED [MIX WITH 4 TO 8OZ. OF BEVERAGE ] ORAL 09/20/2023 [id number] 4 TANYA GUAN YNA 2023 238 [facility] ROSUVASTATI N CA 40MG TAB TAKE ONE TABLET BY MOUTH ONCE DAILY FOR CHOLESTE ROL ORAL ACTIVE 05/17/2025 [id number] 5 LÓPEZ GOLDMAN 2024 90 [facility] SITAGLIPTIN (EQV-ZITUVI O) 100MG TAB TAKE ONE TABLET BY MOUTH ONCE DAILY ORAL ACTIVE 05/25/2025 [id number] 5 RAHAT BAPTISTE 2024 90 [facility] TAMSULOSIN HCL 0.4MG CAP TAKE ONE CAPSULE BY MOUTH ONCE DAILY FOR ENLARGED PROSTATE ORAL ACTIVE 05/17/2025 [id number] 5 LÓPEZ GOLDMAN 2024 90 [facility] THEOPHYLLIN E 400MG 24HR TAB,SA TAKE ONE TABLET BY MOUTH ONCE DAILY ORAL ACTIVE 07/26/2025 [id number] 5 YASMIN,AN ROSARIO 2024 30 [facility] THEOPHYLLIN E 400MG 24HR TAB,SA TAKE ONE TABLET BY MOUTH ONCE DAILY ORAL DISCONT INUED 09/21/2024 [id number] 5 YASMIN,AN ROSARIO 2023 30 [facility] Immunizations Combined list of available immunizations from the Department of Defense and Veterans Affairs facilities. Immunization Series Date Given Administered By Site Reaction Lot Number CVX Code Drug Veterinarian Poultry Status Comments Source COVID-19 (MODERNA), MRNA, LNP-S, PF, 50 MCG/0.5 ML (AGES 12+ YEARS) 6 2023 AIDE DE LA CRUZ RIGHT DELTO ID [id number] 312 complet ed [facility] INFLUENZA, HIGH-DOSE, TRIVALENT, PF 2023 AIDE DE LA CRUZ RIGHT DELTO ID [id number] 135 complet ed Completed Series, [facility] COVID-19 (MODERNA), MRNA, LNP-S, PF, 50 MCG/0.5 ML (AGES 12+ YEARS) 2023 FRANSAYDAROBERT HU ALANNAH RIGHT DELTO ID [id number] 312 complet ed Booster for Series, [facility] INFLUENZA, HIGH-DOSE, QUADRIVALENT 2023 ROBERT ANDRADE ALANNAH LEFT DELTO ID [id number] 197 complet ed [facility] COVID-19 (MODERNA), MRNA, LNP-S, BIVALENT BOOSTER, PF, 50 MCG/0.5 ML OR 25MCG/0.25 ML DOSE 1 2021 229 complet ed MOD; [id number]; 3 [facility] INFLUENZA VACCINE, QUADRIVALENT, ADJUVANTED 2021 205 complet ed [facility] INFLUENZA VACCINE, QUADRIVALENT, ADJUVANTED 2020 205 complet ed [facility] COVID-19 (MODERNA), MRNA, LNP-S, PF, 100 MCG/0.5 ML DOSE 3 2020 207 complet ed MOD; [id number]; 1 [facility] COVID-19 (MODERNA), MRNA, LNP-S, PF, 100 MCG/0.5 ML DOSE 2 2020 207 complet ed MOD; [id number]; 1 [facility] [place] COVID-19 (MODERNA), MRNA, LNP-S, PF, 100 MCG/0.5 ML DOSE 1 2020 207 complet ed MOD; [id number]; 1 [facility] [place] [facility] [...] A1C PANEL HEMOGLOBIN A1C/HEMOGLO BIN.TOTAL IN BLOOD 7.8 4.0 - 5.6 08/19 H Specimen Type: BLOOD Comment: Values obtained [...] Jul 09, 2024 09:37 AM Reporting Lab: [facility] [address] [facility] [address] Performing Lab: [facility] [place] [facility] [address] [facility] [address] [facility] [place] [facility] MICROALBU MIN CREATININ E RATIO PANEL MICROALBUMI N/CREATININ E [MASS RATIO] IN URINE cancmg /g 0 - 29.9 08/19 Specimen Type: URINE No comment entered. Ordering Provider: KEIRY BAPTISTE Report Released Date/Time: Jul 09, 2024 09:37 AM Reporting Lab: [facility] [place] [facility] [address] [facility] [address] Performing Lab: [facility] [place] [facility] [address] [facility] [address] [facility] [place] [facility] MICROALBU MIN CREATININ E RATIO PANEL MICROALBUMI N [MASS/VOLUM E] IN URINE BY DETECTION LIMIT <= 1.0 MG/L <0.5mg /dL 08/19 Specimen Type: URINE No comment entered. Ordering Provider: KEIRY BAPTISTE Report Released Date/Time: Jul 09, 2024 09:37 AM Reporting Lab: [facility] [place] [facility] [address] [facility] [address] Performing Lab: [facility] [place] [facility] [address] [facility] [address] [facility] [place] [facility] MICROALBU MIN CREATININ E RATIO PANEL CREATININE [MASS/VOLUM E] IN URINE 30.71 mg/dL 63 - 166 08/19 L Specimen Type: URINE No comment entered. Ordering Provider: KEIRY BAPTISTE Report Released Date/Time: Jul 09, 2024 09:37 AM Reporting Lab: [facility] [place] [facility] [address] [facility] [address] Performing Lab: [facility] [place] [facility] [address] [facility] [address] [facility] [place] [facility] CREATININ E (eGFR 2020) CREATININE [MASS/VOLUM E] IN SERUM OR PLASMA 0.86 mg/dL 0.72 - 1.25 08/19 Specimen Type: SERUM No comment entered. Ordering Provider: KEIRY BAPTISTE Report Released Date/Time: Jul 09, 2024 09:37 AM Reporting Lab: [facility] [address] [facility] [address] Performing Lab: [facility] [address] [address] [facility] CREATININ E (eGFR 2020) GLOMERULAR FILTRATION RATE/1.73 SQ M.PREDICTED [VOLUME RATE/AREA] IN SERUM, PLASMA OR BLOOD BY CREATININE- BASED FORMULA (CKD-EPI 2020) >90mL/ min 60 08/19 Specimen Type: SERUM No comment entered. Ordering Provider: KEIRY BAPTISTE Report Released Date/Time: Jul 09, 2024 09:37 AM Reporting Lab: [facility] [address] [address] Performing Lab: [facility] [address] [address] [facility] HEMOGLOBI N A1C PANEL HEMOGLOBIN A1C/HEMOGLO [...] Feb 12, 2024 01:10 PM Reporting Lab: [facility] [address] [address] Performing Lab: [facility] [address] [address] [facility] CREATININ E (eGFR 2020) CREATININE [MASS/VOLUM E] IN SERUM OR PLASMA 1.03 mg/dL 0.72 - 1.25 05/16 Specimen Type: SERUM No comment entered. Ordering Provider: KEIRY BAPTISTE Report Released Date/Time: Feb 12, 2024 01:10 PM Reporting Lab: [facility] [place] [address] [address] Performing Lab: [facility] [place] [address] [address] [facility] [place] [facility] CREATININ E (eGFR 2020) GLOMERULAR FILTRATION RATE/1.73 SQ M.PREDICTED [VOLUME RATE/AREA] IN SERUM, PLASMA OR BLOOD BY CREATININE- BASED FORMULA (CKD-EPI 2020) 77 mL/min 60 05/16 Specimen Type: SERUM No comment entered. Ordering Provider: KEIRY BAPTISTE Report Released Date/Time: Feb 12, 2024 01:10 PM Reporting Lab: [facility] [place] [address] [address] Performing Lab: [facility] [place] [address] [address] [place] [facility] [place] [facility] MICROALBU MIN CREATININ E RATIO PANEL MICROALBUMI N/CREATININ E [MASS RATIO] IN URINE 20.4 mg/g 0 - 29.9 05/16 Specimen Type: URINE No comment entered. Ordering Provider: KEIRY BAPTISTE Report Released Date/Time: Feb 12, 2024 01:10 PM Reporting Lab: [facility] [place] [address] [address] Performing Lab: [facility] [place] [address] [address] [facility] [place] [facility] MICROALBU MIN CREATININ E RATIO PANEL MICROALBUMI N [MASS/VOLUM E] IN URINE BY DETECTION LIMIT <= 1.0 MG/L 1.1 mg/dL 05/16 Specimen Type: URINE No comment entered. Ordering Provider: KEIRY BAPTISTE Report Released Date/Time: Feb 12, 2024 01:10 PM Reporting Lab: [facility] [place] [facility] [address] [facility] [address] Performing Lab: [facility]ITALTRN [facility] [address] [facility] [address] [facility] MICROALBU MIN CREATININ E RATIO PANEL CREATININE [MASS/VOLUM E] IN URINE 53.98 mg/dL 63 - 166 05/16 L Specimen Type: URINE No comment entered. Ordering Provider: KEIRY BAPTISTE Report Released Date/Time: Feb 12, 2024 01:10 PM Reporting Lab: [facility]ITAL[facility] [address] [facility] [address] Performing Lab: [facility] [address] [address] [facility] LIPID PANEL, NON FASTING CHOLESTEROL [MASS/VOLUM E] IN SERUM OR PLASMA 206 mg/dL 05/08 H Specimen Type: SERUM No comment entered. Ordering Provider: RAJEEV GOLDMAN Report Released Date/Time: May 03, 2024 02:49 PM Reporting Lab: [facility]ITAL[facility] [address] [facility] [address] Performing Lab: [facility] [address] [address] [facility] LIPID PANEL, NON FASTING TRIGLYCERID E [MASS/VOLUM E] IN SERUM OR PLASMA 247 mg/dL 0 - 150 05/08 H Specimen Type: SERUM No comment entered. Ordering Provider: RAJEEV GOLDMAN Report Released Date/Time: May 03, 2024 02:49 PM Reporting Lab: [facility]ENTERRMADISON HOSPITALTRN [facility]ITALUSE[facility] [address] [facility] [address] Performing Lab: [facility] [address] [facility]ITAL[facility] LIPID PANEL, NON FASTING CHOLESTEROL IN LDL [MASS/VOLUM E] IN SERUM OR PLASMA BY CALCULATION 122 mg/dL 0 - 129 05/08 Specimen Type: SERUM No comment entered. Ordering Provider: RAJEEV GOLDMAN Report Released Date/Time: May 03, 2024 02:49 PM Reporting Lab: [place] [facility] [place] [facility] [address] [facility] [address] Performing Lab: [facility] [place] [facility] [address] [facility] [address] [place] [facility] [place] [facility] LIPID PANEL, NON FASTING CHOLESTEROL .TOTAL/CHOL ESTEROL IN HDL [MASS RATIO] IN SERUM OR PLASMA 5.9 05/08 Specimen Type: SERUM No comment entered. Ordering Provider: RAJEEV GOLDMAN Report Released Date/Time: May 03, 2024 02:49 PM Reporting Lab: [place] [facility] [place] [facility] [address] [facility] [address] Performing Lab: [place] [facility] [address] [address] [facility]RL WSTRN [place] [facility] LIPID PANEL, NON FASTING CHOLESTEROL IN HDL [MASS/VOLUM E] IN SERUM OR PLASMA 35 mg/dL 40 - 60 05/08 L Specimen Type: SERUM No comment entered. Ordering Provider: RAJEEV GOLDMAN Report Released Date/Time: May 03, 2024 02:49 PM Reporting Lab: [facility]RL [facility] [place] [facility] [address] [facility] [address] Performing Lab: [place] [facility] [facility] [address] [facility] [address] [facility]RL W[facility]N [place] [facility] LIVER FUNCTION PROTEIN [MASS/VOLUM E] IN SERUM OR PLASMA 8.1 g/dL 6.0 - 8.3 05/08 Specimen Type: SERUM No comment entered. Ordering Provider: RAJEEV GOLDMAN Report Released Date/Time: May 03, 2024 02:49 PM Reporting Lab: [facility] [place] [facility] [address] [facility] [address] Performing Lab: [facility] [place] [address] [address] [facility]RL [facility]N [place] [facility] LIVER FUNCTION ALBUMIN [MASS/VOLUM E] IN SERUM OR PLASMA BY BROMOCRESOL PURPLE (BCP) DYE BINDING METHOD 4.3 g/dL 3.5 - 5.0 05/08 Specimen Type: SERUM No comment entered. Ordering Provider: RAJEEV GOLDMAN Report Released Date/Time: May 03, 2024 02:49 PM Reporting Lab: [place] [facility] [address] [address] Performing Lab: [place] [facility] [facility]ITAL[facility] [address] [address] [place] [facility] LIVER FUNCTION ALKALINE PHOSPHATASE [ENZYMATIC ACTIVITY/VO LUME] IN SERUM OR PLASMA 115 U/L 40 - 150 05/08 Specimen Type: SERUM No comment entered. Ordering Provider: RAJEEV GOLDMAN Report Released Date/Time: May 03, 2024 02:49 PM Reporting Lab: [place] [facility] [facility] [facility] [address] Performing Lab: [place] [facility] [facility]ITAL[facility]ETS [address] [address] [facility]RL WSTRN [facility]ITALUSE [facility] LIVER FUNCTION ASPARTATE AMINOTRANSF ERASE [ENZYMATIC ACTIVITY/VO LUME] IN SERUM OR PLASMA BY WITH P-5'-P 15 U/L 5 - 34 05/08 Specimen Type: SERUM No comment entered. Ordering Provider: RAJEEV GOLDMAN Report Released Date/Time: May 03, 2024 02:49 PM Reporting Lab: [place] [facility] [address] [address] Performing Lab: [place] [facility] [address] [address] [place] [facility] LIVER FUNCTION ALANINE AMINOTRANSF ERASE [ENZYMATIC ACTIVITY/VO LUME] IN SERUM OR PLASMA BY WITH P-5'-P 25 U/L 05/08 Specimen Type: SERUM No comment entered. Ordering Provider: RAJEEV GOLDMAN Report Released Date/Time: May 03, 2024 02:49 PM Reporting Lab: [place] [facility] [place] [address] [address] Performing Lab: [facility] [address] [facility] [facility] [address] [facility] LIVER FUNCTION BILIRUBIN.T OTAL [MASS/VOLUM E] IN SERUM OR PLASMA 0.7 mg/dL 0.2 - 1.2 05/08 Specimen Type: SERUM No comment entered. Ordering Provider: RAJEEV GOLDMAN Report Released Date/Time: May 03, 2024 02:49 PM Reporting Lab: [facility] [address] [facility] [address] Performing Lab: [facility] TRN [address] [address] [facility] BASIC METABOLIC PANEL (non-fast ing) UREA NITROGEN [MASS/VOLUM E] IN SERUM OR PLASMA 18 mg/dL 7 - 25 05/08 Specimen Type: SERUM No comment entered. Ordering Provider: RAJEEV GOLDMAN Report Released Date/Time: May 03, 2024 02:49 PM Reporting Lab: [facility] [address] [facility] [address] Performing Lab: [facility] [address] [facility] BASIC METABOLIC PANEL (non-fast ing) GLUCOSE [MASS/VOLUM E] IN SERUM OR PLASMA 152 mg/dL 65 - 100 05/08 H Specimen Type: SERUM No comment entered. Ordering Provider: RAJEEV GOLDMAN Report Released Date/Time: May 03, 2024 02:49 PM Reporting Lab: [place] [facility] [address] Performing Lab: [facility] [address] [facility] BASIC METABOLIC PANEL (non-fast ing) SODIUM [MOLES/VOLU ME] IN SERUM OR PLASMA 137 mmol/L 135 - 145 05/08 Specimen Type: SERUM No comment entered. Ordering Provider: RAJEEV GOLDMAN Report Released Date/Time: May 03, 2024 02:49 PM Reporting Lab: [place] [facility] [place] [facility] [address] [facility] [facility] [address] Performing Lab: [facility] [place] [facility] [address] [facility] [facility] [address] [place] [facility] [place] [facility] BASIC METABOLIC PANEL (non-fast ing) POTASSIUM [MOLES/VOLU ME] IN SERUM OR PLASMA 5.2 mmol/L 3.5 - 5.0 05/08 H Specimen Type: SERUM No comment entered. Ordering Provider: RAJEEV GOLDMAN Report Released Date/Time: May 03, 2024 02:49 PM Reporting Lab: [place] [facility] [place] [facility] [address] [facility] [address] Performing Lab: [place] [facility] [place] [address] [address] [facility] [place] [facility] BASIC METABOLIC PANEL (non-fast ing) CHLORIDE [MOLES/VOLU ME] IN SERUM OR PLASMA 103 mmol/L 100 - 110 05/08 Specimen Type: SERUM No comment entered. Ordering Provider: RAJEEV GOLDMAN Report Released Date/Time: May 03, 2024 02:49 PM Reporting Lab: [facility] [place] [facility] [address] [facility] [address] Performing Lab: [facility] [place] [address] [address] [place] [facility] [facility] BASIC METABOLIC PANEL (non-fast ing) CARBON DIOXIDE, TOTAL [MOLES/VOLU ME] IN SERUM OR PLASMA 23 meq/L 20 - 30 05/08 Specimen Type: SERUM No comment entered. Ordering Provider: RAJEEV GOLDMAN Report Released Date/Time: May 03, 2024 02:49 PM Reporting Lab: [facility] [place] [facility] [address] [facility] [address] Performing Lab: [place] [facility] [place] [address] [address] [facility] [place] [facility] BASIC METABOLIC PANEL (non-fast ing) CALCIUM [MASS/VOLUM E] IN SERUM OR PLASMA 9.8 mg/dL 8.5 - 10.2 05/08 Specimen Type: SERUM No comment entered. Ordering Provider: RAJEEV GOLDMAN Report Released Date/Time: May 03, 2024 02:49 PM Reporting Lab: [address] [address] Performing Lab: [address] [address] [facility] BASIC METABOLIC PANEL (non-fast ing) CREATININE [MASS/VOLUM E] IN SERUM OR PLASMA 0.98 mg/dL 0.50 - 1.40 05/08 Specimen Type: SERUM No comment entered. Ordering Provider: RAJEEV GOLDMAN Report Released Date/Time: May 03, 2024 02:49 PM Reporting Lab: [address] [address] Performing Lab: [address] [address] [facility] BASIC METABOLIC PANEL (non-fast ing) GLOMERULAR FILTRATION RATE/1.73 SQ M.PREDICTED [VOLUME RATE/AREA] IN SERUM, PLASMA OR BLOOD BY CREATININE- BASED FORMULA (CKD-EPI 2020) 82 mL/min 60 05/08 Specimen Type: SERUM No comment entered. Ordering Provider: RAJEEV GOLDMAN Report Released Date/Time: May 03, 2024 02:49 PM Reporting Lab: [address] [address] Performing Lab: [address] [address] [facility] CBC LEUKOCYTES [#/VOLUME] IN BLOOD BY AUTOMATED COUNT 8.19 10*3/u L 4.50 - 11.00 05/08 Specimen Type: BLOOD No comment entered. Ordering Provider: RAJEEV GOLDMAN Report Released Date/Time: May 03, 2024 02:49 PM Reporting Lab: [facility] [place] [facility] [address] [facility] [address] Performing Lab: [facility] [place] [facility] [address] [facility] [address] [facility] [place] [facility] CBC ERYTHROCYTE S [#/VOLUME] IN BLOOD BY AUTOMATED COUNT 5.05 10*6/u L 4.23 - 5.66 05/08 Specimen Type: BLOOD No comment entered. Ordering Provider: RAJEEV GOLDMAN Report Released Date/Time: May 03, 2024 02:49 PM Reporting Lab: [facility] [place] [facility] [address] [facility] [address] Performing Lab: [facility] [place] [facility] [address] [facility] [address] [place] [facility] [facility] CBC HEMOGLOBIN [MASS/VOLUM E] IN BLOOD 15.2 g/dL 12.8 - 17 05/08 Specimen Type: BLOOD No comment entered. Ordering Provider: RAJEEV GOLDMAN Report Released Date/Time: May 03, 2024 02:49 PM Reporting Lab: [facility] [place] [facility] [address] [facility] [address] Performing Lab: [facility] [facility] [address] [facility] [address] [place] [facility] [facility] CBC HEMATOCRIT [VOLUME FRACTION] OF BLOOD BY AUTOMATED COUNT 45.7 39.2 - 50.4 05/08 Specimen Type: BLOOD No comment entered. Ordering Provider: RAJEEV GOLDMAN Report Released Date/Time: May 03, 2024 02:49 PM Reporting Lab: [facility] [place] [facility] [address] [facility] [address] Performing Lab: [facility] [place] [address] [address] [place] [facility] [facility] CBC MCV [ENTITIC VOLUME] BY AUTOMATED COUNT 90.5 fL 82 - 99 05/08 Specimen Type: BLOOD No comment entered. Ordering Provider: RAJEEV GOLDMAN Report Released Date/Time: May 03, 2024 02:49 PM Reporting Lab: [facility] [place] [facility] [address] [facility] [address] Performing Lab: [facility] [place] [facility] [address] [facility] [address] [facility] [place] CBC MCHC [MASS/VOLUM E] BY AUTOMATED COUNT 33.3 g/dL 30.8 - 35.1 05/08 Specimen Type: BLOOD No comment entered. Ordering Provider: RAJEEV GOLDMAN Report Released Date/Time: May 03, 2024 02:49 PM Reporting Lab: [facility] [place] [facility] [address] [facility] [address] Performing Lab: [facility] [place] [facility] [address] [facility] [address] [facility] [place] [facility] CBC PLATELETS [#/VOLUME] IN BLOOD BY AUTOMATED COUNT 305 10*3/u L 140 - 360 05/08 Specimen Type: BLOOD No comment entered. Ordering Provider: RAJEEV GOLDMAN Report Released Date/Time: May 03, 2024 02:49 PM Reporting Lab: [facility] [place] [facility] [address] [facility] [address] Performing Lab: [facility] [place] [facility] [address] [facility] [address] [facility] [place] [facility] CBC PLATELET MEAN VOLUME [ENTITIC VOLUME] IN BLOOD BY AUTOMATED COUNT 9.6 fL 9.2 - 12.4 05/08 Specimen Type: BLOOD No comment entered. Ordering Provider: RAJEEV GOLDMAN Report Released Date/Time: May 03, 2024 02:49 PM Reporting Lab: [facility] [place] [facility] [address] [facility] [address] Performing Lab: [facility] [place] [facility] [address] [facility] [address] [facility] [place] [facility] CBC ERYTHROCYTE DISTRIBUTIO N WIDTH [RATIO] BY AUTOMATED COUNT 13.3 12.0 - 16.0 05/08 Specimen Type: BLOOD No comment entered. Ordering Provider: RAJEEV GOLDMAN Report Released Date/Time: May 03, 2024 02:49 PM Reporting Lab: [facility] [place] [facility] [address] [facility] [address] Performing Lab: [facility] [place] [facility] [address] [facility] [address] [facility] [place] [facility] CBC MCH [ENTITIC MASS] BY AUTOMATED COUNT 30.1 pg 26.2 - 32.6 05/08 Specimen Type: BLOOD No comment entered. Ordering Provider: RAJEEV GOLDMAN Report Released Date/Time: May 03, 2024 02:49 PM Reporting Lab: [facility] [place] [facility] [address] [facility] [address] Performing Lab: [facility] [place] [facility] [address] [facility] [address] [facility] [place] [facility] Vital Signs Combined list of inpatient and outpatient Vital Signs from Department of Defense and Veterans Affairs, ranging from 12 months to all on record, depending upon the facility. Vital Sign Value Date Comments Source SYSTOLIC BLOOD PRESSURE 123 05/17/19 25 09:08:59 [facility] [place] [facility] DIASTOLIC BLOOD PRESSURE 75 025 09:08:59 [facility] [place] [facility] PULSE OXIMETRY 96 05/16/2024 09:08:59 [facility] [...] 11/16/2023 08:59:54 [facility] [place] [facility] Encounters Combined [...] Disposition Source [facility] [place] [facility] Outpatient Encounter [id number] [facility] [place] [place] [facility] OFFICE O/P EST HI 40 MIN [id number] Diagnos is: ICD-10- CM E11.9 Type 2 diabete s mellitu s without complic ations RUTH MOORE 04/18 [facility] [place] [facility] COLLJ & INTERPJ DATA EA 30 D [id number] Diagnos is: ICD-10- CM E11.9 Type 2 diabete s mellitu s without complic ations WILLHattieCUONG Carlos Chloé 04/18 [facility] [place] [facility] Outpatient Encounter [id number] 05/03 [facility] [place] [place] [facility] Outpatient Encounter [id number] 05/16 [facility] [place] [place] [facility] OFFICE O/P EST LOW 20 MIN [id number] Diagnos is: ICD-10- CM Z23 Encount er for immuniz ation Javi GOLDMAN 05/16 [facility] [place] [facility] [place] [facility] Outpatient Encounter [id number] 06/18 [facility] [place] [facility] [place] [facility] OFF/OP CONSLTJ NEW/[place] HI 55 [id number] Diagnos is: ICD-10- CM R22.1 Localiz ed swellin g, mass and lump, neck JESSE ACOSTA 06/26 [facility] [place] [facility] [place] [facility] COMPRE OPH EXAM EST PT 1/> [id number] Diagnos is: ICD-10- CM E11.9 Type 2 diabete s mellitu s without complic ations JACQUES CURTIS 07/10 [facility] [place] [facility] [place] [facility] FIT SPECTACLES BIFOCAL [id number] Diagnos is: ICD-10- CM Z46.0 Encount er for fit/adj st of spectac les and contact lenses JACQUES CURTIS H B 07/11 [facility] OFFICE O/P EST SF 10 MIN [id number] Diagnos is: ICD-10- CM E11.9 Type 2 diabete s mellitu s without complic ations AROLDO ESPINOSA 07/24 [facility] Encounter [id number] 07/30 [facility] [place] Out[facility] Encounter [id number] 08/10 [facility] [place] Encounter [id number] 08/18 [facility] [place] Encounter [id number] 08/20 [facility] [place] En[facility] [id number] 08/27 [facility] [place] MTMS BY PHARM ADDL 15 MIN [id number] Diagnos is: ICD-10- CM E11.9 Type 2 diabete s mellitu s without complic ations GDULA,KEIRY A 08/29 [facility] [place] MTMS BY PHARM EST 15 MIN [id number] Diagnos is: ICD-10- CM E11.9 Type 2 diabete s mellitu s without complic ations GDULA,KEIRY A 08/31 [facility] MTMS BY PHARM EST 15 MIN [id number] Diagnos is: ICD-10- CM E11.9 Type 2 diabete s mellitu s without complic ations KEIRY BAPTISTE A 09/18 [facility] En[facility] [id number] 10/02 [facility] [place] [place] MTMS BY PHARM EST 15 MIN [id number] Diagnos is: ICD-10- CM E11.9 Type 2 diabete s mellitu s without complic ations KEIRY BAPTISTE A 10/09 [facility] [place] En[facility] [id number] 10/10 [facility] [place] [place] [facility] SPECIAL SUPPLIES PHYS/QHP [id number] Diagnos is: ICD-10- CM G47.30 Sleep apnea, unspeci fied ST AMSAMMY GREER E P 10/11 [facility] [place] [place] [facility] Outpatient Encounter [id number] 11/15 [facility] [place] [place] [facility] OFFICE O/P EST MOD 30 MIN [id number] Diagnos is: ICD-10- CM N40.0 Benign prostat ic hyperpl sarah without lower urinry tract symp Javi GOLDMAN 11/15 [facility] MTMS BY PHARM ADDL 15 MIN [id number] Diagnos is: ICD-10- CM E11.9 Type 2 diabete s mellitu s without complic ations KEIRY BAPTISTE A 12/10 [facility] MTMS BY PHARM ADDL 15 MIN [id number] 1. Diagnos is: ICD-10- CM E11.9 Type 2 diabete s mellitu s without complic ations GDULA,KEIRY A 01/02 [facility] MTMS BY PHARM EST 15 MIN [id number] 1. Diagnos is: ICD-10- CM E11.9 Type 2 diabete s mellitu s without complic ations GD,KEIRY A 01/07 [facility] MTMS BY PHARM EST 15 MIN [id number] Diagnos is: ICD-10- CM E11.9 Type 2 diabete s mellitu s without complic ations GDULA,KEIRY A 01/11 [facility] MTMS BY PHARM EST 15 MIN [id number] Diagnos is: ICD-10- CM E11.9 Type 2 diabete s mellitu s without complic ations GDULA,KEIRY A 01/25 [facility] [place] MTMS BY PHARM EST 15 MIN [id number] Diagnos is: ICD-10- CM E11.9 Type 2 diabete s mellitu s without complic ations GD,KEIRY A 02/11 [facility] [place] En[facility] [id number] 02/26 [facility] [place] En[facility] [id number] 03/05 [facility] [place] Encounter [id number] 03/20 [facility] [place] Encounter [id number] 03/27 [facility] [place] Encounter [id number] 03/28 [facility] [place] Encounter [id number] 04/19 [facility] [place] Encounter [id number] 04/22 [facility] [place] Encounter [id number] 05/08 [facility] [place] Out[facility] Encounter [id number] 05/16 [facility] [place] OFFICE O/P EST HI 40 MIN [id number] Diagnos is: ICD-10- CM N40.0 Benign prostat ic hyperpl sarah without lower urinry tract symp Javi GOLDMAN J 05/16 [facility] [place] En[facility] [id number] 05/21 [facility] [place] MTMS BY PHARM EST 15 MIN [id number] Diagnos is: ICD-10- CM E11.9 Type 2 diabete s mellitu s without complic ations CHELSEANANETTEJESSIEKEIRY A 05/24 [facility] En[facility] [id number] 05/28 [facility] [place] MTMS BY PHARM EST 15 MIN [id number] Diagnos is: ICD-10- CM E11.9 Type 2 diabete s mellitu s without complic ations CHELSEANANETTEKEIRY A 07/09 [facility] [place] [place] [place] [id number] Diagnos is: ICD-10- CM E11.9 Type 2 diabete s mellitu s without complic ations JACQUES CURTIS 07/15 [facility] [place] En[facility] [id number] 08/26 [facility] PH1 ASSMT&MGMT NQHP -30 [id number] Diagnos is: ICD-10- CM Z86.010 0 Persona l history of colon polyps, unspeci fied DILLENSNEI NEVILLEMICMARLEY 08/27 [facility] MTMS BY PHARM EST 15 MIN [id number] Diagnos is: ICD-10- CM E11.9 Type 2 diabete s mellitu s without complic ations CHELSEANANETTEKEIRY A 08/27 [facility] [place] Out[facility] Encounter [id number] 09/06 [facility] [place] MTMS BY PHARM EST 15 MIN [id number] Diagnos is: ICD-10- CM E11.9 Type 2 diabete s mellitu s without complic ations KEIRY BAPTISTE A 09/25 [facility] [place] [facility] Social History Combined list of available smoking, tobacco, and other social history from Department of Defense and Veterans Affairs facilities. Social History Type Response Date Comment Sourc e Tobacco smoking status NHIS VA-TOBACCO QUIT 5 TO < 15 YRS 11/16/2023 [facility] [facility] History of tobacco use TX-TOBACCO FORMER USER 11/16/2023 [facility] [facility] History of tobacco use VA-TOBACCO FORMER USER 09/15/2022 [facility] [place] [facility] History of tobacco use VA-TOBACCO FORMER USER 07/09/2021 [facility] [facility] History of tobacco use VA-TOBACCO FORMER USER 03/04/2020 [facility] [facility] History of tobacco use TX-TOBACCO QUIT 5 TO < 15 YRS 11/27/2018 [facility] [facility] History of tobacco use VA-TOBACCO USER EVERY DAY 01/19/2018 [facility] [facility] Plan of Care List of future care activities from Department of Veterans Affairs facilities. Additional future care activities may be listed in the Assessment and Plan section. Date/Time Care Activity Care Activity Detail Facili ty 10/14/2024 AMBULATORY - NONE AMBULATORY - NONE [facility] [place] [facility]
[2024-10-01 13:04] VITALS: BP 109/64; PULSE 96; O2SAT 94
--- NOTE | 2024-10-01 13:04 | MHC.OFFVIS ---
Vital Signs 10/01/24 13:04 Height 5 ft 8 in Weight 197 lb BMI 30.0 BP 109/64 Blood Pressure Location Rt brachial Position Sitting Pulse 96 Pulse Source Pulse Oximeter Pulse Oximetry (%) 94 Oxygen Delivery Method Room Air Intake Visit Reasons: COPD Allergies No Known Allergies Allergy (Verified 03/27/24 14:47) HPI HPI COPD: Details: 74-year-old gentleman, former greater than 40 pack-year smoker, quit 2012, followed for moderate to severe asthma/COPD, pulmonary nodules, and JONAH on CPAP. Patient continues to use his CPAP with good symptomatic control of his underlying sleep apnea.? He has been using Xolair, Stiolto, Asmanex, theophylline, and albuterol MDI with good control of his symptoms. After the last office visit he has been started on suppressive azithromycin with significant improvement in his chronic cough. He denies acute exacerbations. [facility] Medical History Diabetes Hyperlipidemia HTN (hypertension) Sleep apnea COPD (chronic obstructive pulmonary disease) Asthma Surgical History Hx of tonsillectomy Hx of hernia repair (~1994) Social History Are you a primary associate director career services to a significant other at home: No Do you presently have visiting nurse or other home services: No Alcohol intake: never Patient Tobacco Use Status: Former Tobacco user Review of Systems Const Denies daytime sleepiness, Denies excessive sweating, Reports fatigue, Denies fever(s), Denies lethargy, Denies malaise, Denies night sweats, Denies snoring and Denies weight loss Eyes Denies blurry vision and Denies itchy eyes ENT Denies nasal congestion, Denies post nasal drip, Denies sinus pain, Denies sinus pressure and Denies other ( Thrush) Card Denies chest pain, Denies pedal edema, Denies dyspnea, Denies orthopnea and Denies paroxysmal nocturnal dyspnea Resp Denies cough, Denies hemoptysis, Denies excessive phlegm production, Denies dyspnea, Denies snoring and Denies wheezing GI Denies abdominal pain and Denies heartburn Musc Denies myalgias, Denies arthralgias and Denies joint swelling Skin/Breast Denies rash Neuro Denies memory loss and Denies seizure-like activity Psych Denies abnormal sleep pattern, Denies anxiety and Denies memory loss Endo Denies excessive sweating, Reports fatigue and Denies heat intolerance Bogdan/Lymph Denies easy bruising Aller/Immun Denies itchy eyes, Denies seasonal rhinorrhea and Denies wheezing Physical Exam Vital Signs: Last Vital Signs Pulse 96 10/01/24 13:04 BP 109/64 10/01/24 13:04 Pulse Ox 94 10/01/24 13:04 Oxygen Delivery Method Room Air 10/01/24 13:04 BMI result Body Mass Index 30.0 Const General: no acute distress and alert Nutritional Appearance: not obese Orientation/consciousness: Other orientation findings ( oriented) HEENT Head: Yes atraumatic Eyes General: appearance normal, both eyes and all related structures Sclerae: sclerae normal EOM: EOMs intact bilaterally Neck Neck: Yes supple Lymphatic: no lymphadenopathy noted Resp Effort & Inspection: normal respiratory effort and no use of accessory muscles Auscultation: clear to auscultation bilaterally Cardio Rate: regular rate Rhythm: regular rhythm Heart sounds: no gallops, no murmurs and no rubs Skin General skin exam: other ( warm) Extrem General: No clubbing, No cyanosis and No edema Assessment & Plan Assessment & Plan (1) Asthma-COPD overlap syndrome: Code(s): J44.89 - Other specified chronic obstructive pulmonary disease Category: Medical Plan: Well controlled on current regimen of Xolair, [place]ves[place], Stiolto, theophylline, and albuterol MDI. Continue current regimen. (2) JONAH on CPAP: Code(s): G47.33 - Obstructive sleep apnea (adult) (pediatric); Z99.89 - Dependence on other enabling machines and devices Category: Medical Plan: Well controlled on current CPAP therapy. Continue CPAP therapy. (3) Personal history of nicotine dependence: Code(s): Z87.891 - Personal history of nicotine dependence Category: Medical Plan: Patient continues to follow-up with lung cancer screening program with neck CT chest pending for October of 2024. (4) Environmental allergies: Code(s): Z91.09 - Other allergy status, other than to drugs and biological substances Category: Medical Plan: Well controlled on current regimen of Xolair and Flonase. Continue current regimen. Coding Level of Care Code Est Pt Level 4 (87142) Complex EM visit Add On G2211 Diagnoses Asthma-COPD overlap syndrome J44.89 JONAH on CPAP G47.33; Z99.89 Personal history of nicotine dependence Z87.891 Environmental allergies Z91.09
--- OUTSIDE RECORDS SUMMARY | 2024-10-01 13:33 | XMS_ITS | Patient Health Record ---
Author Organization [facility] Address [address] [place] [phone] Care Team Providers Care Bunker Worker Name Role Phone Viet DIGITAL ACCOUNT SUPERVISOR, Andrea Primary Care Provider Hasmukh Camacho Jr Unavailable Results Component Value Reference Range Notes Glucose, Whole Blood Reviewed date:03/28/2024 07:53:24 AM Interpretation: Performing Lab:[facility], [address] [place] [phone] Notes/Report: Glucose, Whole Blood 136 60-115 mg/dL METER # : [id number] Pathology Reviewed date:04/02/2024 08:41:11 PM Interpretation: Performing Lab:[facility], [address] [place] [phone] Notes/Report: Reason For Referral Referring Provider First Name Andrea Referring Provider Last Name Viet Referred Organization [facility] Referred Provider Hasmukh Thakkar Jr Referred Address [address] [place] [phone], Referred Provider Specialty Gastroentero logy General Notes [...] fax a hard copy Referral Priority Routine Referring Provider First Name Andrea Referring Provider Last Name Viet Referred Organization [facility] Referred Provider Hasmukh Thakkar Jr Referred Address [address] [place] [phone],[place] Referred Provider Specialty Gastroentero logy Referral Priority Routine Encounters Encounter Location Date Provider Diagnosis [facility] Outpatient [address] [place] [phone] 03/27/2024 Hasmukh Thakkar Jr Abnormal findings in stool R19.5 and Colon polyps K63.5 [facility] [address] [place] [address] 04/02/2024 Hasmukh Thakkar Jr Assessments Encounter Date Diagnosis (ICD Code) Assessment Notes Treatment Notes Treatment Clinical Notes Section Notes 03/27/2024 Colon polyps (ICD-10 - K63.5) 03/27/2024 Abnormal findings in stool (ICD-10 - R19.5) Plan Of Treatment Next Appt Details Provider Name:Hasmukh francisco Jr, 10/14/2024 09:40:00 AM, [address], [address], [place], [phone], Insurance Providers Payer Name Payer Address Payer Phone Subscriber Number Group Number Insured Name Patient Relationship to Insured Coverage Start Date Coverage End Date [facility] [employer] [address] [place] [id number] HORTENCIA DUFFY Self - patient is the insured
--- OUTSIDE RECORDS SUMMARY | 2024-10-01 13:33 | XMS_ITS | Clinical Summary ---
Author Organization [facility] [employer] Address [address] [place] [address] Care Team Providers Care Powder Line Repairer Name Role Phone Andrea Llanos NP Primary [...] Adults 18 yrs or above (or HM Modifier)([facility]) 02/23/1970 Hepatitis C Virus Infection in Adolescents and Adults: Screening (or Modifier) ([facility]) 02/23/1970 SDWA Screening Reminder: Anneliese sloan for all adults ([facility]) 02/23/1970 Tobacco Smoking Cessation: i n Adults excluding Women: Behavioral and Pharmacotherapy Interventions ([facility]) 02/23/1970 DTaP/Tdap/Td Vaccines ([facility]) (1 - Tdap) 02/23/1971 Colorectal Cancer Screening 45 -75 Yrs (or HM Modifier ) 02/23/1997 Colorectal Cancer: FLEXIBLE SIGMOIDOSCOPY Screening every 5 yrs 02/23/1997 Colorectal Cancer: Fecal Imm unochemical Test (FIT) Annually [facility] 02/23/1997 Colorectal Cancer: High-sens itivity gFOBT Screening Annually [facility] 02/23/1997 Colorectal Cancer: Stool Col oguard Screening every 3 yrs 02/23/1997 Colorectal Cancer:CT Colonography Screening every 5 yr s 02/23/1997 Lung Cancer: Screening Annua lly in adults aged 50 to 80 years (or HM Modifiers)([facility]) 02/23/2002 Pneumococcal Vaccination Scr eening: Patients 50+ yrs of age ([facility]) (1 of 1 - PCV) 02/23/2002 Zoster/Shingles Vaccine Seri es Screening: Adults aged 18+ yrs (or HM Modifiers)([facility]) (1 of 2) 02/23/2002 COVID-19 Vaccine Screening: Initial Series and Booster Status ([facility]) ( - 2023-25 season) 2023 Flu Vaccination: Ages 65+: Y early High Dose Recommended (or Modifier)([facility]) 09/06/2024 RSV Vaccines (1 - 1-dose 75+ series) 02/23/2027 Medical Devices Not on file Insurance '[employer] A[employer] / [employer] Care Teams Powder Line Repairer Relationship Specialty Start Date End Date Andrea Llanos NP [facility] [address] [place] [phone] PCP - General Family Medicine 01/09/20
== END 2024-10-01 13:29 | disposition home or self-care (01) ==
LOC: HO.HPS 12:52
PROVIDERS: PCP Nurse Practitioner Family; Referring Provider Internal Medicine Pulmonary Disease; Visit Provider Internal Medicine Pulmonary Disease
DX: J44.89 Other specified chronic obstructive pulmonary disease (principal); G47.33 Obstructive sleep apnea (adult) (pediatric); Z99.89 Dependence on other enabling machines and devices; Z87.891 Personal history of nicotine dependence; Z91.09 Other allergy status, other than to drugs and biological substances
CPT/HCPCS: 99214; G2211

== ENCOUNTER → 2024-10-01 12:51 | Outpatient (BNVA) | payer OTHER, SELFPAY | PROVIDERS: PCP Nurse Practitioner Family; Visit Provider Internal Medicine Pulmonary Disease | DX: J44.89 Other specified chronic obstructive pulmonary disease (principal); G47.33 Obstructive sleep apnea (adult) (pediatric); Z99.89 Dependence on other enabling machines and devices; Z91.09 Other allergy status, other than to drugs and biological substances | CPT/HCPCS: 99212 ==

== ENCOUNTER 2024-10-16 09:49 | Outpatient (REF) | payer OTHER, SELFPAY ==
--- OUTSIDE RECORDS SUMMARY | 2024-03-27 09:40 | XMS_ITS ---
Author Organization [facility] Address [address] [place] [address] Care Team Providers Care Jukebox Routeman Name Role Phone Viet DRIVER, Andrea Primary Care Provider Hasmukh Cmaacho Jr Encounters Encounter Location Date Provider Diagnosis [facility] Outpatient [address] [place] [address] [phone] 03/27/2024 Hasmukh Thakkar Jr Abnormal findings in stool R19.5 and Colon polyps K63.5 Assessments Encounter Date Diagnosis (ICD Code) Assessment Notes Treatment Notes Treatment Clinical Notes Section Notes 03/27/2024 Abnormal findings in stool (ICD-10 - R19.5) 03/27/2024 Colon polyps (ICD-10 - K63.5) Plan Of Treatment Next Appt Details Provider Name:Hasmukh francisco Jr, 12/10/2024 09:00:00 AM, [address] [place] [address], [phone], Progress Notes * HORTENCIA DUFFY RDOB:1950 (74 yo M)Acc No.[id number]:03/27/2024 COLON WITH MAC Patient: Samia FORDEHORTENCIA Webster Provider: Gloria Thakkar MD :1950 A ge:74 Y S ex:Male Date:03/27/2024 Address:[address] [place] [address] Pcp:Andrea Llanos NP Subjective: * Chief Complaints: * * Medical History: Objective: * Vitals: Assessment: * Assessment: 1. A bnormal findings in stool - R19.5 (Primary) 2 . C olon polyps - K63.5? Plan: * Treatment: * Procedure Codes: 4 5385 LESION REMOVAL COLONOSCOPY, 45286 LESION REMOVE COLONOSCOPY, Modifiers: 22 , 59 * * The named appointment provid er may or may not be the originator of this progress note, and it is not deemed complete until electronically signed by the appointment provider. Sign off status: Pending * Provider: Gloria Thakkar MD Date: 0 03/27/2024 Generated for Julita chilel/Rony/Khoaitting on: 0 10/16/2024 11:45 AM EDT
--- OUTSIDE RECORDS SUMMARY | 2024-10-14 05:40 | XMS_ITS ---
Author Organization [facility] Address [address] [place] [address] Care Team Providers Care Flight Reservations Manager Name Role Phone Viet DRIVER, Andrea Primary Care Provider Hasmukh Camacho Jr Unavailable Allergies No Known Allergies REASON FOR VISIT Patient presents today for a hx of polyps Medications Medication SIG (Take, Route, Frequency, Duration) Notes Start Date End Date Status Macdoel 3 1000 MG 1 capsule Orally Three times a day Active Meclizine HCl 25 MG 1 tablet as needed Orally every 12 hrs Active Finasteride 5 MG 1 tablet Orally Once a day Active Empagliflozin 25 MG 1/2 tablet Orally Once a day Active Naproxen 500 MG 1 tablet with food o r milk as needed Orally every 12 hrs Active Cholecalciferol 25 MCG (1000 UT) 1 capsule Orally Once a day Active Alogliptin Benzoate 25 MG 1 tablet Orall y Once a day for 30 day(s) 10/14/2024 Active Aspirin 81 81 MG 1 tablet Orally Once a day Not-Taking Albuterol Sulfate (2.5 MG/3ML) 0.083% 3 mL as needed Inhalation every 6 hrs Active Alogliptin Benzoate 25 MG 1 tablet Orall y Once a day for 30 day(s) 10/14/2024 Active Metformin & Diet Manage Prod Active Tamsulosin HCl 0.4 MG 1 capsule Orally O nce a day Active Atorvastatin Calcium 80 MG 1 tablet Oral ly Once a day Active Social History Tobacco Use: Social History Observation Description Date Details (start date - stop date) Never Smoker NA - NA Tobacco Control (Standard) Question Answer Notes Tobacco use: Nonsmoker AUDIT-C (Standard) Question Answer Notes Did you have a drink contain ing alcohol in the past year? Yes How often did you have a dri nk containing alcohol in the past year? Monthly or less (1 point) How many drinks did you have on a typical day when you were drinking in the past year? 1 or 2 drinks (0 point) How often did you have six o r more drinks on one occasion in the past year? 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 of oral hypoglycemic drug (Z79.84) Active confirmed Vital Signs Temperature 97.3 degrees Fahrenheit 10/15/19 25 Blood pressure systolic 001 mm Hg 10/15/19 25 Blood pressure diastolic 01 mm Hg 025 Heart Rate 88 /min 10/14/2024 Height 66.75 in 10/14/2024 Weight 194.2 lbs 10/14/2024 BMI 30.64 kg/m2 10/14/2024 Encounters Encounter Location Date Provider Diagnosis [address] [place] [phone] 10/14/2024 Hasmukh Thakkar Jr Encounter for other preprocedural examination Z01.818 ; History of adenomatous polyp of colon Z86.0101 ; Encounter for long-term (current) use of high-risk medication Z79.899 and senior living current use of oral hypoglycemic drug Z79.84 Assessments Encounter Date Diagnosis (ICD Code) Assessment Notes Treatment Notes Treatment Clinical Notes Section Notes 10/14/2024 Encounter for other preprocedural examination (ICD-10 - Z01.818) We discussed colonoscopy today. We discussed risks and benefits of the procedure today. He understands these and agrees to proceed. He is advised to stop naproxen 1 week before the procedure. Jardiance stop 3 days before the procedure. Alogliptin stop 2 days before the procedure. Metformin stop 1 day before the procedure. 10/14/2024 History of adenomatous polyp of colon (ICD-10 - Z86.0101) We discussed colonoscopy today. We discussed risks and benefits of the procedure today. He understands these and agrees to proceed. He is advised to stop naproxen 1 week before the procedure. Jardiance stop 3 days before the procedure. Alogliptin stop 2 days before the procedure. Metformin stop 1 day before the procedure. 10/14/2024 Encounter for long-term (current) use of high-risk medication (ICD-10 - Z79.899) We discussed colonoscopy today. We discussed risks and benefits of the procedure today. He understands these and agrees to proceed. He is advised to stop naproxen 1 week before the procedure. Jardiance stop 3 days before the procedure. Alogliptin stop 2 days before the procedure. Metformin stop 1 day before the procedure. 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 We discussed risks and benefits of the procedure today. He understands these and agrees to proceed. He is advised to stop naproxen 1 week before the procedure. Jardiance stop 3 days before the procedure. Alogliptin stop 2 days before the procedure. Metformin stop 1 day before the procedure. Plan Of Treatment Future Test Test Name Order Date COLONOSCOPY 10/14/2024 Next Appt Details Follow Up: 1 Year, Reason: Provider Name:Hasmukh Real francisco , 12/10/2024 09:00:00 AM, [address] [place] [address], [phone], Progress Notes * ROLANDO DUFFY RDOB:1950 (74 yo M)Acc No.[id number]:10/14/2024 Progress Notes Patient: ROLANDO PRABHAKAR Provider: Gloria Thakkar MD :1950 A ge:74 Y S ex:Male Date:10/14/2024 Address:[address] [place] [address], [id number] Pcp:Andrea Llanos NP Subjective: * Chief Complaints: * 1 . Patient presents today for a hx of polyps. * HPI: N ew symptom(s): Rolando is a pleasant 74-year-old man seen today in consultation. He has a history of colon polyps and underwent colonoscopy in March of this year for positive stool DNA testing. A total of approximately 14 polyps were removed with the largest being a 2.5 cm lesion in the vicinity of the ileocecal valve. 6 to 12-month follow-up was recommended because of the significant number of polyps. These were all tubular adenomas on pathology with no evidence of high-grade dysplasia or carcinoma except for 3 hyperplastic rectal polyps. We reviewed this today. He has no complaints of rectal bleeding or change in his bowel habits. Weight and appetite have been stable. The colonoscopy in March was his first examination. * ROS: G eneral/Constitutional: Change in appetite d enies. F atigue d enies. ? E NT: Patient denies d ifficulty swallowing. R espiratory: Patient denies s hortness of breath. C ardiovascular: Patient denies c hest pain. G astrointestinal: Comments S [facility] for details. G enitourinary: Difficulty urinating d enies. I ncontinence d enies. M usculoskeletal: Patient denies m uscle aches. S kin: Patient denies p ruritis. N eurologic: Patient denies l ow back pain. P sychiatric: Patient denies m ental or physical abuse. * Medical History: A sthma/COPD, BPH, Allergic rhinitis, Pulmonary nodules, JONAH/CPAP, Diabetes mellitus, Microscopic hematuria, Colonoscopy 04/02, multiple tubular adenomas, 6 to 12- month follow-up. * Surgical History: I nguinal hernia repairs x 3 . * Hospitalization/Major Diagno stic Procedure: D enies Past Hospitalization. * Family History: F ather: . M other: . Denies familly history of colon cancer, colon polyps or liver disease. * Social History: T obacco Use: T obacco Control (Standard) T obacco use: N onsmoker. M iscellaneous: M arital status: . Occupation: retired. D rug/Alcohol: A ANGELA-C (Standard) D id you have a drink containing alcohol in the past year? Y es,?How often did you have a drink containing alcohol in the past year? M onthly or less (1 point), H ow many drinks did you have on a typical day when you were drinking in the past year? 1 or 2 drinks (0 point), H ow often did you have six or more drinks on one occasion in the past year? N ever (0 point), P oints 1 , I nterpretation N egative. * Medications: T aking Cholecalciferol 25 MCG (1000 UT) Capsule 1 capsule Orally Once a day , Taking Meclizine HCl 25 MG Tablet 1 tablet as needed Orally every 12 hrs , Taking Finasteride 5 MG Tablet 1 tablet Orally Once a day , Taking Empagliflozin 25 MG Tablet 1/2 tablet Orally Once a day , Taking Macdoel 3 1000 MG Capsule 1 capsule Orally Three times a day , Taking Naproxen 500 MG Tablet 1 tablet with food or milk as needed Orally every 12 hrs , Taking Atorvastatin Calcium 80 MG Tablet 1 tablet Orally Once a day , Taking Metformin & Diet Manage Prod , Taking Tamsulosin HCl 0.4 MG Capsule 1 capsule Orally Once a day , Taking Albuterol Sulfate (2.5 MG/3ML) 0.083% Nebulization Solution 3 mL as needed Inhalation every 6 hrs , Taking Alogliptin Benzoate 25 MG Tablet 1 tablet Orally Once a day , Taking Alogliptin Benzoate 25 MG Tablet 1 tablet Orally Once a day , Not-Taking/PRN Aspirin 81 81 MG Tablet Delayed Release 1 tablet Orally Once a day , Medication List reviewed and reconciled with the patient * Allergies: N .K.D.A. Objective: * Vitals: W t:194.2lbs, Ht:66.75in, BMI:30.64Index, BP:001/01mm Hg, HR:88/min, Temp:97.3, Ht-cm: 169.55, Wt-k.09. * Examination: G eneral Examination: GENERAL APPEARANCE: i n no acute distress. HEAD: n ormocephalic. EYES: s clera non-icteric. ORAL CAVITY: m ucosa moist. NECK/THYROID: n o lymphadenopathy. SKIN: a nicteric. HEART: S 1, S2 normal, no murmurs. LUNGS: c lear to auscultation bilaterally. CHEST: n ormal shape and expansion. ABDOMEN: s oft, nontender, nondistended, bowel sounds present, no organomegaly . EXTREMITIES: n o clubbing, cyanosis, or edema. PSYCH: c ognitive function intact. Assessment: * Assessment: 1. E ncounter for other preprocedural examination - Z01.818 (Primary) 2 . H istory of adenomatous polyp of colon - Z86.0101 3 . E ncounter for long-term (current) use of high-risk medication - Z79.899 4 . L guanaco term current use of oral hypoglycemic drug - Z79.84 We discussed colonoscopy tod ay. We discussed risks and benefits of the procedure today. He understands these and agrees to proceed. He is advised to stop naproxen 1 week before the procedure. Jardiance stop 3 days before the procedure. Alogliptin stop 2 days before the procedure. Metformin stop 1 day before the procedure. Plan: * Treatment: 2. H istory of adenomatous polyp of colon P rocedure: COLONOSCOPY (Ordered for 10/14/2024) 3. E ncounter for long-term (current) use of high-risk medication P rocedure: COLONOSCOPY (Ordered for 10/14/2024) 4. L guanaco term current use of oral hypoglycemic drug P rocedure: COLONOSCOPY (Ordered for 10/14/2024) * Procedure Codes: 3 017F COLORECTAL CA SCREEN DOC REV, G9903 Pt scrn tbco id as non user, G8785 BP SCR NOT PRFRM REC REASON NOS * Preventive Medicine: Counseling: C are goal follow-up plan: A edwin Normal BMI Follow-up G iving encouragement to exercise. Screenings: F all Risk Screening F all Risk Assessment: N o falls in the past year, S creening: N o falls in the past year, P mikael of Care: N ot documented, no reason specified. * Follow Up: 1 Year * * Sign off status: Completed true * Provider: Gloria Thakkar MD Date: 0 10/14/2024 Generated for Julita chilel/Rony/Khoaitting on: 0 10/16/2024 11:44 AM EDT History and Physical Notes * HPI (History of Present Illness) Category Sub-Category Detail Notes Category Not es New symptom(s) Rolando is a pleasant 74-year-old man seen today in consultation. He has a history of colon polyps and underwent colonoscopy in March of this year for positive stool DNA testing. A total of approximately 14 polyps were removed with the largest being a 2.5 cm lesion in the vicinity of the ileocecal valve. 6 to 12-month follow-up was recommended because of the significant number of polyps. These were all tubular adenomas on pathology with no evidence of high-grade dysplasia or carcinoma except for 3 hyperplastic rectal polyps. We reviewed this today. He has no complaints of rectal bleeding or change in his bowel habits. Weight and appetite have been stable. The colonoscopy in March was his first examination. Examination Category Sub-Category Detail Notes Category Not es General Examination GENERAL APPEARANCE: in no acute di stress HEAD: normocephalic EYES: sclera non-icteric NECK/THYROID: no lymphadenopathy HEART: S1, S2 normal, no mu rmurs CHEST: normal shape and exp ansion LUNGS: clear to auscultatio n bilaterally ABDOMEN: soft, nontender, non distended, bowel sounds present, no organomegaly SKIN: anicteric EXTREMITIES: no clubbing, cyanosi s, or edema PSYCH: cognitive function i ntact ORAL CAVITY: mucosa moist
--- NOTE | ~2024-10-16 | CT_ITS ---
CLINICAL HISTORY: Z87.891 - Personal history of nicotine dependence CT lung cancer screening (LDCT) Comparison: CT/REG/FL/SR - CT LUNG SCREENING - 10/03/23 10:22 EDT Technique: Axial CT images of the chest using low-dose technique. Referring provider counseled the patient on shared decision-making for LDCT screening. Additional counseling was provided on smoking cessation. Effective radiation dose total: DLP 55.3 mGycm, CTDIvol 1.5 mGy. Findings: There is mild paraseptal and centrilobular emphysema. Areas of scarring are noted in the lingular segment and right lower lobe. There is chronic bronchial wall thickening with bronchiectasis particularly in the right lower lobe. No pulmonary nodules are noted. 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 A cyst is seen in the upper pole of the left kidney. Other: None IMPRESSION: LungRADS 1: Negative exam. Continue annual screening with low dose Chest CT in 12 months. ##L1# This document has been electronically signed by: Jose Botello MD on 10/16/2024 12:35:58
--- OUTSIDE RECORDS SUMMARY | 2024-10-16 11:45 | XMS_ITS | Clinical Summary ---
Author Organization [employer] [facility] [employer] Address [address] [place] [address] Care Team Providers Care Farm Worker Name Role Phone Andrea Llanos NP Primary [...] Adults 18 yrs or above (or HM Modifier)([facility]) 02/23/1970 Hepatitis C Virus Infection in Adolescents and Adults: Screening (or Modifier) ([facility]) 02/23/1970 SDCA Screening Reminder: Anneliese sloan for all adults ([facility]) 02/23/1970 Tobacco Smoking Cessation: i n Adults excluding Women: Behavioral and Pharmacotherapy Interventions ([facility]) 02/23/1970 DTaP/Tdap/Td Vaccines ([facility]) (1 - Tdap) 02/23/1971 Colorectal Cancer Screening 45 -75 Yrs (or HM Modifier ) 02/23/1997 Colorectal Cancer: FLEXIBLE SIGMOIDOSCOPY Screening every 5 yrs 02/23/1997 Colorectal Cancer: Fecal Imm unochemical Test (FIT) Annually [facility] 02/23/1997 Colorectal Cancer: High-sens itivity gFOBT Screening Annually [facility] 02/23/1997 Colorectal Cancer: Stool Col oguard Screening every 3 yrs 02/23/1997 Colorectal Cancer:CT Colonography Screening every 5 yr s 02/23/1997 Lung Cancer: Screening Annua lly in adults aged 50 to 80 years (or HM Modifiers)([facility]) 02/23/2002 Pneumococcal Vaccination Scr eening: Patients 50+ yrs of age ([facility]) (1 of 1 - PCV) 02/23/2002 Zoster/Shingles Vaccine Seri es Screening: Adults aged 18+ yrs (or HM Modifiers)([facility]) (1 of 2) 02/23/2002 Flu Vaccination: Ages 65+: Y early High Dose Recommended (or Modifier)([facility]) 09/06/2024 COVID-19 Vaccine Screening: Initial Series and Booster Status ([facility]) ( - 2023- season) 2024 RSV Vaccines (1 - 1-dose 75+ series) 02/23/2027 Medical Devices Not on file Insurance '[employer] A[employer] / [employer] Care Teams Farm Worker Relationship Specialty Start Date End Date Andrea Llanos NP [facility] [address] [place] [phone] PCP - General Family Medicine 01/09/20
--- OUTSIDE RECORDS SUMMARY | 2024-10-16 11:45 | XMS_ITS | Patient Health Record ---
Author Organization [facility] Address [address] [place] [address] [place] [phone] Care Team Providers Care Mgmt Specialist Name Role Phone Viet DRIVER, Andrea Primary Care Provider Hasmukh Camacho Jr Unavailable Allergies No Known Allergies Results Component Value Reference Range Notes Glucose, Whole Blood Reviewed date:03/28/2024 07:53:24 AM Interpretation: Performing Lab:[facility], [address] [place] [phone] Notes/Report: Glucose, Whole Blood 136 60-115 mg/dL METER # : [id number] Pathology Reviewed date:04/02/2024 08:41:11 PM Interpretation: Performing Lab:[facility], [address] [place] [phone] Notes/Report: Reason For Referral Referring Provider First Name Andrea Referring Provider Last Name Viet Referred Organization [facility] Referred Provider Hasmukh Thakkar Jr Referred Address [address] [place] [address],[place] [address] [place] [phone], Referred Provider Specialty Gastroentero logy General Notes [...] Referring Provider Last Name Viet Referred Organization [facility] Referred Provider Hasmukh Thakkar Jr Referred Address [address] [place] [address],[place], [place],[phone],[place] Referred Provider Specialty Gastroentero logy Referral Priority Routine Medications Medication SIG (Take, Route, Frequency, Duration) Notes Start Date End Date Status Metformin & Diet Manage Prod Active Dulcolax 5 MG 4 tablets for bowel prep Orally 2 pills at 3:00 p.m. and 7:00 p.m. the day before the procedure for 30 days 10/14/2024 Active Tamsulosin HCl 0.4 MG 1 capsule Orally O nce a day Active MiraLax 17 GM/SCOOP take for bowel prep Orally Once a day for 1 days 10/14/2024 Active Albuterol Sulfate (2.5 MG/3ML) 0.083% 3 mL as needed Inhalation every 6 hrs Active Alogliptin Benzoate 25 MG 1 tablet Orall y Once a day for 30 day(s) 10/14/2024 Active Naproxen 500 MG 1 tablet with food o r milk as needed Orally every 12 hrs Active Atorvastatin Calcium 80 MG 1 tablet Oral ly Once a day Active [place] 3 1000 MG 1 capsule Orally Three times a day Active Cholecalciferol 25 MCG (1000 UT) 1 capsule Orally Once a day Active Alogliptin Benzoate 25 MG 1 tablet Orall y Once a day for 30 day(s) 10/14/2024 Active Meclizine HCl 25 MG 1 tablet as needed Orally every 12 hrs Active Aspirin 81 81 MG 1 tablet Orally Once a day Not-Taking Finasteride 5 MG 1 tablet Orally Once a day Active Empagliflozin 25 MG 1/2 tablet Orally Once a day Active Social History Tobacco [...] Status Risk Notes Problem Pre-procedure evaluation check (563971487) Encounter for other preprocedural examination (Z01.818) Active confirmed Problem Long-term current use of drug therapy (590888878) Encounter for long-term (current) use of high-risk medication (Z79.899) Active confirmed Problem Long-term current use of drug therapy (290231338) 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 current use of oral hypoglycemic drug (Z79.84) Active confirmed Problem History of adenomatous polyp of colon (910947129) History of adenomatous polyp of colon (Z86.0101) Active confirmed Vital Signs Heart Rate 88 /min 10/14/2024 Temperature 97.3 degrees Fahrenheit 10/14/2024 Blood pressure diastolic 01 mm Hg 10/14/2024 Height 66.75 in 10/14/2024 Blood pressure systolic 001 mm Hg 10/14/2024 Weight 194.2 lbs 10/14/2024 BMI 30.64 kg/m2 10/14/2024 Encounters Encounter Location Date Provider Diagnosis [facility] Outpatient [address] [place] [phone] 03/27/2024 Hasmukh Thakkar Jr Abnormal findings in stool R19.5 and Colon polyps K63.5 [facility] [address] [place] [phone] 10/14/2024 Hasmukh Thakkar Jr Encounter for other preprocedural examination Z01.818 ; History of adenomatous polyp of colon Z86.0101 ; Encounter for long-term (current) use of high-risk medication Z79.899 and 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 current use of oral hypoglycemic drug Z79.84 [facility] [address] [place] [phone] 04/02/2024 Hasmukh Thakkar Jr [facility] [address] [place] [address] [address] [place] [phone] 10/14/2024 Hasmukh Thakkar Jr Assessments Encounter Date Diagnosis (ICD Code) Assessment Notes Treatment Notes Treatment Clinical Notes Section Notes 03/27/2024 Colon polyps (ICD-10 - K63.5) 03/27/2024 Abnormal findings in stool (ICD-10 - R19.5) 10/14/2024 Encounter for other preprocedural examination (ICD-10 [...] stop 1 day before the procedure. 10/14/2024 penitentiary current use of oral hypoglycemic drug (ICD-10 [...] Order Date COLONOSCOPY 10/14/2024 Next Appt Details Provider Name:Hasmukh francisco , 12/10/2024 09:00:00 AM, [facility] , [place], [place], [phone], Insurance Providers Payer Name Payer Address Payer Phone Subscriber Number Group Number Insured Name Patient Relationship to Insured Coverage Start Date Coverage End Date [facility] [employer] [address] [place] [address] [id number] HORTENCIA DUFFY Self - patient is the insured Medical (General) History Medical History History ICD Code Asthma/COPD BPH Allergic rhinitis Pulmonary nodules JONAH/CPAP Diabetes mellitus Microscopic hematuria Colonoscopy 04/02, multiple tubular adeno mas, 6 to 12-month follow-up Surgical History Surgery Date(Month/Year) Inguinal hernia repairs x 3
== END 2024-10-16 09:50 | disposition home or self-care (01) ==
LOC: HO.CT 09:49
PROVIDERS: Visit Provider Internal Medicine Pulmonary Disease
DX: Z12.2 Encounter for screening for malignant neoplasm of respiratory organs (principal); Z87.891 Personal history of nicotine dependence
CPT/HCPCS: 71271

== ENCOUNTER → 2024-10-16 09:52 | Outpatient (BNV) | payer OTHER, SELFPAY | PROVIDERS: Visit Provider Radiology Diagnostic Radiology | DX: Z12.2 Encounter for screening for malignant neoplasm of respiratory organs (principal); Z87.891 Personal history of nicotine dependence | CPT/HCPCS: 71271 ==